=== PATIENT | male | born 1980 | race Caucasian/White ===

== ENCOUNTER 2025-04-03 14:52 | Emergency (ER) | payer OTHER, SELFPAY ==
--- OUTSIDE RECORDS SUMMARY | 2024-04-05 10:30 | XMS_ITS | Encounter Summary ---
Author Name [facility] [place] [facility] [place] [facility] [place] Address [address] [place] [address] Care Team Providers Care Psychological Science Professor Name Role Phone SHELLEY SAAVEDRA Primary Care Provider Unavailabl e Insurance Providers: All historical and current Section Date Range: From patient's date of to the date document was created. This section includes the names of all active insurance providers for the patient. Insurance Provider Type of Coverage Plan Name Start of Policy Coverage End of Policy Coverage Group Number Member ID Insurance Provider's Telephone Number Policy Camp's Name Patient's Relationship to Policy Camp CIGNA* HIGH DEDUCTIBL E HEALTH PLAN W/HEALTH SAVINGS ACCOUNT [employer] HDHP HSA Aug 01, 2016 [id number] [phone] DEE FULLER SPOUSE [facility] MENTAL HEALTH [employer] (HDHP /HSA) Aug 01, 2016 [id number] DEE FULLER SPOUSE [employer] ([id number]) PRESCRIPT ION [employer] (HDHP /HSA) Aug 01, 2016 [id number] DEE FULLER SPOUSE [employer] ([id number]) PRESCRIPT ION [employer] CIAL Aug 01, 2016 [id number] [phone] DEE FULLER SPOUSE [employer] ([id number]) PRESCRIPT ION [employer] HDHP HSA Aug 01, 2016 [id number] DEE FULLER SPOUSE Selected Encounter This section includes the information on record at [place] for the Encounter. Date/Time Encounter Type Encounter Description Reason Provider Source Apr 05, 2024 02:30 PM OFFICE O/P EST HI 40 MIN SUBSTANCE USE DISORDER IND ICD-10-CM F11.20 Opioid dependence, uncomplicated RACHEL HANNAH IHE Encounter Template Text not used by [place] Assessments - Encounter Diagnoses This section includes the primary and secondary diagnoses documented for the Encounter. Date/Time Primary/Secondary Diagnosis Diagnosis Name Provider Source Apr 05, 2024 04:04 PM PRIMARY Opioid dependence, uncomplicated RACHEL HANNAH [place] [facility] [facility] Apr 05, 2024 04:04 PM SECONDARY Post-traumatic stress disorder, chronic RACHEL HANNAH [place] [facility] [facility] Plan of Treatment: Future Appointments (+ 6 months) and Future Tests (+/- 45 days) The Plan of Treatment section includes future care activities for the patient from [facility] [place] [facility]. This section includes future appointments and future orders which are active, pending or scheduled. Future Appointments This section includes appointments that were scheduled to occur 6 months from the date of the Encounter, up to a maximum of 20 appointments. The data comes from all [place] treatment facilities. Appointment Date/Time Appointment Type Appointme nt Facility Name May 31, 2024 02:30 PM AMBULATORY - PSYCHIATRY [place] [facility] [facility] Jun 12, 2024 02:00 PM AMBULATORY - MEDICINE [place] [facility] Jun 13, 2024 09:00 AM AMBULATORY - PSYCHIATRY [facility] Jun 21, 2024 01:00 PM AMBULATORY - PSYCHIATRY [facility] Jun 25, 2024 02:30 PM AMBULATORY - PSYCHIATRY [place] [facility] [place] [facility] Jul 13, 2024 02:30 PM AMBULATORY - PSYCHIATRY [place] [facility] [place] [facility] Jul 13, 2024 02:30 PM AM[place]ULATORY [place] [facility] Jul 19, 2024 02:00 PM AMBULATORY - PSYCHIATRY [facility] Jul 24, 2024 02:30 PM AMBULATORY - PSYCHIATRY [place] [facility] [place] [facility] Aug 21, 2024 02:30 PM AMBULATORY - PS[facility]CHIATRY [facility] Sep 18, 2024 01:30 PM AMBULATORY - PSYCHIATRY [facility] Active, Pending, and Scheduled Orders This section includes a listing of several types of active, pending, and scheduled orders, including clinic medications orders, diagnostic test orders, procedure orders and consult orders; where the start date of the order is 45 days before the date of the Encounter or 45 days after the date of theEncounter. The data comes from all [place] treatment facilities. Test Date/Time Test Type Test Details Facility Name May 03, 2024 02:45 PM Laboratory - Chemi stry Order DRUGS OF ABUSE URINE (DRUG) SP [facility] Lab Results: +/- 30 days of the encounter This section includes the Chemistry and Hematology Lab Results on record with [place] for the patient. Radiology Reports and Pathology Reports are provided separately, in subsequent sections. Lab Results This section contains the Chemistry/Hematology Results that were resulted 30 days before or 30 daysafter the date of the Encounter. Date/Time Source Result Type Result - Unit Interpretation Reference Range Specimen Type Comment Apr 11, 2024 02:30 PM [facility] DRUGS OF ABUSE URINE Specimen Type: URINE Comment: Urine with Cr <5 is diluted or substituted. Cr between 5 and 20 is very dilute. Urine with SG of 1.001 or less is diluted or substituted. SG of 1.003 or less is very dilute. Urine with a pH <3 or >11 has been adulterated and is unsuitable for testing by our current method. Urine with pH between 3 and 4 OR 10 and 11 may have been adulterated. FENTANYL CONFIRMATION NOT SENT BY LAB. Ordering Provider: RACHEL HANNAH Report Released Date/Time: Mar 08, 2024 02:45 PM Reporting Lab: [address] [id number] Performing Lab: [address] [id number] AMPHETAMINES SCREEN NONE-DETECTED None-Detected, Cutoff = 1000 ng/mL BENZODIAZEPINES SCREEN NONE-DETECTED Non e-Detected, Cutoff = 200 ng/mL COCAINE SCREEN NONE-DETECTED None-Detect ed,Cutoff = 300 ng/mL OPIATES SCREEN NONE-DETECTED None-Detect ed, Cutoff = 300 ng/mL CANNABINOIDS SCREEN POSITIVE HH None-Detect ed,Cutoff = 50 ng/mL BARBITURATES SCREEN NONE-DETECTED None-D etected,Cutoff = 200 ng/mL OXYCODONE SCREEN NONE-DETECTED None-Dete cted, Cutoff = 100 ng/mL BUPRENORPHINE (URINE) POSITIVE HH None Detected, Cutoff = 10.0 ng/mL ALCOHOL, ETHYL URINE NONE-DETECTED mg/dL NONE-DETECTED, cutoff = 10 mg/dL FENTANYL SCREEN NONE-DETECTED ng/mL Nega tive: Cutoff = 1.00 ng/mL PH, RIGOBERTO 5.5 [pH] 4-10 CREATININE, RIGOBERTO 398.49 mg/dL >20 SP.GRAVITY, RIGOBERTO 1.021 H 1.003-1.020 Social History: Smoking Status (Most current) and Tobacco Use (All prior to encounter date) This section includes the most current, and the historical, smoking and tobacco- related health factors from the [place] facility where the Encounter took place. Current Smoking Status This section includes the most current smoking, or tobacco-related health factor, from the [place] facility where the Encounter took place. Date/Time Current Smoking Status Comment [facility] Jul 05, 2019 09:23 AM [place]-TOBACCO QUIT 5 TO < 15 [facility] Tobacco Use History This section includes a history of the smoking, or tobacco-related health factors, that were collected on or before the date of the Encounter. The data comes from the [place] facility where the Encounter took place. Date/Time Smoking Status/Tobac co Use Comment Facility Jul 05, 2019 09:23 AM VA-TOBACCO QUIT 5 TO < 15 YRS [place] [facility] [place] [facility] Jun 21, 2018 10:07 AM VA-TOBACCO FORMER USER [place] [facility] [place] [facility] Jun 21, 2018 10:07 AM RI-TOBACCO QUIT 5 TO < 15 YRS [place] [facility] [place] [facility] Jul 12, 2017 11:33 AM QUIT TOBACCO USE > 7 YEARS AGO [place] [facility] [place] [facility] Aug 10, 2016 01:52 PM QUIT TOBACCO USE > 7 YEARS AGO [place] [facility] [facility] Aug 11, 2015 01:06 PM QUIT TOBACCO USE > 7 YEARS AGO [facility] Sep 10, 2010 01:42 PM QUIT TOBACCO USE > 7 YEARS AGO [facility] Oct 06, 2009 10:50 AM QUIT TOBACCO USE 1-7 YEARS AGO 2.5 years ago [facility] Sep 27, 2008 12:40 PM QUIT TOBACCO USE 1-7 YEARS AGO [facility] May 16, 2008 11:03 AM V1-PT DECLINES REF TO TOBACCO CESS [facility] May 16, 2008 11:03 AM V1-PT DECLINES TOBACCO CESSATION MEDS [facility] May 16, 2008 11:03 AM V1-PT THINKING ABOUT QUIT TOBACCO USE [facility] Nov 27, 2007 03:00 PM V1-PT DECLINES REF TO TOBACCO CESS [facility] Nov 27, 2007 03:00 PM V1-PT DECLINES TOBACCO CESSATION MEDS [facility] Nov 27, 2007 03:00 PM V1-PT THINKING ABOUT QUIT TOBACCO USE [facility] Oct 06, 2007 03:49 PM V1-PT DECLINES REF TO TOBACCO CESS [facility] Oct 06, 2007 03:49 PM V1-PT DECLINES TOBACCO CESSATION MEDS [facility] Oct 06, 2007 03:49 PM V1-PT NOT INTERESTED IN QUIT TOBACCO USE [facility] Oct 06, 2007 11:28 AM CURRENT SMOKER smokes 1/2 PPD since age 20 [facility] Encounter Notes: All associated encounter notes This section contains the clinical notes associated to the Encounter. Date/Time Encounter Note(s) Provider Source May 30, 2024 12:36 PM LETTERS: LOCAL TITLE: PATIENT LETTER (B) STANDARD TITLE: LETTERS DATE OF NOTE: MAY 30, 2024@12:36 ENTRY DATE: MAY 30, 2024@12:37:03 AUTHOR: REMEDIOS DANIEL COSIGNER: URGENCY: STATUS: COMPLETED The following letter was generated and will be mailed to patient to promote engagement: Dear Mr. uFller, We have been trying to reach you at the request of your brother who provided info to our Patient Sap Payroll Consultant regarding your recent hospitalization. Please contact us so that we may assist with connecting you with [facility]. We are available Tuesday through Tuesday from 8am to 4:30pm. Please call Oil Furnace Installer Atifkaylin Riggins at [phone]. We look forward to hearing from you. Sincerely, Remedios Daniel PsyD [facility] Polisher for Outpatient Mental [facility] REMEDIOS DANIEL [facility] Apr 05, 2024 04:04 PM ACCOUNTING OF DISC LOSURES NOTE: LOCAL TITLE: STATE PRESCRIPTION DRUG MONITORING PROGRAM STANDARD TITLE: ACCOUNTING OF DISCLOSURES NOTE DATE OF NOTE: APR 05, 2024@16:04:37 ENTRY DATE: APR 05, 2024@16:04:37 AUTHOR: RACHEL HANNAH EXP COSIGNER: URGENCY: STATUS: COMPLETED This PDMP query was submitted by Rachel Hannah MD. The clinical justification for this PDMP query is to review controlled substances prescribed outside of the [facility], and any additional information that may become available, as an important component of standard clinical care, and in accordance with [facility] policy. Patient information was shared with the PDMP [place]. No prescription(s) for controlled substances outside the [facility] were found in the last 90 days. /vance/ RACHEL HANNAH MD PHYSICIAN Signed: 04/05/2024 16:04 RACHEL HANNAH [place] [facility] [place] [facility] Apr 05, 2024 02:30 PM TELEHEALTH NOTE: LOCAL TITLE: VA VIDEO CONNECT NOTE STANDARD TITLE: TELEHEALTH NOTE DATE OF NOTE: APR 05, 2024@14:30 ENTRY DATE: APR 05, 2024@14:30:59 AUTHOR: RACHEL HANNAH EXP COSIGNER: URGENCY: STATUS: COMPLETED [facility] Video Connect ([facility]VC) Standard Documentation VVC Clinician Resources Only: E911 (Emergency Call Relay Center): [phone] [facility] - ([phone]) press #1. BORIS Suicide Coordinator [phone], Ext. [phone]; Back-up Ext. [phone] Clinical Project Leader of the Day(AOD), Willis ESCALANTE [phone], Ext. [phone] Introduction: Visit is being conducted by [place] Video Connect. identified with 2 identifiers: [X] Full Name [ ] Date of [X] Address [ ] VA ID Card *We shouldn't be asking for SSN over a video visit so want to offer only acceptable identifiers for video visits.* Emergency Plan: Tigrett confirmed and/or provided the following information in case of emergency or technology failure. PATIENT PHONE - PHONE NUMBER [CELLULAR] - NONE FOUND Is patient phone number correct, if not, enter below: Tigrett's phone number: KIRSTY FULLER [address] [place], [place], [address] 's present location and address for appointment: at work, in private room 's emergency contact name and phone number: CPRS reported that location is private and safe: Yes Informed Consent: Tigrett informed of the risks and benefits of Telehealth video care. Tigrett has the right to refuse video services. If refuses video visit, a fgqg-ko-gamk visit will be scheduled. Tigrett verbalized consent for this video visit: Yes provided consent for any other persons present for visit: N/A If yes, who and relationship to patient: Secure visit: Visit was locked for security and privacy:Yes INFORMED CONSENT REVIEWED: At beginning of session reviewed rights and limits of confidentiality, mandatory reporting situations, duty to warn and protect, Steve Warning, (if treatment team finds patient to be an acute danger to himself or others, that this information could be relayed to a court of law and presented to a windows 7 deployment lead), and [facility] access for active duty service members. Provided Suicide Prevention Hotline number, and other contact numbers as necessary. Telehealth Informed Consent: verbalized consent for this telephonic visit: Yes DIAGNOSES AND PROBLEMS TREATED THIS VISIT: Opioid dependence, on maintenance treatment Chronic PTSD MEDS: Buprenorphine/naloxone 12 mg/3 mg daily INTERVAL HISTORY/ CURRENT PROBLEMS The was assessed via VVC in the buprenorphine Clinic for medication management. Two identifiers were used. He says that in general, he is doing well. Offers no specific concerns today. Things are peaceful and quiet. Kids are starting back at school. Denies cravings, med side effects. His mood, sleep, motivations and energy levels have been reasonable. He denies any SI/HI. 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 Only down side - I drive 45 min to work, but I have my 2 go-to podcasts. He currently lives with his parents, downstairs apt, feels private enough . Saving funds so he can eventually buy his own place, hopefully by the end of this year , which means no vacations in the near future. Re: divorce - I thought this would be over in 2019! Mediation failed. They were in and out of court. In January 2023, the windows 7 deployment lead imposed a permanent order - they will split time with the kids 50/50, which was his most significant concern. Final day in divorce court 06/08/23. I'm done! I'm not going to dwell on the unfairness. I'm just moving on! He shares joint custody with his ex-. 3 years ago, he discovered that his was having an affair. He was in shock as he thought their marriage was good. Their 2 children - Katey age 10, Arjun age 7 - stay with his parents after school during the day and they otherwise split time with the kids 50/50. He feels lauro to see them every day when he comes home from work. They started back in school. His children's best friends are his brother's 2 kids, same ages; brother and his family live in [place]. SUBSTANCE ABUSE: Caffeine:1 cup/day Tobacco: no Cocaine: no Opioid: on suboxone Alcohol: 2 drinks/week Cannabis: 2-3 days a week REVIEW OF SYSTEMS MENTAL HEALTH: SLEEP: fine MOOD: good mood reported PTSD: Nightmares, flashbacks, intrusive memories. avoidance:no ANXIETY:no ANGER/IRRITABILITY/AGGRESSI ON: no SUICIDAL MOOD/IDEAS: denies SUBSTANCE USE: as above use of alcohol or illegal/non-prescribed drugs TOBACCO: none ANDREINA/HYPOMANIA: None. PSYCHOTIC FEATURES: None. ALCOHOL OR DRUG USE: as above OVERALL CHANGE SINCE LAST VISIT: same DEGREE OF IMPAIRMENT OF DAILY FUNCTION: moderate MEDICATION RECONCILIATION: pt not on no new/ non-VA prescribed medications or herbal treatments. MSE: Tigrett is casually dressed and groomed. He is polite with bright affect. Mental Status: Alert, calm, pleasant, clear and goal directed. No affective disturbance; thoughts are logical without evidence of confusion or psychosis. Reasonable insight is evident at this time. pt is aware that he is at a high risk to engage on dangerous behavior is he uses ETOH or illicit substances LABS: reviewed recent labs. No abnormalities on the kidney and LF LAST UDS: 02/14: POS bup, cannab; NEG for everything else. ASSESSMENT: OUD on suboxone: Patient reports maintaining abstinence from alcohol and other drugs No evidence of overmedication, side effects or withdrawals. Responding well to current dose. Reviewed the Uds and self report for Sobriety/ Relapse on alcohol or drugs. 1. Pt is in full remission 2. CGI-I Scale: 1 A 7-point rating of patient improvement. A score of 1 corresponds to a rating of very much improved; 2=much improved; 3=minimally improved; 4=no change; 5=minimally worse; 6=much worse; 7=very much worse. Patient is making significant progress and his functionality has improved remarkably. TREATMENT PLAN #1. Opioid dependence on Buprenorphine [x] Urine Drug Screen [x] Continuation of buprenorphine/naloxone at the same dose [ ] Change suboxone dose as follows: [x] Patient was encouraged to continue ABSTINENCE from use of opioids and other illicit drugs [ ] Patient to attend [facility] group treatment [ ] Referral for inpatient detox/higher level of care - Prescribe the same dose of Suboxone to keep cravings under control. - Educate about safe/effective use of medication and reinforced awareness of his substance dependence problem. - Monitor compliance, side effects and effectiveness of the Suboxone. - Recommend patient to continue attending aftercare psychosocial treatment, AA, or NA meetings. Cannabis use: Educated about the pros and cons of cannabis use, including imminent symptoms, short and halfway effects of using cannabis. Encouraged abstinence. Alcohol use: education and counseling provided, especially the interactions with suboxone. is aware and does not take his suboxone on the days he plans to drink alcohol with supper. He says that his consumption has been less than weekly. RTC: [facility] 8 WEEKS, I WILL BE AWAY IN 4 WEEKS. HE HAS SUB REFILL. EDUCATION/REMS: Instructed the patient to keep suboxone in a secure place, out of the sight and reach of all others, especially children.Ingestion by a child may cause respiratory depression that can result in . If a child is exposed to one of these products, medical attention should be sought immediately. Warned patient that it is extremely dangerous to self-administer non- prescribed benzodiazepines or other central nervous system (ROBOTIC TOY INVENTOR) depressants (including alcohol) with suboxone. Cautioned patient to use their prescribed benzodiaepines only as directed by their prescriber. > Instructed patient never to give these products to anyone else as selling or giving away buprenorphine-containing products is against the law. Pt evaluated for assessment of dangerous behavior. Pt denied any thoughts/purpose/intention/ ideas to self-harm. Pt doesnt present any psych/sxs such as thought disorder or mood disorder. Pt is aware that during periods of drunkenness he might get into acts that are dangerous to self and others and that he has to avoid using substance. Patient provided with Suicide Prevention Lifeline number(0-673-011-TALK) and urged to call that number at any time if he has thoughts about suicide and , or to call 911 or go to nearest E.R.if he has suicidal thoughts. Patient is aware of how to access [facility] open access MH clinic in [facility] during weekdays for immediate mental health needs if I am not available. Patient has capacity to make his own medication decisions at present time. Patient agreed with above plan. Time spent in this encounter: 40 minutes. Greater than 50% of time spent in omvb-yq-lizp, counseling regarding abstinence, treatment goals, medication effects and side effects, need for psychotherapy, dependence best methods for taking medication. /vance/ RACHEL HANNAH MD PHYSICIAN Signed: 04/05/2024 16:04 RACHEL HANNAH [facility]
--- OUTSIDE RECORDS SUMMARY | 2024-05-31 10:30 | XMS_ITS | Encounter Summary ---
Author Name [facility] [place] [facility] [place] [facility] [place] [facility] [place] Address [address] [place] [address] Care Team Providers Care Senior Developer Name Role Phone SHELLEY SAAVEDRA Primary Care [...] MASSM UTUAL HDHP HSA Aug 01, 2016 [id number] [phone] DEE STRINGER SPOUSE [facility] UTUAL (HDHP /HSA) Aug 01, 2016 [id number] DEE STRINGER SPOUSE [facility] ([id number]) PRESCRIPT ION [facility]UAL (HDHP /HSA) Aug 01, 2016 [id number] DEE STRINGER SPOUSE [employer] ([id number]) PRESCRIPT ION MASSM UTUAL [facility] CIAL Aug 01, 2016 [id number] DEE STRINGER SPOUSE [employer] ([id number]) PRESCRIPT ION [facility] HDHP HSA Aug 01, 2016 K4UA [id number] DEE STRINGER SPOUSE Selected Encounter This section includes the information on record at [place] for the Encounter. Date/Time Encounter Type Encounter Description Reason Provider Source May 31, 2024 02:30 PM OFFICE O/P EST HI 40 MIN SUBSTANCE USE DISORDER IND ICD-10-CM F11.20 Opioid dependence, uncomplicated RACHEL HANNAH IHE Encounter Template Text not used by [place] Assessments - Encounter Diagnoses This section includes the primary and secondary diagnoses documented for the Encounter. Date/Time Primary/Secondary Diagnosis Diagnosis Name Provider Source May 31, 2024 03:52 PM PRIMARY Opioid dependence, uncomplicated RACHEL HANNAH [place] [facility] [place] [facility] May 31, 2024 03:52 PM SECONDARY Post-traumatic stress disorder, chronic RACHEL HANNAH [facility] [place] [facility] Plan of Treatment: Future Appointments (+ 6 months) and Future Tests (+/- 45 days) The Plan of Treatment section includes future care activities for the patient [facility] [place] [facility] This section includes future appointments and future orders which are active, pending or scheduled. Future Appointments This section includes appointments that were scheduled to occur 6 months from the date of the Encounter, up to a maximum of 20 appointments. The data comes from all [place] treatment facilities. Appointment Date/Time Appointment Type Appointme nt Facility Name Jun 12, 2024 02:00 PM AMBULATORY - MEDICINE [place] [facility] [place] [facility] Jun 13, 2024 09:00 AM AMBULATORY - PSYCHIATRY [facility] Jun 21, 2024 01:00 PM AMBULATORY - PSYCHIATRY [facility] Jun 25, 2024 02:30 PM AMBULATORY [place]AT[place] [facility] [place] [facility] Jul 13, 2024 02:30 PM AM[place]ULATORY [place] [facility] [place] [facility] Jul 13, 2024 02:30 PM [facility] [place] [facility] Jul 19, 2024 02:00 PM AMBULATORY - PSYCHIATRY [facility] Jul 24, 2024 02:30 PM AMBUL[facility]ORY [place] [facility] [place] [facility] Aug 21, 2024 02:30 PM AMBULATORY [place] [facility] [place] [facility] Sep 18, 2024 01:30 PM AMBULATORY - PSYCHIATRY [facility] Oct 16, 2024 03:00 PM AMBULATORY - PSYCHIATRY [facility] Nov 13, 2024 03:00 PM AMBULATORY - PSYCHIATRY [facility] Active, Pending, and Scheduled Orders This section includes a listing of several types of active, pending, and scheduled orders, including clinic medications orders, diagnostic test orders, procedure orders and consult orders; where the start date of the order is 45 days before the date of the Encounter or 45 days after the date of theEncounter. The data comes from all [place] treatment facilities. Test Date/Time Test Type Test Details Facility Name May 03, 2024 02:45 PM Laboratory - Chemi yaneliy Order DRUGS OF ABUSE URINE (DRUG) SP [facility] Lab Results: +/- 30 days of the encounter This section includes the Chemistry and Hematology Lab Results on record with [place] for the patient. Radiology Reports and Pathology Reports are provided separately, in subsequent sections. Lab Results This section contains the Chemistry/Hematology Results that were resulted 30 days before or 30 daysafter the date of the Encounter. Date/Time Source Result Type Result - Unit Interpretation Reference Range Specimen Type Comment Jun 26, 2024 11:36 AM [facility] DRUGS OF ABUSE URINE Specimen Type: [...] Mar 08, 2024 02:45 PM Reporting Lab: [address] [address] Performing Lab: [address] [address] AMPHETAMINES SCREEN NONE-DETECTED None-Detected, Cutoff = 1000 [...] tive: Cutoff = 1.00 ng/mL PH, RIGOBERTO 7.1 [pH] 4-10 CREATININE, RIGOBERTO 74.76 mg/dL >20 SP.GRAVITY, RIGOBERTO 1.011 1.003-1.020 Jun 13, 2024 09:00 AM [facility] TSH SERUM Specimen Type: SERUM No comment entered. Ordering Provider: SHELLEY SAAVEDRA Report Released Date/Time: Jun 08, 2024 02:54 PM Reporting Lab: [facility] [address] [facility] [address] Performing Lab: [address] [address] TSH 0.55 u[IU]/mL 0.35-5.00 Jun 13, 2024 09:00 AM [facility] LIPID PANEL FASTING SERUM Specimen Type: SERU M No comment entered. Ordering Provider: SHELLEY SAAVEDRA Report Released Date/Time: Jun 08, 2024 02:54 PM Reporting Lab: [facility] [address] [facility] [address] Performing Lab: [address] [address] CHOLESTEROL 200 mg/dL H TRIGLYCERIDE 86 mg/dL 0-150 LDL calculated 118 mg/dL 0-129 CHOL/HDL 3.1 HDL CHOLESTEROL 65 mg/dL H 40-60 Jun 13, 2024 09:00 AM [facility] LIVER FUNCTION SERUM Specimen Type: SERUM No comment entered. Ordering Provider: SHELLEY SAAVEDRA Report Released Date/Time: Jun 08, 2024 02:54 PM Reporting Lab: [address] [address] Performing Lab: [address] [address] PROTEIN,TOTAL 6.9 g/dL 6.0-8.3 ALBUMIN 4.3 g/dL 3.5-5.0 ALKALINE PHOSPHATASE 45 U/L 40-150 AST 27 U/L 5-34 ALT 36 U/L BILIRUBIN, TOTAL 0.4 mg/dL 0.2-1.2 Jun 13, 2024 09:00 AM [facility] HEMOGLOBIN A1C PANEL BLOOD Specimen Type: BLO OD Comment: Values obtained from A1C measurements can vary. For atypical A1C assays, a reported value of 7.0 could actually be between 6.72 and 7.28 if measured by a reference method. A reported value of 9.0 could actually be between 8.73 and 9.27. Ref: http://www.ngsp.org/CAPdata.asp Ordering Provider: SHLELEY SAAVEDRA Report Released Date/Time: Jun 08, 2024 02:54 PM Reporting Lab: [address] [address] Performing Lab: [address] [address] HEMOGLOBIN A1C 5.1 4.0-5.6 Jun 13, 2024 09:00 AM [facility] BASIC METABOLIC PANEL (fasting) SERUM Specime n Type: SERUM No comment entered. Ordering Provider: SHELLEY SAAVEDRA Report Released Date/Time: Jun 08, 2024 02:54 PM Reporting Lab: [address] [address] Performing Lab: [address] [address] UREA NITROGEN 10 mg/dL 7-25 GLUCOSE 100 mg/dL 65-100 SODIUM 141 mmol/L 135-145 POTASSIUM 4.1 mmol/L 3.5-5.0 CHLORIDE 103 mmol/L 100-110 CO2 26 meq/L 20-30 CREATININE, Serum 0.87 mg/dL 0.50-1.40 eGFR(CKD-EPI 2020) >90 mL/min >60 Jun 13, 2024 09:00 AM [facility] CBC AND DIFF (AUTO) BLOOD Specimen Type: AMANDA Martin No comment entered. Ordering Provider: SHELLEY SAAVEDRA Report Released Date/Time: Jun 08, 2024 02:54 PM Reporting Lab: [facility] [address] [facility] [address] Performing Lab: [facility] [address] [facility] [address] WBC 7.51 10*3/uL 4.50-11.00 RBC 4.74 10*6/uL 4.23-5.66 HGB 15.3 g/dL 12.8-17 HCT 45.4 39.2-50.4 MCV 95.8 fL 82-99 MCHC 33.7 g/dL 30.8-35.1 PLT 321 10*3/uL 140-360 RDW-CV 11.6 L 12.0-16.0 MONO, ABS 0.78 10*3/uL 0.30-1.10 MCH 32.3 pg 26.2-32.6 NEUT % 67.7 43.7-75.8 LYMPH % 21.0 14.0-42.3 MONO % 10.4 5.1-13.7 EOS % 0.4 0.4-6.8 BASO % 0.4 0.1-2.0 NEUT, ABS 5.08 10*3/uL 2.20-7.60 LYMPH, ABS 1.58 10*3/uL 1.00-3.20 EOS, ABS 0.03 10*3/uL 0.03-0.44 BASO, ABS 0.03 10*3/uL 0.01-0.13 IMMATURE GRAN % 0.1 0.0-0.7 IMMATURE GRAN, ABS 0.01 10*3/uL 0.00-0.0 6 NRBC % 0.0 0.0-0.0 NRBC, ABS 0.00 10*3/uL 0.00-0.00 Jun 01, 2024 08:43 AM [facility] DRUGS OF ABUSE URINE Specimen Type: [...] Mar 08, 2024 02:45 PM Reporting Lab: [address] [address] Performing Lab: [address] [address] AMPHETAMINES SCREEN NONE-DETECTED None-Detected, Cutoff = 1000 [...] tive: Cutoff = 1.00 ng/mL PH, RIGOBERTO 7.5 [pH] 4-10 CREATININE, RIGOBERTO 121.83 mg/dL >20 SP.GRAVITY, RIGOBERTO 1.015 1.003-1.020 Social History: Smoking Status (Most current) and Tobacco Use (All prior to encounter date) This section includes the most current, and the historical, smoking and tobacco- related health factors from the [place] facility where the Encounter took place. Current Smoking Status This section includes the most current smoking, or tobacco-related health factor, from the [place] facility where the Encounter took place. Date/Time Current Smoking Status Comment Facil it Jul 05, 2019 09:23 AM [place]-TOBACCO QUIT 5 TO < 15 YRS [facility] Tobacco Use History This section includes a history of the smoking, or tobacco-related health factors, that were collected on or before the date of the Encounter. The data comes from the [place] facility where the Encounter took place. Date/Time Smoking Status/Tobac co Use Comment Facility Jul 05, 2019 09:23 AM VA-TOBACCO QUIT 5 TO < 15 YRS [facility] [place] [facility] Jun 21, 2018 10:07 AM VA-TOBACCO FORMER USER [place] [facility] [place] [facility] Jun 21, 2018 10:07 AM VA-TOBACCO QUIT 5 TO < 15 YRS [facility] [place] [facility] Jul 12, 2017 11:33 AM QUIT TOBACCO USE > 7 YEARS AGO [facility] [place] [facility] Aug 10, 2016 01:52 PM QUIT TOBACCO USE > 7 YEARS AGO [facility] [place] [facility] Aug 11, 2015 01:06 PM QUIT TOBACCO USE > 7 YEARS AGO [facility] [place] [facility] Sep 10, 2010 01:42 PM QUIT TOBACCO USE > 7 YEARS AGO [facility] [place] [facility] Oct 06, 2009 10:50 AM QUIT TOBACCO USE 1-7 YEARS AGO 2.5 years ago [facility] [place] [facility] Sep 27, 2008 12:40 PM QUIT TOBACCO USE 1-7 YEARS AGO [facility] [place] [facility] May 16, 2008 11:03 AM V1-PT DECLINES REF TO TOBACCO CESS PRGM [facility] [place] [facility] May 16, 2008 11:03 AM V1-PT DECLINES TOBACCO CESSATION MEDS [facility] [place] [facility] May 16, 2008 11:03 AM V1-PT THINKING ABOUT QUIT TOBACCO USE [facility] [place] [facility] Nov 27, 2007 03:00 PM V1-PT DECLINES REF TO TOBACCO CESS PRGM [facility] [place] [facility] Nov 27, 2007 03:00 PM V1-PT DECLINES TOBACCO CESSATION MEDS [facility] [place] [facility] Nov 27, 2007 03:00 PM V1-PT THINKING ABOUT QUIT TOBACCO USE [facility] [place] [facility] Oct 06, 2007 03:49 PM V1-PT DECLINES REF [facility]BACCO [facility]ESS [facility] Oct 06, 2007 03:49 PM V1-PT DECLINES TOBACCO CESSATION MEDS [facility] Oct 06, 2007 03:49 PM V1-PT NOT INTERESTED IN QUIT TOBACCO USE [facility] Oct 06, 2007 11:28 AM CURRENT SMOKER smokes 1/2 PPD since age 20 [facility] Encounter Notes: All associated encounter notes This section contains the clinical notes associated to the Encounter. Date/Time Encounter Note(s) Provider Source May 31, 2024 03:53 PM ACCOUNTING OF DISC LOSURES NOTE: LOCAL TITLE: STATE PRESCRIPTION DRUG MONITORING PROGRAM STANDARD TITLE: ACCOUNTING OF DISCLOSURES NOTE DATE OF NOTE: MAY 31, 2024@15:53:03 ENTRY DATE: MAY 31, 2024@15:53:03 AUTHOR: RACHEL HANNAH EXP COSIGNER: URGENCY: STATUS: COMPLETED This PDMP query was submitted by Rachel Hannah MD. The clinical justification for this PDMP query is to review controlled substances prescribed outside of the [place], and any additional information that may become available, as an important component of standard clinical care, and in accordance with [facility] policy. Patient information was shared with the PDMP [place]. No prescription(s) for controlled substances outside the [place] were found in the last 90 days. /vance/ RACHEL HANNAH MD PHYSICIAN Signed: 05/31/2024 15:53 R[facility]HEL HANNAH [facility] May 31, 2024 02:33 PM TELEHEALTH NOTE: LOCAL TITLE: VA VIDEO CONNECT NOTE STANDARD TITLE: TELEHEALTH NOTE DATE OF NOTE: MAY 31, 2024@14:33 ENTRY DATE: MAY 31, 2024@14:33:38 AUTHOR: RACHEL HANNAH EXP COSIGNER: URGENCY: STATUS: COMPLETED [facility] Video Connect (VVC) Standard Documentation VVC Clinician Resources Only: E911 (Emergency Call Relay Center): [phone] [facility] Line - ([phone]) press #1. CW Suicide Coordinator [phone], Ext. [phone]; Back-up Ext. [phone] Conventional Mortgage Underwriter of the Day(AOD), Willis ESCALANTE [phone], Ext. [phone] Introduction: Visit is being conducted by [place] Video Connect. [place] identified with 2 identifiers: [X] Full Name [ ] Date of [X] Address [ ] VA ID Card *We shouldn't be asking for SSN over a video visit so want to offer only acceptable identifiers for video visits.* Emergency Plan: confirmed and/or provided the following information in case of emergency or technology failure. PATIENT PHONE - PHONE NUMBER [CELLULAR] - NONE FOUND Is patient phone number correct, if not, enter below: [place]'s phone number: KIRSTY STRINGER [address] [place], [place], [address] [place]'s present location and address for appointment: at work, in private room 's emergency contact name and phone number: CPRS [place] reported that location is private and safe: Yes Informed Consent: informed of the risks and benefits of Telehealth video care. has the right to refuse video services. If refuses video visit, a [id number] visit will be scheduled. verbalized consent for this video visit: Yes [...] court of law and presented to a implementation specialist payroll), and DOD access for active duty service members. Provided Suicide Prevention Hotline number, and other contact numbers as necessary. Telehealth Informed Consent: [place] verbalized consent for this telephonic visit: Yes DIAGNOSES AND PROBLEMS TREATED THIS VISIT: Opioid dependence Chronic PTSD MEDS: Buprenorphine/naloxone 12 mg/3 mg daily INTERVAL HISTORY/ CURRENT PROBLEMS The was assessed via VVC in the [facility]uprenorphine Clinic for medication management. Two identifiers were used. One week ago, 05/25, he admitted himself to [facility] in [place]. I felt like I was becoming manic. I wasn't feeling well. It felt like I was being faced with different scenarios to see how I would react. Why?? The program was frustrating. I ate and slept well but there was no structure. No new meds. States he feels better now, but I still have questions. His plan: I know I need to get off the couch and not play as many video games. And no weed. Discussed possibility of seeing psych med prescriber. He will consider it, but wants to wait. He says that in general, he is doing better. Kids are starting back at school. I don't want to be away from them any longer. Denies cravings, med side effects. His mood, sleep, motivations and energy levels have been reasonable. He denies any SI/HI. SOCIAL HX: Currently, he is taking time off from work, using short-term disability.. 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 Only down [...] out of court. In January 2023, the implementation specialist payroll imposed a permanent order - they will [...] ages; brother and his family live in [place]. SUBSTANCE ABUSE: Caffeine:1 cup/day Tobacco: no Cocaine: [...] non-VA prescribed medications or herbal treatments. MSE: [place] is casually dressed and groomed. He is [...] on the kidney and LF LAST UDS: 04/11: POS bup, cannab; NEG for everything else. [...] cannabis use, including imminent symptoms, short and load dropper effects of using cannabis. Encouraged abstinence. Alcohol use: education and counseling provided, especially the interactions with suboxone. [place] is aware and does not take his suboxone on the days he plans to drink alcohol with supper. He says that his consumption has been less than weekly. RE: SHORT-TERM DISABILITY - HE REQUESTS 'HEALTH CARE CERTIFICATION FORM' BE EMAILED TO: [email or web address] ASK DOROTEO TO ASSIST. RTC: 4 WEEKS. EDUCATION/REMS: Instructed the patient to keep suboxone [...] prescribed benzodiazepines or other central nervous system (CPHT) depressants (including alcohol) with suboxone. Cautioned patient [...] substance. Patient provided with Suicide Prevention Lifeline number(6-572-040-TALK) and urged to call that number at any time if he has thoughts about suicide and , or to call 911 or go to nearest E.R.if he has suicidal thoughts. Patient is aware of how to access [facility] open access clinic in [facility] during weekdays for immediate mental health needs if I am not available. Patient has capacity to make his own medication decisions at present time. Patient agreed with above plan. Time spent in this encounter: 40 minutes. Greater than 50% of time spent in [id number], counseling regarding abstinence, treatment goals, medication effects and side effects, need for psychotherapy, dependence best methods for taking medication. /vance/ RACHEL HANNAH MD PHYSICIAN Signed: 05/31/2024 15:52 RACHEL HANNAH [place] [facility]
--- OUTSIDE RECORDS SUMMARY | 2024-06-12 10:00 | XMS_ITS | Encounter Summary ---
Author Name [facility] [place] [facility] [place] Address [address] [place] [address] Care Team Providers Care Mechanical Service Technician Name Role Phone SHELLEY SAAVEDRA Primary Care [...] PLAN W/HEALTH SAVINGS ACCOUNT MASSM [facility]UAL [facility] Aug 01, 2016 [id number] [phone] DEE STRINGER SPOUSE [facility] MENTAL HEALTH [facility] (HDHP /HSA) Aug 01, 2016 [id number] DEE STRINGER SPOUSE [facility] ([id number]) PRESCRIPT ION [facility] (HDHP /HSA) Aug 01, 2016 [id number] DEE STRINGER SPOUSE [facility] ([id number]) PRESCRIPT ION [facility] Aug 01, 2016 [id number] [phone] DEE STRINGER SPOUSE [facility] ([id number]) PRESCRIPT ION [facility] Aug 01, 2016 [facility] [id number] DEE STRINGER SPOUSE Selected Encounter This section includes the information on record at [place] for the Encounter. Date/Time Encounter Type Encounter Description Reason Provider Source Jun 12, 2024 02:00 PM OFFICE O/P EST LOW 20 MIN PRIMARY CARE/MEDICINE ICD-10-CM R41.9 Unsp symptoms and signs w cognitive functions and awareness SHELLEY SAAVEDRA Janna Encounter Template Text not used by [facility] Assessments - Encounter Diagnoses This section includes the primary and secondary diagnoses documented for the Encounter. Date/Time Primary/Secondary Diagnosis Diagnosis Name Provider Source Jun 23, 2024 06:56 AM PRIMARY Unsp symptoms and signs w cognitive functions and awareness SHELLEY SAAVEDRA [facility] Plan of Treatment: Future Appointments (+ 6 months) and Future Tests (+/- 45 days) The Plan of Treatment section includes future care activities for the patient from all [place] treatmentfacilities. This section includes future appointments and future orders which are active, pending or scheduled. Future Appointments This section includes appointments that were scheduled to occur 6 months from the date of the Encounter, up to a maximum of 20 appointments. The data comes from all [place] treatment facilities. Appointment Date/Time Appointment Type Appointme nt Facility Name Jun 13, 2024 09:00 AM AMBULATORY - PSYCHIATRY [facility] Jun 21, 2024 01:00 PM AMBULATORY - PSYCHIATRY [facility] Jun 25, 2024 02:30 PM [place] [place] [facility] [place] [facility] Jul 13, 2024 02:30 PM [place] [facility] [place] [facility] Jul 13, 2024 02:30 PM [facility]ORY [place] [facility] Jul 19, 2024 02:00 PM AMBULATORY - PSYCHIATRY [facility] Jul 24, 2024 02:30 PM [facility] [place] [facility] Aug 21, 2024 02:30 PM [facility] [place] [facility] Sep 18, 2024 01:30 PM AM[facility]UL[facility] [place] [facility] Oct 16, 2024 03:00 PM [facility] [place] [facility] Nov 13, 2024 03:00 PM [facility]UL[place] [place] [facility] [place] [facility] Active, Pending, and Scheduled Orders This section includes a listing of several types of active, pending, and scheduled orders, including clinic medications orders, diagnostic test orders, procedure orders and consult orders; where the start date of the order is 45 days before the date of the Encounter or 45 days after the date of theEncounter. The data comes from all [place] treatment facilities. Test Date/Time Test Type Test Details Facility Name May 03, 2024 02:45 PM Laboratory - Chemi stry Order DRUGS OF ABUSE URINE (DRUG) SP [facility] Jul 26, 2024 02:45 PM Laboratory - Chemi stry Order DRUGS OF ABUSE URINE (DRUG) SP [facility] Lab Results: +/- 30 days of the encounter This section includes the Chemistry and Hematology Lab Results on record with [place] for the patient. Radiology Reports and Pathology Reports are provided separately, in subsequent sections. Lab Results This section contains the Chemistry/Hematology Results that were resulted 30 days before or 30 daysafter the date of the Encounter. Date/Time Source Result Type Result - Unit Interpretation Reference Range Specimen Type Comment Jun 26, 2024 11:36 AM [facility] DRUGS OF ABUSE URINE Specimen Type: URINE [...] Mar 08, 2024 02:45 PM Reporting Lab: [address] [address] Performing Lab: [address] [address] AMPHETAMINES SCREEN NONE-DETECTED None-Detected, Cutoff = 1000 [...] 1.011 1.003-1.020 Jun 13, 2024 09:00 AM [facility] LIPID PANEL FASTING SERUM Specimen Type: SERU M No comment entered. Ordering Provider: SHELLEY SAAVEDRA Report Released Date/Time: Jun 08, 2024 02:54 PM Reporting Lab: [address] [address] Performing Lab: [address] [address] CHOLESTEROL 200 mg/dL H TRIGLYCERIDE 86 mg/dL 0-150 LDL calculated 118 mg/dL 0-129 CHOL/HDL 3.1 HDL CHOLESTEROL 65 mg/dL H 40-60 Jun 13, 2024 09:00 AM [facility] LIVER FUNCTION SERUM Specimen Type: SERUM No comment entered. Ordering Provider: SHELLEY SAAVEDRA Report Released Date/Time: Jun 08, 2024 02:54 PM Reporting Lab: [facility] [address] [facility] [address] Performing Lab: [address] [address] PROTEIN,TOTAL 6.9 g/dL 6.0-8.3 ALBUMIN 4.3 g/dL 3.5-5.0 ALKALINE PHOSPHATASE 45 U/L 40-150 AST 27 U/L 5-34 ALT 36 U/L BILIRUBIN, TOTAL 0.4 mg/dL 0.2-1.2 Jun 13, 2024 09:00 AM [facility] TSH SERUM Specimen Type: SERUM No comment entered. Ordering Provider: SHELLEY SAAVEDRA Report Released Date/Time: Jun 08, 2024 02:54 PM Reporting Lab: [address] [address] Performing Lab: [address] [address] TSH 0.55 u[IU]/mL 0.35-5.00 Jun 13, 2024 09:00 AM [facility] BASIC METABOLIC PANEL (fasting) SERUM Specime n Type: SERUM No comment entered. Ordering Provider: SHELLEY SAAVEDRA Report Released Date/Time: Jun 08, 2024 02:54 PM Reporting Lab: [address] [address] Performing Lab: [address] [address] UREA NITROGEN 10 mg/dL 7-25 GLUCOSE 100 mg/dL 65-100 SODIUM 141 mmol/L 135-145 POTASSIUM 4.1 mmol/L 3.5-5.0 CHLORIDE 103 mmol/L 100-110 CO2 26 meq/L 20-30 CREATININE, Serum 0.87 mg/dL 0.50-1.40 eGFR(CKD-EPI 2020) >90 mL/min >60 Jun 13, 2024 09:00 AM [facility] HEMOGLOBIN A1C PANEL BLOOD Specimen Type: BLO OD Comment: Values obtained from A1C measurements can vary. For atypical A1C assays, a reported value of 7.0 could actually be between 6.72 and 7.28 if measured by a reference method. A reported value of 9.0 could actually be between 8.73 and 9.27. Ref: http://www.ngsp.org/CAPdata.asp Ordering Provider: SHELLEY SAAVEDRA Report Released Date/Time: Jun 08, 2024 02:54 PM Reporting Lab: [address] [address] Performing Lab: [address] [address] HEMOGLOBIN A1C 5.1 4.0-5.6 Jun 13, 2024 09:00 AM [facility] CBC AND DIFF (AUTO) BLOOD Specimen Type: BLOO D No comment entered. Ordering Provider: SHELLEY SAAVEDRA Report Released Date/Time: Jun 08, 2024 02:54 PM Reporting Lab: [facility] [address] [facility] [address] Performing Lab: [address] [address] WBC 7.51 10*3/uL 4.50-11.00 RBC 4.74 10*6/uL [...] 10*3/uL 0.00-0.00 Jun 01, 2024 08:43 AM [facility] DRUGS OF ABUSE URINE Specimen Type: URINE [...] Mar 08, 2024 02:45 PM Reporting Lab: [address] [address] Performing Lab: [address] [address] AMPHETAMINES SCREEN NONE-DETECTED None-Detected, Cutoff = 1000 [...] and tobacco- related health factors from the [place] facility where the Encounter took place. Current Smoking Status This section includes the most current smoking, or tobacco-related health factor, from the [place] facility where the Encounter took place. Date/Time Current Smoking Status Donna taveras Jun 12, 2024 02:00 PM [place]-TOBACCO FORMER USER [facility] Tobacco Use History This section includes a history of the smoking, or tobacco-related health factors, that were collected on or before the date of the Encounter. The data comes from the [place] facility where the Encounter took place. Date/Time Smoking Status/Tobacco Use Comment F acility Jun 12, 2024 02:00 PM VA-TOBACCO QUIT 15 YRS OR MORE [facility] Jan 14, 2023 10:00 AM VA-TOBACCO FORMER USER [facility] Jan 14, 2023 10:00 AM VA-TOBACCO QUIT 15 YRS OR MORE [facility] Jan 14, 2023 10:00 AM VA-TOBACCO QUIT 5 TO < 15 YRS [facility] Jun 19, 2020 02:30 PM VA-TOBACCO FORMER USER [facility] Jun 19, 2020 02:30 PM VA-TOBACCO QUIT 5 TO < 15 YRS [facility] Encounter Notes: All associated encounter notes This section contains the clinical notes associated to the Encounter. Date/Time Encounter Note(s) Provider Source Jun 12, 2024 02:03 PM PREVENTIVE MEDICIN E NURSING NOTE: LOCAL TITLE: CLINICAL REMINDERS/NURSING STANDARD TITLE: PREVENTIVE MEDICINE NURSING NOTE DATE OF NOTE: JUN 12, 2024@14:03 ENTRY DATE: JUN 12, 2024@14:03:33 AUTHOR: USMAN VARGAS COSIGNER: URGENCY: STATUS: COMPLETED Advance Directive Screen MH AD: Patient does not have a completed advance directive on file at any facility, [place] or outside. S/he is not interested in completing one at this time. The patient received education about Advance Directives and written notification of his/her rights. Suicide Screen: C-SSRS Screening [place] Suicide Severity Rating Scale (C-SSRS) screener 1. Over the past month, have you wished you were or wished you could go to sleep and not wake up? No 2. Over the past month, have you had any actual thoughts of killing yourself? No 3. Over the past month, have you been thinking about how you might do this? Response not required due to responses to other questions. 4. Over the past month, have you had these thoughts and had some intention of acting on them? Response not required due to responses to other questions. 5. Over the past month, have you started to work out or worked out the details of how to kill yourself? Response not required due to responses to other questions. 6. If yes, at any time in the past month did you intend to carry out this plan? Response not required due to responses to other questions. 7. In your lifetime, have you ever done anything, started to do anything, or prepared to do anything to end your life (for example, collected pills, obtained a gun, gave away valuables, went to the roof but didn't jump)? No 8. If YES, was this within the past 3 months? Response not required due to responses to other questions. Homelessness/Food Insecurity Screen: In the past 2 months, have you been living in stable housing that you own, rent, or stay in as part of a household? Yes - Living in stable housing. Are you worried or concerned that in the next 2 months you may NOT have stable housing that you own, rent, or stay in as part of a household? No - Not worried about housing near future The [place] reports the following: Within the past 12 months, you worried whether your food would run out before you got money to buy more. Never true Within the past 12 months, the food you bought just didn't last and you didn't have money to get more. Never true Depression Screening: Perform PHQ-2 A PHQ-2 screen was performed. The score was 0 which is a negative screen for depression. Over the past two weeks, how often have you been bothered by the following problems? 1. Little interest or pleasure in doing things Not at all 2. Feeling down, depressed, or hopeless Not at all Pneumococcal Conjugate Vaccine (PCV15/PCV20): Refuses PCV vaccine Immunization: PNEUMOCOCCAL CONJUGATE, UNSPECIFIED FORMULATION Refusal Reason: PATIENT DECISION Patient refuses all immunization(s) in the PneumoPCV group Date Documented: 06/12/24 14:04 Tobacco Use Screening: The patient is a former tobacco user. The patient quit fifteen or more years ago. Influenza Immunization: Deferral / Refusal The patient declines to receive the recommended dose of seasonal influenza vaccine. Immunization: INFLUENZA, UNSPECIFIED FORMULATION Refusal Reason: PATIENT DECISION Patient refuses all immunization(s) in the FLU group Date Documented: 06/12/24 14:04 Alcohol Use Screen (AUDIT-C): Alcohol Screen: SCREEN FOR ALCOHOL (AUDIT-C) An alcohol screening test (AUDIT-C) was negative (score=4). 1. How often did you have a drink containing alcohol in the past year? Consider a drink to be a 12 ounce can or bottle of regular beer, 8 ounces of malt liquor, a 5 ounce glass of table wine, or a 1.5 ounce shot of liquor (like scotch, gin, or vodka). Four or more times a week 2. How many drinks containing alcohol did you have on a typical day when you were drinking in the past year? One or two drinks 3. How often did you have six or more drinks on one occasion in the past year? Never COVID-19 Immunization: Refused Moderna Monovalent COVID-19 vaccine Immunization: COVID-19 (MODERNA), MRNA, LNP-S, PF, 50 MCG/0.5 ML (AGES 12+ YEARS) Refusal Reason: PATIENT DECISION Patient refuses all immunization(s) in the COVID-19 group Date Documented: 06/12/24 14:05 Tdap Immunization: The patient declines to receive the recommended dose of Tdap vaccine. Immunization: TDAP Refusal Reason: PATIENT DECISION Patient refuses all immunization(s) in the TDAP group Date Documented: 06/12/24 14:06 Sexual Orientation: The patient thinks of their sexual orientation as: Straight or Heterosexual RHS Screen: RHS Screen Session Format: Face to Face Environmental Check Upon inquiry, the individual reports that the environment is safe to proceed. Informed Consent to Screen and Document The individual consents to proceed with screening. The individual consents to documentation of responses. PRIMARY SCREEN: In the past 12 months, how often did a current or former intimate partner (e.g., boyfriend, girlfriend, , , sexual partner): 1. Scream or curse at you Never 2. Insult or talk down to you Never 3. Threaten you with harm Never 4. Physically hurt you Never 5. Force or pressure you to have sexual contact against your will, or when you were unable to say no Never The HITS tool (items 1-4 above) is [place] copyright protected by Fernando Short MD, and the user has full rights to use it throughout the [place] system. PRIMARY SCREEN RESULT: The Primary Screen is NEGATIVE. The individual answered never to all forms of IPV above (i.e., answered never to all 5 items) The individual accepts education and/or resources: No EDUCATION: The individual indicated readiness to learn. Education offered during this session as noted above. The individual indicated understanding by asking relevant questions and making appropriate comments. No barriers to learning were observed or identified. Hepatitis A Vaccine for High Risk: Patient declines/refuses Hepatitis A immunization Immunization: HEP A, UNSPECIFIED FORMULATION Refusal Reason: PATIENT DECISION Patient refuses all immunization(s) in the HepA group Date Documented: 06/12/24 14:06 glen/ USMAN VARGAS LPN PACT 10 Signed: 06/12/2024 14:07 USMAN VARGASFIELD Jun 12, 2024 12:50 PM PHYSICIAN NOTE: LOCAL TITLE: MD NOTE STANDARD TITLE: PHYSICIAN NOTE DATE OF NOTE: JUN 12, 2024@12:50 ENTRY DATE: JUN 12, 2024@12:50:32 AUTHOR: SHELLEY SAAVEDRA EXP COSIGNER: URGENCY: STATUS: COMPLETED HISTORY OF PRESENT ILLNESS: KIRSTY PILAR STRINGER is a 43 yo MALE who presents at the [facility] for his annual wellness exam. No labs completed for today's visit. He presented to [facility] via ambulance on 05/23/24 for evaluation of SI and combativeness and HI w/out plan. His brother called the police. Pt kept asking for a weapon and trying to grab weapons from the police officers tating he needed weapon to protect himself. Crisis evaluated pt and recommended inpt care. He was accepted to [facility] and section 12 was signed. He presents today inquiring about medication to treat him. He states he over thinks things and gets subliminal messages. He has experienced tachycardia and flushing yet denies feeling that he has had panic attacks or is experiencing anxiety. He denies paranoid ideations. He denies recent travel. He denies drug use. Quit cannabis 3 weeks ao - approx the same time these sxs began. He also finished Ozempic at the same time (lost 35-40 lbs). He tells me he sleeps very well. He is living in the basement of his parent's home. He is . Has shared custody of his 11 and 7 yo's. He is inquiring about a benzodiazepine. Advised him will trial hydroxyzine until he sees (hopefully tomorrow). He is accompanied by his father today. Active problems - Computerized Problem List is the source for the followin. Hyperlipidemia 2. Prediabetes 3. Obesity 4. Nondependent Cannabis Abuse 5. Concussion with loss of consciousness 6. Opioid dependence 7. Chronic post-traumatic stress disorder 8. Counseling on Substance Use and Abuse The following VA and Non-VA meds were reconciled with patient: Active Outpatient Medications (including Supplies): Issue Date Status Last Fill Active Outpatient Medications Refills Expiration ======= 1) BUPRENORPHINE 8MG/NALOXONE 2MG SL TAB ACTIVE Issu:05-31-24 Qty: 42 for 28 days Sig: DISSOLVE ONE Refills: 1 Last:06-01-24 AND ONE-HALF TABS UNDER THE TONGUE Expr:12-01-24 ONCE DAILY FOR OPIOID DEPENDENCE ALLERGIES: ========= Patient has answered NKA LAB HISTORY: CHEM 7 TREND Collection DT Spec GLUCOSE BUN CREATIN Sodium K+/Pot CL CO2 05/05/2023 10:28 SERUM 105 H 16 0.85 139 4.5 102 29 10/03/2019 14:38 SERUM 110 H 9 1.00 140 4.3 101 29 04/11/2018 15:12 SERUM 96 11 0.89 138 4.4 100 30 CBC TREND Collection DT Spec WBC RBC HGB HCT MCV MCH PLT 05/05/2023 10:28 BLOOD 6.95 4.35 14.2 41.0 94.3 32.6 315 04/11/2018 15:12 BLOOD 9.41 4.59 14.8 43.4 94.6 32.2 276 HEMOGLOBIN A1C TREND Collection DT Spec HGBA1c 05/05/2023 10:28 BLOOD 5.7 H LIPID PANEL TREND Collection DT Spec CHOL HDL CHO/HDL LDL-c TRIG 05/05/2023 10:28 SERUM 219 H 60 3.7 144 H 76 LIVER PANEL TREND Collection DT Spec AST ALT T BILI ALK [place] T. PROT ALBUMIN 05/05/2023 10:28 SERUM 21 26 0.4 50 7.5 4.4 10/03/2019 14:38 SERUM comment 26 0.4 50 7.4 4.6 Collection DT Spec TSH 05/05/2023 10:28 SERUM 0.63 HISTORY: PERIOD OF SERVICE - [employer] FROM Dec TO Dec COMBAT SERVICE INDICATED: No VITAL SIGNS: Blood Pressure 131/87 (06/12/2024 14:02) Pulse 90 (06/12/2024 14:02) Respiration 16 (06/12/2024 14:) Pulse Oximetry 98% (06/12/2024 14:02) Temperature 97.5 F [36.4 C] (06/12/2024 14:02) Pain 0 (06/12/2024 14:02) Height 66 in [167.6 cm] (06/12/2024:) Weight 173.6 lb [78.74 kg] (06/12/2024 14:) BMI BMI: 28.1 REVIEW OF SYSTEMS: ENT: No sore throat, no cough CARDIOVASCULAR: No chest pain, no palpitations RESPIRATORY: No SOB, no wheezing GASTROINTESTINAL: No abd pain, no N/V/D MUSCULOSKELETAL: No joint pain PSYCHIATRIC: No anxiety, no depression NEUROLOGIC: No H/A, no numbness, no weakness EXAMINATION: GENERAL: WD/WN in NAD HEENT: Moist mucosa NECK: Supple HEART: RRR, S1-S2 LUNGS: CTA B/L EXTREMITIES: FROM x 4 NEUROLOGIC: AAO x3, no focal findings PSYCHIATRIC: Good eye contact, affect normal ASSESSMENT/PLAN: Adult Annual Wellness Exam -advised eye exams yearly and dental exams Q6 mths prn -advised heart healthy well balanced diet and lifestyle habits -advised regular CV exercvise for 30 mins on most days of the week 1. Hyperlipidemia: need labs 2. Prediabetes: has +FH of DM II, need labs 3. Hx Opioid Dependence: on maintenance tx x 10+ yrs, on buprenorphine/naloxone 12mg/3mg daily, managed by Dr Hannah 4. Chronic PTSD: managed by Dr Hannah 5. Cannabis Dependence: quit 3 weeks ago 6. Nicotine Dependence: vapes 7. Obesity: BMI ~28, congratulated on wt loss! (lost 40bs over the pastyr) 8. Subliminal Stimulation: will have him see MH tomorrow, will Rx hydroxyine 50g BID for now He will RTC tomorrow to have his FBW drawn. FOLLOW UP: 1 year - AWE - FBW prior ========= UPCOMING APPOINTMENTS: 06/25/2024 14:30 CWM/NO/VVC/ARELY/WEINER 07/19/2024 14:00 CWM/SO/MHC/WILLIE No barriers; Patient understands and agrees to current treatment plan. If pt has any questions, concerns, or changes in current health status he/she will call or come in to the [facility]. BMI>30/>24.99 High Risk: Patient declines to discuss weight management. Patient declined weight discussion. Discussed revisiting at a future visit. Medication Reconciliation: Outpatient: Has the patient been taking medications as documented in the EMLR? YES: The patient has been taking medications as documented in the EMLR. Essential Medication List for Review used to complete this medication reconciliation. INCLUDED IN THIS LIST: Alphabetical list of active outpatient prescriptions dispensed from this [place] (local) and dispensed from another [place] or [facility] facility (remote) as well as inpatient orders (local, pending and active), local clinic medications, locally documented non-VA medications, and local prescriptions that have or been discontinued in the past 90 days. - All changes in medications, including all non-VA/Herbal/OTC medications were entered into CPRS. - If there were any medications the patient should no longer take, they were discontinued. - The patient/caregiver was instructed to update this list, discard old lists, and take this list to the next appointment, whether with a VA or non-VA provider. JLV Link Data on this list may not be complete. Please check JLV. Allergies/ADRs (Tool #5) FACILITY ALLERGY/ADR -------- [facility] NO KNOWN ALLERGIES [facility] [place] [facility] No Known Allergies Med Recon NoGlossary (Tool #1) INCLUDED IN THIS LIST: Alphabetical list of active outpatient prescriptions dispensed from this [place] (local) and dispensed from another [place] or [facility] facility (remote) as well as inpatient orders (local pending and active), local clinic medications, locally documented non-VA medications, and local prescriptions that have or been discontinued in the past 90 days. Non-VA Meds Last Documented On: Jun 06, 2018 NOTE The display of VA prescriptions dispensed from another [place] or [facility] facility (remote) is limited to active outpatient prescription entries matched to National Drug File at the originating site and may not include some items such as investigational drugs, compounds, etc. NOT INCLUDED IN THIS LIST: Medications self-entered by the patient into personal health records (i.e. [facility]) are NOT included in this list. Non-VA medications documented outside this [place], remote inpatient orders (regardless of status) and remote clinic medications are NOT included in this list. The patient and provider must always discuss medications the patient is taking, regardless of where the medication was dispensed or obtained. ------ OUTPT BUPRENORPHINE 8MG/NALOXONE 2MG SL TAB (Status = Discontinued) DISSOLVE ONE AND ONE-HALF TABS UNDER THE TONGUE ONCE DAILY FOR OPIOID DEPENDENCE Rx# [id number] Last Released: 03/14/24 Qty/Days Supply: Rx Expiration Date: 04/07/24 Refills Remainin Indication: FOR OPIOID DEPENDENCE OUTPT BUPRENORPHINE 8MG/NALOXONE 2MG SL TAB (Status = Discontinued) DISSOLVE ONE AND ONE-HALF TABS UNDER THE TONGUE ONCE DAILY FOR OPIOID DEPENDENCE Rx# [id number] Last Released: 05/09/24 Qty/Days Supply: Rx Expiration Date: 10/06/24 Refills Remainin Indication: FOR OPIOID DEPENDENCE OUTPT BUPRENORPHINE 8MG/NALOXONE 2MG SL TAB (Status = Active) DISSOLVE ONE AND ONE-HALF TABS UNDER THE TONGUE ONCE DAILY FOR OPIOID DEPENDENCE Rx# [id number] Last Released: 06/01/24 Qty/Days Supply: Rx Expiration Date: 12/01/24 Refills Remainin Indication: FOR OPIOID DEPENDENCE ------ SUPPLIES ------ /vance/ SHELLEY SAAVEDRA MD Primary Care Physician Signed: 06/12/2024 15:11 SHELLEY SAAVEDRA [facility]
--- OUTSIDE RECORDS SUMMARY | 2024-06-13 05:00 | XMS_ITS | Encounter Summary ---
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 Name Role Phone SHELLEY SAAVEDRA Primary Care [...] PLAN W/HEALTH SAVINGS ACCOUNT MASSM UTUAL [facility] Aug 01, 2016 [id number] [phone] DEE STRINGER SPOUSE [facility] MENTAL HEALTH [facility]SM UTUAL (HDHP /HSA) Aug 01, 2016 [id number] [phone] DEE STRINGER SPOUSE [facility] ([id number]) PRESCRIPT ION [facility]SM UTUAL (HDHP /HSA) Aug 01, 2016 [id number] [phone] DEE STRINGER SPOUSE [employer] [facility] ([id number]) PRESCRIPT ION [facility]SM [facility]UAL [facility] Aug 01, 2016 [id number] [phone] DEE STRINGER SPOUSE [facility] ([id number]) PRESCRIPT ION [facility]SM UTUAL [facility] Aug 01, 2016 [facility] [id number] DEE STRINGER SPOUSE Selected Encounter This section includes the information on record at [place] for the Encounter. Date/Time Encounter Type Encounter Description Reason Provider Source Jun 13, 2024 09:00 AM PSYTX W PT 45 MINUTES PCMHI INDIV ICD-10-CM F23 Brief psychotic disorder NOE MARS [facility] Encounter Template Text not used by [facility] Assessments - Encounter Diagnoses This section includes the primary and secondary diagnoses documented for the Encounter. Date/Time Primary/Secondary Diagnosis Diagnosis Name Provider Source Jun 14, 2024 01:48 PM PRIMARY Brief psychotic disorder YOVANYJEANREYMUNDO SHABAZZLL Susan [facility] Jun 14, 2024 01:48 PM SECONDARY Opioid dependence, uncomplicated YOVANYJEAN CARLOSNOE Susan [facility] Jun 14, 2024 01:48 PM SECONDARY Post-traumatic stress disorder, chronic JERADREYMUNDONOE Susan [facility] Plan of Treatment: Future Appointments (+ 6 months) and Future Tests (+/- 45 days) The Plan of Treatment section includes future care activities for the [facility] [place] [facility] This section includes future appointments and future orders which are active, pending or scheduled. Future Appointments This section includes appointments that were scheduled to occur 6 months from the date of the Encounter, up to a maximum of 20 appointments. The data comes from all [place] treatment facilities. Appointment Date/Time Appointment Type Appointme nt Facility Name Jun 21, 2024 01:00 PM AMBULATORY - PSYCHIATRY [facility] Jun 25, 2024 02:30 PM [place] [facility] [place] [facility] Jul 13, 2024 02:30 PM [place] [facility] [place] [facility] Jul 13, 2024 02:30 PM AM[place]ULATORY [place] [facility] Jul 19, 2024 02:00 PM AMBULATORY - PSYCHIATRY [facility] Jul 24, 2024 02:30 PM [place] [facility] [place] [facility] Aug 21, 2024 02:30 PM AM[place]UL[place] [facility] [place] [facility] Sep 18, 2024 01:30 PM [place] [facility] [place] [facility] Oct 16, 2024 03:00 PM [facility] [place] [facility] [place] [facility] Nov 13, 2024 03:00 PM AMBULATORY [...] ABUSE URINE (DRUG) SP [facility] Jul 26, 2024 02:45 PM Laboratory - Chemi stry Order DRUGS OF ABUSE URINE (DRUG) [facility] Lab Results: +/- 30 days of [...] Mar 08, 2024 02:45 PM Reporting Lab: [address] [address] Performing Lab: [address] [address] AMPHETAMINES SCREEN NONE-DETECTED None-Detected, Cutoff = 1000 [...] 1.011 1.003-1.020 Jun 13, 2024 09:00 AM [facility] TSH SERUM Specimen Type: SERUM No comment entered. Ordering Provider: SHELLEY SAAVEDRA Report Released Date/Time: Jun 08, 2024 02:54 PM Reporting Lab: [facility] [address] [facility] [address] Performing Lab: [address] [address] TSH 0.55 u[IU]/mL 0.35-5.00 Jun 13, 2024 09:00 AM [facility] LIPID PANEL FASTING SERUM Specimen Type: SERU M No comment entered. Ordering Provider: SHELLEY SAAVEDRA Report Released Date/Time: Jun 08, 2024 02:54 PM Reporting Lab: [facility] [address] [facility] [address] Performing Lab: [address] [address] CHOLESTEROL 200 mg/dL H TRIGLYCERIDE 86 mg/dL 0-150 LDL calculated 118 mg/dL 0-129 CHOL/HDL 3.1 HDL CHOLESTEROL 65 mg/dL H 40-60 Jun 13, 2024 09:00 AM [facility] LIVER FUNCTION SERUM Specimen Type: SERUM No comment entered. Ordering Provider: SHELLEY SAAVEDRA Report Released Date/Time: Jun 08, 2024 02:54 PM Reporting Lab: [address] [address] Performing Lab: [address] [address] PROTEIN,TOTAL 6.9 g/dL 6.0-8.3 ALBUMIN 4.3 g/dL 3.5-5.0 ALKALINE PHOSPHATASE 45 U/L 40-150 AST 27 U/L 5-34 ALT 36 U/L BILIRUBIN, TOTAL 0.4 mg/dL 0.2-1.2 Jun 13, 2024 09:00 AM [facility] BASIC METABOLIC PANEL (fasting) SERUM Specime n Type: SERUM No comment entered. Ordering Provider: SHELLEY SAAVEDRA Report Released Date/Time: Jun 08, 2024 02:54 PM Reporting Lab: [address] [address] Performing Lab: [address] [address] UREA NITROGEN 10 mg/dL 7-25 GLUCOSE 100 [...] Jun 08, 2024 02:54 PM Reporting Lab: [address] [address] Performing Lab: [place] [address] [facility] [address] HEMOGLOBIN A1C 5.1 4.0-5.6 Jun 13, 2024 09:00 AM [facility] CBC AND DIFF (AUTO) BLOOD Specimen Type: KATIEO Veronica No comment entered. Ordering Provider: SHELLEY SAAVEDRA Report Released Date/Time: Jun 08, 2024 02:54 PM Reporting Lab: [facility] [address] [facility] [address] Performing Lab: [address] [address] WBC 7.51 10*3/uL 4.50-11.00 RBC 4.74 10*6/uL [...] Mar 08, 2024 02:45 PM Reporting Lab: [address] [address] Performing Lab: [address] [address] AMPHETAMINES SCREEN NONE-DETECTED None-Detected, Cutoff = 1000 [...] place. Date/Time Current Smoking Status Comment Facil [facility] Jun 12, 2024 02:00 PM [place] FORMER USER [facility] Tobacco Use History This section includes a history of the smoking, or tobacco-related health factors, that were collected on or before the date of the Encounter. The data comes from the [place] facility where the Encounter took place. Date/Time Smoking Status/Tobacco Use Comment F acility Jun 12, 2024 02:00 PM [place]-TO[facility]AC[place] QU[place] 15 YRS OR MORE [facility] Jan 14, 2023 10:00 AM [place]-TOBACCO FORMER USER [facility] Jan 14, 2023 10:00 AM [place]-TOBACCO QUIT 15 YRS OR MORE [facility] Jan 14, 2023 10:00 AM VA-TOBACCO QUIT 5 TO < 15 YRS [facility] Jun 19, 2020 02:30 PM [facility]-TOBACCO FORMER USER [facility] Jun 19, 2020 02:30 PM VA-TOBACCO QUIT 5 TO < 15 YRS [facility] Encounter Notes: All associated encounter notes This section contains the clinical notes associated to the Encounter. Date/Time Encounter Note(s) Provider Source Jun 13, 2024 08:58 AM MENTAL HEALTH CONS ULT: LOCAL TITLE: PC-MH INTEGRATION/CONSULT REPORT STANDARD TITLE: MENTAL HEALTH CONSULT DATE OF NOTE: JUN 13, 2024@08:58 ENTRY DATE: JUN 13, 2024@08:58:53 AUTHOR: NOE MARS EXP COSIGNER: URGENCY: STATUS: COMPLETED VISIT DURATION: 50 min VISIT TYPE: Individual REFERRED BY: DR. SAAVEDRA REFERRAL TYPE: Scheduled Consult Visit DIAGNOSIS: Brief Psychotic Episode Post-Traumatic Stress Disorder (PTSD), by history Opioid Dependence, on suboxone maintenance therapy REASON FOR REFERRAL / CHIEF COMPLAINT: Diamond was referred by his PCP to [facility] Psychologist for anxiety. [facility] Psychologist's role was explained to the . Informed consent and limits of confidentiality were reviewed. SESSION FOCUS: Initial Assessment of Presenting Symptoms and Concerns VET'S STATEMENT OF GOAL AND CONCERNS: The Diamond reports that 3 weeks ago (05/22/24) he started reading into things and relating things to himself. The Diamond reports that on 05/22/24, he vomited in the morning, but was not otherwise ill. (The random episode of vomiting happened to him one other time 2 yrs ago). He states he called out of work and stayed home. Then things got weird a few hours later . 3 days later, on 05/25/24, police presented to his home after his brother expressed concern about his suicidal thoughts ([facility] notes). A review of records from [facility] (05/25/24-05/31/24) indicates the was taken by ambulance and voluntarily admitted to an inpatient psychiatric unit for altered mental status characterized by disorganization, paranoia, agitation, and both suicidal and homicidal ideation . He declined medications on the unit, aside from Suboxone. He was diagnosed with a Brief Psychotic Disorder and PTSD. The Diamond states he feels he is being led, shown, put in situations to see if I pass certain tests . ...there is a force involved . Example: While watching the Celtics, When players with certain numbers (on their jersey) had the basketball he would get heart palpitations, or super-hot . He felt he was having to make connections to pass the test . I look at things...how does this relate to me?... Sometimes I'm being shown bad things ... Imagining the worst . It is like a test, pass/fail, does someone have an agenda for me? Am I social study? He expresses some insight into the illogicalness of his thinking. The states he is wondering why he went from feeling normal to having these thoughts the next day (and ever since).... Is it a thyroid issue? my brain? He states the concern about his thinking is causing some anxiety, but he is otherwise calm. He denies feeling scared or worried about the content of his thoughts. It never amounts to anything meaningful . He also denies altering his behavior as a result of the thoughts. He states this thought pattern is getting better every day Coping: He gustavo by trying to catch himself and distracting with another activity. Antecedents: -The Diamond was actively using cannabis, though the source/strain were consistent with his typical use. He stopped using around 3 weeks ago after the psychotic symptoms started, to see if that was the cause. -PTSD. The reports that prior to the onset of symptoms, he wrote a letter for a friend for comp and pen, which referenced trauma they experienced in combat. When asked if this was triggering, he states he ruminated about situations a bit, but he downplays any possible impact, stating his PTSD has been under good control for the past few years. -He denies any illness or infection in the past 2 months. -Generic Ozempic for 3 mos (last dose was the Tuesday prior to sx onset). Stopped it after sx onset to rule it out as a cause of his change in thinking. Has lost 30 lbs in past 3 mos. Review of Symptoms: OCD behavior: Denies, though he admits to washing hands a bit more and isn't sure why. Hx lyndsey: Denies Family Hx: Great grandfather by suicide. No family hx bipolar or schizophrenia. AH: Denies VH: Denies Paranoia: Denies Depression: Denies Sleep: Reports a recent history of good sleep, however records from his hospitalization on 05/25/24 indicate poor sleep on at least 2 nights leading up to the onset of symptoms. Anxiety: When I read into things . That relates to me, that's true, oh weird. If bad or weird or strange, I wonder why I would be shown this. Why? If I can help to assist in any way I will...with the mask thing (seeing pts with masks at the hospital)...I heard a rumor of someone who robbed a bank in a mask so maybe I could help . PTSD: Has been doing okay . Sees Dr. Hannah for monthly check-ins. MEDICATION: BUPRENORPHINE - since around 2007, [place] Started HYDROXYZINE yesterday- takes twice daily. Ate a lot after first dose last night . PAST BEHAVIORAL HEALTH TREATMENT: Recently hospitalized for SI/HI/agitation. On Suboxone, for many years, managed by Dr. Hannah at [place]. Saw a therapist 10 yrs ago, Dr. Lozano in [facility] for PTSD for 1-2 yrs. Helpful. FUNCTIONAL ASSESSMENT: o CLOSE RELATIONSHIPS: in 2021 following 's infidelity, lives in parents basement. Good relationship with kids, 7yo son and 11yo daughter. Partial custody. Saving up for a house. States he is generally happy with his life. o ETOH: Yes, 1-2 drinks per day. To stop the thoughts . o TOBACCO: Quit in past. o NON-PRESCRIPTION DRUGS: Stopped cannabis a few wks ago d/t cog sx. o HEALTH AND MEDICAL CONCERNS: Back pain at times. Lost 30 lbs in past 3 months. Feels good. o MOOD: Good. Typically happy go lauro . o APPETITE: No changes. Was eating once per day on Ozempic. Hungrier now. o SLEEP: Sleeps well. Wasn't sleeping well for a week or so. Was hot, sweaty, palpitations . o PAIN (0-10) Knee pain -intermittent. o PHYSICAL ACTIVITY: Walks outside. Plans to start running. o RECREATION: Video games. TV. Ideas of reference are occurring even more so with electronics. Feels the buttons are different . o WORK: Works in [employer], at [employer]. Out on FMLA leave right now. Plans to return 06/25/24. o : Combat PTSD. 3 Deployments [place]:[id number], [place]: 11-03, [place]:[id number] INTERVENTION: Assessed presenting symptoms and concerns and impact on psychosocial functioning Assessed suicide and homicide risk - Denies SI/HI Advised to return for [facility] follow-up in 1 week. Consult placed by [facility] for [facility] Psychiatry for a psychiatric med eval. Diamond has a MH intake scheduled at [facility] in Jul 2024. He has follow-up scheduled with his suboxone provider, Dr. Hannah, on 06/25/24. Undersigned reviewed medical records from recent hospitalization at [facility]. Elicited 's goals for change: - Get rid of ruminative thinking (ideas of reference). Initiated behavior change plan: -Advised to observe and label when he is engaged with ideas of reference, to ignore the content, and re-direct his focus/activity. Diamond also agrees to monitor if the thoughts lead to altering his planned course of behavior. -Recommended spend time with family and friends and engage in reality- based activities (limiting time on internet/TV/video games), as doing so also provides more opportunities to catch and challenge the thinking and re-direct his attention. His family has been a positive source of support. -Recommended attend to good sleep hygiene, diet, regular exercise and stress management, as well as continued abstinence from cannabis. DIAGNOSTIC IMPRESSIONS/PLAN: is a 43-year-old man referred by his PCP to [facility] Psychologist for anxiety. The 's primary concern today relates to wanting to rid himself of ideas of reference lasting 3 weeks. He denies concerns related to mood, PTSD, AH/VH, sleep or anxiety. The presents as well-groomed, with a calm demeanor and good behavioral control and no signs of overt distress. He expresses some insight into his thoughts being illogical. He generally minimizes his condition. Based on the discrepancies between the medical record and the 's account of his recent hospitalization, he possesses limited insight into his condition, as he denies any recent SI/HI/agitation. 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 Will monitor for improvement in symptoms while Diamond awaits appointment with Psychiatry ([facility]). Plan for [facility] follow-up in 1 week to reassess Diamond symptoms. Consult has been placed to the [facility] for psychiatric med eval, and mental health intake is scheduled for 07/16/2024. The Diamond has routine follow-up scheduled with his Suboxone provider, Dr. Hannah, on 06/25/2024. He has been provided with the 's Crisis Line number. Diamond states he wishes to go back to work to remedy boredom, but he agrees to delay his return to work until at least 06/25/24 (he had been planning to return 06/18/24). Diamond expressed understanding and agreement with plan. LETHALITY Suicidal or homicidal ideation: No Suicidal or homicidal plans: No Suicidal or homicidal intention: No RISK LEVEL IMPRESSION: presents at low risk of harm to self or others at this time. INTERDICIPLINARY TREATMENT PLANNING INVOLVING: PACT; FOLLOW-UP: Return to [facility] in 1 week, f2f. Diamond will hold off on his return to work until 06/25/24. PCP PROVIDED WITH FEEDBACK: View Alert /vance/ NOE MARS PSYD CLINICAL PSYCHOLOGIST Signed: 06/14/2024 13:54 Receipt Acknowledged By: 06/14/2024 15:02 /vance/ SHELLEY SAAVEDRA MD Primary Care Physician 06/14/2024 15:53 /es/ RACHEL HANNAH MD PHYSICIAN NOE MARS
--- OUTSIDE RECORDS SUMMARY | 2024-06-21 09:00 | XMS_ITS | Encounter Summary ---
Author Name [facility] [facility] [place] Address [address] [place] [address] Care Team Providers Care Print Line Inspector Name Role Phone SHELLEY SAAVEDRA Primary Care [...] PLAN W/HEALTH SAVINGS ACCOUNT [facility]SM [facility]UAL [facility] Aug 01, 2016 [id number] DEE STRINGER SPOUSE [facility] MENTAL HEALTH [facility] (HDHP /HSA) Aug 01, 2016 [id number] [phone] DEE STRINGER SPOUSE [employer] ([id number]) PRESCRIPT ION [facility] (HDHP /HSA) Aug 01, 2016 [id number] DEE STRINGER SPOUSE [employer] ([id number]) PRESCRIPT ION [facility] Aug 01, 2016 [id number] DEE STRINGER SPOUSE [employer] [facility] ([id number]) PRESCRIPT ION [facility] Aug 01, 2016 [facility] [id number] DEE STRINGER SPOUSE Selected Encounter This section includes the information on record at [place] for the Encounter. Date/Time Encounter Type Encounter Description Reason Provider Source Jun 21, 2024 01:00 PM PSYTX W PT 30 MINUTES [facility] INDIV ICD-10-CM F23 Brief psychotic disorder NOE MARS [facility] Encounter Template Text not used by [place] Assessments - Encounter Diagnoses This section includes the primary and secondary diagnoses documented for the Encounter. Date/Time Primary/Secondary Diagnosis Diagnosis Name Provider Source Jun 25, 2024 02:11 PM PRIMARY Brief psychotic disorder NOE MARS [place] Plan of Treatment: Future Appointments (+ 6 months) and Future Tests (+/- 45 days) The Plan of Treatment section includes future care activities for the patient [facility] [place] [facility] This section includes future appointments and future orders which are active, pending or scheduled. Future Appointments This section includes appointments that were scheduled to occur 6 months from the date of the Encounter, up to a maximum of 20 appointments. The data comes from all [place] treatment facilities. Appointment Date/Time Appointment Type Appointme nt Facility Name Jun 25, 2024 02:30 PM AMBULATORY - PS[place]IATRY [place] [facility] [place] [facility] Jul 13, 2024 02:30 PM AMBULATORY - [place]IATRY [facility] [place] [facility] Jul 13, 2024 02:30 PM [facility] Jul 19, 2024 02:00 PM AMBULATORY - PSYCHIATRY [facility] Jul 24, 2024 02:30 PM AMBULATORY - PS[facility]IATRY [facility] [place] [facility] Aug 21, 2024 02:30 PM AMBULATORY - PS[facility]CHIATRY [facility] [place] [facility] Sep 18, 2024 01:30 PM AMBULATORY - PS[facility]CHIATRY [facility] [place] [facility] Oct 16, 2024 03:00 PM AMBULATORY - PS[facility]CHIATRY [facility] [place] [facility] Nov 13, 2024 03:00 PM AMBULATORY - PS[facility]CHIATRY [facility] [place] [facility] December 12, 2024 03:30 PM AMBULATORY - PSYCHIATRY [place] [facility] [place] [facility] Active, Pending, and Scheduled Orders This section includes a listing of several types of active, pending, and scheduled orders, including clinic medications orders, diagnostic test orders, procedure orders and consult orders; where the start date of the order is 45 days before the date of the Encounter or 45 days after the date of theEncounter. The data comes from all [place] treatment facilities. Test Date/Time Test Type Test Details Facility Name Jul 26, 2024 02:45 PM Laboratory - Chemi yaneliy Order DRUGS OF ABUSE URINE (DRUG) SP [facility] Lab Results: +/- 30 days of the encounter This section includes the Chemistry and Hematology Lab Results on record with [place] for the patient. Radiology Reports and Pathology Reports are provided separately, in subsequent sections. Lab Results This section contains the Chemistry/Hematology Results that were resulted 30 days before or 30 daysafter the date of the Encounter. Date/Time Source Result Type Result - Unit Interpretation Reference Range Specimen Type Comment Jun 26, 2024 11:36 AM [facility] DRUGS OF ABUSE URINE Specimen Type: [...] Mar 08, 2024 02:45 PM Reporting Lab: [address] [address] Performing Lab: [address] [address] AMPHETAMINES SCREEN NONE-DETECTED None-Detected, Cutoff = 1000 [...] 1.011 1.003-1.020 Jun 13, 2024 09:00 AM [facility] TSH SERUM Specimen Type: SERUM No comment entered. Ordering Provider: SHELLEY SAAVEDRA Report Released Date/Time: Jun 08, 2024 02:54 PM Reporting Lab: [address] [address] Performing Lab: [address] [address] TSH 0.55 u[IU]/mL 0.35-5.00 Jun 13, 2024 09:00 AM [facility] LIPID PANEL FASTING SERUM Specimen Type: SERU M No comment entered. Ordering Provider: SHELLEY SAAVEDRA Report Released Date/Time: Jun 08, 2024 02:54 PM Reporting Lab: [address] [address] Performing Lab: [address] [address] CHOLESTEROL 200 mg/dL H TRIGLYCERIDE 86 mg/dL 0-150 LDL calculated 118 mg/dL 0-129 CHOL/HDL 3.1 HDL CHOLESTEROL 65 mg/dL H 40-60 Jun 13, 2024 09:00 AM [facility] LIVER FUNCTION SERUM Specimen Type: SERUM No comment entered. Ordering Provider: SHELLEY SAAVEDRA Report Released Date/Time: Jun 08, 2024 02:54 PM Reporting Lab: [address] [address] Performing Lab: [address] [address] PROTEIN,TOTAL 6.9 g/dL 6.0-8.3 ALBUMIN 4.3 g/dL 3.5-5.0 ALKALINE PHOSPHATASE 45 U/L 40-150 AST 27 U/L 5-34 ALT 36 U/L BILIRUBIN, TOTAL 0.4 mg/dL 0.2-1.2 Jun 13, 2024 09:00 AM [facility] BASIC METABOLIC PANEL (fasting) SERUM Specime n Type: SERUM No comment entered. Ordering Provider: SHELLEY SAAVEDRA Report Released Date/Time: Jun 08, 2024 02:54 PM Reporting Lab: [facility] [address] [facility] [address] Performing Lab: [address] [address] UREA NITROGEN 10 mg/dL 7-25 GLUCOSE 100 mg/dL 65-100 SODIUM 141 mmol/L 135-145 POTASSIUM 4.1 mmol/L 3.5-5.0 CHLORIDE 103 mmol/L 100-110 CO2 26 meq/L 20-30 CREATININE, Serum 0.87 mg/dL 0.50-1.40 eGFR(CKD-EPI 2020) >90 mL/min >60 Jun 13, 2024 09:00 AM [facility] HEMOGLOBIN A1C PANEL BLOOD Specimen Type: [...] Jun 08, 2024 02:54 PM Reporting Lab: [facility] [address] [facility] [address] Performing Lab: [address] [address] HEMOGLOBIN A1C 5.1 4.0-5.6 Jun 13, 2024 09:00 AM [facility] CBC AND DIFF (AUTO) BLOOD Specimen Type: BLOO D No comment entered. Ordering Provider: SHELLEY SAAVEDRA Report Released Date/Time: Jun 08, 2024 02:54 PM Reporting Lab: [facility] [address] [facility] [address] Performing Lab: [facility] [address] [facility] [address] WBC 7.51 10*3/uL 4.50-11.00 RBC 4.74 10*6/uL [...] 10*3/uL 0.00-0.00 Jun 01, 2024 08:43 AM [facility] DRUGS OF ABUSE URINE Specimen Type: [...] Mar 08, 2024 02:45 PM Reporting Lab: [address] [address] Performing Lab: [address] [address] AMPHETAMINES SCREEN NONE-DETECTED None-Detected, Cutoff = 1000 [...] and tobacco- related health factors from the [place] facility where the Encounter took place. Current Smoking Status This section includes the most current smoking, or tobacco-related health factor, from the [place] facility where the Encounter took place. Date/Time Current Smoking Status Comment Bonny taveras Jun 12, 2024 02:00 PM [place]-TOBACCO FORMER USER [place] Tobacco Use History This section includes a history of the smoking, or tobacco-related health factors, that were collected on or before the date of the Encounter. The data comes from the [place] facility where the Encounter took place. Date/Time Smoking Status/Tobacco Use Comment F keenan Jun 12, 2024 02:00 PM [place]-TOBACCO QUIT 15 YRS OR MORE [place] Jan 14, 2023 10:00 AM [facility]-TOBACCO FORMER USER [place] Jan 14, 2023 10:00 AM VA-TOBACCO QUIT 15 YRS OR MORE [place] Jan 14, 2023 10:00 AM VA-TOBACCO QUIT 5 TO < 15 YRS [place] Jun 19, 2020 02:30 PM VA-TOBACCO FORMER USER [place] Jun 19, 2020 02:30 PM VA-TOBACCO QUIT 5 TO < 15 YRS [place] Encounter Notes: All associated encounter notes This section contains the clinical notes associated to the Encounter. Date/Time Encounter Note(s) Provider Source Jun 26, 2024 11:26 AM ADDENDUM: LOCAL TITLE: Addendum STANDARD TITLE: ADDENDUM DATE OF NOTE: JUN 26, 2024@11:26:20 ENTRY DATE: JUN 26, 2024@11:26:21 AUTHOR: LUCIEN CIFUENTES EXP COSIGNER: URGENCY: STATUS: COMPLETED is inquiring the status of FMLA paperwork and RTW note for 07/02josue CIFUENTES ADVANCED RECYCLING TECHNICIAN Signed: 06/26/2024 11:26 Receipt Acknowledged By: 06/26/2024 22:11 /vance/ NOE MARS PSYD CLINICAL PSYCHOLOGIST ======== --- Original Document --- 06/21/24 PRIMARY MENTAL HEALTH OUTPATIENT FOLLOW UP NOTE: VISIT DURATION: 35 min VISIT TYPE: Individual, [id number], follow-up visit PCP: DR. SAAVEDRA DIAGNOSIS: Brief Psychotic Disorder REASON FOR FOLLOW UP: Ideas of Reference (symptoms of Psychosis) VET'S STATEMENT OF GOAL AND CONCERNS: I am feeling much better . The [place] reports the ideas of reference have been occurring less frequently, currently 2x/day. When he has them, he gustavo by re-directing his attention, e.g. turning off the TV. He states he has been spending his time with his kids, walking, watching TV and playing video games. He is looking forward to returning to work. He reports good sleep and normal appetite. He states his mood has returned to normal - happy go lauro . He denies cannabis use since psychotic symptoms began on 05/22/24. INTERVENTION: Re-assessed presenting symptoms and concerns Discussed working diagnosis of cannabis-induced psychosis. Sandrita confirms that he did not use any other substances. He agrees that a substance-induced psychosis seems like the most probable explanation for his symptoms, as further evidenced by the fact that the symptoms have improved over the past 4 weeks since he stopped using cannabis. -Sandrita states he was previously using 5-8 hits per day on a vape pen from [employer]. He had been smoking a consistent amount over the past few months, had also lost 30 lbs. on Ozempic in the previous 90 days. He denies other substance use. Motivational Interviewing around abstaining from cannabis use -Explored the function of cannabis use - he reports it helped him pass the day and made him more patient around his kids. -He notes more energy since he stopped vaping. -He will save $200/month by not vaping. -Offered support around relapse prevention. He declines, states he can manage on his own. Declines info on meetings. Sandrita presents with [facility] paperwork (retroactive) and a Return to Work form for completion by the undersigned. He agrees to [facility] for this bid writer to speak with his brother, Robert ([phone]), to gain collateral information about recent symptoms. Plan to call Sandrita when paperwork is complete, in advance of his planned return to work on 07/02/24. He is agreeable to plan. Sandrita's goals for change: - Get rid of ruminative thinking (ideas of reference) - progressing toward goal Plan: -Sandrita will observe and label when he is engaged with ideas of reference, to ignore the content, and re-direct his focus/activity. -Spend time with family and friends and engage in reality-based activities (limiting time on internet/TV/video games), as doing so also provides more opportunities to catch and challenge the thinking and re-direct his attention. His family has been a positive source of support. -Sandrita agrees to attend to good sleep hygiene, diet, regular exercise and stress management, as well as continued abstinence from cannabis. DIAGNOSTIC IMPRESSIONS/PLAN: Sandrita is a 43-year-old man referred by his PCP to [facility] Psychologist for anxiety. The [place]'s primary concern today relates to wanting to [...] discrepancies between the medical record and the [place]'s account of his recent hospitalization, he possesses limited insight into his condition. 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 Plan for to follow-up with Psychiatry ([facility]) on 07/13/24. Routine follow-up with Suboxone provider, Dr. Hannah, on 06/25/2024. [facility] Psychiatry appt on 07/13/24 at 2:30pm. Mental health intake on 07/16/2024. Undersigned will reach out to Foreston's brother, Robert, for collateral interview. [place] signed MALENA at today's visit. Undersigned will complete FMLA paperwork (retrospectively) and Return To Work form and call [place] when ready for pickle solution maker. plans to return to work on 07/02/24. [place] expressed understanding and agreement with plan. CURRENT IMPRESSION OF LETHALITY RISK / PLAN FOR RISK MANAGEMENT: [place] presents at low risk of harm to self or others at this time. INTERDICIPLINARY TREATMENT PLANNING INVOLVING: PACT PLAN FOR FOLLOW-UP: [place] will follow-up with mental health appointments listed above. No [facility] follow-up planned at this time. /vance/ NOE MARS PSYD CLINICAL PSYCHOLOGIST Signed: 06/25/2024 14:11 Receipt Acknowledged By: 06/25/2024 15:46 /vance/ RACHEL HANNAH MD PHYSICIAN [place] Jun 21, 2024 01:00 PM [facility]: LOCAL TITLE: PRIMARY MENTAL HEALTH OUTPATIENT FOLLOW UP NOTE STANDARD TITLE: MENTAL HEALTH OUTPATIENT NOTE DATE OF NOTE: JUN 21, 2024@13:00 ENTRY DATE: JUN 21, 2024@13:54:22 AUTHOR: NOE MARS EXP COSIGNER: URGENCY: STATUS: COMPLETED PRIMARY MENTAL HEALTH OUTPATIENT FOLLOW UP NOTE Has ADDENDA VISIT DURATION: 35 min VISIT TYPE: Individual, [id number], follow-up visit PCP: DR. SAAVEDRA DIAGNOSIS: Brief Psychotic Disorder REASON FOR FOLLOW UP: Ideas of Reference (symptoms of Psychosis) VET'S STATEMENT OF GOAL AND CONCERNS: I am feeling much better . The reports the ideas of reference have been occurring less frequently, currently 2x/day. When he has them, he gustavo by re-directing his attention, e.g. turning off the TV. He states he has been spending his time with his kids, walking, watching TV and playing video games. He is looking forward to returning to work. He reports good sleep and normal appetite. He states his mood has returned to normal - happy go lauro . He denies cannabis use since psychotic symptoms began on 05/22/24. INTERVENTION: Re-assessed presenting symptoms and concerns Discussed working diagnosis of cannabis-induced psychosis. Sandrita confirms that he did not use any other substances. He agrees that a substance-induced psychosis seems like the most probable explanation for his symptoms, as further evidenced by the fact that the symptoms have improved over the past 4 weeks since he stopped using cannabis. - states he was previously using 5-8 hits per day on [facility]. He had been smoking a consistent amount over the past few months, had also lost 30 lbs. on Ozempic in the previous 90 days. He denies other substance use. Motivational Interviewing around abstaining from cannabis use -Explored the function of cannabis use - he reports it helped him pass the day and made him more patient around his kids. -He notes more energy since he stopped vaping. -He will save $200/month by not vaping. -Offered support around relapse prevention. He declines, states he can manage on his own. Declines info on meetings. Sandrita presents with [facility] paperwork (retroactive) and a Return to Work form for completion by the undersigned. He agrees to [facility] for this bid writer to speak with his brother, Robert ([phone]), to gain collateral information about recent symptoms. Plan to call Sandrita when paperwork is complete, in advance of his planned return to work on 07/02/24. He is agreeable to plan. 's goals for change: - Get rid of ruminative thinking (ideas of reference) - progressing toward goal Plan: -[place] will observe and label when he is engaged with ideas of reference, to ignore the content, and re-direct his focus/activity. -Spend time with family and friends and engage in reality-based activities (limiting time on internet/TV/video games), as doing so also provides more opportunities to catch and challenge the thinking and re-direct his attention. His family has been a positive source of support. -[place] agrees to attend to good sleep hygiene, diet, regular exercise and stress management, as well as continued abstinence from cannabis. DIAGNOSTIC IMPRESSIONS/PLAN: is a 43-year-old man referred by his PCP to [facility] Psychologist for anxiety. The 's primary concern today relates to wanting to rid himself of ideas of reference lasting 3 weeks. He denies concerns related to mood, PTSD, AH/VH, sleep or anxiety. The [place] presents as well-groomed, with a calm demeanor and good behavioral control and no signs of overt distress. He expresses some insight into his thoughts being illogical. He generally minimizes his condition. Based on the discrepancies between the medical record and the [place]'s account of his recent hospitalization, he possesses limited insight into his condition. 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 Plan for to follow-up with Psychiatry ([facility]) on 07/13/24. Routine follow-up with Suboxone provider, Dr. Hannah, on 06/25/2024. [facility] Psychiatry appt on 07/13/24 at 2:30pm. Mental health intake on 07/16/2024. Undersigned will reach out to 's brother, Robert, for collateral interview. signed MALENA at today's visit. Undersigned will complete [facility] paperwork (retrospectively) and Return To Work form and call when ready for pickle solution maker. plans to return to work on 07/02/24. expressed understanding and agreement with plan. CURRENT IMPRESSION OF LETHALITY RISK / PLAN FOR RISK MANAGEMENT: presents at low risk of harm to self or others at this time. INTERDICIPLINARY TREATMENT PLANNING INVOLVING: PACT PLAN FOR FOLLOW-UP: [place] will follow-up with mental health appointments listed above. No [facility] follow-up planned at this time. /vance/ NOE MARS PSYD CLINICAL PSYCHOLOGIST Signed: 06/25/2024 14:11 Receipt Acknowledged By: 06/25/2024 15:46 /vance/ RACHEL HANNAH MD PHYSICIAN 06/26/2024 ADDENDUM STATUS: COMPLETED is inquiring the status of FMLA paperwork and RTW note for 07/02 /vance/ LUCIEN CIFUENTES ADVANCED RECYCLING TECHNICIAN Signed: 06/26/2024 11:26 Receipt Acknowledged By: * AWAITING SIGNATURE * NOE MARS JILL M [place]
--- OUTSIDE RECORDS SUMMARY | 2024-06-25 10:30 | XMS_ITS | Encounter Summary ---
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 Name Role Phone SHELLEY SAAVEDRA Primary Care [...] MASSM UTUAL HDHP HSA Aug 01, 2016 [id number] [phone] DEE STRINGER SPOUSE [facility]UAL (HDHP /HSA) Aug 01, 2016 [id number] [phone] DEE STRINGER SPOUSE [employer] ([id number]) PRESCRIPT ION [facility] UTUAL (HDHP /HSA) Aug 01, 2016 [id number] [phone] DEE STRINGER SPOUSE [employer] ([id number]) PRESCRIPT ION MASSM UTUAL [facility]AL Aug 01, 2016 [id number] [phone] DEE STRINGER SPOUSE [employer] ([id number]) PRESCRIPT ION [facility] HDHP HSA Aug 01, 2016 [id number] DEE STRINGER SPOUSE Selected Encounter This section includes the information on record at DC for the Encounter. Date/Time Encounter Type Encounter Description Reason Provider Source Jun 25, 2024 02:30 PM OFFICE O/P EST HI 40 MIN SUBSTANCE USE DISORDER IND ICD-10-CM F11.20 Opioid dependence, uncomplicated RACHEL HANNAH IHE Encounter Template Text not used by DC Assessments - Encounter Diagnoses This section includes the primary and secondary diagnoses documented for the Encounter. Date/Time Primary/Secondary Diagnosis Diagnosis Name Provider Source Jul 10, 2024 04:38 PM PRIMARY Opioid dependence, uncomplicated RACHEL HANNAH [place] [facility] [place] [facility] Jul 10, 2024 04:38 PM SECONDARY Post-traumatic stress disorder, chronic RACHEL HANNAH [place] [facility] [place] [facility] Plan of Treatment: Future Appointments (+ 6 months) and Future Tests (+/- 45 days) The Plan of Treatment section includes future care activities for the [facility] This section includes future appointments and future orders which are active, pending or scheduled. Future Appointments This section includes appointments that were scheduled to occur 6 months from the date of the Encounter, up to a maximum of 20 appointments. The data comes from all [place] treatment facilities. Appointment Date/Time Appointment Type Appointme nt Facility Name Jul 13, 2024 02:30 PM AMBULATORY - PSYCHIATRY [place] [facility] [place] [facility] Jul 13, 2024 02:30 PM AMBULATORY - PS[place]CHIATRY [facility] Jul 19, 2024 02:00 PM AMBULATORY - PSYCHIATRY [facility] Jul 24, 2024 02:30 PM AMBULATORY - PSYCHIATRY [place] [facility] [place] [facility] Aug 21, 2024 02:30 PM AMBULATORY - PSYCHIATRY [place] [facility] [place] [facility] Sep 18, 2024 01:30 PM AMBULATORY - PSYCHIATRY [place] [facility] [place] [facility] Oct 16, 2024 03:00 PM AMBULATORY - PSYCHIATRY [place] [facility] [place] [facility] Nov 13, 2024 03:00 PM AMBULATORY - PSYCHIATRY [place] [facility] [place] [facility] December 12, 2024 03:30 PM AMBULATORY [facility]AT[facility] Active, Pending, and Scheduled Orders This section includes a listing of several types of active, pending, and scheduled orders, including clinic medications orders, diagnostic test orders, procedure orders and consult orders; where the start date of the order is 45 days before the date of the Encounter or 45 days after the date of theEncounter. The data comes from all [place] treatment facilities. Test Date/Time Test Type Test Details Facility Name Jul 26, 2024 02:45 PM Laboratory - Chemi all Order DRUGS OF ABUSE URINE (DRUG) SP [facility] Lab Results: +/- 30 days of the encounter This section includes the Chemistry and Hematology Lab Results on record with DC for the patient. Radiology Reports and Pathology Reports are provided separately, in subsequent sections. Lab Results This section contains the Chemistry/Hematology Results that were resulted 30 days before or 30 daysafter the date of the Encounter. Date/Time Source Result Type Result - Unit Interpretation Reference Range Specimen Type Comment Jun 26, 2024 11:36 AM [facility] DRUGS OF ABUSE URINE Specimen Type: URINE [...] Mar 08, 2024 02:45 PM Reporting Lab: [facility] [address] [facility] [address] Performing Lab: [address] [address] AMPHETAMINES SCREEN NONE-DETECTED None-Detected, Cutoff = 1000 [...] 1.011 1.003-1.020 Jun 13, 2024 09:00 AM [facility] TSH SERUM Specimen Type: SERUM No comment entered. Ordering Provider: SHELLEY SAAVEDRA Report Released Date/Time: Jun 08, 2024 02:54 PM Reporting Lab: [address] [address] Performing Lab: [address] [address] TSH 0.55 u[IU]/mL 0.35-5.00 Jun 13, 2024 09:00 AM [facility] LIPID PANEL FASTING SERUM Specimen Type: SERU M No comment entered. Ordering Provider: SHELLEY SAAVEDRA Report Released Date/Time: Jun 08, 2024 02:54 PM Reporting Lab: [address] [address] [facility]: [facility] [address] CHOLESTEROL 200 mg/dL H TRIGLYCERIDE 86 mg/dL 0-150 LDL calculated 118 mg/dL 0-129 CHOL/HDL 3.1 HDL CHOLESTEROL 65 mg/dL H 40-60 Jun 13, 2024 09:00 AM [facility] LIVER FUNCTION SERUM Specimen Type: SERUM No comment entered. Ordering Provider: SHELLEY SAAVEDRA Report Released Date/Time: Jun 08, 2024 02:54 PM Reporting [facility] [address] Performing Lab: [facility] [address] [facility] [address] PROTEIN,TOTAL 6.9 g/dL 6.0-8.3 ALBUMIN 4.3 g/dL 3.5-5.0 ALKALINE PHOSPHATASE 45 U/L 40-150 AST 27 U/L 5-34 ALT 36 U/L BILIRUBIN, TOTAL 0.4 mg/dL 0.2-1.2 Jun 13, 2024 09:00 AM [facility] BASIC METABOLIC PANEL (fasting) SERUM Specime n Type: SERUM No comment entered. Ordering Provider: SHELLEY SAAVEDRA Report Released Date/Time: Jun 08, 2024 02:54 PM Reporting Lab: [address] [address] Performing Lab: [address] [address] UREA NITROGEN 10 mg/dL 7-25 GLUCOSE 100 mg/dL 65-100 SODIUM 141 mmol/L 135-145 POTASSIUM 4.1 mmol/L 3.5-5.0 CHLORIDE 103 mmol/L 100-110 CO2 26 meq/L 20-30 CREATININE, Serum 0.87 mg/dL 0.50-1.40 eGFR(CKD-EPI 2020) >90 mL/min >60 Jun 13, 2024 09:00 AM [facility] HEMOGLOBIN A1C PANEL BLOOD Specimen Type: BLO [...] Jun 08, 2024 02:54 PM Reporting Lab: [address] [address] Performing Lab: [address] [address] HEMOGLOBIN A1C 5.1 4.0-5.6 Jun 13, 2024 09:00 AM [facility] CBC AND DIFF (AUTO) BLOOD Specimen Type: BLOO D No comment entered. Ordering Provider: SHELLEY SAAVEDRA Report Released Date/Time: Jun 08, 2024 02:54 PM Reporting Lab: [facility] [address] [facility] [address] Performing Lab: [facility] [address] [facility] [address] WBC 7.51 10*3/uL 4.50-11.00 RBC 4.74 10*6/uL [...] 10*3/uL 0.00-0.00 Jun 01, 2024 08:43 AM [facility] DRUGS OF ABUSE URINE Specimen Type: URINE [...] Mar 08, 2024 02:45 PM Reporting Lab: [address] [address] Performing Lab: [address] [address] AMPHETAMINES SCREEN NONE-DETECTED None-Detected, Cutoff = 1000 [...] and tobacco- related health factors from the DC facility where the Encounter took place. Current Smoking Status This section includes the most current smoking, or tobacco-related health factor, from the DC facility where the Encounter took place. Date/Time Current Smoking Status Comment Bonny taveras Jul 05, 2019 09:23 AM DC-TOBACCO QUIT 5 TO < 15 YRS [facility] Tobacco Use History This section includes a history of the smoking, or tobacco-related health factors, that were collected on or before the date of the Encounter. The data comes from the DC facility where the Encounter took place. Date/Time Smoking Status/Tobac co Use Comment Facility Jul 05, 2019 09:23 AM VA-TOBACCO QUIT 5 TO < 15 YRS [place] [facility] [place] [facility] Jun 21, 2018 10:07 AM VA-TOBACCO FORMER USER [place] [facility] [place] [facility] Jun 21, 2018 10:07 AM VA-TOBACCO QUIT 5 TO < 15 YRS [place] [facility] [place] [facility] Jul 12, 2017 11:33 AM QUIT TOBACCO USE > 7 YEARS AGO [facility] [place] [facility] Aug 10, 2016 01:52 PM QUIT TOBACCO USE > 7 YEARS AGO [facility] [place] [facility] Aug 11, 2015 01:06 PM QUIT TOBACCO USE > 7 YEARS AGO [facility] [place] [facility] Sep 10, 2010 01:42 PM QUIT TOBACCO USE > 7 YEARS AGO [facility] [place] [facility] Oct 06, 2009 10:50 AM QUIT TOBACCO USE 1-7 YEARS AGO 2.5 years ago [facility] [place] [facility] Sep 27, 2008 12:40 PM QUIT TOBACCO USE 1-7 YEARS AGO [facility] [place] [facility] May 16, 2008 11:03 AM V1-PT DECLINES REF TO TOBACCO CESS PRGM [place] [facility] [place] [facility] May 16, 2008 11:03 AM V1-PT DECLINES TOBACCO CESSATION MEDS [place] [facility] [place] [facility] May 16, 2008 11:03 AM V1-PT THINKING ABOUT QUIT TOBACCO USE [facility] [place] [facility] Nov 27, 2007 03:00 PM V1-PT DECLINES REF TO TOBACCO CESS PRGM [facility] [place] [facility] Nov 27, 2007 03:00 PM V1-PT DECLINES TOBACCO CESSATION MEDS [facility] [place] [facility] Nov 27, 2007 03:00 PM V1-PT THINKING ABOUT QUIT TOBACCO USE [facility] [place] [facility] Oct 06, 2007 03:49 PM V1-PT DECLINES REF TO TOBACCO CESS PRGM [place] [facility] [place] [facility] Oct 06, 2007 03:49 PM V1-PT DECLINES TOBACCO CESSATION MEDS [facility] [place] [facility] Oct 06, 2007 03:49 PM V1-PT NOT INTERESTED IN QUIT TOBACCO USE [facility] Oct 06, 2007 11:28 AM CURRENT SMOKER smokes 1/2 PPD since age 20 [facility] Encounter Notes: All associated encounter notes This section contains the clinical notes associated to the Encounter. Date/Time Encounter Note(s) Provider Source Jun 25, 2024 03:15 PM ACCOUNTING OF DISC LOSURES NOTE: LOCAL TITLE: STATE PRESCRIPTION DRUG MONITORING PROGRAM STANDARD TITLE: ACCOUNTING OF DISCLOSURES NOTE DATE OF NOTE: JUN 25, 2024@15:15:25 ENTRY DATE: JUN 25, 2024@15:15:25 AUTHOR: RACHEL HANNAH EXP COSIGNER: URGENCY: STATUS: COMPLETED This PDMP query was submitted by Rachel Hannah MD. The clinical justification for this PDMP query is to review controlled substances prescribed outside of the [place], and any additional information that may become available, as an important component of standard clinical care, and in accordance with [facility] policy. Patient information was shared with the PDMP Appriss Mona. No prescription(s) for controlled substances outside the [facility] were found in the last 90 days. /vance/ RACHEL HANNAH MD PHYSICIAN Signed: 06/25/2024 15:15 RACHEL HANNAH [facility] Jun 25, 2024 02:44 PM TELEHEALTH NOTE: LOCAL TITLE: DC VIDEO CONNECT NOTE STANDARD TITLE: TELEHEALTH NOTE DATE OF NOTE: JUN 25, 2024@14:44 ENTRY DATE: JUN 25, 2024@14:44:21 AUTHOR: RACHEL HANNAH EXP COSIGNER: URGENCY: STATUS: COMPLETED DC Video Connect (VVC) Standard Documentation VVC Clinician Resources Only: E911 (Emergency Call Relay Center): [phone] National [facility] Crisis Line - (6-602-412-TALK) press #1. BORIS Suicide Coordinator [phone], Ext. [phone]; Back-up Ext. [phone] Case Management Associate of the Day(AOD)BORIS Leeds [phone], Ext. [phone] Introduction: Visit is being conducted by [facility]. identified with 2 identifiers: [X] Full Name [ ] Date of [X] Address [ ] VA ID Card *We shouldn't be asking for SSN over a video visit so want to offer only acceptable identifiers for video visits.* Emergency Plan: [place] confirmed and/or provided the following information in case of emergency or technology failure. PATIENT PHONE - PHONE NUMBER [CELLULAR] - NONE FOUND Is patient phone number correct, if not, enter below: 's phone number: JOSE QUEZADA [place] [address] [place], [place], [address] 's present location and address for appointment: in his car, on the side of the road. [place]'s emergency contact name and phone number: CPRS [place] reported that location is private and safe: Yes Informed Consent: informed of the risks and benefits of Telehealth video care. [place] has the right to refuse video services. If refuses video visit, a [id number] visit will be scheduled. 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 Two identifiers were used. Last month, 05/25, he admitted himself to [facility] in [place]. I felt like I was becoming manic. [...] as many video games. And no weed. Per his psychologist Uyen Vaca: A quick update: per his brother, the ideas of reference developed in the weeks prior and culminated in full blown paranoia in May. His brother states Jose was never suicidal or homicidal, but freaked out with police. Jose seems to be improving over the past 1-2 wks- less anxious, ideas of reference are down to 2 instances per day, more insightful. I am wondering if his 30 lb weight loss in 90 days (on Ozempic) meant his body was more susceptible to the chronic dosing of THC (8 draws per day on a vape). He is agreeable to abstaining from marijuana, and appreciates the risks. He will see [facility] psychiatry in 2 wks. He is planning to return to work next week. In general, he is doing better. Denies cravings, med side effects. His mood, sleep, motivations and energy levels have been reasonable. He denies any SI/HI. SOCIAL HX: As noted above, he has been using short-term disability, plans to return to work next week. . 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 Only down [...] out of court. In January 2023, the community action worker imposed a permanent order - they will [...] ages; brother and his family live in [place]. SUBSTANCE ABUSE: Caffeine:1 cup/day Tobacco: no Cocaine: no Opioid: on suboxone Alcohol: 2 drinks/week Cannabis: none currently REVIEW OF SYSTEMS MENTAL HEALTH: SLEEP: fine MOOD: good mood reported PTSD: Nightmares, flashbacks, intrusive memories. avoidance:no ANXIETY:no ANGER/IRRITABILITY/AGGRESSI ON: no SUICIDAL MOOD/IDEAS: denies SUBSTANCE USE: as above use of alcohol or illegal/non-prescribed drugs TOBACCO: none ANDREINA/HYPOMANIA: recent episode necessitating in-pt tx. PSYCHOTIC FEATURES: None. ALCOHOL OR DRUG USE: as above OVERALL CHANGE SINCE LAST VISIT: same DEGREE OF IMPAIRMENT OF DAILY FUNCTION: moderate MEDICATION RECONCILIATION: pt not on no new/ non-VA prescribed medications or herbal treatments. MSE: is casually dressed and groomed. He is [...] on the kidney and LF LAST UDS: 06/01: POS bup, cannab; NEG for everything else. 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 Encouraged abstinence. Alcohol use: education and counseling provided, especially the interactions with suboxone. is aware and does not take his suboxone on the days he plans to drink alcohol with supper. He says that his consumption has been less than weekly. RTC: 4 WEEKS. EDUCATION/REMS: Instructed the patient [...] prescribed benzodiazepines or other central nervous system (INSTRUMENTS SALES REPRESENTATIVE) depressants (including alcohol) with suboxone. Cautioned patient [...] substance. Patient provided with Suicide Prevention Lifeline number(6-389-811-TALK) and urged to call that number at any time if he has thoughts about suicide and , or to call 911 or go to nearest E.R.if he has suicidal thoughts. Patient is aware of how to access [facility] open access MH clinic in [facility] during weekdays for immediate mental health needs if I am not available. Patient has capacity to make his own medication decisions at present time. Patient agreed with above plan. Time spent in this encounter: 40 minutes. Greater than 50% of time spent in [id number], counseling regarding abstinence, treatment goals, medication effects and side effects, need for psychotherapy, dependence best methods for taking medication. /es/ RACHEL HANNAH MD PHYSICIAN Signed: 06/25/2024 15:15 RACHEL HANNAH DC [facility]
--- OUTSIDE RECORDS SUMMARY | 2024-07-13 10:30 | XMS_ITS | Encounter Summary ---
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 Reconciliation: Outpatient: Has the patient been taking medications as documented in the EMLR? YES: The patient has been taking medications as documented in the EMLR. Essential Medication List for Review used to complete this medication reconciliation. INCLUDED IN THIS LIST: Alphabetical list of active outpatient prescriptions dispensed from this [facility] (local) and dispensed from another MD or DoD facility (remote) as well as inpatient orders (local, pending and active), local clinic medications, locally documented non-VA medications, and local prescriptions that have or been discontinued in the past 90 days. - All changes in medications, including all non-VA/Herbal/OTC medications were entered into CPRS. Changes: Added propranolol - If there were any medications the patient should no longer take, they were discontinued. - The patient/caregiver was instructed to update this list, discard old lists, and take this list to the next appointment, whether with a VA or non-VA provider. /vance/ Padmini Baugh PA-C PHYSICIAN DATA MODELER, [facility] Signed: 07/13/2024 21:19 PADMINI BAUGH [facility]
--- OUTSIDE RECORDS SUMMARY | 2024-07-13 10:30 | XMS_ITS | Encounter Summary ---
Author Name [facility] Address [address] [place] [address] Care Team Providers Care Commercial Green Retrofit Architect Name Role Phone SHELLEY SAAVEDRA Primary Care [...] PLAN W/HEALTH SAVINGS ACCOUNT [facility] Aug 01, 2016 [id number] [phone] DEE STRINGER SPOUSE [facility] MENTAL HEALTH [facility] (HDHP /HSA) Aug 01, 2016 [id number] DEE STRINGER SPOUSE [employer] ([id number]) PRESCRIPT ION [facility] [facility] (HDHP /HSA) Aug 01, 2016 [id number] DEE STRINGER SPOUSE [employer] ([id number]) PRESCRIPT ION [facility] [facility] Aug 01, 2016 [id number] DEE STRINGER SPOUSE [employer] ([id number]) PRESCRIPT ION [facility] Aug 01, 2016 [id number] DEE STRINGER SPOUSE Selected Encounter This section includes the information on record at [place] for the Encounter. Date/Time Encounter Type Encounter Description Reason Provider Source Jul 13, 2024 02:30 PM OFF/OP CONSLTJ NEW/EST HI 55 SUBSTANCE USE DISORDER IND ICD-10-CM F43.12 Post-traumatic stress disorder, chronic SALBADOR BAUGH Janna Encounter Template Text not used by [place] Assessments - Encounter Diagnoses This section includes the primary and secondary diagnoses documented for the Encounter. Date/Time Primary/Secondary Diagnosis Diagnosis Name Provider Source Jul 13, 2024 09:15 PM PRIMARY Post-traumatic stress disorder, chronic SALBADOR [facility] Jul 13, 2024 09:15 PM SECONDARY Brief psychotic disorder [facility]BADOR [facility] Jul 13, 2024 09:15 PM SECONDARY Cannabis dependence, in remission [facility]BADOR [facility] Jul 13, 2024 09:15 PM SECONDARY Opioid dependence, uncomplicated [facility]BAD[facility] Plan of Treatment: Future Appointments (+ 6 months) and Future Tests (+/- 45 days) The Plan of Treatment section includes future care activities for the [facility] [place] [facility] This section includes future appointments and future orders which are active, pending or scheduled. Future Appointments This section includes appointments that were scheduled to occur 6 months from the date of the Encounter, up to a maximum of 20 appointments. The data comes from all [place] treatment facilities. Appointment Date/Time Appointment Type Appointme Facility Name Jul 19, 2024 02:00 PM AMBULATORY - PSYCHIATRY [facility] Jul 24, 2024 02:30 PM [place] [facility] [place] [facility] Aug 21, 2024 02:30 PM [place]UL[place] [facility] [place] [facility] Sep 18, 2024 01:30 PM [place] [facility] [place] [facility] Oct 16, 2024 03:00 PM [place]UL[place] [facility] [place] [facility] Nov 13, 2024 03:00 PM [place]UL[place] [facility] [place] [facility] December 12, 2024 03:30 PM [place] [facility] [place] [facility] Jan 08, 2025 03:00 PM AMBULATORY - PSYCHIATRY [facility] Active, Pending, and Scheduled Orders This [...] stry Order DRUGS OF ABUSE URINE (DRUG) [facility] Aug 21, 2024 02:45 PM Laboratory - Chemi stry Order DRUGS OF ABUSE URINE (DRUG) [facility] Lab Results: +/- 30 days [...] Type Comment Jun 26, 2024 11:36 AM [facility] DRUGS OF ABUSE URINE Specimen Type: [...] Mar 08, 2024 02:45 PM Reporting Lab: [address] [id number] Performing Lab: [address] [address] AMPHETAMINES SCREEN NONE-DETECTED None-Detected, Cutoff = 1000 [...] 74.76 mg/dL >20 SP.GRAVITY, RIGOBERTO 1.011 1.003-1.020 Encounter Notes: All associated encounter notes This section contains the clinical notes associated to the Encounter. Date/Time Encounter Note(s) Provider Source Jul 13, 2024 09:11 PM MENTAL HEALTH CONS ULT: LOCAL TITLE: TELEMENTAL HEALTH CONSULT NOTE STANDARD TITLE: MENTAL HEALTH CONSULT DATE OF NOTE: JUL 13, 2024@21:11 ENTRY DATE: JUL 13, 2024@21:11:48 AUTHOR: SALBADOR BAUGH EXP COSIGNER: URGENCY: STATUS: COMPLETED MENTAL HEALTH POINTER NOTE TEMPLATE (CT medical record) Clinical services are being provided via [facility] from the [facility] to the [facility] site located at clinic/ patient's home in the [facility]. Clinical Service Provided: Psychiatric Evaluation, Medication Management Service Delivery Method: VV Length of Service: 90 minutes Primary Diagnosis: chronic PTSD For a complete progress note including a mental status examination and risk assessment, please see the [facility] medical record (accessible through JL). /vance/ Salbador Baugh PA-C PHYSICIAN WILDLIFE REHABILITATOR, [facility]ENT[facility] Signed: 07/13/2024 21:15 SALBADOR BAUGH [facility]
--- OUTSIDE RECORDS SUMMARY | 2024-07-19 10:00 | XMS_ITS | Encounter Summary ---
Author Name [facility] [facility] [place] Address [address] [place] [address] Care Team Providers Care Superintendent Refuse Disposal Name Role Phone SHELLEY SAAVEDRA Primary Care [...] PLAN W/HEALTH SAVINGS ACCOUNT [facility] Aug 01, 2016 [id number] [phone] DEE FULLER SPOUSE [facility] MENTAL HEALTH [facility] (HDHP /HSA) Aug 01, 2016 [id number] DEE FULLER SPOUSE [facility] ([id number]) PRESCRIPT ION [facility] (HDHP /HSA) Aug 01, 2016 [id number] DEE FULLER SPOUSE [facility] ([id number]) PRESCRIPT ION [facility] Aug 01, 2016 K4UA [id number] DEE FULLER SPOUSE [facility] ([id number]) PRESCRIPT ION [facility] Aug 01, 2016 K4UA [id number] [phone] DEE FULLER SPOUSE Selected Encounter This section includes the information on record at [place] for the Encounter. Date/Time Encounter Type Encounter Description Reason Provider Source Jul 19, 2024 02:00 PM PSYCH DIAGNOSTIC EVALUATION [facility] [place] ICD-10-CM F43.12 Post-traumatic stress disorder, chronic BROOKLYNN SILVA Janna Encounter Template Text not used by [place] Assessments - Encounter Diagnoses This section includes the primary and secondary diagnoses documented for the Encounter. Date/Time Primary/Secondary Diagnosis Diagnosis Name Provider Source Jul 19, 2024 03:58 PM PRIMARY Post-traumatic stress disorder, chronic BROOKLYNN SILVA [place] Plan of Treatment: Future Appointments (+ 6 months) and Future Tests (+/- 45 days) The Plan of Treatment section includes future care activities for the patient [facility] [place] [facility] This section includes future appointments and future orders which are active, pending or scheduled. Future Appointments This section includes appointments that were scheduled to occur 6 months from the date of the Encounter, up to a maximum of 20 appointments. The data comes from all [place] treatment facilities. Appointment Date/Time Appointment Type Appointme nt Facility Name Jul 24, 2024 02:30 PM [facility] [place] [facility] [place] [facility] Aug 21, 2024 02:30 PM [facility] [place] [facility] Sep 18, 2024 01:30 PM [facility] [place] [facility] Oct 16, 2024 03:00 PM [facility] [place] [facility] Nov 13, 2024 03:00 PM [facility] [place] [facility] December 12, 2024 03:30 PM [facility] [place] [facility] Jan 08, 2025 03:00 PM [facility]ORY [facility] [place] [facility] Active, Pending, and Scheduled Orders This section includes a listing of several types of active, pending, and scheduled orders, including clinic medications orders, diagnostic test orders, procedure orders and consult orders; where the start date of the order is 45 days before the date of the Encounter or 45 days after the date of theEncounter. The data comes from all [place] treatment [facility]. Test Date/Time Test Type Test Details Facility Name Jul 26, 2024 02:45 PM Laboratory - Chemi stry Order DRUGS OF ABUSE URINE (DRUG) [facility] Aug 21, 2024 02:45 PM Laboratory - Chemi stry Order DRUGS OF ABUSE URINE (DRUG) [facility] Lab Results: +/- 30 days of the encounter This section includes the Chemistry and Hematology Lab Results on record with [place] for the patient. Radiology Reports and Pathology Reports are provided separately, in subsequent sections. Lab Results This section contains the Chemistry/Hematology Results that were resulted 30 days before or 30 daysafter the date of the Encounter. Date/Time Source Result Type Result - Unit Interpretation Reference Range Specimen Type Comment Jun 26, 2024 11:36 AM [facility] DRUGS OF ABUSE URINE Specimen Type: [...] Mar 08, 2024 02:45 PM Reporting Lab: [address] [id number] Performing Lab: [address] [id number] AMPHETAMINES SCREEN NONE-DETECTED None-Detected, Cutoff = 1000 [...] and tobacco- related health factors from the [place] facility where the Encounter took place. Current Smoking Status This section includes the most current smoking, or tobacco-related health factor, from the [place] facility where the Encounter took place. Date/Time Current Smoking Status Comment Facil ity Jun 12, 2024 02:00 PM VA-TOBACCO FORMER USER [place] Tobacco Use History This section includes a history of the smoking, or tobacco-related health factors, that were collected on or before the date of the Encounter. The data comes from the [facility] where the Encounter took place. Date/Time Smoking Status/Tobacco Use Comment F acility Jun 12, 2024 02:00 PM VA-TOBACCO QUIT 15 YRS OR MORE [place] Jan 14, 2023 10:00 AM VA-TOBACCO FORMER USER [place] Jan 14, 2023 10:00 AM VA-TOBACCO QUIT 15 YRS OR MORE [facility] 16, 2023 10:00 AM VA-TOBACCO QUIT 5 TO < 15 YRS [place] Jun 19, 2020 02:30 PM VA-TOBACCO FORMER USER [place] Jun 19, 2020 02:30 PM VA-TOBACCO QUIT 5 TO < 15 YRS [place] Encounter Notes: All associated encounter notes This section contains the clinical notes associated to the Encounter. Date/Time Encounter Note(s) Provider Source Jul 19, 2024 01:58 PM MENTAL HEALTH CONS ULT: LOCAL TITLE: CONSULT REPORT/UNIFORM OUTPATIENT MENTAL HEALTH ASS STANDARD TITLE: MENTAL HEALTH CONSULT DATE OF NOTE: JUL 19, 2024@13:58 ENTRY DATE: JUL 19, 2024@13:58:56 AUTHOR: BROOKLYNN SILVA COSIGNER: URGENCY: STATUS: COMPLETED INFORMED CONSENT TO PARTICIPATE IN ASSESSMENT: At beginning of session reviewed rights and limits of confidentiality, mandatory reporting situations, duty to warn and protect, Steve Warning, (if treatment team finds patient to be an acute danger to himself or others, that this information could be relayed to a court of law and presented to a supervisor shuttle fitting), and [facility] access for active duty service members. Provided Suicide Prevention Hotline number, and other contact numbers as necessary. Uniform Outpatient Mental Health Assessment I. IDENTIFYING INFORMATION: KIRSTY FULLER Sep [phone] SERVICE CONNECTED % - 80 MARITAL STATUS - Referral source: Present at time of intake: [place] [X] Family member [ ] Supportive person(s) Name: Language Preference:Hungarian Language Spoken:Hungarian II. PRESENTING SITUATION: A. What brings you into Mental Health at this time: I had an unfortunate episode in May that triggered symptoms, I was sectioned for a week. A lot of anxiety, PTSD stuff. 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 Currently I live with daily anxiety and some of the PTSD symptoms. B. What are some of your goals for treatment: To grow and be a better person. Individual counseling. No groups at this time. No meds at this time. C. What are some of your strengths: I am reliable, dependable, I think I'm funny. and hard working. D. What are the obstacles or challenges preventing you from meeting your goals?: Severe anxiety, I can be inpatient. III: ASSESSMENT: A. 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 I am a bit reclusive, don't go out as much. Hypervigilant. B. Have you previously been involved in Mental Health treatment: Yes [X] No [ ] If yes, please check all that apply and describe: [X] Hospitalizations (when, where, etc.): In may for cannabis induced psychosis [X] Medication trials (what, when, doses, etc.): Suboxone [X] [facility]type, [facility], etc.[facility] C. Do you have concerns about current or past substance use: Yes [ ] No [X] If yes, please identify 's primary and secondary substances of choice: CANNABIS Age of onset: 16 Method of aquiring substance: friends in HS Means of use: smoke Pattern of use: daily then; currently one puff at night Duration (how long have you been using for the most recent episode): 8 days Frequency: daily Amount: one puff Last use: last night What was you longest period of sobriety?: 16 years Check all that apply with respect to this substance: Depending on how many boxes were checked above, indicate the severity level: Regarding the motivation for treatment, estimate 's stage of change with respect to this substance: Which withdrawl symptoms have you had when you tried to stop using substance? if patient has substance use issues What are some triggers leading patient to use substances: What does this individual do to cope when triggered to use besides using, if anything? Has substance use lead to any medical concerns (including black outs, liver function, pancreatitis, withdrawal symptoms)? Which?: How would you rate your readiness to change with respect to your substance(s) of choice: - Describe patient's level of awareness of the relationship between his or her behavioral conditions and his or her pattern of use? Only uses for sleep Describe any prior substance use treatment patient has had (detox, Residential, outpatient; when, where, modality, outcome): on suboxone for opiod use from [id number] Any current self-help group attendance (including AA/NA)? No Is patient receiving any substance use counseling or psychotherapy currently?: No -If yes, note modality, provider, and frequency: AUDIT-C RESULTS--In men, a score of 4 or more is considered positive; in women, a score of 3 or more is considered positive for at risk drinking. A score of 8-12 represents severe risk : Date Instrument Raw Trans Scale 06/12/2024 14:00 AUDC 4 Total Does patient report substance use is related to MST, Service-Connected Condition, and/or combat experience? Please explain. IV: PERSONAL HISTORY/INFORMATION: A. Biological/Social History (including: relevant developmental history, family of origin, sexual/physical/emotional traumas, cultural factors, applicable sexual history): I grew up with both parents, I have a younger brother 3 years difference. No SA in immediate family. Maternal grandfather was alcoholic, of liver disease. Maternal brother was cocaine user. No trauma or abuse. Currently I live in [place] with my parents for now. I about 4 years ago and sold the house. I have 2 children; 7 yo boy and 11 yo girl. B. 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 Experienced trauma. Exposed to burn pits and contaminents. C. 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 D. What are some accomplishments that you feel a sense of pride about: I have two associates degrees, my kids are well behaved and good students. E. 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 F. Are you comfortable with your current living arrangement (Have you ever been homelessness or at risk for homelessness): Not at risk G. What are your social or community Supports, your healthy or positive relationships: Parents supportive, I have friends at work, No community. H: What is your educational history or current goals: 2 associates degrees. I have thought about going back to school. I. 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 I like it there. No plans to move. J. Do you have a legal history (incarcerations, probation, parole, divorce, child custody issues): No K. What is your level of druze or spiritual fulfillment: I have some beliefs that help me. I don't go to holiness. L. How do you culturally identify? Can you anticipate any particular cultural on treatment? No M. Is there anybody you would like involved in the planning or delivery of your care: No N. Do you have concerns for your safety or the safety of others (domestic violence, abuse/neglect, etc): No O. Have you ever been in a situation where you felt you were taken advantage of or exploited, particularly by someone in a position of power? No P. 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 PHYSICAL HEALTH SCREENING A. Do you have any past or current medical concerns: Yes [X] No [ ] Active Problem Hyperlipidemia E78.5 06/08/2023 SHELLEY SAAVEDRA Prediabetes R73.03 06/08/2023 SHELLEY SAAVEDRA Obesity E66.9 06/08/2023 SHELLEY SAAVEDRA Nondependent Cannabis Abuse (SCT 19 01/07/2020 TIA NUGENT Concussion with loss of consciousne 01/24/2015 NOHEMI JERRY Opioid dependence (SNOMED CT 441046 01/07/2020 TIA NUGENT Chronic post-traumatic stress disor 01/07/2020 TIA NUGENT Counseling on Substance Use and Abu 08/09/2008 REMEDIOS MURRY Other medical problems not listed above: B. Date of last physical exam:2023[ ]Unknown C.Are you experiencing pain: Rating (0-10: Comment on pain rating: No D. Nutritional screening - Have you experienced any of the following: Food Allergies? No, describe: Significant (+/- 10lbs) gain or loss in the last three months? No, describe: Decrease in food intake/appetite? No, describe: Notable Dental problems? No, describe: Significant change in eating habits (purging, restricting, etc.)? No, describe: E. How do you see these concerns impacting on past and current quality of life (School, Work, Family, Housing, Finances, Social life, Legal, etc): Active Outpatient Medications (including Supplies): BUPRENORPHINE 8MG/NALOXONE 2MG SL TAB DISSOLVE ONE AND ACTIVE ONE-HALF TABS UNDER THE TONGUE ONCE DAILY NEXT FILL DATE 07/26/24 Indication: FOR OPIOID DEPENDENCE HYDROXYZINE PAMOATE 50MG CAP TAKE ONE CAPSULE BY MOUTH ACTIVE TWICE DAILY NEEDED DON'T DRIVE WITHIN 6 HOURS OF TAKING CAN CAUSE DROWSINESS. Indication: FOR ANXIETY PROPRANOLOL HCL 10MG TAB TAKE ONE TABLET BY MOUTH TWICE ACTIVE DAILY NEEDED TAKE ONE HOUR BEFORE PRODUCING EVENT. Indication: ANXIETY : MENTAL STATUS / SUBJECTIVE COMPLAINTS: (check all that apply): Appearance:Neatly groomed Behavior:Appropriate, Pleasant, Maintained good eye contact Mood/Affect:Normal, Anxious Energy:Normal Sleep:Normal Orientation: Oriented to person: Yes Oriented to place: Yes Oriented to time: Yes Stream of thought:Normal Speech:Normal Insight / Judgment:Normal Other cognitive problems:Cognition intact Relevant Observations, other notes: : DSM5 DIAGNOSES: PTSD chronic (F43.12) VII: SUMMARY AND IMPRESSIONS: Mr. Fuller is a 43 year old [employer] . He is seeking help for his PTSD symptoms. He is most struggling with anxiety, irritability and hypervigilence. It does affect his daily life. denied having any childhood trauma, some SA in extended family but not with parents. 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 did not disclose any details. [place] stated he had an episode recently in May. that required a week hospitalization. 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 He just began using cannabis again approx 8 days ago and only at night before bed, one puff. stated in passing that he had an opioid addiction in the past but again no details. [place] would like individual counseling here at the [place]. He declined community referral PTSD Screening: PC-PTSD-5 A PTSD screening test (PC-PTSD-5) was positive (score=4). IN THE PAST MONTH, have you ever had any experience that was so frightening, horrible or traumatic. For example: A serious accident or fire a physical or sexual assault or abuse An earthquake or flood A war Seeing someone be killed or seriously injured Having a loved one through homicide or suicide 1. Have you ever experienced this kind of event? YES 2. Had nightmares about the event(s) or thought about the event(s) when you did not want to? YES 3. Tried hard not to think about the event(s) or went out of your way to avoid situations that reminded you of the event(s)? YES 4. Been constantly on guard, watchful, or easily startled? YES 5. [place] numb or detached from people, activities, or your surroundings? NO 6. [place] guilty or unable to stop blaming yourself or others for the event(s) or any problems the event(s) may have caused? YES Licensed Independent Provider notified of positive screen and need for follow-up. Name of provider notified: Brooklynn Silva [facility] Follow-Up Pos PTSD/Depression: I have reviewed the results of the Mental Health screens and have evaluated the patient. Based on the evaluation, the following disposition plan will be implemented: Other Comment: engaged in MH intake and requesting individual counseling for symptoms Depression Screening: Perform PHQ-2 A PHQ-2 screen was performed. The score was 0 which is a negative screen for depression. Over the past two weeks, how often have you been bothered by the following problems? 1. Little interest or pleasure in doing things Not at all 2. Feeling down, depressed, or hopeless Not at all Suicide Screen: C-SSRS Screening [place]-Suicide Severity Rating Scale (C-SSRS Screener) 1. Over [...] required due to responses to other questions. /vance/ CATHERINE MUÑOZ Daily Release And Dupe Printer Mental Health Signed: 07/19/2024 15:58 BROOKLYNN SILVA
--- OUTSIDE RECORDS SUMMARY | 2024-07-24 10:30 | XMS_ITS | Encounter Summary ---
Author Name [facility] [place] [facility] [place] Address [address] [place] [address] Care Team Providers Care Automotive Consultant Name Role Phone SHELLEY SAAVEDRA Primary Care [...] MASSM UTUAL HDHP HSA Aug 01, 2016 [id number] [phone] DEE STRINGER SPOUSE [facility]UAL (HDHP /HSA) Aug 01, 2016 [id number] [phone] DEE STRINGER SPOUSE [employer] ([id number]) PRESCRIPT ION [facility]UAL (HDHP /HSA) Aug 01, 2016 [id number] [phone] DEE STRINGER SPOUSE [employer] ([id number]) PRESCRIPT ION MASSM UTUAL [facility]AL Aug 01, 2016 [id number] DEE STRINGER SPOUSE [employer] ([id number]) PRESCRIPT ION [facility] UT[facility] HDHP HSA Aug 01, 2016 [id number] DEE STRINGER SPOUSE Selected Encounter This section includes the information on record at [place] for the Encounter. Date/Time Encounter Type Encounter Description Reason Provider Source Jul 24, 2024 02:30 PM OFFICE O/P EST HI 40 MIN SUBSTANCE USE DISORDER IND ICD-10-CM F11.20 Opioid dependence, uncomplicated RACHEL HANNAH IHE Encounter Template Text not used by [place] Assessments - Encounter Diagnoses This section includes the primary and secondary diagnoses documented for the Encounter. Date/Time Primary/Secondary Diagnosis Diagnosis Name Provider Source Aug 21, 2024 03:55 PM PRIMARY Opioid dependence, uncomplicated [facility] Aug 21, 2024 03:55 PM SECONDARY Post-traumatic stress disorder, chronic [facility] Plan of Treatment: Future Appointments (+ 6 months) and Future Tests (+/- 45 days) The Plan of Treatment section includes future care activities for the patient from all [place] [facility] This section includes future appointments and future orders which are active, pending or scheduled. Future Appointments This section includes appointments that were scheduled to occur 6 months from the date of the Encounter, up to a maximum of 20 appointments. The data comes from all [place] treatment facilities. Appointment Date/Time Appointment Type Appointme nt Facility Name Aug 21, 2024 02:30 PM AMBUL[facility] Sep 18, 2024 01:30 PM [facility] [place] [facility] Oct 16, 2024 03:00 PM [facility] [place] [facility] Nov 13, 2024 03:00 PM [facility] [place] [facility] December 12, 2024 03:30 PM AM[facility] Jan 08, 2025 03:00 PM [facility] Active, Pending, and Scheduled Orders This section includes a listing of several types of active, pending, and scheduled orders, including clinic medications orders, diagnostic test orders, procedure orders and consult orders; where the start date of the order is 45 days before the date of the Encounter or 45 days after the date of theEncounter. The data comes from all [place] treatment facilities. Test Date/Time Test Type Test Details Facility Name Jul 26, 2024 02:45 PM Laboratory - Chemi stry Order DRUGS OF ABUSE URINE (DRUG) [facility] Aug 21, 2024 02:45 PM Laboratory - Chemi stry Order DRUGS OF ABUSE URINE (DRUG) [facility] Lab Results: +/- 30 days of the encounter This section includes the Chemistry and Hematology Lab Results on record with [place] for the patient. Radiology Reports and Pathology Reports are provided separately, in subsequent sections. Lab Results This section contains the Chemistry/Hematology Results that were resulted 30 days before or 30 daysafter the date of the Encounter. Date/Time Source Result Type Result - Unit Interpretation Reference Range Specimen Type Comment Jun 26, 2024 11:36 AM [facility] DRUGS OF ABUSE URINE Specimen Type: [...] Mar 08, 2024 02:45 PM Reporting Lab: [address] [id number] Performing Lab: [address] [id number] AMPHETAMINES SCREEN NONE-DETECTED None-Detected, Cutoff = 1000 [...] and tobacco- related health factors from the [place] facility where the Encounter took place. Current Smoking Status This section includes the most current smoking, or tobacco-related health factor, from the [place] facility where the Encounter took place. Date/Time Current Smoking Status Comment [facility] Jul 05, 2019 09:23 AM [place]-TOBACCO QUIT 5 TO < 15 YRS [facility] Tobacco Use History This section includes a history of the smoking, or tobacco-related health factors, that were collected on or before the date of the Encounter. The data comes from the [place] facility where the Encounter took place. Date/Time Smoking Status/Tobac co Use Comment Facility Jul 05, 2019 09:23 AM VA-TOBACCO QUIT 5 TO < 15 YRS [place] [facility] [place] [facility] Jun 21, 2018 10:07 AM VA-TOBACCO FORMER USER [place] [facility] [place] [facility] Jun 21, 2018 10:07 AM VA-TOBACCO QUIT 5 TO < 15 YRS [place] [facility] [place] [facility] Jul 12, 2017 11:33 AM QUIT TOBACCO USE > 7 YEARS AGO [place] [facility] [place] [facility] Aug 10, 2016 01:52 PM QUIT TOBACCO USE > 7 YEARS AGO [place] [facility] [place] [facility] Aug 11, 2015 01:06 PM QUIT TOBACCO USE > 7 YEARS AGO [place] [facility] [place] [facility] Sep 10, 2010 01:42 PM QUIT TOBACCO USE > 7 YEARS AGO [place] [facility] [place] [facility] Oct 06, 2009 10:50 AM QUIT TOBACCO USE 1-7 YEARS AGO 2.5 years ago [facility] [place] [facility] Sep 27, 2008 12:40 PM QUIT TOBACCO USE 1-7 YEARS AGO [facility] May 16, 2008 11:03 AM V1-PT DECLINES REF TO TOBACCO CESS PRGM [facility] May 16, 2008 11:03 AM V1-PT DECLINES TOBACCO CESSATION MEDS [facility] May 16, 2008 11:03 AM V1-PT THINKING ABOUT QUIT TOBACCO USE [facility] Nov 27, 2007 03:00 PM V1-PT DECLINES REF TO TOBACCO CESS PRGM [facility] Nov 27, 2007 03:00 PM V1-PT DECLINES TOBACCO CESSATION MEDS [facility] Nov 27, 2007 03:00 PM V1-PT THINKING ABOUT QUIT TOBACCO USE [facility] Oct 06, 2007 03:49 PM V1-PT DECLINES REF TO TOBACCO CESS PRGM [facility] Oct 06, 2007 03:49 PM V1-PT DECLINES TOBACCO CESSATION MEDS [facility] Oct 06, 2007 03:49 PM V1-PT NOT INTERESTED IN QUIT TOBACCO USE [facility] Oct 06, 2007 11:28 AM CURRENT SMOKER smokes 1/2 PPD since age 20 [facility] Encounter Notes: All associated encounter notes This section contains the clinical notes associated to the Encounter. Date/Time Encounter Note(s) Provider Source Jul 24, 2024 03:22 PM ACCOUNTING OF DISC LOSURES NOTE: LOCAL TITLE: STATE PRESCRIPTION DRUG MONITORING PROGRAM STANDARD TITLE: ACCOUNTING OF DISCLOSURES NOTE DATE OF NOTE: JUL 24, 2024@15:22:14 ENTRY DATE: JUL 24, 2024@15:22:14 AUTHOR: RACHEL HANNAH EXP COSIGNER: URGENCY: STATUS: COMPLETED This PDMP query was submitted by Rachel Hannah MD. The clinical justification for this PDMP query is to review controlled substances prescribed outside of the [place], and any additional information that may become available, as an important component of standard clinical care, and in accordance with [facility] policy. Patient information was shared with the PDMP [place]. No prescription(s) for controlled substances outside the [facility] were found in the last 90 days. /vance/ RACHEL HANNAH MD PHYSICIAN Signed: 07/24/2024 15:22 RACHEL HANNAH [place] [facility] [place] [facility] Jul 24, 2024 02:21 PM TELEHEALTH NOTE: LOCAL TITLE: [facility] VIDEO CONNECT NOTE STANDARD TITLE: TELEHEALTH NOTE DATE OF NOTE: JUL 24, 2024@14:21 ENTRY DATE: JUL 24, 2024@14:21:50 AUTHOR: RACHEL HANNAH EXP COSIGNER: URGENCY: STATUS: COMPLETED [facility] Video Connect (VVC) Standard Documentation VVC Clinician Resources Only: E911 (Emergency Call Relay Center): [phone] [facility] Crisis Line - ([phone]-TALK) press #1. BORIS Suicide Coordinator [phone], Ext. [phone]; Back-up Ext. [phone] [employer] Combination Teacher of the Day(AOD), Willis ESCALANTE [phone], Ext. [phone] Introduction: Visit is being conducted by [place] [facility] [employer]. identified with 2 identifiers: [X] Full [...] phone number correct, if not, enter below: Christiana's phone number: JOSE QUEZADA STRINGER [address] [place], [place], [address] 's present location and address for appointment: in his car, on the side of the road. Christiana's emergency contact name and phone number: CPRS reported that location is private and safe: Yes Informed Consent: Christiana informed of the risks and benefits of Telehealth video care. has the right to refuse video services. If refuses video visit, a [id number] visit will be scheduled. verbalized consent for this video visit: Yes Christiana provided consent for any other persons present [...] court of law and presented to a lpn instructor), and DOD access for active duty service [...] for medication management. Two identifiers were used. As previously noted, on 05/25/24, he admitted himself to [facility] in [place]. I felt like I was becoming manic. [...] and appreciates the risks. He will see [facility] psychiatry in 2 wks. In general, he is doing better. He has returned to work. Denies cravings, med side effects. His mood, sleep, motivations and energy levels have been reasonable. He denies any SI/HI. 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 Only down [...] out of court. In January 2023, the lpn instructor imposed a permanent order - they will [...] ages; brother and his family live in [place]. SUBSTANCE ABUSE: Caffeine:1 cup/day Tobacco: no Cocaine: [...] non-VA prescribed medications or herbal treatments. MSE: Christiana is casually dressed and groomed. He is [...] on the kidney and LF LAST UDS: 06/26: POS bup, cannab; NEG for everything else. [...] cannabis use, including imminent symptoms, short and termite control service representative effects of using cannabis. Encouraged abstinence. Alcohol use: education and counseling provided, especially the interactions with suboxone. Christiana is aware and does not take his [...] prescribed benzodiazepines or other central nervous system (VALET MANAGER) depressants (including alcohol) with suboxone. Cautioned patient [...] substance. Patient provided with Suicide Prevention Lifeline number(8-967-031-TALK) and urged to call that number at any time if he has thoughts about suicide and , or to call 911 or go to nearest E.R.if he has suicidal thoughts. Patient is aware of how to access [facility] open access MH clinic in [facility] during weekdays for immediate mental health needs if I am not available. Patient has capacity to make his own medication decisions at present time. Patient agreed with above plan. Time spent in this encounter: 40 minutes. Greater than 50% of time spent in [id number], counseling regarding abstinence, treatment goals, medication effects and side effects, need for psychotherapy, dependence best methods for taking medication. /vance/ RACHEL HANNAH MD PHYSICIAN Signed: 07/24/2024 15:22 RACHEL HANNAH [place] [facility]
--- OUTSIDE RECORDS SUMMARY | 2024-08-21 10:30 | XMS_ITS | Encounter Summary ---
Author Name [facility] [place] [facility] [place] [facility] [place] Address [address] [place] [address] Care Team Providers Care Assistant Product Manager Name Role Phone SHELLEY SAAVEDRA Primary Care [...] MASSM UTUAL HDHP HSA Aug 01, 2016 [id number] [phone] DEE STRINGER SPOUSE [facility]SM UTUAL (HDHP /HSA) Aug 01, 2016 [id number] [phone] DEE STRINGER SPOUSE [employer] ([id number]) PRESCRIPT ION MASSM UTUAL (HDHP /HSA) Aug 01, 2016 [id number] DEE STRINGER SPOUSE [employer] ([id number]) PRESCRIPT ION MASSM UTUAL [facility]MAR[facility] CIAL Aug 01, 2016 [id number] DEE STRINGER SPOUSE [employer] ([id number]) PRESCRIPT ION MASSM UTUAL HDHP HSA Aug 01, 2016 [id number] DEE STRINGER SPOUSE Selected Encounter This section includes the information on record at [place] for the Encounter. Date/Time Encounter Type Encounter Description Reason Provider Source Aug 21, 2024 02:30 PM OFFICE O/P EST HI 40 MIN SUBSTANCE USE DISORDER IND ICD-10-CM F11.20 Opioid dependence, uncomplicated RACHEL HANNAH IHE Encounter Template Text not used by [place] Assessments - Encounter Diagnoses This section includes the primary and secondary diagnoses documented for the Encounter. Date/Time Primary/Secondary Diagnosis Diagnosis Name Provider Source Sep 07, 2024 12:49 PM PRIMARY Opioid dependence, uncomplicated [facility] [place] Sep 07, 2024 12:49 PM SECONDARY Post-traumatic stress disorder, chronic RACHEL [facility]ANNAH [facility] [place] Plan of Treatment: Future Appointments (+ 6 months) and Future Tests (+/- 45 days) The Plan of Treatment section includes future care activities for the patient from [facility] [place] [facility]. This section includes future appointments and future orders which are active, pending or scheduled. Future Appointments This section includes appointments that were scheduled to occur 6 months from the date of the Encounter, up to a maximum of 20 appointments. The data comes from all [place] treatment facilities. Appointment Date/Time Appointment Type Appointme nt Facility Name Sep 18, 2024 01:30 PM [facility] [place] Oct 16, 2024 03:00 PM [facility] [place] Nov 13, 2024 03:00 PM [facility] [place] December 12, 2024 03:30 PM [facility] [place] Jan 08, 2025 03:00 PM [facility] [place] Feb 05, 2025 01:30 PM [facility] [place] Active, Pending, and Scheduled Orders This section includes a listing of several types of active, pending, and scheduled orders, including clinic medications orders, diagnostic test orders, procedure orders and consult orders; where the start date of the order is 45 days before the date of the Encounter or 45 days after the date of theEncounter. The data comes from all [place] treatment facilities. Test Date/Time Test Type Test Details Facility Name Jul 26, 2024 02:45 PM Laboratory - Chemi stry Order DRUGS OF ABUSE URINE (DRUG) SP [facility] Aug 21, 2024 02:45 PM Laboratory - Chemi stry Order DRUGS OF ABUSE URINE (DRUG) SP [facility] Lab Results: +/- 30 days of the encounter This section includes the Chemistry and Hematology Lab Results on record with [place] for the patient. Radiology Reports and Pathology Reports are provided separately, in subsequent sections. Lab Results This section contains the Chemistry/Hematology Results that were resulted 30 days before or 30 daysafter the date of the Encounter. Date/Time Source Result Type Result - Unit Interpretation Reference Range Specimen Type Comment Sep 19, 2024 02:44 PM [facility] DRUGS OF ABUSE URINE Specimen Type: [...] Ordering Provider: RACHEL HANNAH Report Released Date/Time: Aug 21, 2024 02:45 PM Reporting Lab: [address] [address] Performing Lab: [address] [address] AMPHETAMINES SCREEN NONE-DETECTED None-Detected, Cutoff = 1000 [...] PH, RIGOBERTO 5.5 [pH] 4-10 CREATININE, RIGOBERTO 357.31 mg/dL >20 SP.GRAVITY, RIGOBERTO 1.024 H 1.003-1.020 Social History: Smoking Status (Most current) and Tobacco Use (All prior to encounter date) This section includes the most current, and the historical, smoking and tobacco- related health factors from the [place] facility where the Encounter took place. Current Smoking Status This section includes the most current smoking, or tobacco-related health factor, from the [place] facility where the Encounter took place. Date/Time Current Smoking Status Comment [facility] Jul 05, 2019 09:23 AM [place]-TOBACCO QUIT 5 TO < 15 YRS [facility] Tobacco Use History This section includes a history of the smoking, or tobacco-related health factors, that were collected on or before the date of the Encounter. The data comes from the [place] facility where the Encounter took place. Date/Time Smoking Status/Tobac co Use Comment Facility Jul 05, 2019 09:23 AM [place]-TOBACCO QUIT 5 TO < 15 YRS [facility] [place] Jun 21, 2018 10:07 AM [place]-TOBACCO FORMER USER [facility] [place] Jun 21, 2018 10:07 AM [place]-TOBACCO QUIT 5 TO < 15 YRS [facility] [place] Jul 12, 2017 11:33 AM QUIT TOBACCO USE > 7 YEARS AGO [facility] [place] Aug 10, 2016 01:52 PM QUIT TOBACCO USE > 7 YEARS AGO [facility] [place] Aug 11, 2015 01:06 PM QUIT TOBACCO USE > 7 YEARS AGO [facility] [place] Sep 10, 2010 01:42 PM QUIT TOBACCO USE > 7 YEARS AGO [facility] [place] Oct 06, 2009 10:50 AM QUIT TOBACCO USE 1-7 YEARS AGO 2.5 years ago [place] [facility] [place] Sep 27, 2008 12:40 PM QUIT TOBACCO USE 1-7 YEARS AGO [facility] May 16, 2008 11:03 AM V1-PT DECLINES REF TO TOBACCO CESS [facility] [place] May 16, 2008 11:03 AM V1-PT DECLINES TOBACCO CESSATION MEDS [facility] May 16, 2008 11:03 AM V1-PT THINKING ABOUT QUIT TOBACCO USE [facility] Nov 27, 2007 03:00 PM V1-PT DECLINES REF TO TOBACCO CESS [facility] Nov 27, 2007 03:00 PM V1-PT DECLINES TOBACCO CESSATION MEDS [facility] Nov 27, 2007 03:00 PM V1-PT THINKING ABOUT QUIT TOBACCO USE [facility] Oct 06, 2007 03:49 PM V1-PT DECLINES REF TO TOBACCO CESS PRGM [facility] Oct 06, 2007 03:49 PM V1-PT DECLINES TOBACCO CESSATION MEDS [facility] Oct 06, 2007 03:49 PM V1-PT NOT INTERESTED IN QUIT TOBACCO USE [facility] Oct 06, 2007 11:28 AM CURRENT SMOKER smokes 1/2 PPD since age 20 [facility] Encounter Notes: All associated encounter notes This section contains the clinical notes associated to the Encounter. Date/Time Encounter Note(s) Provider Source Aug 21, 2024 03:51 PM ACCOUNTING OF DISC LOSURES NOTE: LOCAL TITLE: STATE PRESCRIPTION DRUG MONITORING PROGRAM STANDARD TITLE: ACCOUNTING OF DISCLOSURES NOTE DATE OF NOTE: AUG 21, 2024@15:51:06 ENTRY DATE: AUG 21, 2024@15:51:06 AUTHOR: RACHEL HANNAH EXP COSIGNER: URGENCY: STATUS: COMPLETED This PDMP query was submitted by Rachel Hannah MD. The clinical justification for this PDMP query is to review controlled substances prescribed outside of the [place], and any additional information that may become available, as an important component of standard clinical care, and in accordance with [facility] policy. Patient information was shared with the PDMP [place]. No prescription(s) for controlled substances outside the [place] were found in the last 90 days. /es/ RACHEL HANNAH MD PHYSICIAN Signed: 08/21/2024 15:51 RACHEL HANNAH [place] [facility] [place] Aug 21, 2024 02:37 PM TELEHEALTH NOTE: LOCAL TITLE: [facility] VIDEO CONNECT NOTE STANDARD TITLE: TELEHEALTH NOTE DATE OF NOTE: AUG 21, 2024@14:37 ENTRY DATE: AUG 21, 2024@14:37:48 AUTHOR: RACHEL HANNAH EXP COSIGNER: URGENCY: STATUS: COMPLETED [place] Video Connect (VVC) Standard Documentation VVC Clinician Resources Only: E911 (Emergency Call Relay Center): [phone] [facility] Crisis Line - ([phone]-TALK) press #1. BORIS Suicide Coordinator [phone], Ext. [phone]; Back-up Ext. [phone] Rabbler of the Day(AOD), Willis ESCALANTE [phone], Ext. [phone] Introduction: Visit is being conducted by [place] [employer] [facility]. [place] identified with 2 identifiers: [X] Full Name [ ] Date of [X] Address [ ] [place] ID Card *We shouldn't be asking for SSN over a video visit so want to offer only acceptable identifiers for video visits.* Emergency Plan: [place] confirmed and/or provided the following information in case of emergency or technology failure. PATIENT PHONE - PHONE NUMBER [CELLULAR] - NONE FOUND Is patient phone number correct, if not, enter below: [place]'s phone number: JOSE QUEZADA SI[place] [address] [place], [place], [address] 's present location and address for appointment: in his car, on the side of the road. 's emergency contact name and phone number: CPRS reported that location is private and safe: Yes Informed Consent: [place] informed of the risks and benefits of Telehealth video care. [place] has the right to refuse video services. If refuses video visit, a [id number] visit will be scheduled. verbalized consent for this video visit: Yes [place] provided consent for any other persons present [...] court of law and presented to a sales closer), and DOD access for active duty service [...] noted, on 05/25/24, he admitted himself to [facility] in [place]. I felt like I was becoming manic. [...] and appreciates the risks. He will see [facility] psychiatry in 2 wks. Will be scheduling with MH provider; had intake appt 07/13. In general, he is doing better. He has returned to work. Denies cravings, med side effects. His mood, sleep, motivations and energy levels have been reasonable. He denies any SI/HI. 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 Only down [...] out of court. In January 2023, the sales closer imposed a permanent order - they will [...] ages; brother and his family live in [place]. SUBSTANCE ABUSE: Caffeine:1 cup/day Tobacco: no Cocaine: [...] non-VA prescribed medications or herbal treatments. MSE: [place] is casually dressed and groomed. He is [...] cannabis use, including imminent symptoms, short and fingernail former effects of using cannabis. Encouraged abstinence. Alcohol use: education and counseling provided, especially the interactions with suboxone. [place] is aware and does not take his [...] prescribed benzodiazepines or other central nervous system (AQUATIC INSTRUCTOR) depressants (including alcohol) with suboxone. Cautioned patient [...] substance. Patient provided with Suicide Prevention Lifeline number(9-087-049-TALK) and urged to call that number at any time if he has thoughts about suicide and , or to call 911 or go to nearest E.R.if he has suicidal thoughts. Patient is aware of how to access [facility] open access MH clinic in [place] during weekdays for immediate mental health needs if I am not available. Patient has capacity to make his own medication decisions at present time. Patient agreed with above plan. Time spent in this encounter: 40 minutes. Greater than 50% of time spent in [id number], counseling regarding abstinence, treatment goals, medication effects and side effects, need for psychotherapy, dependence best methods for taking medication. /vance/ RACHEL HANNAH MD PHYSICIAN Signed: 08/21/2024 15:50 RACHEL HANNAH [facility]
--- OUTSIDE RECORDS SUMMARY | 2024-09-18 09:30 | XMS_ITS | Encounter Summary ---
Author Name [facility] Organization [facility] Address [address] [place] [address] Care Team Providers Care Explosive Operator Supervisor Name Role Phone SHELLEY SAAVEDRA Primary Care [...] MASSM UTUAL HDHP HSA Aug 01, 2016 [id number] [phone] DEE STRINGER SPOUSE [facility] UTUAL (HDHP /HSA) Aug 01, 2016 [id number] [phone] DEE STRINGER SPOUSE [employer] ([id number]) PRESCRIPT ION MASSM UTUAL (HDHP /HSA) Aug 01, 2016 [id number] [phone] DEE STRINGER SPOUSE [employer] ([id number]) PRESCRIPT ION MASSM UTUAL FINMARITZA CIAL Aug 01, 2016 [id number] DEE STRINGER SPOUSE [employer] ([id number]) PRESCRIPT ION MASSM UTUAL HDHP HSA Aug 01, 2016 [id number] DEE STRINGER SPOUSE Selected Encounter This section includes the information on record at [place] for the Encounter. Date/Time Encounter Type Encounter Description Reason Provider Source Sep 18, 2024 01:30 PM OFFICE O/P EST HI 40 MIN SUBSTANCE USE DISORDER IND ICD-10-CM F11.20 Opioid dependence, uncomplicated RACHEL HANNAH IHE Encounter Template Text not used by [place] Assessments - Encounter Diagnoses This section includes the primary and secondary diagnoses documented for the Encounter. Date/Time Primary/Secondary Diagnosis Diagnosis Name Provider Source Sep 18, 2024 02:05 PM PRIMARY Opioid dependence, uncomplicated RACHEL HANNAH [facility] [place] [facility] Sep 18, 2024 02:05 PM SECONDARY Post-traumatic stress disorder, chronic RACHEL HANNAH [facility] Plan of Treatment: Future Appointments (+ 6 months) and Future Tests (+/- 45 days) The Plan of Treatment section includes future care activities for the patient [facility] This section includes future appointments and future orders which are active, pending or scheduled. Future Appointments This section includes appointments that were scheduled to occur 6 months from the date of the Encounter, up to a maximum of 20 appointments. The data comes from all [place] treatment facilities. Appointment Date/Time Appointment Type Appointme nt Facility Name Oct 16, 2024 03:00 PM AMBULATORY - PSYCHIATRY [facility] [facility] Nov 13, 2024 03:00 PM [facility] [place] [facility] December 12, 2024 03:30 PM [facility] [place] [facility] Jan 08, 2025 03:00 PM [facility] [place] [facility] Feb 05, 2025 01:30 PM AMBULATORY PS[facility]IATRY [facility] [place] [facility] Mar 05, 2025 03:00 PM AMBULATORY [facility]RY [facility] Active, Pending, and Scheduled Orders This section includes a listing of several types of active, pending, and scheduled orders, including clinic medications orders, diagnostic test orders, procedure orders and consult orders; where the start date of the order is 45 days before the date of the Encounter or 45 days after the date of theEncounter. The data comes from all [place] treatment facilities. Test Date/Time Test Type Test Details Facility Name Aug 21, 2024 02:45 PM Laboratory - Chemi all Order DRUGS OF ABUSE URINE (DRUG) SP [facility] Lab Results: +/- 30 days of the encounter This section includes the Chemistry and Hematology Lab Results on record with [place] for the patient. Radiology Reports and Pathology Reports are provided separately, in subsequent sections. Lab Results This section contains the Chemistry/Hematology Results that were resulted 30 days before or 30 daysafter the date of the Encounter. Date/Time Source Result Type Result - Unit Interpretation Reference Range Specimen Type Comment Oct 17, 2024 02:40 PM [facility] DRUGS OF ABUSE URINE Specimen Type: URINE [...] Aug 21, 2024 02:45 PM Reporting Lab: [address] [id number] Performing Lab: [address] [id number] AMPHETAMINES SCREEN NONE-DETECTED None-Detected, Cutoff = 1000 [...] tive: Cutoff = 1.00 ng/mL PH, RIGOBERTO 5.6 [pH] 4-10 CREATININE, RIGOBERTO 280.38 mg/dL >20 SP.GRAVITY, RIGOBERTO 1.022 H 1.003-1.020 Sep 19, 2024 02:44 PM [facility] DRUGS OF ABUSE URINE Specimen Type: URINE [...] Aug 21, 2024 02:45 PM Reporting Lab: [address] [id number] Performing Lab: [address] [id number] AMPHETAMINES SCREEN NONE-DETECTED None-Detected, Cutoff = 1000 [...] and tobacco- related health factors from the [place] facility where the Encounter took place. Current Smoking Status This section includes the most current smoking, or tobacco-related health factor, from the [place] facility where the Encounter took place. Date/Time Current Smoking Status Comment [facility] it Jul 05, 2019 09:23 AM PR-TOBACCO QUIT 5 TO < 15 YRS [facility] Tobacco Use History This section includes a history of the smoking, or tobacco-related health factors, that were collected on or before the date of the Encounter. The data comes from the [place] facility where the Encounter took place. Date/Time Smoking Status/Tobac co Use Comment Facility Jul 05, 2019 09:23 AM [facility]CO QUIT 5 TO < [facility] Jun 21, 2018 10:07 AM VA-TOBACCO FORMER USER [facility] Jun 21, 2018 10:07 AM PR-TOBACCO QUIT 5 TO < 15 YRS [facility] [place] [facility] Jul 12, 2017 11:33 AM QUIT TOBACCO USE > 7 YEARS AGO PR CNT [facility] [place] [facility] Aug 10, 2016 01:52 PM QUIT TOBACCO USE > 7 YEARS AGO [facility] [place] [facility] Aug 11, 2015 01:06 PM QUIT TOBACCO USE > 7 YEARS AGO [facility] [place] [facility] Sep 10, 2010 01:42 PM QUIT TOBACCO USE > 7 YEARS AGO [facility] [place] [facility] Oct 06, 2009 10:50 AM QUIT TOBACCO USE 1-7 YEARS AGO 2.5 years ago [place] [facility] [place] [facility] Sep 27, 2008 12:40 PM QUIT TOBACCO USE 1-7 YEARS AGO [place] [facility] [place] [facility] May 16, 2008 11:03 AM V1-PT DECLINES REF TO TOBACCO CESS PRGM [facility] May 16, 2008 11:03 AM V1-PT DECLINES TOBACCO CESSATION MEDS [facility] May 16, 2008 11:03 AM V1-PT THINKING ABOUT QUIT TOBACCO USE [facility] Nov 27, 2007 03:00 PM V1-PT DECLINES REF TO TOBACCO CESS [facility] Nov 27, 2007 03:00 PM V1-PT DECLINES TOBACCO CESSATION MEDS [facility] Nov 27, 2007 03:00 PM V1-PT THINKING ABOUT QUIT TOBACCO USE [facility] Oct 06, 2007 03:49 PM V1-PT DECLINES REF TO TOBACCO CESS PRGM [facility] Oct 06, 2007 03:49 PM V1-PT DECLINES TOBACCO CESSATION MEDS [facility] Oct 06, 2007 03:49 PM V1-PT NOT INTERESTED IN QUIT TOBACCO USE [facility] Oct 06, 2007 11:28 AM CURRENT SMOKER smokes 1/2 PPD since age 20 [facility] Encounter Notes: All associated encounter notes This section contains the clinical notes associated to the Encounter. Date/Time Encounter Note(s) Provider Source Sep 18, 2024 02:05 PM ACCOUNTING OF DISC LOSURES NOTE: LOCAL TITLE: STATE PRESCRIPTION DRUG MONITORING PROGRAM STANDARD TITLE: ACCOUNTING OF DISCLOSURES NOTE DATE OF NOTE: SEP 18, 2024@14:05:38 ENTRY DATE: SEP 18, 2024@14:05:38 AUTHOR: RACHEL HANNAH EXP COSIGNER: URGENCY: STATUS: COMPLETED This PDMP query was submitted by Rachel Hannah MD. The clinical justification for this PDMP query is to review controlled substances prescribed outside of the [place], and any additional information that may become available, as an important component of standard clinical care, and in accordance with [facility] policy. Patient information was shared with the PDMP [place]. No prescription(s) for controlled substances outside the [place] were found in the last 90 days. /vance/ RACHEL HANNAH MD PHYSICIAN Signed: 09/18/2024 14:05 RACHEL HANNAH [facility] Sep 18, 2024 01:35 PM TELEHEALTH NOTE: LOCAL TITLE: VA VIDEO CONNECT NOTE STANDARD TITLE: TELEHEALTH NOTE DATE OF NOTE: SEP 18, 2024@13:35 ENTRY DATE: SEP 18, 2024@13:35:06 AUTHOR: RACHEL HANNAH COSIGNER: URGENCY: STATUS: COMPLETED VA Video Connect (VVC) Standard Documentation VVC Clinician Resources Only: E911 (Emergency Call Relay Center): [phone] National Veterans Crisis Line - (5-410-100-TALK) press #1. [facility] Suicide Coordinator [phone], Ext. [phone]; Back-up Ext. [phone] Fish Worm Grower of the Day(AOD), Willis ESCALANTE [phone], Ext. [phone] Introduction: Visit is being conducted by [place] Oversee Connect. [place] identified with 2 identifiers: [X] Full Name [ ] Date of [X] Address [ ] VA ID Card *We shouldn't be asking for SSN over a video visit so want to offer only acceptable identifiers for video visits.* Emergency Plan: [place] confirmed and/or provided the following information in case of emergency or technology failure. PATIENT PHONE - PHONE NUMBER [CELLULAR] - NONE FOUND Is patient phone number correct, if not, enter below: [place]'s phone number: JOSE QUEZADA SIOMARA [address] [place], [place], [address] 's present location and address for appointment: in his car, on the side of the road. 's emergency contact name and phone number: CPRS [place] reported that location is private and safe: Yes Informed Consent: informed of the risks and benefits of Telehealth video care. has the right to refuse video services. If refuses video visit, a [id number] visit will be scheduled. verbalized consent for this video visit: Yes [place] provided consent for any other persons present [...] court of law and presented to a cardiac care nurse), and DOD access for active duty service members. Provided Suicide Prevention Hotline number, and other contact numbers as necessary. Telehealth Informed Consent: [place] verbalized consent for this telephonic visit: Yes DIAGNOSES AND PROBLEMS TREATED THIS VISIT: Opioid dependence Chronic PTSD MEDS: Buprenorphine/naloxone 12 mg/3 mg daily INTERVAL HISTORY/ CURRENT PROBLEMS The was assessed via VVC in the [facility]uprenorphine Clinic for medication management. Two identifiers were used. As previously noted, on 05/25/24, he admitted himself to [facility] in [place]. I felt like I was becoming manic. [...] and appreciates the risks. He will see [facility] psychiatry in 2 wks. Will be scheduling with MH provider; had intake appt 07/13. In general, he is doing better. He has returned to work. Denies cravings, med side effects. His mood, sleep, motivations and energy levels have been reasonable. He denies any SI/HI. 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 Only down side - I drive 45 min to work, but I have my 2 go-to podcasts. He currently lives with his parents, downstairs apt, feels private enough . Saving funds so he can eventually buy his own place, hopefully by the end of this year , which means no vacations in the near future. 2 children - Katey age 11 (as of Jul), Arjun age 7 (as of November) - see below. Re: divorce - I thought this would be over in 2019! Mediation failed. They were in and out of court. In January 2023, the cardiac care nurse imposed a permanent order - they will [...] good. Their 2 children - Katey age 11, Arjun age 7 - stay with his parents after school during the day and they otherwise split time with the kids 50/50. He feels lauro to see them every day when he comes home from work. They started back in school. His children's best friends are his brother's 2 kids, same ages; brother and his family live in [place]. SUBSTANCE ABUSE: Caffeine:1 cup/day Tobacco: no Cocaine: [...] non-VA prescribed medications or herbal treatments. MSE: [place] is casually dressed and groomed. He is [...] cannabis use, including imminent symptoms, short and watermelon inspector effects of using cannabis. Encouraged abstinence. Alcohol use: education and counseling provided, especially the interactions with suboxone. [place] is aware and does not take his [...] prescribed benzodiazepines or other central nervous system (MULE DRIVER) depressants (including alcohol) with suboxone. Cautioned patient [...] substance. Patient provided with Suicide Prevention Lifeline number(7-116-256-TALK) and urged to call that number at any time if he has thoughts about suicide and , or to call 911 or go to nearest E.R.if he has suicidal thoughts. Patient is aware of how to access [facility] open access MH clinic in [facility] during weekdays for immediate mental health needs if I am not available. Patient has capacity to make his own medication decisions at present time. Patient agreed with above plan. Time spent in this encounter: 40 minutes. Greater than 50% of time spent in [id number], counseling regarding abstinence, treatment goals, medication effects and side effects, need for psychotherapy, dependence best methods for taking medication. /vance/ RACHEL HANNAH MD PHYSICIAN Signed: 09/18/2024 14:05 RACHEL HANNAH [facility]
--- OUTSIDE RECORDS SUMMARY | 2024-10-16 11:00 | XMS_ITS | Encounter Summary ---
Author Name [facility] [place] [facility] [place] Address [address] [place] [address] Care Team Providers Care Client Services Manager Name Role Phone SHELLEY SAAVEDRA Primary [...] MASSM UTUAL HDHP HSA Aug 01, 2016 [id number] [phone] DEE STRINGER SPOUSE [facility] MASSM UTUAL (HDHP /HSA) Aug 01, 2016 [id number] DEE STRINGER SPOUSE [employer] ([id number]) PRESCRIPT ION MASSM UTUAL (HDHP /HSA) Aug 01, 2016 [id number] DEE STRINGER SPOUSE [employer] ([id number]) PRESCRIPT ION MASSM UTUAL [facility]AL Aug 01, 2016 [id number] DEE STRINGER SPOUSE [employer] ([id number]) PRESCRIPT ION MASSM UTUAL HDHP HSA Aug 01, 2016 [id number] DEE STRINGER SPOUSE Selected Encounter This section includes the information on record at [place] for the Encounter. Date/Time Encounter Type Encounter Description Reason Provider Source Oct 16, 2024 03:00 PM OFFICE O/P EST HI 40 MIN SUBSTANCE USE DISORDER IND ICD-10-CM F11.20 Opioid dependence, uncomplicated RACHEL HANNAH IHE Encounter Template Text not used by [place] Assessments - Encounter Diagnoses This section includes the primary and secondary diagnoses documented for the Encounter. Date/Time Primary/Secondary Diagnosis Diagnosis Name Provider Source Oct 16, 2024 04:09 PM PRIMARY Opioid dependence, uncomplicated [facility] Oct 16, 2024 04:09 PM SECONDARY Post-traumatic stress disorder, chronic [facility]AN[facility] Plan of Treatment: Future Appointments (+ 6 months) and Future Tests (+/- 45 days) The Plan of Treatment section includes future care activities for the [facility] [place] [facility] This section includes future appointments and future orders which are active, pending or scheduled. Future Appointments This section includes appointments that were scheduled to occur 6 months from the date of the Encounter, up to a maximum of 20 appointments. The data comes from all [place] treatment facilities. Appointment Date/Time Appointment Type Appointme nt Facility Name Nov 13, 2024 03:00 PM [facility] [place] [facility] December 12, 2024 03:30 PM AMBULATORY - [facility]CHIATRY [facility] [place] [facility] Jan 08, 2025 03:00 PM [facility] [place] [facility] Feb 05, 2025 01:30 PM [facility] [place] [facility] Mar 05, 2025 03:00 PM AMBULATORY - PS[facility]CHIATRY [facility] [place] [facility] Apr 02, 2025 11:00 AM AMBULATORY - PSYCHIATRY [facility] [place] [facility] Apr 11, 2025 12:00 PM AMBULATORY - PSYCHIATRY [facility] Lab Results: +/- 30 days of the encounter This section includes the Chemistry and Hematology Lab Results on record with [place] for the patient. Radiology Reports and Pathology Reports are provided separately, in subsequent sections. Lab Results This section contains the Chemistry/Hematology Results that were resulted 30 days before or 30 daysafter the date of the Encounter. Date/Time Source Result Type Result - Unit Interpretation Reference Range Specimen Type Comment Nov 14, 2024 10:43 AM [facility]UGS OF [facility]BUSE URINE Specimen Type: URINE [...] 10 and 11 may have been adulterated. Confirmation not sent by lab. Ordering Provider: RACHEL HANNAH Report Released Date/Time: Aug 21, 2024 02:45 PM Reporting Lab: [address] [address] Performing Lab: [address] [address] AMPHETAMINES SCREEN NONE-DETECTED None-D etected, Cutoff = 1000 ng/mL BENZODIAZEPINES SCREEN NONE-DETECTED Non e-Detected, Cutoff = 200 ng/mL COCAINE SCREEN NONE-DETECTED None-Detect ed,Cutoff = 300 ng/mL OPIATES SCREEN NONE-DETECTED None-Detect ed, Cutoff = 300 ng/mL CANNABINOIDS SCREEN POSITIVE HH None-Detect ed,Cutoff = 50 ng/mL BARBITURATES SCREEN NONE-DETECTED None-D etected,Cutoff = 200 ng/mL OXYCODONE SCREEN NONE-DETECTED None-Dete cted, Cutoff = 100 ng/mL BUPRENORPHINE SCREEN POSITIVE HH None Detec connie, Cutoff = 5 ng/mL ALCOHOL, ETHYL URINE NONE-DETECTED None- Detected, cutoff = 10 mg/dL FENTANYL SCREEN NONE-DETECTED None-Detec connie, Cutoff = 1.00 ng/mL PH, RIGOBERTO 6.5 [pH] 5.0-8.0 CREATININE, RIGOBERTO 58.59 mg/dL L 63-166 SP.GRAVITY, RIGOBERTO 1.012 1.005-1.030 METHADONE SCREEN NONE-DETECTED None-Dete cted,Cutoff = 300 ng/mL ETHYL GLUCURONIDE SCREEN POSITIVE HH None-D etected, cutoff = 500 ng/mL Oct 17, 2024 02:40 PM [facility] URINE Specimen Type: URINE [...] Aug 21, 2024 02:45 PM Reporting Lab: [address] [address] Performing Lab: [address] [address] AMPHETAMINES SCREEN NONE-DETECTED None-Detected, Cutoff = 1000 [...] ng/mL PH, RIGOBERTO 5.6 [pH] 4-10 CREATININE, RIGOBRETO 280.38 mg/dL >20 SP.GRAVITY, RIGOBERTO 1.022 H 1.003-1.020 Sep 19, 2024 02:44 PM [facility]SE URINE Specimen Type: URINE [...] Aug 21, 2024 02:45 PM Reporting Lab: [address] [address] Performing Lab: [address] [address] AMPHETAMINES SCREEN NONE-DETECTED None-Detected, Cutoff = 1000 [...] and tobacco- related health factors from the [place] facility where the Encounter took place. Current Smoking Status This section includes the most current smoking, or tobacco-related health factor, from the [place] facility where the Encounter took place. Date/Time Current Smoking Status Comment Facil ity Jul 05, 2019 09:23 AM [place]-TOBACCO QUIT 5 TO < 15 YRS [facility] Tobacco Use History This section includes a history of the smoking, or tobacco-related health factors, that were collected on or before the date of the Encounter. The data comes from the [place] facility where the Encounter took place. Date/Time Smoking Status/Tobac co Use Comment Facility Jul 05, 2019 09:23 AM VA-TOBACCO QUIT 5 TO < 15 YRS [facility] [place] [facility] Jun 21, 2018 10:07 AM VA-TOBACCO FORMER USER [facility] [place] [facility] Jun 21, 2018 10:07 AM VA-TOBACCO QUIT 5 TO < 15 YRS [facility] [place] [facility] Jul 12, 2017 11:33 AM QUIT TOBACCO USE > 7 YEARS AGO [facility] [place] [facility] Aug 10, 2016 01:52 PM QUIT TOBACCO USE > 7 YEARS AGO [facility] [place] [facility] Aug 11, 2015 01:06 PM QUIT TOBACCO USE > 7 YEARS AGO [facility] [place] [facility] Sep 10, 2010 01:42 PM QUIT TOBACCO USE > 7 YEARS AGO [facility] [place] [facility] Oct 06, 2009 10:50 AM QUIT TOBACCO USE 1-7 YEARS AGO 2.5 years ago [facility] [place] [facility] Sep 27, 2008 12:40 PM QUIT TOBACCO USE 1-7 YEARS AGO [facility] [place] [facility] May 16, 2008 11:03 AM V1-PT DECLINES REF TO TOBACCO CESS PRGM [facility] [place] [facility] May 16, 2008 11:03 AM V1-PT DECLINES TOBACCO CESSATION MEDS [facility] [place] [facility] May 16, 2008 11:03 AM V1-PT THINKING ABOUT QUIT TOBACCO USE [facility] [place] [facility] Nov 27, 2007 03:00 PM V1-PT DECLINES REF TO TOBACCO CESS PRGM [facility] [place] [facility] Nov 27, 2007 03:00 PM V1-PT DECLINES TOBACCO CESSATION MEDS [facility] [place] [facility] Nov 27, 2007 03:00 PM V1-PT THINKING ABOUT QUIT TOBACCO USE [facility] [place] [facility] Oct 06, 2007 03:49 PM V1-PT DECLINES REF TO TOBACCO CESS PRGM [facility] [place] [facility] Oct 06, 2007 03:49 PM V1-PT DECLINES TOBACCO CESSATION MEDS [facility] [place] [facility] Oct 06, 2007 03:49 PM V1-PT NOT INTERESTED IN QUIT TOBACCO USE [facility] Oct 06, 2007 11:28 AM CURRENT SMOKER smokes 1/2 PPD since age 20 [facility] Encounter Notes: All associated encounter notes This section contains the clinical notes associated to the Encounter. Date/Time Encounter Note(s) Provider Source Oct 16, 2024 04:10 PM ACCOUNTING OF DISC LOSURES NOTE: LOCAL TITLE: STATE PRESCRIPTION DRUG MONITORING PROGRAM STANDARD TITLE: ACCOUNTING OF DISCLOSURES NOTE DATE OF NOTE: OCT 16, 2024@16:10:03 ENTRY DATE: OCT 16, 2024@16:10:03 AUTHOR: RACHEL HANNAH EXP COSIGNER: URGENCY: STATUS: COMPLETED This PDMP query was submitted by Rachel Hannah MD. The clinical justification for this PDMP query is to review controlled substances prescribed outside of the [place], and any additional information that may become available, as an important component of standard clinical care, and in accordance with [facility] policy. Patient information was shared with the PDMP [place]. No prescription(s) for controlled substances outside the [place] were found in the last 90 days. /vance/ RACHEL HANNAH MD PHYSICIAN Signed: 10/16/2024 16:10 RACHEL HANNAH [facility] Oct 16, 2024 03:02 PM TELEHEALTH NOTE: LOCAL TITLE: VA VIDEO CONNECT NOTE STANDARD TITLE: TELEHEALTH NOTE DATE OF NOTE: OCT 16, 2024@15:02 ENTRY DATE: OCT 16, 2024@15:02:17 AUTHOR: RACHEL HANNAH EXP COSIGNER: URGENCY: STATUS: COMPLETED [facility] Video Connect (VVC) Standard Documentation VVC Clinician Resources Only: E911 (Emergency Call Relay Center): [phone] National Veterans Crisis Line - (4-200-167-TALK) press #1. BORIS Suicide Coordinator [phone], Ext. [phone]; Back-up Ext. [phone] Top Polisher of the Day(AOD)BORIS [place] [phone], Ext. [phone] Introduction: Visit is being conducted by [employer]. identified with 2 identifiers: [X] Full Name [...] not, enter below: 's phone number: JOSE STRINGER [address] [place], [place], [address] 's present location and address for appointment: in his car, on the side of the road. [place]'s emergency contact name and phone number: CPRS [place] reported that location is private and safe: Yes Informed Consent: [place] informed of the risks and benefits of Telehealth video care. has the right to refuse video services. If refuses video visit, a [id number] visit will be scheduled. verbalized consent for this video visit: Yes [place] provided consent for any other persons present [...] court of law and presented to a director of video analytics), and DOD access for active duty service members. Provided Suicide Prevention Hotline number, and other contact numbers as necessary. Telehealth Informed Consent: [place] verbalized consent for this telephonic visit: Yes DIAGNOSES AND PROBLEMS TREATED THIS VISIT: Opioid dependence Chronic PTSD MEDS: Buprenorphine/naloxone 12 mg/3 mg daily INTERVAL HISTORY/ CURRENT PROBLEMS The was assessed via VVC in the [facility] Clinic for medication management. Two identifiers were used. As previously noted, on 05/25/24, he admitted himself to [facility] in [place]. I felt like I was becoming manic. [...] and appreciates the risks. He will see [facility] psychiatry in 2 wks. He has been seeing outside MH provider; has seen her twice thus far. States it is working out well. In general, he is doing better. He has returned to work. Denies cravings, med side effects. His mood, sleep, motivations and energy levels have been reasonable. He denies any SI/HI. 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 Only down [...] out of court. In January 2023, the director of video analytics imposed a permanent order - they will [...] ages; brother and his family live in [place]. SUBSTANCE ABUSE: Caffeine:1 cup/day Tobacco: no Cocaine: [...] non-VA prescribed medications or herbal treatments. MSE: [place] is casually dressed and groomed. He is [...] on the kidney and LF LAST UDS: 09/19: POS bup, cannab; NEG for everything else. [...] cannabis use, including imminent symptoms, short and penitentiary effects of using cannabis. Encouraged abstinence. Alcohol use: education and counseling provided, especially the interactions with suboxone. [place] is aware and does not take his [...] prescribed benzodiazepines or other central nervous system (REGISTRATION COORDINATOR) depressants (including alcohol) with suboxone. Cautioned patient [...] substance. Patient provided with Suicide Prevention Lifeline number(2-162-595-TALK) and urged to call that number at any time if he has thoughts about suicide and , or to call 911 or go to nearest E.R.if he has suicidal thoughts. Patient is aware of how to access [facility] open access MH clinic in [facility] during weekdays for immediate mental health needs if I am not available. Patient has capacity to make his own medication decisions at present time. Patient agreed with above plan. Time spent in this encounter: 40 minutes. Greater than 50% of time spent in [id number], counseling regarding abstinence, treatment goals, medication effects and side effects, need for psychotherapy, dependence best methods for taking medication. /vance/ RACHEL HANNAH MD PHYSICIAN Signed: 10/16/2024 16:09 RACHEL HANNAH [place] [facility]
--- OUTSIDE RECORDS SUMMARY | 2024-11-13 11:00 | XMS_ITS | Encounter Summary ---
Author Name [facility] [place] [facility] [place] [facility] [facility] [place] Address [address] [place] [address] Care Team Providers Care Power Plant Supervisor Name Role Phone SHELLEY SAAVEDRA Primary [...] MASSM UTUAL HDHP HSA Aug 01, 2016 [id number] [phone] DEE STRINGER SPOUSE [facility]UAL (HDHP /HSA) Aug 01, 2016 [id number] [phone] DEE STRINGER SPOUSE [employer] ([id number]) PRESCRIPT ION [facility] (HDHP /HSA) Aug 01, 2016 [id number] [phone] DEE STRINGER SPOUSE [employer] ([id number]) PRESCRIPT ION MASSM UTUAL FINMARITZA CIAL Aug 01, 2016 [id number] DEE STRINGER SPOUSE [employer] ([id number]) PRESCRIPT ION [facility] HDHP HSA Aug 01, 2016 [id number] DEE STRINGER SPOUSE Selected Encounter This section includes the information on record at [place] for the Encounter. Date/Time Encounter Type Encounter Description Reason Provider Source Nov 13, 2024 03:00 PM OFFICE O/P EST HI 40 MIN SUBSTANCE USE DISORDER IND ICD-10-CM F11.20 Opioid dependence, uncomplicated RACHEL HANNAH IHE Encounter Template Text not used by [place] Assessments - Encounter Diagnoses This section includes the primary and secondary diagnoses documented for the Encounter. Date/Time Primary/Secondary Diagnosis Diagnosis Name Provider Source Nov 13, 2024 03:55 PM PRIMARY Opioid dependence, uncomplicated RACHEL HANNAH [facility] Nov 13, 2024 03:55 PM SECONDARY Post-traumatic stress disorder, chronic RACHEL HANNAH [facility] Plan of Treatment: Future Appointments (+ 6 months) and Future Tests (+/- 45 days) The Plan of Treatment section includes future care activities for the [facility] [place] [facility] This section includes future appointments and future orders which are active, pending or scheduled. Future Appointments This section includes appointments that were scheduled to occur 6 months from the date of the Encounter, up to a maximum of 20 appointments. The data comes from all [place] treatment facilities. Appointment Date/Time Appointment Type Appointme nt Facility Name December 12, 2024 03:30 PM AMBULATORY - [facility]IAT[facility] Jan 08, 2025 03:00 PM [facility] [place] [facility] Feb 05, 2025 01:30 PM AMBULATORY - PSYCHIATRY [facility] [place] [facility] Mar 05, 2025 03:00 PM [facility] [place] [facility] Apr 02, 2025 11:00 AM AMBULATORY [facility] Apr 11, 2025 12:00 PM AMBULATORY - PSYCHIATRY [facility] Lab Results: +/- 30 days of [...] Unit Interpretation Reference Range Specimen Type Comment December 12, 2024 02:50 PM [facility]GS [facility]SE URINE Specimen Type: URINE [...] Aug 21, 2024 02:45 PM Reporting Lab: [address] [id number] Performing Lab: [address] [address] AMPHETAMINES SCREEN NONE-DETECTED None-D etected, Cutoff = 1000 ng/mL BENZODIAZEPINES SCREEN NONE-DETECTED Non e-Detected, Cutoff = 200 ng/mL COCAINE SCREEN NONE-DETECTED None-Detect ed,Cutoff = 300 ng/mL OPIATES SCREEN NONE-DETECTED None-Detect ed, Cutoff = 300 ng/mL CANNABINOIDS SCREEN POSITIVE None-Detect ed,Cutoff = 50 ng/mL BARBITURATES SCREEN NONE-DETECTED None-D etected,Cutoff = 200 ng/mL OXYCODONE SCREEN NONE-DETECTED None-Dete cted, Cutoff = 100 ng/mL BUPRENORPHINE SCREEN POSITIVE None Detec connie, Cutoff = 5 ng/mL ALCOHOL, ETHYL URINE NONE-DETECTED None- Detected, cutoff = 10 mg/dL FENTANYL SCREEN NONE-DETECTED None-Detec connie, Cutoff = 1.00 ng/mL PH, RIGOBERTO 5.8 [pH] 5.0-8.0 CREATININE, RIGOBERTO 379.34 mg/dL H 63-166 SP.GRAVITY, RIGOBERTO 1.026 1.005-1.030 METHADONE SCREEN NONE-DETECTED None-Dete cted,Cutoff = 300 ng/mL ETHYL GLUCURONIDE SCREEN POSITIVE HH None-D etected, cutoff = 500 ng/mL Nov 14, 2024 10:43 AM [facility] URINE Specimen Type: URINE [...] Aug 21, 2024 02:45 PM Reporting Lab: [address] [address] Performing Lab: [address] [address] AMPHETAMINES SCREEN NONE-DETECTED None-D etected, Cutoff = [...] 500 ng/mL Oct 17, 2024 02:40 PM [facility] URINE Specimen Type: URINE [...] Aug 21, 2024 02:45 PM Reporting Lab: [address] [address] Performing Lab: [address] [address] AMPHETAMINES SCREEN NONE-DETECTED None-Detected, Cutoff = 1000 [...] mg/dL >20 SP.GRAVITY, RIGOBERTO 1.022 H 1.003-1.020 Social History: Smoking Status (Most [...] [place] Jul 05, 2019 09:23 AM [place]-TOBACCO QUIT 5 TO < 15 YRS [facility] Tobacco Use History This section includes a history of the smoking, or tobacco-related health factors, that were collected on or before the date of the Encounter. The data comes from the [place] facility where the Encounter took place. Date/Time Smoking Status/Tobac co Use Comment Facility Jul 05, 2019 09:23 AM [facility]-TOBACCO QUIT 5 TO < 15 YRS [facility] [place] [facility] Jun 21, 2018 10:07 AM [place]-TOBACCO FORMER USER [place] [facility] [place] [facility] Jun 21, 2018 10:07 AM VA-TOBACCO QUIT 5 TO < 15 YRS [facility] [place] [facility] Jul 12, 2017 11:33 AM QUIT TOBACCO USE > 7 YEARS AGO [facility] [place] [facility] Aug 10, 2016 01:52 PM QUIT TOBACCO USE > 7 YEARS AGO [facility] [place] [facility] Aug 11, 2015 01:06 PM QUIT TOBACCO USE > 7 YEARS AGO [facility] [place] [facility] Sep 10, 2010 01:42 PM QUIT TOBACCO USE > 7 YEARS AGO [facility] [place] [facility] Oct 06, 2009 10:50 AM QUIT TOBACCO USE 1-7 YEARS AGO 2.5 years ago [facility] [place] [facility] Sep 27, 2008 12:40 PM QUIT TOBACCO USE 1-7 YEARS AGO [facility] [place] [facility] May 16, 2008 11:03 AM V1-PT DECLINES REF TO TOBACCO CESS [facility] [place] [facility] [place] [facility] May 16, 2008 11:03 AM V1-PT DECLINES TOBACCO CESSATION MEDS [place] [facility] [place] [facility] May 16, 2008 11:03 AM V1-PT THINKING ABOUT QUIT TOBACCO USE [facility] [place] [facility] Nov 27, 2007 03:00 PM V1-PT DECLINES REF TO TOBACCO CESS [facility]GM [facility] [place] [facility] Nov 27, 2007 03:00 PM V1-PT DECLINES TOBACCO CESSATION MEDS [facility] [place] [facility] Nov 27, 2007 03:00 PM V1-PT THINKING ABOUT QUIT TOBACCO USE [facility] [place] [facility] Oct 06, 2007 03:49 PM V1-PT DECLINES REF TO TOBACCO CESS [facility] [place] [facility] [place] [facility] Oct 06, 2007 03:49 PM V1-PT DECLINES TOBACCO CESSATION MEDS [facility] [place] [facility] Oct 06, 2007 03:49 PM V1-PT NOT INTERESTED IN QUIT TOBACCO USE [facility] Oct 06, 2007 11:28 AM CURRENT SMOKER smokes 1/2 PPD since age 20 [facility] Encounter Notes: All associated encounter notes This section contains the clinical notes associated to the Encounter. Date/Time Encounter Note(s) Provider Source Nov 13, 2024 03:55 PM ACCOUNTING OF DISC LOSURES NOTE: LOCAL TITLE: STATE PRESCRIPTION DRUG MONITORING PROGRAM STANDARD TITLE: ACCOUNTING OF DISCLOSURES NOTE DATE OF NOTE: NOV 13, 2024@15:55:58 ENTRY DATE: NOV 13, 2024@15:55:58 AUTHOR: RACHEL HANNAH EXP COSIGNER: URGENCY: STATUS: COMPLETED This PDMP query was submitted by Rachel Hannah MD. The clinical justification for this PDMP query is to review controlled substances prescribed outside of the [place], and any additional information that may become available, as an important component of standard clinical care, and in accordance with [facility] policy. Patient information was shared with the PDMP Appriss Burd[place]. No prescription(s) for controlled substances outside the [place] were found in the last 90 days. /vance/ RACHEL HANNAH MD PHYSICIAN Signed: 11/13/2024 15:56 RACHEL HANNAH [facility] Nov 13, 2024 03:04 PM TELEHEALTH NOTE: LOCAL TITLE: [place] VIDEO CONNECT NOTE STANDARD TITLE: TELEHEALTH NOTE DATE OF NOTE: NOV 13, 2024@15:04 ENTRY DATE: NOV 13, 2024@15:04:23 AUTHOR: RACHEL HANNAH EXP COSIGNER: URGENCY: STATUS: COMPLETED [place] Video Connect (VVC) Standard Documentation VVC Clinician Resources Only: E911 (Emergency Call Relay Center): [phone] National [facility] Crisis Line - (0-212-041-TALK) press #1. BORIS Suicide Coordinator [phone], Ext. [phone]; Back-up Ext. [phone] General Cargo Clerk of the Day(AOD)BORIS [place] [phone], Ext. [phone] Introduction: Visit is being conducted by [facility]. [place] identified with 2 identifiers: [X] Full Name [ ] Date of [X] Address [ ] VA ID Card *We shouldn't be asking for SSN over a video visit so want to offer only acceptable identifiers for video visits.* Emergency Plan: [place] confirmed and/or provided the following information in case of emergency or technology failure. PATIENT PHONE - PHONE NUMBER [CELLULAR] - NONE FOUND Is patient phone number correct, if not, enter below: 's phone number: JOSE QUEZADA [place] [address] [place], [place], [address] 's present location and address for appointment: in his car, on the side of the road. 's emergency contact name and phone number: CPRS [place] reported that location is private and safe: Yes Informed Consent: [place] informed of the risks and benefits of Telehealth video care. has the right to refuse video services. If refuses video visit, a [id number] visit will be scheduled. verbalized consent for this video visit: Yes [place] provided consent for any other persons present [...] court of law and presented to a tribal judge), and DOD access for active duty service [...] noted, on 05/25/24, he admitted himself to [facility] in [place]. I felt like I was becoming manic. [...] any SI/HI. 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 Only down [...] out of court. In January 2023, the tribal judge imposed a permanent order - they will [...] ages; brother and his family live in [place]. SUBSTANCE ABUSE: Caffeine:1 cup/day Tobacco: no Cocaine: [...] non-VA prescribed medications or herbal treatments. MSE: [place] is casually dressed and groomed. He is [...] on the kidney and LF LAST UDS: 10/17: POS bup, cannab; NEG for everything else. [...] cannabis use, including imminent symptoms, short and buttermilk drier operator effects of using cannabis. Encouraged abstinence. [...] prescribed benzodiazepines or other central nervous system (RN LABOR AND DELIVERY) depressants (including alcohol) with suboxone. Cautioned patient [...] substance. Patient provided with Suicide Prevention Lifeline number(2-252-421-TALK) and urged to call that number at any time if he has thoughts about suicide and , or to call 911 or go to nearest E.R.if he has suicidal thoughts. Patient is aware of how to access [facility] open access MH clinic in [facility] during weekdays for immediate mental health needs if I am not available. Patient has capacity to make his own medication decisions at present time. Patient agreed with above plan. Time spent in this encounter: 40 minutes. Greater than 50% of time spent in [id number], counseling regarding abstinence, treatment goals, medication effects and side effects, need for psychotherapy, dependence best methods for taking medication. /vance/ RACHEL HANNAH MD PHYSICIAN Signed: 11/13/2024 15:55 RACHEL HANNAH [place] [facility]
--- OUTSIDE RECORDS SUMMARY | 2024-12-12 11:30 | XMS_ITS | Encounter Summary ---
Author Name [facility] [facility] [place] Address [address] [place] [address] Care Team Providers Care Computer Clerk Name Role Phone SHELLEY SAAVEDRA Primary Care [...] MASSM UTUAL HDHP HSA Aug 01, 2016 [id number] [phone] DEE STRINGER SPOUSE [facility]SM [facility]UAL (HDHP /HSA) Aug 01, 2016 [id number] [phone] DEE STRINGER SPOUSE [employer] ([id number]) PRESCRIPT ION [facility]SM UTUAL (HDHP /HSA) Aug 01, 2016 [id number] DEE STRINGER SPOUSE [employer] ([id number]) PRESCRIPT ION MASSM UTUAL [facility]MAR[facility] CIAL Aug 01, 2016 [id number] DEE STRINGER SPOUSE [employer] ([id number]) PRESCRIPT ION MASSM UTUAL HDHP HSA Aug 01, 2016 [id number] DEE STRINGER SPOUSE Selected Encounter This section includes the information on record at [place] for the Encounter. Date/Time Encounter Type Encounter Description Reason Provider Source December 12, 2024 03:30 PM OFFICE O/P EST HI 40 MIN SUBSTANCE USE DISORDER IND ICD-10-CM F11.20 Opioid dependence, uncomplicated RACHEL HANNAH IHE Encounter Template Text not used by [place] Assessments - Encounter Diagnoses This section includes the primary and secondary diagnoses documented for the Encounter. Date/Time Primary/Secondary Diagnosis Diagnosis Name Provider Source December 12, 2024 04:01 PM PRIMARY Opioid dependence, uncomplicated RACHEL HANNAH [facility] December 12, 2024 04:01 PM SECONDARY Post-traumatic stress disorder, chronic RACHEL HANNAH [facility] Plan of Treatment: Future Appointments (+ 6 months) and Future Tests (+/- 45 days) The Plan of Treatment section includes future care activities for the patient from [facility] [place] [facility]. This section includes future appointments and future orders which are active, pending or scheduled. Future Appointments This section includes appointments that were scheduled to occur 6 months from the date of the Encounter, up to a maximum of 20 appointments. The data comes from all [place] treatment facilities. Appointment Date/Time Appointment Type Appointme nt Facility Name Jan 08, 2025 03:00 PM [facility] Feb 05, 2025 01:30 PM [facility] [place] [facility] Mar 05, 2025 03:00 PM [facility] [place] [facility] Apr 02, 2025 11:00 AM AMBULATORY [facility] [place] [facility] Apr 11, 2025 12:00 PM AMBULATORY - PSYCHIATRY [facility] Jun 12, 2025 03:30 PM AMBULATORY - MEDICINE [facility] Active, Pending, and Scheduled Orders This section includes a listing of several types of active, pending, and scheduled orders, including clinic medications orders, diagnostic test orders, procedure orders and consult orders; where the start date of the order is 45 days before the date of the Encounter or 45 days after the date of theEncounter. The data comes from all [place] treatment facilities. Test Date/Time Test Type Test Details Facility Name Jan 08, 2025 02:45 PM Laboratory - Chemi all Order DRUGS OF ABUSE URINE (DRUG) SP [facility] Lab Results: +/- 30 days of the encounter This section includes the Chemistry and Hematology Lab Results on record with [place] for the patient. Radiology Reports and Pathology Reports are provided separately, in subsequent sections. Lab Results This section contains the Chemistry/Hematology Results that were resulted 30 days before or 30 daysafter the date of the Encounter. Date/Time Source Result Type Result - Unit Interpretation Reference Range Specimen Type Comment Jan 09, 2025 03:08 PM [facility] DRUGS OF ABUSE URINE Specimen [...] 10 and 11 may have been adulterated. ETG:This ETG test was developed and it's performance ETG:characterist ics determined by [facility] Clinical [facility]. The [place] Food ETG:and Drug Administration has not approved or cleared this test. ETG:FDA Clearance or approval is not currently required for ETG:clinical use. Fentanyl confirmation not sent by lab. Ordering Provider: RACHEL HANNAH Report Released Date/Time: Jan 08, 2025 03:15 PM Reporting Lab: [address] [id number] Performing Lab: [address] [phone] AMPHETAMINES SCREEN NONE-DETECTED None-D etected, Cutoff = [...] connie, Cutoff = 1.00 ng/mL PH, RIGOBERTO 5.5 [pH] 5.0-8.0 CREATININE, RIGOBERTO 430.87 mg/dL H 63-166 SP.GRAVITY, RIGOBERTO 1.027 1.005-1.030 METHADONE SCREEN NONE-DETECTED None-Dete cted,Cutoff = 300 ng/mL ETHYL GLUCURONIDE SCREEN POSITIVE HH None-D etected, cutoff = 500 ng/mL December 12, 2024 02:50 PM [facility] DRUGS OF ABUSE URINE Specimen [...] Aug 21, 2024 02:45 PM Reporting Lab: [address] [id number] Performing Lab: [address] [id number] AMPHETAMINES SCREEN NONE-DETECTED None-D etected, Cutoff = [...] 500 ng/mL Nov 14, 2024 10:43 AM [facility] DRUGS OF ABUSE URINE Specimen [...] Aug 21, 2024 02:45 PM Reporting Lab: [address] [id number] Performing Lab: [address] [phone] AMPHETAMINES SCREEN NONE-DETECTED None-D etected, Cutoff = [...] ng/mL PH, RIGOBERTO 6.5 [pH] 5.0-8.0 CREATININE, RIGBOERTO 58.59 mg/dL L 63-166 SP.GRAVITY, RIGOBERTO 1.012 1.005-1.030 METHADONE SCREEN NONE-DETECTED None-Dete cted,Cutoff = 300 ng/mL ETHYL GLUCURONIDE SCREEN POSITIVE HH None-D etected, cutoff = 500 ng/mL Social History: Smoking Status (Most current) and Tobacco Use (All prior to encounter date) This section includes the most current, and the historical, smoking and tobacco- related health factors from the [place] facility where the Encounter took place. Current Smoking Status This section includes the most current smoking, or tobacco-related health factor, from the [place] facility where the Encounter took place. Date/Time Current Smoking Status Comment [facility] Jul 05, 2019 09:23 AM [place]-TOBACCO QUIT 5 TO < 15 YRS [facility] Tobacco Use History This section includes a history of the smoking, or tobacco-related health factors, that were collected on or before the date of the Encounter. The data comes from the [place] facility where the Encounter took place. Date/Time Smoking Status/Tobac co Use Comment Facility Jul 05, 2019 09:23 AM VA-TOBACCO QUIT 5 TO < 15 YRS [place] [facility] [place] [facility] Jun 21, 2018 10:07 AM VA-TOBACCO FORMER USER [place] [facility] [facility] Jun 21, 2018 10:07 AM VA-TOBACCO QUIT 5 TO < 15 YRS [place] [facility] [place] [facility] Jul 12, 2017 11:33 AM QUIT TOBACCO USE > 7 YEARS AGO [place] [facility] [place] [facility] Aug 10, 2016 01:52 PM QUIT TOBACCO USE > 7 YEARS AGO [place] [facility] [place] [facility] Aug 11, 2015 01:06 PM QUIT TOBACCO USE > 7 YEARS AGO [facility] [place] [facility] Sep 10, 2010 01:42 PM QUIT TOBACCO USE > 7 YEARS AGO [facility] [facility] Oct 06, 2009 10:50 AM QUIT TOBACCO USE 1-7 YEARS AGO 2.5 years ago [place] [facility] [place] [facility] Sep 27, 2008 12:40 PM QUIT TOBACCO USE 1-7 YEARS AGO [place] [facility] [place] [facility] May 16, 2008 11:03 AM V1-PT DECLINES REF TO TOBACCO CESS [facility] May 16, 2008 11:03 AM V1-PT DECLINES TOBACCO CESSATION [facility] May 16, 2008 11:03 AM V1-PT THINKING ABOUT QUIT TOBACCO [facility] Nov 27, 2007 03:00 PM V1-PT DECLINES REF TO TOBACCO CESS [facility] Nov 27, 2007 03:00 PM V1-PT DECLINES TOBACCO CESSATION [facility] Nov 27, 2007 03:00 PM V1-PT THINKING ABOUT QUIT TOBACCO USE [facility] Oct 06, 2007 03:49 PM V1-PT DECLINES REF TO TOBACCO CESS [facility] Oct 06, 2007 03:49 PM V1-PT DECLINES TOBACCO CESSATION [facility] Oct 06, 2007 03:49 PM V1-PT NOT INTERESTED IN QUIT TOBACCO USE [facility] Oct 06, 2007 11:28 AM CURRENT SMOKER smokes 1/2 PPD since age 20 [facility] Encounter Notes: All associated encounter notes This section contains the clinical notes associated to the Encounter. Date/Time Encounter Note(s) Provider Source December 12, 2024 04:02 PM ACCOUNTING OF DISC LOSURES NOTE: LOCAL TITLE: [facility] PRESCRIPTION DRUG MONITORING PROGRAM STANDARD TITLE: ACCOUNTING OF DISCLOSURES NOTE DATE OF NOTE: DECEMBER 12, 2024@16:02:12 ENTRY DATE: DECEMBER 12, 2024@16:02:12 AUTHOR: RACHEL HANNAH EXP COSIGNER: URGENCY: STATUS: COMPLETED This PDMP query was submitted by Rachel Hannah MD. The clinical justification for this PDMP query is to review controlled substances prescribed outside of the [facility], and any additional information that may become available, as an important component of standard clinical care, and in accordance with [facility] policy. Patient information was shared with the PDMP Appriss Alexander. No prescription(s) for controlled substances outside the [facility] were found in the last 90 days. /vance/ RACHEL HANNAH MD PHYSICIAN Signed: 12/12/2024 16:02 RACHEL HANNAH [facility] December 12, 2024 03:16 PM TELEHEALTH NOTE: LOCAL TITLE: [facility] VIDEO CONNECT NOTE STANDARD TITLE: TELEHEALTH NOTE DATE OF NOTE: DECEMBER 12, 2024@15:16 ENTRY DATE: DECEMBER 12, 2024@15:16:25 AUTHOR: RACHEL HANNAH EXP COSIGNER: URGENCY: STATUS: COMPLETED [facility] Video Connect ([facility]VC) Standard Documentation VVC Clinician Resources Only: E911 (Emergency Call Relay Center): [phone] [facility] [employer] Crisis Line - ([phone]) press #1. [place] Suicide Coordinator [phone], Ext. [phone]; Back-up Ext. [phone] Hot Dog Vendor of the Day(AOD), Willis ESCALANTE [phone], Ext. [phone] Introduction: Visit is being conducted by [place] [employer] Connect. identified with 2 identifiers: [X] Full [...] not, enter below: 's phone number: JOSE PILAR STRINGER [address] [place], [place], [address] [place]'s present location and address for appointment: in his car, on the side of the road. 's emergency contact name and phone number: [facility] [place] reported that location is private and safe: Yes Informed Consent: [place] informed of the risks and benefits of Telehealth video care. [place] has the right to refuse video services. If refuses video visit, a [id number] visit will be scheduled. verbalized consent for [...] court of law and presented to a digital composer), and DOD access for active duty service members. Provided Suicide Prevention Hotline number, and other contact numbers as necessary. Telehealth Informed Consent: [place] verbalized consent for this telephonic visit: Yes DIAGNOSES AND PROBLEMS TREATED THIS VISIT: Opioid dependence Chronic PTSD MEDS: Buprenorphine/naloxone 12 mg/3 mg daily INTERVAL HISTORY/ CURRENT PROBLEMS The was assessed via VVC in the buprenorphine Clinic for medication management. Two identifiers were used. As previously noted, on 05/25/24, he admitted himself to [facility] in [place]. I felt like I was becoming manic. [...] and appreciates the risks. He will see [facility] psychiatry in 2 wks. He has been seeing outside MH provider; has seen her twice thus far. States it is working out well. In general, he is doing better. He has returned to work. Denies cravings, med side effects. His mood, sleep, motivations and energy levels have been reasonable. He denies any SI/HI. 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 Only down side [...] 7 (as of November) - see below. Shares today that he will taking family trip to [place] [place] next December 2025. His parents are from [place], and travel there every year. Trip will include his 2 kids, and his brother, brother's and their 2 kids, and his parents. Re: divorce - I thought this would be over in 2019! Mediation failed. They were in and out of court. In January 2023, the digital composer imposed a permanent order - they will [...] ages; brother and his family live in [place]. SUBSTANCE ABUSE: Caffeine:1 cup/day Tobacco: no Cocaine: [...] non-VA prescribed medications or herbal treatments. MSE: [place] is casually dressed and groomed. He is [...] on the kidney and LF LAST UDS: 11/14: POS bup, cannab, ethyl gluc; NEG for everything else. UPDATED TODAY. ASSESSMENT: OUD on suboxone: Patient reports maintaining [...] illicit drugs [ ] Patient to attend [facility] group treatment [ ] Referral for [...] cannabis use, including imminent symptoms, short and intermediate manager effects of using cannabis. Encouraged abstinence. Alcohol use: education and counseling provided, especially the interactions with suboxone. is aware and does not take his suboxone on the days he plans to drink alcohol with supper. He says that his consumption has been less than weekly. OEND: DISCUSSED NARCAN. AGREES TO [facility]; TO BE MAILED. RTC: 4 WEEKS. EDUCATION/REMS: Instructed the patient [...] prescribed benzodiazepines or other central nervous system (ABRASIVE SAWYER) depressants (including alcohol) with suboxone. Cautioned patient [...] substance. Patient provided with Suicide Prevention Lifeline number(9-829-365-TALK) and urged to call that number at any time if he has thoughts about suicide and , or to call 911 or go to nearest E.R.if he has suicidal thoughts. Patient is aware of how to access [facility] open access clinic in [facility] during weekdays for immediate mental health needs if I am not available. Patient has capacity to make his own medication decisions at present time. Patient agreed with above plan. Time spent in this encounter: 40 minutes. Greater than 50% of time spent in [id number], counseling regarding abstinence, treatment goals, medication effects and side effects, need for psychotherapy, dependence best methods for taking medication. /vance/ RACHEL HANNAH MD PHYSICIAN Signed: 12/12/2024 16:02 RACHEL HANNAH [facility]
--- OUTSIDE RECORDS SUMMARY | 2025-01-08 11:00 | XMS_ITS | Encounter Summary ---
Author Name [facility] [facility] [place] Address [address] [place] [address] Care Team Providers Care Rn Palliative Care Name Role Phone SHELLEY SAAVEDRA Primary Care [...] MASSM UTUAL HDHP HSA Aug 01, 2016 [id number] [phone] DEE STRINGER SPOUSE [facility] MENTAL HEALTH MASSM UTUAL (HDHP /HSA) Aug 01, 2016 [id number] DEE STRINGER SPOUSE [facility] [employer] ([id number]) PRESCRIPT ION [facility]UAL (HDHP /HSA) Aug 01, 2016 [id number] DEE STRINGER SPOUSE [employer] ([id number]) PRESCRIPT ION [facility]UAL [facility] Aug 01, 2016 [id number] DEE STRINGER SPOUSE [employer] ([id number]) PRESCRIPT ION MASSM [facility]UAL HDHP HSA Aug 01, 2016 K4UA [id number] DEE STRINGER SPOUSE Selected Encounter This section includes the information on record at [place] for the Encounter. Date/Time Encounter Type Encounter Description Reason Provider Source Jan 08, 2025 03:00 PM OFFICE O/P EST HI 40 MIN SUBSTANCE USE DISORDER IND ICD-10-CM F11.20 Opioid dependence, uncomplicated RACHEL HANNAH IHE Encounter Template Text not used by [place] Assessments - Encounter Diagnoses This section includes the primary and secondary diagnoses documented for the Encounter. Date/Time Primary/Secondary Diagnosis Diagnosis Name Provider Source Jan 08, 2025 03:50 PM PRIMARY Opioid dependence, uncomplicated RACHEL HANNAH [facility] Jan 08, 2025 03:50 PM SECONDARY Post-traumatic stress disorder, chronic RACHEL HANNAH [facility] Plan of Treatment: Future Appointments (+ 6 months) and Future Tests (+/- 45 days) The Plan of Treatment section includes future care activities for the patient from [facility] [place] [facility]. This section includes future appointments and future orders which are active, pending or scheduled. Future Appointments This section includes appointments that were scheduled to occur 6 months from the date of the Encounter, up to a maximum of 20 appointments. The data comes from all [place] treatment facilities. Appointment Date/Time Appointment Type Appointme nt Facility Name Feb 05, 2025 01:30 PM [facility] Mar 05, 2025 03:00 PM [facility] Apr 02, 2025 11:00 AM [facility] Apr 11, 2025 12:00 PM AMBULATORY - PSYCHIATRY [facility] Jun 12, 2025 03:30 PM AMBULATORY - MEDICINE [facility] Active, Pending, and Scheduled Orders This section [...] OF ABUSE URINE (DRUG) SP [facility] Lab Results: +/- 30 days of [...] Unit Interpretation Reference Range Specimen Type Comment Feb 05, 2025 02:12 PM [facility] DRUGS OF ABUSE URINE Specimen Type: [...] and it's performance ETG:characterist ics determined by [facility] Clinical Lab. The [place] Food ETG:and Drug Administration has not approved or cleared this test. ETG:FDA Clearance or approval is not currently required for ETG:clinical use. Fentanyl confirmation not sent by lab. Ordering Provider: RACHEL HANNAH Report Released Date/Time: Jan 08, 2025 03:15 PM Reporting Lab: [address] [id number] Performing Lab: [address] [address] AMPHETAMINES SCREEN NONE-DETECTED None-D etected, Cutoff = [...] connie, Cutoff = 1.00 ng/mL PH, RIGOBERTO 7.0 [pH] 5.0-8.0 CREATININE, RIGOBERTO 143.84 mg/dL 63-166 SP.GRAVITY, RIGOBERTO 1.010 1.005-1.030 METHADONE SCREEN NONE-DETECTED None-Dete cted,Cutoff = 300 ng/mL ETHYL GLUCURONIDE SCREEN POSITIVE HH None-D etected, cutoff = 500 ng/mL Jan 09, 2025 03:08 PM [facility] DRUGS OF ABUSE URINE Specimen Type: [...] ETG test was developed and it's performance ETG:characteristics determined by [facility] Clinical Lab. The [place] Food ETG:and Drug Administration has not approved or cleared this test. ETG:FDA Clearance or approval is not currently required for ETG:clinical use. Fentanyl confirmation not sent by lab. Ordering Provider: RACHEL HANNAH Report Released Date/Time: Jan 08, 2025 03:15 PM Reporting Lab: [address] [id number] Performing Lab: [address] [address] AMPHETAMINES SCREEN NONE-DETECTED None-D etected, Cutoff = [...] 500 ng/mL December 12, 2024 02:50 PM [facility] DRUGS OF ABUSE URINE Specimen Type: [...] Aug 21, 2024 02:45 PM Reporting Lab: [address] [phone] Performing Lab: [address] [address] AMPHETAMINES SCREEN NONE-DETECTED None-D etected, Cutoff = [...] took place. Date/Time Current Smoking Status Comment [facility] Jul 05, 2019 09:23 AM [place]-TOBACCO QUIT 5 TO < 15 YRS [facility] Tobacco Use History This section includes a history of the smoking, or tobacco-related health factors, that were collected on or before the date of the Encounter. The data comes from the [place] facility where the Encounter took place. Date/Time Smoking Status/Tobac co Use Comment Facility Jul 05, 2019 09:23 AM [place]-TOBACCO QUIT 5 TO < 15 YRS [facility] [place] [facility] Jun 21, 2018 10:07 AM VA-TOBACCO FORMER USER [facility] [place] [facility] Jun 21, 2018 10:07 AM [place]-TOBACCO QUIT 5 TO < 15 YRS [facility] [place] [facility] Jul 12, 2017 11:33 AM QUIT TOBACCO USE > 7 YEARS AGO [facility] [place] [facility] Aug 10, 2016 01:52 PM QUIT TOBACCO USE > 7 YEARS AGO [facility] [place] [facility] Aug 11, 2015 01:06 PM QUIT TOBACCO USE > 7 YEARS AGO [facility] [place] [facility] Sep 10, 2010 01:42 PM QUIT TOBACCO USE > 7 YEARS AGO [facility] [place] [facility] Oct 06, 2009 10:50 AM QUIT TOBACCO USE 1-7 YEARS AGO 2.5 years ago [facility] [place] [facility] Sep 27, 2008 12:40 PM QUIT TOBACCO USE 1-7 YEARS AGO MT ERASTOR ISAIAH FARIASUSENUVIA [facility] May 16, 2008 11:03 AM V1-PT DECLINES REF TO TOBACCO CESS PRGM [place] ERASTORL IVETTEN ELINUSENUVIA [facility] May 16, 2008 11:03 AM V1-PT DECLINES TOBACCO CESSATION MEDS [facility] May 16, 2008 11:03 AM V1-PT THINKING ABOUT QUIT TOBACCO USE [facility] Nov 27, 2007 03:00 PM V1-PT DECLINES REF TO TOBACCO CESS PR[facility] Nov 27, 2007 03:00 PM V1-PT DECLINES TOBACCO CESSATION MEDS [facility] IV[facility]TEN [facility] Nov 27, 2007 03:00 PM V1-PT THINKING ABOUT QUIT TOBACCO USE [facility] Oct 06, 2007 03:49 PM V1-PT DECLINES REF TO TOBACCO CESS PRGM [facility] Oct 06, 2007 03:49 PM V1-PT DECLINES TOBACCO CESSATION MEDS [facility] ISAIAH [facility] Oct 06, 2007 03:49 PM V1-PT NOT INTERESTED IN QUIT TOBACCO USE [facility] ISAIAH [facility] Oct 06, 2007 11:28 AM CURRENT SMOKER smokes 1/2 PPD since age 20 [facility] SHAUNMadison [facility] Encounter Notes: All associated encounter notes This section contains the clinical notes associated to the Encounter. Date/Time Encounter Note(s) Provider Source Jan 08, 2025 03:50 PM ACCOUNTING OF DISC LOSURES NOTE: LOCAL TITLE: STATE PRESCRIPTION DRUG MONITORING PROGRAM STANDARD TITLE: ACCOUNTING OF DISCLOSURES NOTE DATE OF NOTE: JAN 08, 2025@15:50:47 ENTRY DATE: JAN 08, 2025@15:50:47 AUTHOR: RACHEL HANNAH EXP COSIGNER: URGENCY: STATUS: COMPLETED This PDMP query was submitted by Rachel Hannah MD. The clinical justification for this PDMP query is to review controlled substances prescribed outside of the [place], and any additional information that may become available, as an important component of standard clinical care, and in accordance with [facility] policy. Patient information was shared with the PDMP Appriss [place]. No prescription(s) for controlled substances outside the [facility] were found in the last 90 days. /vance/ RACHEL HANNAH MD PHYSICIAN Signed: 01/08/2025 15:50 RACHEL HANNAH [place] [facility] [place] [facility] Jan 08, 2025 02:24 PM TELEHEALTH NOTE: LOCAL TITLE: [facility] VIDEO CONNECT NOTE STANDARD TITLE: TELEHEALTH NOTE DATE OF NOTE: JAN 08, 2025@14:24 ENTRY DATE: JAN 08, 2025@14:24:05 AUTHOR: RACHEL HANNAH EXP COSIGNER: URGENCY: STATUS: COMPLETED [facility] Video Connect (VVC) Standard Documentation VVC Clinician Resources Only: E911 (Emergency Call Relay Center): [phone] [facility] Crisis Line - ([phone]) press #1. BORIS Suicide Coordinator [phone], Ext. [phone]; Back-up Ext. [phone] Head Porter of the Day(AOD), Willis ESCALANTE [phone], Ext. [phone] Introduction: Visit is being conducted by [place] [facility] Connect. [place] identified with 2 identifiers: [X] Full Name [...] phone number correct, if not, enter below: [place]'s phone number: JOSE QUEZADA STRINGER [address], [place], [address] [place]'s present location and address for appointment: private space at work. [place]'s emergency contact name and phone number: CPRS reported that location is private and safe: Yes Informed Consent: [place] informed of the risks and benefits of Telehealth video care. [place] has the right to refuse video services. If refuses video visit, a lwea-ro-wjwp visit will be scheduled. verbalized consent for this video visit: Yes [place] provided consent for any other persons present [...] court of law and presented to a corporate specialist), and DOD access for active duty service [...] for medication management. Two identifiers were used. In general, he is doing better. Brief mental health in-pt admit last fall 2023; see below. Denies cravings, med side effects. His mood, sleep, motivations and energy levels have been reasonable. He denies any SI/HI. No longer seeing outside MH provider. As previously noted, on 05/25/24, he admitted himself to [facility] in [place]. I felt like I was becoming manic. [...] and appreciates the risks. He will see [facility] psychiatry in 2 wks. 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 Only [...] that he will taking family trip to [place] next December 2025. His parents are from [place], and travel there every year. Trip will include his 2 kids, and his brother, brother's and their 2 kids, and his parents. Re: divorce - I thought this would be over in 2019! Mediation failed. They were in and out of court. In January 2023, the corporate specialist imposed a permanent order - they will [...] ages; brother and his family live in [place]. SUBSTANCE ABUSE: Caffeine:1 cup/day Tobacco: no Cocaine: [...] on the kidney and LF LAST UDS: 12/12: POS bup, cannab, ethyl gluc; NEG for everything else. ASSESSMENT: OUD on [...] cannabis use, including imminent symptoms, short and assisted effects of using cannabis. Encouraged abstinence. Alcohol use: education and counseling provided, especially the interactions with suboxone. [place] is aware and does not take his [...] prescribed benzodiazepines or other central nervous system (WEDDING DAY COORDINATOR) depressants (including alcohol) with suboxone. Cautioned [...] substance. Patient provided with Suicide Prevention Lifeline number(0-796-619-TALK) and urged to call that number at any time if he has thoughts about suicide and , or to call 911 or go to nearest E.R.if he has suicidal thoughts. Patient is aware of how to access [facility] open access clinic in [facility] during weekdays for immediate mental health needs if I am not available. Patient has capacity to make his own medication decisions at present time. Patient agreed with above plan. Time spent in this encounter: 40 minutes. Greater than 50% of time spent in fjom-yv-joje, counseling regarding abstinence, treatment goals, medication effects and side effects, need for psychotherapy, dependence best methods for taking medication. /vance/ RACHEL HANNAH MD PHYSICIAN Signed: 01/08/2025 15:50 RACHEL HANNAH [place] [facility]
--- OUTSIDE RECORDS SUMMARY | 2025-02-05 09:30 | XMS_ITS | Encounter Summary ---
Author Name [facility] [place] [facility] [place] [facility] [place] [facility] [place] Address [address] [place] [address] Care Team Providers Care Utilization Review Coordinator Name Role Phone SHELLEY SAAVEDRA Primary Care [...] MASSM [facility]UAL HDHP HSA Aug 01, 2016 [id number] DEE STRINGER SPOUSE [facility] (HDHP /HSA) Aug 01, 2016 [id number] DEE STRINGER SPOUSE [facility] [employer] ([id number]) PRESCRIPT ION [facility] (HDHP /HSA) Aug 01, 2016 [id number] DEE STRINGER SPOUSE [employer] ([id number]) PRESCRIPT ION [facility] Aug 01, 2016 [id number] DEE STRINGER SPOUSE [employer] ([id number]) PRESCRIPT ION [facility] HDHP HSA Aug 01, 2016 [id number] DEE STRINGER SPOUSE Selected Encounter This section includes the information on record at [place] for the Encounter. Date/Time Encounter Type Encounter Description Reason Provider Source Feb 05, 2025 01:30 PM OFFICE O/P EST HI 40 MIN SUBSTANCE USE DISORDER IND ICD-10-CM F11.20 Opioid dependence, uncomplicated RACHEL HANNAH IHE Encounter Template Text not used by [place] Assessments - Encounter Diagnoses This section includes the primary and secondary diagnoses documented for the Encounter. Date/Time Primary/Secondary Diagnosis Diagnosis Name Provider Source Feb 05, 2025 03:24 PM PRIMARY Opioid dependence, uncomplicated RACHEL HANNAH [facility] Feb 05, 2025 03:24 PM SECONDARY Post-traumatic stress disorder, chronic RACHEL HANNAH [facility] Plan of Treatment: Future Appointments (+ 6 months) and Future Tests (+/- 45 days) The Plan of Treatment section includes future care activities for the patient from [facility] [place] [facility]. This section includes future appointments and future orders which are active, pending or scheduled. Future Appointments This section includes appointments that were scheduled to occur 6 months from the date of the Encounter, up to a maximum of 20 appointments. The data comes from all [place] treatment facilities. Appointment Date/Time Appointment Type Appointme nt Facility Name Mar 05, 2025 03:00 PM AMBULATORY - PSYCHIATRY [facility] Apr 02, 2025 11:00 AM AMBULATORY - PSYCHIATRY [facility] Apr 11, 2025 12:00 PM AMBULATORY - PSYCHIATRY [facility] Jun 12, 2025 03:30 PM AMBULATORY - MEDICINE [facility] Active, Pending, and Scheduled Orders This section includes a listing of several types of active, pending, and scheduled orders, including clinic medications orders, diagnostic test orders, procedure orders and consult orders; where the start date of the order is 45 days before the date of the Encounter or 45 days after the date of theEncounter. The data comes from all [place] treatment [facility]. Test Date/Time Test Type Test Details Facility Name Jan 08, 2025 02:45 PM Laboratory - Chemi stry Order DRUGS OF ABUSE URINE (DRUG) SP [facility] Mar 18, 2025 12:00 AM Laboratory - Chemi stry Order OCCULT BLOOD FIT X1 SCREEN (MFP ONLY) STOOL FECES SP [facility] Lab Results: +/- 30 days of the encounter This section includes the Chemistry and Hematology Lab Results on record with [place] for the patient. Radiology Reports and Pathology Reports are provided separately, in subsequent sections. Lab Results This section contains the Chemistry/Hematology Results that were resulted 30 days before or 30 daysafter the date of the Encounter. Date/Time Source Result Type Result - Unit Interpretation Reference Range Specimen Type Comment Mar 06, 2025 03:26 PM [facility] DRUGS OF ABUSE URINE Specimen Type: [...] and it's performance ETG:characterist ics determined by [facility] Clinical Lab. The [place] Food ETG:and Drug Administration has not approved or cleared this test. ETG:FDA Clearance or approval is not currently required for ETG:clinical use. Fentanyl confirmation not sent by lab. Ordering Provider: RACHEL HANNAH Report Released Date/Time: Jan 08, 2025 03:15 PM Reporting Lab: [address] [id number] Performing Lab: [address] [address] AMPHETAMINES SCREEN NONE-DETECTED None-D etected, Cutoff = [...] connie, Cutoff = 1.00 ng/mL PH, RIGOBERTO 4.9 [pH] L 5.0-8.0 CREATININE, RIGOBERTO 535.79 mg/dL H 63-166 SP.GRAVITY, RIGOBERTO 1.025 1.005-1.030 METHADONE SCREEN NONE-DETECTED None-Dete cted,Cutoff = 300 ng/mL ETHYL GLUCURONIDE SCREEN POSITIVE HH None-D etected, cutoff = 500 ng/mL Feb 05, 2025 02:12 PM [facility] DRUGS OF ABUSE URINE Specimen Type: [...] developed and it's performance ETG:characteristics determined by [facility] Clinical Lab. The [place] Food ETG:and Drug Administration has not approved or cleared this test. ETG:FDA Clearance or approval is not currently required for ETG:clinical use. Fentanyl confirmation not sent by lab. Ordering Provider: RACHEL HANNAH Report Released Date/Time: Jan 08, 2025 03:15 PM Reporting Lab: [address] [id number] Performing Lab: [address] [address] AMPHETAMINES SCREEN NONE-DETECTED None-D etected, Cutoff = [...] 500 ng/mL Jan 09, 2025 03:08 PM [facility] DRUGS OF ABUSE URINE Specimen Type: [...] developed and it's performance ETG:characteristics determined by [facility] Clinical Lab. The [place] Food ETG:and Drug Administration has not approved or cleared this test. ETG:FDA Clearance or approval is not currently required for ETG:clinical use. Fentanyl confirmation not sent by lab. Ordering Provider: RACHEL HANNAH Report Released Date/Time: Jan 08, 2025 03:15 PM Reporting Lab: [address] [address] Performing Lab: [address] [address] AMPHETAMINES SCREEN NONE-DETECTED None-D etected, Cutoff = [...] and tobacco- related health factors from the [place] facility where the Encounter took place. Current Smoking Status This section includes the most current smoking, or tobacco-related health factor, from the [place] facility where the Encounter took place. Date/Time Current Smoking Status Comment [facility] Jul 05, 2019 09:23 AM [place]-TOBACCO QUIT 5 TO < 15 YRS [facility] Tobacco Use History This section includes a history of the smoking, or tobacco-related health factors, that were collected on or before the date of the Encounter. The data comes from the [place] facility where the Encounter took place. Date/Time Smoking Status/Tobac co Use Comment Facility Jul 05, 2019 09:23 AM [place]-TOBACCO QUIT 5 TO < 15 YRS [place] [facility] [place] [facility] Jun 21, 2018 10:07 AM [place]-TOBACCO FOR[facility] USER [place] [facility] Jun 21, 2018 10:07 AM [place]-TOBACCO QUIT 5 TO < 15 YRS [place] [facility] [place] [facility] Jul 12, 2017 11:33 AM QUIT TOBACCO USE > 7 YEARS AGO [facility] [place] [facility] Aug 10, 2016 01:52 PM QUIT TOBACCO USE > 7 [facility] A[facility] Aug 11, 2015 01:06 PM QUIT TOBACCO USE > 7 [facility] A[facility] [place] [facility] Sep 10, 2010 01:42 PM QUIT TOBACCO USE > 7 YEARS AGO [facility] [place] [facility] Oct 06, 2009 10:50 AM QUIT TOBACCO USE 1-7 YEARS AGO 2.5 years ago [facility] [place] [facility] Sep 27, 2008 12:40 PM QUIT TOBACCO USE 1-7 YEARS AGO [facility] [place] [facility] May 16, 2008 11:03 AM V1-PT DECLINES REF TO TOBACCO CESS PRGM [facility] [facility] May 16, 2008 11:03 AM V1-PT DECLINES TOBACCO CESSATION MEDS [place] [facility] [place] [facility] May 16, 2008 11:03 AM V1-PT THINKING ABOUT QUIT TOBACCO USE [facility] [place] [facility] Nov 27, 2007 03:00 PM V1-PT DECLINES REF TO TOBACCO CESS PRGM [facility] [place] [facility] Nov 27, 2007 03:00 PM V1-PT DECLINES TOBACCO CESSATION MEDS [place] [facility] Nov 27, 2007 03:00 PM V1-PT THINKING ABOUT QUIT TOBACCO USE [facility] [place] [facility] Oct 06, 2007 03:49 PM V1-PT DECLINES REF TO TOBACCO CESS [facility] [place] [facility] Oct 06, 2007 03:49 PM V1-PT DECLINES TOBACCO CESSATION MEDS [facility] [place] [facility] Oct 06, 2007 03:49 PM V1-PT NOT INTERESTED IN QUIT TOBACCO USE [place] [facility] [place] [facility] Oct 06, 2007 11:28 AM CURRENT SMOKER smokes 1/2 PPD since age 20 [facility] Encounter Notes: All associated encounter notes This section contains the clinical notes associated to the Encounter. Date/Time Encounter Note(s) Provider Source Feb 05, 2025 03:24 PM ACCOUNTING OF DISC LOSURES NOTE: LOCAL TITLE: STATE PRESCRIPTION DRUG MONITORING PROGRAM STANDARD TITLE: ACCOUNTING OF DISCLOSURES NOTE DATE OF NOTE: FEB 05, 2025@15:24:59 ENTRY DATE: FEB 05, 2025@15:24:59 AUTHOR: RACHEL HANNAH EXP COSIGNER: URGENCY: STATUS: COMPLETED This PDMP query was submitted by Rachel Hannah MD. The clinical justification for this PDMP query is to review controlled substances prescribed outside of the [facility], and any additional information that may become available, as an important component of standard clinical care, and in accordance with [facility] policy. Patient information was shared with the PDMP [place]. No prescription(s) for controlled substances outside the [facility] were found in the last 90 days. /vance/ RACHEL HANNAH MD PHYSICIAN Signed: 02/05/2025 15:25 RACHEL HANNAH [place] [facility] [place] [facility] Feb 05, 2025 01:37 PM TELEHEALTH NOTE: LOCAL TITLE: [facility] VIDEO CONNECT NOTE STANDARD TITLE: TELEHEALTH NOTE DATE OF NOTE: FEB 05, 2025@13:37 ENTRY DATE: FEB 05, 2025@13:37:08 AUTHOR: RACHEL HANNAH EXP COSIGNER: URGENCY: STATUS: COMPLETED [facility] Video Connect ([facility]VC) Standard Documentation VVC Clinician Resources Only: E911 (Emergency Call Relay Center): [phone] [facility] Crisis Line - ([phone]-TALK) press #1. [facility] Suicide Coordinator [phone], Ext. [phone]; Back-up Ext. [phone] Museum Tour Guide of the Day(AOD), Willis ESCALANTE [phone], Ext. [phone] Introduction: Visit is being conducted by [place] [facility]. [place] identified with 2 identifiers: [X] Full Name [ ] Date of [X] Address [ ] [place] ID Card *We shouldn't be asking for SSN over a video visit so want to offer only acceptable identifiers for video visits.* Emergency Plan: [place] confirmed and/or provided the following information in case of emergency or technology failure. PATIENT PHONE - PHONE NUMBER [CELLULAR] - NONE FOUND Is patient phone number correct, if not, enter below: [place]'s phone number: JOSE STRINGER [address] [place], [place], [address] [place]'s present location and address for appointment: private space at work. 's emergency contact name and phone number: [facility]S [place] reported that location is private and safe: Yes Informed Consent: [place] informed of the risks and benefits of Telehealth video care. has the right to refuse video services. If refuses video visit, a [id number] visit will be scheduled. 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 Provided Suicide Prevention Hotline number, and other contact numbers as necessary. Telehealth Informed Consent: [place] verbalized consent for this telephonic visit: Yes DIAGNOSES AND PROBLEMS TREATED THIS VISIT: Opioid dependence Chronic PTSD MEDS: Buprenorphine/naloxone 12 mg/3 mg daily INTERVAL HISTORY/ CURRENT PROBLEMS The was assessed via VVC in the buprenorphine Clinic for medication management. Two identifiers were used. In general, he is doing well; same old, same old . Brief mental health in-pt admit last fall 2023; see below. Denies cravings, med side effects. His mood, sleep, motivations and energy levels have been reasonable. He denies any SI/HI. No longer seeing outside MH provider. As previously noted, on 05/25/24, he admitted himself to [facility] in [place]. I felt like I was becoming manic. [...] and appreciates the risks. He will see [facility] psychiatry in 2 wks. 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 Only down side [...] age 10 (as of Jul), Arjun age 7 (as of November) - see below. Shares today that he will taking family trip to [place] next December 2025. His parents are from [facility], and travel there every year. Trip will include his 2 kids, and his brother, brother's and their 2 kids, and his parents. It will be my first time! His brother was there 2 yrs ago. Jose is bilingual; but I can't read or write it. I could hang at the grocery store! Re: divorce - I thought this would be over in 2019! Mediation failed. They were in and out of court. In January 2023, the industrial therapist imposed a permanent order - they will [...] day when he comes home from work. His children's best friends are his brother's 2 kids, same ages; brother and his family live in [place]. SUBSTANCE ABUSE: Caffeine:1 cup/day Tobacco: no Cocaine: [...] non-VA prescribed medications or herbal treatments. MSE: [place] is casually dressed and groomed. He is [...] on the kidney and LF LAST UDS: 01/09: POS bup, cannab, ethyl gluc (false pos); NEG for everything else. ASSESSMENT: OUD on [...] use, including imminent symptoms, short and termite helper effects of using cannabis. Encouraged abstinence. Alcohol use: education and counseling provided, especially the interactions with suboxone. [place] is aware and does not take his [...] prescribed benzodiazepines or other central nervous system ([employer]) depressants (including alcohol) with suboxone. Cautioned patient [...] substance. Patient provided with Suicide Prevention Lifeline number(7-411-971-TALK) and urged to call that number at any time if he has thoughts about suicide and , or to call 911 or go to nearest E.R.if he has suicidal thoughts. Patient is aware of how to access [facility] open access clinic in [facility] during weekdays for immediate mental health needs if I am not available. Patient has capacity to make his own medication decisions at present time. Patient agreed with above plan. Time spent in this encounter: 40 minutes. Greater than 50% of time spent in [id number], counseling regarding abstinence, treatment goals, medication effects and side effects, need for psychotherapy, dependence best methods for taking medication. /vance/ RACHEL HANNAH MD PHYSICIAN Signed: 02/05/2025 15:24 RACHEL HANNAH [place] [facility]
--- OUTSIDE RECORDS SUMMARY | 2025-03-05 11:00 | XMS_ITS | Encounter Summary ---
Author Name [facility] [place] Address [address] [place] [address] Care Team Providers Care Undercar Specialist Name Role Phone SHELLEY SAAVEDRA Primary Care [...] Member ID Insurance Provider's Telephone Number Policy Acmp's Name Patient's Relationship to Policy Camp CIGNA* HIGH DEDUCTIBL E HEALTH PLAN W/HEALTH SAVINGS ACCOUNT MASSM UTUAL HDHP HSA Aug 01, 2016 [id number] [phone] DEE STRINGER SPOUSE [facility] UTUAL (HDHP /HSA) Aug 01, 2016 [id number] [phone] DEE STRINGER SPOUSE [employer] SCRIPTS ([id number]) PRESCRIPT ION MASSM UTUAL (HDHP /HSA) Aug 01, 2016 [id number] [phone] DEE STRINGER SPOUSE [employer]TS ([id number]) PRESCRIPT ION MASSM UTUAL [place] CIAL Aug 01, 2016 [id number] [id number] DEE STRINGER SPOUSE [employer]TS ([id number]) PRESCRIPT ION [employer]SM UTUAL HDHP HSA Aug 01, 2016 [id number] DEE STRINGER SPOUSE Selected Encounter This section includes the information on record at [place] for the Encounter. Date/Time Encounter Type Encounter Description Reason Provider Source Mar 05, 2025 03:00 PM OFFICE O/P EST HI 40 MIN SUBSTANCE USE DISORDER IND ICD-10-CM F11.20 Opioid dependence, uncomplicated RACHEL HANNAH IHE Encounter Template Text not used by [place] Assessments - Encounter Diagnoses This section includes the primary and secondary diagnoses documented for the Encounter. Date/Time Primary/Secondary Diagnosis Diagnosis Name Provider Source Mar 05, 2025 03:48 PM PRIMARY Opioid dependence, uncomplicated RACHEL HANNAH [facility] Mar 05, 2025 03:48 PM SECONDARY Post-traumatic stress disorder, chronic RACHEL HANNAH [facility] Plan of Treatment: Future Appointments (+ 6 months) and Future Tests (+/- 45 days) The Plan of Treatment section includes future care activities for the patient from all [place] [facility]. This section includes future appointments and future orders which are active, pending or scheduled. Future Appointments This section includes appointments that were scheduled to occur 6 months from the date of the Encounter, up to a maximum of 20 appointments. The data comes from all [place] treatment facilities. Appointment Date/Time Appointment Type Appointme nt Facility Name Apr 02, 2025 11:00 AM AMBULATORY - PSYCHIATRY [facility] Apr 11, 2025 12:00 PM AMBULATORY - PSYCHIATRY [facility] Jun 12, 2025 03:30 PM AMBULATORY - MEDICINE [facility] Active, Pending, and Scheduled Orders This section includes a listing of several types of active, pending, and scheduled orders, including clinic medications orders, diagnostic test orders, procedure orders and consult orders; where the start date of the order is 45 days before the date of the Encounter or 45 days after the date of theEncounter. The data comes from all [place] treatment facilities. Test Date/Time Test Type Test Details Facility Name Mar 18, 2025 12:00 AM Laboratory - Chemi stry Order OCCULT BLOOD FIT X1 SCREEN (MFP ONLY) STOOL FECES [facility] Apr 03, 2025 12:00 AM Laboratory - Chemi all Order DRUGS OF ABUSE URINE (DRUG) SP [facility] Lab Results: +/- 30 days of the encounter This section includes the Chemistry and Hematology Lab Results on record with [place] for the patient. Radiology Reports and Pathology Reports are provided separately, in subsequent sections. Lab Results This section contains the Chemistry/Hematology Results that were resulted 30 days before or 30 daysafter the date of the Encounter. Date/Time Source Result Type Result - Unit Interpretation Reference Range Specimen Type Comment Mar 06, 2025 03:26 PM [facility] DRUGS OF ABUSE URINE Specimen Type: URINE [...] and it's performance ETG:characterist ics determined by [facility] Clinical Lab. The [place] Food ETG:and Drug Administration has not approved or cleared this test. ETG:FDA Clearance or approval is not currently required for ETG:clinical use. Fentanyl confirmation not sent by lab. Ordering Provider: RACHEL HANNAH Report Released Date/Time: Jan 08, 2025 03:15 PM Reporting Lab: [address] [address] Performing Lab: [address] [address] AMPHETAMINES SCREEN NONE-DETECTED None-D etected, Cutoff = [...] 500 ng/mL Feb 05, 2025 02:12 PM [facility] DRUGS OF ABUSE URINE Specimen Type: URINE [...] developed and it's performance ETG:characteristics determined by [facility] Clinical Lab. The [place] Food ETG:and Drug Administration has not approved or cleared this test. ETG:FDA Clearance or approval is not currently required for ETG:clinical use. Fentanyl confirmation not sent by lab. Ordering Provider: RACHEL HANNAH Report Released Date/Time: Jan 08, 2025 03:15 PM Reporting Lab: [address] [address] Performing Lab: [address] [address] AMPHETAMINES SCREEN NONE-DETECTED None-D etected, Cutoff = [...] and tobacco- related health factors from the [place] facility where the Encounter took place. Current Smoking Status This section includes the most current smoking, or tobacco-related health factor, from the [place] facility where the Encounter took place. Date/Time Current Smoking Status Comment [facility] Jul 05, 2019 09:23 AM IA-TOBACCO QUIT 5 TO < 15 YRS [facility] Tobacco Use History This section includes a history of the smoking, or tobacco-related health factors, that were collected on or before the date of the Encounter. The data comes from the [place] facility where the Encounter took place. Date/Time Smoking Status/Tobac co Use Comment Facility Jul 05, 2019 09:23 AM [place]-TOBACCO QUIT 5 TO < 15 YRS [facility] Jun 21, 2018 10:07 AM VA-TOBACCO FORMER USER [facility] [place] [facility] Jun 21, 2018 10:07 AM [place]-TOBACCO QUIT 5 TO < 15 YRS [facility] [place] [facility] Jul 12, 2017 11:33 AM QUIT TOBACCO USE > 7 YEARS AGO [facility] [place] [facility] Aug 10, 2016 01:52 PM QUIT TOBACCO USE > 7 [facility] A[facility] [place] [facility] Aug 11, 2015 01:06 PM QUIT TOBACCO USE > 7 YEARS AGO [facility] [place] [facility] Sep 10, 2010 01:42 PM QUIT TOBACCO USE > 7 YEARS AGO [place] CNTR ISA[facility]H [facility]UV[facility] Oct 06, 2009 10:50 AM QUIT TOBACCO USE 1-7 YEARS AGO 2.5 years ago [facility] IS[facility] Sep 27, 2008 12:40 PM QUIT TOBACCO USE 1-7 YEARS AGO [place] [facility] May 16, 2008 11:03 AM V1-PT DECLINES REF TO TOBACCO CESS PRGM [facility] IVETTEN [facility] May 16, 2008 11:03 AM V1-PT DECLINES TOBACCO CESSATION MEDS [facility] IVETTEN [facility] May 16, 2008 11:03 AM V1-PT THINKING ABOUT QUIT TOBACCO USE [facility] IV[facility]EN [facility] Nov 27, 2007 03:00 PM V1-PT DECLINES REF TO TOBACCO CESS PRGM [facility] SHAUNN [facility] Nov 27, 2007 03:00 PM V1-PT DECLINES TOBACCO CESSATION MEDS [facility] SHA[facility]N [facility] Nov 27, 2007 03:00 PM V1-PT THINKING ABOUT QUIT TOBACCO USE [facility] IV[facility]TEN [facility] Oct 06, 2007 03:49 PM V1-PT DECLINES REF TO TOBACCO CESS PRGM [facility] IV[facility]TEN [facility] Oct 06, 2007 03:49 PM V1-PT DECLINES TOBACCO CESSATION MEDS [facility] ISAIAH [facility] Oct 06, 2007 03:49 PM V1-PT NOT INTERESTED IN QUIT TOBACCO USE [facility] ISAIAH [facility] Oct 06, 2007 11:28 AM CURRENT SMOKER smokes 1/2 PPD since age 20 [facility] Encounter Notes: All associated encounter notes This section contains the clinical notes associated to the Encounter. Date/Time Encounter Note(s) Provider Source Mar 05, 2025 03:48 PM ACCOUNTING OF DISC LOSURES NOTE: LOCAL TITLE: STATE PRESCRIPTION DRUG MONITORING PROGRAM STANDARD TITLE: ACCOUNTING OF DISCLOSURES NOTE DATE OF NOTE: MAR 05, 2025@15:48:24 ENTRY DATE: MAR 05, 2025@15:48:24 AUTHOR: RACHEL HANNAH EXP COSIGNER: URGENCY: STATUS: COMPLETED This PDMP query was submitted by Rachel Hannah MD. The clinical justification for this PDMP query is to review controlled substances prescribed outside of the [facility], and any additional information that may become available, as an important component of standard clinical care, and in accordance with [facility] policy. Patient information was shared with the [facility] Appzerveds [place]. No prescription(s) for controlled substances outside the [facility] were found in the last 90 days. /vance/ RACHEL HANNAH MD PHYSICIAN Signed: 03/05/2025 15:48 RACHEL HANNAH [place] CNTRL WSTRN TAL[place] [facility] Mar 05, 2025 03:03 PM TELEHEALTH NOTE: LOCAL TITLE: VA VIDEO CONNECT NOTE STANDARD TITLE: TELEHEALTH NOTE DATE OF NOTE: MAR 05, 2025@15:03 ENTRY DATE: MAR 05, 2025@15:03:32 AUTHOR: RACHEL HANNAH EXP COSIGNER: URGENCY: STATUS: COMPLETED [facility] Video Connect (VVC) Standard Documentation VVC Clinician Resources Only: E911 (Emergency Call Relay Center): [phone] [facility] Crisis Line - (8-265-187-TALK) press #1. BORIS Suicide Coordinator [phone], Ext. [phone]; Back-up Ext. [phone] Home Health Care Social Worker of the Day(AOD), Willis ESCALANTE [phone], Ext. [phone] Introduction: Visit is being conducted by [place] [employer] Connect. identified with 2 identifiers: [X] Full Name [ ] Date of [X] Address [ ] [place] ID Card *We shouldn't be asking for SSN over a video visit so want to offer only acceptable identifiers for video visits.* Emergency Plan: confirmed and/or provided the following information in case of emergency or technology failure. PATIENT PHONE - PHONE NUMBER [CELLULAR] - NONE FOUND Is patient phone number correct, if not, enter below: 's phone number: JOSE STRINGER [address] [place], [address] [place]'s present location and address for appointment: private space at work. [place]'s emergency contact name and phone number: CPRS [place] reported that location is private and safe: Yes Informed Consent: [place] informed of the risks and benefits of Telehealth video care. has the right to refuse video services. If refuses video visit, a jria-lv-[id number] visit will be scheduled. 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 Provided Suicide Prevention Hotline number, and other contact numbers as necessary. Telehealth Informed Consent: [place] verbalized consent for this telephonic visit: Yes [...] noted, on 05/25/24, he admitted himself to [facility] in [place]. I felt like I was becoming manic. [...] and appreciates the risks. He will see [facility] psychiatry in 2 wks. 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 Only down [...] that he will taking family trip to [place] next December 2025, possibly 2026. His parents are from [place], and travel there every year. Trip will [...] court. In January 2023, the director of safety imposed a permanent order - they will [...] day when he comes home from work. 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 His children's best friends are his brother's 2 kids, same ages; brother and his family live in [place]. SUBSTANCE ABUSE: Caffeine:1 cup/day Tobacco: no Cocaine: [...] on the kidney and LF LAST UDS: 02/05: POS bup, cannab, ethyl gluc; NEG for [...] cannabis use, including imminent symptoms, short and snf effects of using cannabis. Encouraged abstinence. Alcohol use: education and counseling provided, especially the interactions with suboxone. [place] is aware and does not take his [...] prescribed benzodiazepines or other central nervous system (PRINT PROJECT MANAGER) depressants (including alcohol) with suboxone. Cautioned [...] substance. Patient provided with Suicide Prevention Lifeline number(4-719-898-TALK) and urged to call that number at any time if he has thoughts about suicide and , or to call 911 or go to nearest E.R.if he has suicidal thoughts. Patient is aware of how to access [facility] open access MH clinic in [facility] during weekdays for immediate mental health needs if I am not available. Patient has capacity to make his own medication decisions at present time. Patient agreed with above plan. Time spent in this encounter: 40 minutes. Greater than 50% of time spent in xfai-so-xweh, counseling regarding abstinence, treatment goals, medication effects and side effects, need for psychotherapy, dependence best methods for taking medication. /vance/ RACHEL HANNAH MD PHYSICIAN Signed: 03/05/2025 15:48 RACHEL HANNAH [place] [facility]
--- OUTSIDE RECORDS SUMMARY | 2025-04-02 07:00 | XMS_ITS | Encounter Summary ---
Author Name [facility] [place] Address [address] [place] [address] Care Team Providers Care Motor Vehicle Technician Name Role Phone SHELLEY SAAVEDRA Primary [...] PLAN W/HEALTH SAVINGS ACCOUNT [employer]SM UTUAL HDHP [facility] Aug 01, 2016 [id number] [phone] DEE STRINGER SPOUSE [facility] M[facility] [facility] (HDHP /HSA) Aug 01, 2016 [id number] DEE STRINGER SPOUSE [employer] ([id number]) PRESCRIPT ION MASSM UTUAL (HDHP /HSA) Aug 01, 2016 [id number] DEE STRINGER SPOUSE [employer] ([id number]) PRESCRIPT ION [employer]SM UTUAL FINAN CIAL Aug 01, 2016 [id number] [phone] DEE STRINGER SPOUSE [employer]IPTS ([id number]) PRESCRIPT ION MASSM UTUAL HDHP [facility] Aug 01, 2016 [id number] DEE STRINGER SPOUSE Selected Encounter This section includes the information on record at [place] for the Encounter. Date/Time Encounter Type Encounter Description Reason Pro vider Source Apr 02, 2025 11:00 AM Outpatient Encounter SUBSTANCE USE DISORDER IND IHE Encounter Template Text not used by [place] Plan of Treatment: Future Appointments (+ 6 months) and Future Tests (+/- 45 days) The Plan of Treatment section includes future care activities for the patient from all [place] [facility]. This section includes future appointments and future orders which are active, pending or scheduled. Future Appointments This section includes appointments that were scheduled to occur 6 months from the date of the Encounter, up to a maximum of 20 appointments. The data comes from all [place] treatment facilities. Appointment Date/Time Appointment Type Appointme nt Facility Name Apr 11, 2025 12:00 PM AMBULATORY - PSYCHIATRY [facility] Jun 12, 2025 03:30 PM AMBULATORY - MEDICINE [facility] Active, Pending, and Scheduled Orders This section includes a listing of several types of active, pending, and scheduled orders, including clinic medications orders, diagnostic test orders, procedure orders and consult orders; where the start date of the order is 45 days before the date of the Encounter or 45 days after the date of theEncounter. The data comes from all [place] treatment [facility]. Test Date/Time Test Type Test Details Facility Name Mar 18, 2025 12:00 AM Laboratory - Chemi stry Order OCCULT BLOOD FIT X1 SCREEN (MFP ONLY) STOOL FECES [facility] Apr 03, 2025 12:00 AM Laboratory - Chemi stry Order DRUGS OF ABUSE URINE (DRUG) [facility] May 01, 2025 12:00 AM Laboratory - Chemi stry Order DRUGS OF ABUSE URINE (DRUG) [facility] Lab Results: +/- 30 days of the encounter This section includes the Chemistry and Hematology Lab Results on record with [place] for the patient. Radiology Reports and Pathology Reports are provided separately, in subsequent sections. Lab Results This section contains the Chemistry/Hematology Results that were resulted 30 days before or 30 daysafter the date of the Encounter. Date/Time Source Result Type Result - Unit Interpretation Reference Range Specimen Type Comment Mar 06, 2025 03:26 PM [facility] DRUGS OF ABUSE URINE Specimen Type: [...] and it's performance ETG:characterist ics determined by [facility] Clinical Lab. The [place] Food ETG:and Drug Administration has not approved or cleared this test. ETG:FDA Clearance or approval is not currently required for ETG:clinical use. Fentanyl confirmation not sent by lab. Ordering Provider: RACHEL HANNAH Report Released Date/Time: Jan 08, 2025 03:15 PM Reporting Lab: [address] [address] Performing Lab: [address] [address] AMPHETAMINES SCREEN NONE-DETECTED None-D etected, Cutoff = [...] and tobacco- related health factors from the [place] facility where the Encounter took place. Current Smoking Status This section includes the most current smoking, or tobacco-related health factor, from the [place] facility where the Encounter took place. Date/Time Current Smoking Status Comment Facil it Jul 05, 2019 09:23 AM MI-TOBACCO QUIT 5 TO < 15 YRS [place] CNT [facility] Tobacco Use History This section includes a history of the smoking, or tobacco-related health factors, that were collected on or before the date of the Encounter. The data comes from the [place] facility where the Encounter took place. Date/Time Smoking Status/Tobac co Use Comment Facility Jul 05, 2019 09:23 AM MI-TOBACCO QUIT 5 TO < 15 YRS [place] CNTR [place] [facility] Jun 21, 2018 10:07 AM VA-TOBACCO FORMER USER [place] CNTR [place] [facility] Jun 21, 2018 10:07 AM MI-TOBACCO QUIT 5 TO < 15 YRS [place] CNTR [place] [facility] Jul 12, 2017 11:33 AM QUIT TOBACCO USE > 7 YEARS AGO [place] CNTR [place] [facility] Aug 10, 2016 01:52 PM QUIT TOBACCO USE > 7 YEARS AGO [place] CNTR [place] [facility] Aug 11, 2015 01:06 PM QUIT TOBACCO USE > 7 YEARS AGO [place] CNTR [place] [facility] Sep 10, 2010 01:42 PM QUIT TOBACCO USE > 7 YEARS AGO [place] CNTR [place] [facility] Oct 06, 2009 10:50 AM QUIT TOBACCO USE 1-7 YEARS AGO 2.5 years ago [place] CNTR [facility] [facility] Sep 27, 2008 12:40 PM QUIT TOBACCO USE 1-7 YEARS AGO [place] CNTR [place] [facility] May 16, 2008 11:03 AM V1-PT DECLINES REF TO TOBACCO CESS [facility] [place] [facility] May 16, 2008 11:03 AM V1-PT DECLINES TOBACCO CESSATION MEDS [facility] May 16, 2008 11:03 AM V1-PT THINKING ABOUT QUIT TOBACCO USE [facility] Nov 27, 2007 03:00 PM V1-PT DECLINES REF TO TOBACCO CESS PRGM [facility] Nov 27, 2007 03:00 PM V1-PT DECLINES TOBACCO CESSATION MEDS [facility] Nov 27, 2007 03:00 PM V1-PT THINKING ABOUT QUIT TOBACCO USE [facility] Oct 06, 2007 03:49 PM V1-PT DECLINES REF TO TOBACCO CESS PRGM [facility] Oct 06, 2007 03:49 PM V1-PT DECLINES TOBACCO CESSATION MEDS [facility] Oct 06, 2007 03:49 PM V1-PT NOT INTERESTED IN QUIT TOBACCO USE [facility] Oct 06, 2007 11:28 AM CURRENT SMOKER smokes 1/2 PPD since age 20 [facility] Encounter Notes: All associated encounter notes This section contains the clinical notes associated to the Encounter. Date/Time Encounter Note(s) Provider Source Apr 02, 2025 05:11 PM CLERICAL NOTE: LOCAL TITLE: APPOINTMENT NO SHOW STANDARD TITLE: CLERICAL NOTE DATE OF NOTE: APR 02, 2025@17:11 ENTRY DATE: APR 02, 2025@17:12:06 AUTHOR: RACHEL HANNAH COSIGNER: URGENCY: STATUS: COMPLETED Patient Name: KIRSTY STRINGER Patient SSN: [id number] Date and time of Appointment No show : 04/02/25 11:00 PATIENT PHONE - PHONE NUMBER [CELLULAR] - [phone] Patient's medical record was reviewed. Follow-up actions were determined and initiated: Please check/complete as applies: [x ]Telephoned Directly [ ]Re-scheduled for next available appt [ ]Sent a N0-show letter ( must call for appointment) [ ]Other (Emergent/Overbook, etc.): Additional Comments: No response. Please reschedule. Future Clinic Visits 04/11/2025 12:00 SPR PCMHI PSYLG 1 06/12/2025 15:30 SPR PACT 10 MD HOSKINS /vance/ RACHEL HANNAH MD PHYSICIAN Signed: 04/02/2025 17:12 Receipt Acknowledged By: * AWAITING SIGNATURE * KIMMY LOU ALAN B [facility]
--- OUTSIDE RECORDS SUMMARY | 2025-04-03 05:32 | XMS_ITS | Encounter Summary ---
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 Aug 01, 2016 [id number] [phone] DEE STRINGER SPOUSE [facility] MENTAL HEALTH [facility] (HDHP /HSA) Aug 01, 2016 [id number] DEE STRINGER SPOUSE [facility] ([id number]) PRESCRIPT ION [facility] (HDHP /HSA) Aug 01, 2016 [id number] DEE STRINGER SPOUSE [facility] ([id number]) PRESCRIPT ION [facility] Aug 01, 2016 [id number] DEE STRINGER SPOUSE [facility] ([id number]) PRESCRIPT ION [facility] Aug 01, 2016 K4UA [id number] DEE STRINGER SPOUSE Selected Encounter This section includes the information on record at [place] for the Encounter. Date/Time Encounter Type Encounter Description Reason Pro vider Source Apr 03, 2025 09:32 AM Outpatient Encounter TELEPHONE MH I[facility] Encounter Template Text not used by [place] Plan of Treatment: Future Appointments (+ 6 months) and Future Tests (+/- 45 days) The Plan of Treatment section includes future care activities for the patient from all [place] treatmentfacilities. This section includes future appointments and future orders which are active, pending or scheduled. Future Appointments This section includes appointments that were scheduled to occur 6 months from the date of the Encounter, up to a maximum of 20 appointments. The data comes from all [place] treatment facilities. Appointment Date/Time Appointment Type Appointme nt Facility Name Apr 11, 2025 12:00 PM AMBULATORY - PSYCHIATRY [facility] Jun 12, 2025 03:30 PM AMBULATORY - MEDICINE [facility] Active, Pending, and Scheduled Orders This section includes a listing of several types of active, pending, and scheduled orders, including clinic medications orders, diagnostic test orders, procedure orders and consult orders; where the start date of the order is 45 days before the date of the Encounter or 45 days after the date of theEncounter. The data comes from all [place] treatment [facility]. Test Date/Time Test Type Test Details Facility Name Mar 18, 2025 12:00 AM Laboratory - Chemi stry Order OCCULT BLOOD FIT X1 SCREEN (MFP ONLY) [facility] Apr 03, 2025 12:00 AM Laboratory - Chemi stry Order DRUGS OF ABUSE URINE (DRUG) [facility] May 01, 2025 12:00 AM Laboratory - Chemi stry Order DRUGS OF ABUSE URINE (DRUG) [facility] Lab Results: +/- 30 days of the encounter This section includes the Chemistry and Hematology Lab Results on record with [place] for the patient. Radiology Reports and Pathology Reports are provided separately, in subsequent sections. Lab Results This section contains the Chemistry/Hematology Results that were resulted 30 days before or 30 daysafter the date of the Encounter. Date/Time Source Result Type Result - Unit Interpretation Reference Range Specimen Type Comment Mar 06, 2025 03:26 PM [facility] DRUGS OF ABUSE URINE [...] and it's performance ETG:characterist ics determined by [facility] Clinical Lab. The [place] Food ETG:and Drug Administration has not approved or cleared this test. ETG:FDA Clearance or approval is not currently required for ETG:clinical use. Fentanyl confirmation not sent by lab. Ordering Provider: RACHEL HANNAH Report Released Date/Time: Jan 08, 2025 03:15 PM Reporting Lab: [address] [id number] Performing Lab: [address] [id number] AMPHETAMINES SCREEN NONE-DETECTED None-D etected, Cutoff = [...] and tobacco- related health factors from the [place] facility where the Encounter took place. Current Smoking Status This section includes the most current smoking, or tobacco-related health factor, from the [place] facility where the Encounter took place. Date/Time Current Smoking Status Comment [facility] it Jul 05, 2019 09:23 AM [place]-TOBACCO QUIT 5 TO < 15 YRS [facility] Tobacco Use History This section includes a history of the smoking, or tobacco-related health factors, that were collected on or before the date of the Encounter. The data comes from the [place] facility where the Encounter took place. Date/Time Smoking Status/Tobac co Use Comment [facility] Jul 05, 2019 09:23 AM [place]-TOBACCO QUIT 5 TO < 15 YRS [place] [facility] [place] [facility] Jun 21, 2018 10:07 AM [place]-TOBACCO FORMER USER [place] [facility] Jun 21, 2018 10:07 AM [place]-TOBACCO QUIT 5 TO < 15 YRS [place] [facility] [place] [facility] Jul 12, 2017 11:33 AM QUIT TOBACCO USE > 7 YEARS AGO [place] [facility] [place] [facility] Aug 10, 2016 01:52 PM QUIT TOBACCO USE > 7 YEARS AGO [place] [facility] [place] [facility] Aug 11, 2015 01:06 PM QUIT TOBACCO USE > 7 YEARS AGO [place] [facility] [place] [facility] Sep 10, 2010 01:42 PM QUIT TOBACCO USE > 7 YEARS AGO [place] [facility] [place] [facility] Oct 06, 2009 10:50 AM QUIT TOBACCO USE 1-7 YEARS AGO 2.5 years ago [place] [facility] [place] [facility] Sep 27, 2008 12:40 PM QUIT TOBACCO USE 1-7 YEARS AGO [place] [facility] [place] [facility] May 16, 2008 11:03 AM V1-PT DECLINES REF TO TOBACCO CESS [facility] [place] [facility] May 16, 2008 11:03 AM V1-PT DECLINES TOBACCO CESSATION MEDS [place] [facility] May 16, 2008 11:03 AM V1-PT THINKING ABOUT QUIT TOBACCO USE [facility] Nov 27, 2007 03:00 PM V1-PT DECLINES REF TO TOBACCO CESS PRGM [facility] Nov 27, 2007 03:00 PM V1-PT DECLINES TOBACCO CESSATION MEDS [facility] Nov 27, 2007 03:00 PM V1-PT THINKING ABOUT QUIT TOBACCO USE [facility] Oct 06, 2007 03:49 PM V1-PT DECLINES REF TO TOBACCO CESS PRGM [facility] Oct 06, 2007 03:49 PM V1-PT DECLINES TOBACCO CESSATION MEDS [facility] Oct 06, 2007 03:49 PM V1-PT NOT INTERESTED IN QUIT TOBACCO USE [facility] Oct 06, 2007 11:28 AM CURRENT SMOKER smokes 1/2 PPD since age 20 [facility] Encounter Notes: All associated encounter notes This section contains the clinical notes associated to the Encounter. Date/Time Encounter Note(s) Provider Source Apr 02, 2025 10:00 AM MENTAL HEALTH TELE PHONE ENCOUNTER NOTE: LOCAL TITLE: TELEPHONE NOTE/MENTAL HEALTH STANDARD TITLE: MENTAL HEALTH TELEPHONE ENCOUNTER NOTE DATE OF NOTE: APR 02, 2025@10:00 ENTRY DATE: APR 03, 2025@09:33:05 AUTHOR: NOE MARS EXP COSIGNER: URGENCY: STATUS: COMPLETED TELEPHONE NOTE/MENTAL HEALTH Has ADDENDA Telephone Note - 04/02/25 9am Received a call from Iola's brother, Robert, out of concern that the Iola is beginning to show signs of heightened anxiety and paranoia again, similiar to last year, but not as severe. He states his brother has insight into the symptoms and will be calling to request an appointment. The reached out to request a [facility] visit. He reports his symptoms of psychosis have begun to return after a period of Ozempic and THC use and a few nights of poor sleep. This is essentially the same presentation he had in Jun 2024 (after a 30-lb weight loss on Ozempic and daily THC use). He reports he stopped taking the Ozempic and initially stopped using THC, but has used it the past 3 nights to help with sleep. I am up stressing . Undersigned advised to stop using THC. Arranged apppointment for 04/11/25 at 12 noon. Iola declined a sooner appointment because he needs to request the time off work. He is at work today. /vance/ NOE MARS PSYD CLINICAL PSYCHOLOGIST Signed: 04/03/2025 09:44 04/03/2025 ADDENDUM STATUS: COMPLETED Undersigned received a phone call from 's brother, Robert. He reports that the ended up going to the ER at his place of work yesterday. The Iola's report about how he got there was unclear. He reportedly stated that he passed out and woke up there . Robert stated that it sounds as though someone might have seen the wheeling a patient out and appearing out of it and taken him to the ER. Robert reports the Iola was prescribed sleep medication (possibly lorazepam) and was picked up and taken home by his parents in the evening. He resides in his parents' basement. Robert reports that the 's parents are managing his medications, he is in a safe environment, and there are no concerns about the Iola being a risk of harm to self or others. He will reportedly be out of work for the remainder of the week. The 's brother shared that the Iola's psychosis cleared completely for a period of a few months after having these symptoms in fall 2023, and he believes the was off Ozempic and THC during that period. He states he learned last week that the had been taking Ozempic again (he believes from an online pharmacy) and using THC. He states that he and his parents are committed to helping the get back on track with his mental health and will discourage him from any further use of Ozempic or THC. Emotional support provided to 's brother. PLAN: [facility] visit scheduled for 04/11/25 at noon. or his brother may call for a sooner visit. /josue MARS PSYD CLINICAL PSYCHOLOGIST Signed: 04/03/2025 09:55 Receipt Acknowledged By: * AWAITING SIGNATURE * RACHEL HANNAH JILL M [place]
[2025-04-03 15:31] VITALS: BMI 27.4
--- NOTE | 2025-04-03 16:38 | ED_ITS ---
HPI - Psych General Chief Complaint: Psychiatric Symptoms Stated Complaint: Crisis, aggressive Time Seen by Provider: 04/03/25 14:55 Source: EMS and police Mode of arrival: EMS Limitations: altered mental status History of Present Illness ED Provider: Dr. Maury Aquino HPI Narrative: 44-year-old male who has not been to this facility before he was brought to emergency department for evaluation of change in mental status. The patient was brought to emergency department by EMS and police and was in restraints. Patient was not answering questions, he was not making sense, he appeared to be extremely agitated. Patient was transferred from the stretcher to a bed in the emergency department Behavioral Health Unit. The patient was placed in restraints and medicated with Haldol 10 mg IM, Benadryl 50 mg IM and Versed 4 mg IM. I did speak to the patient's father Dirk Fuller. He can be reached at . He states that a proximally 1 year prior the patient had a similar episode where he was confused and was hospitalized for 1 week in his psychiatric facility. The father does not know what psychiatric diagnosis his son has. He states that the patient has been following up with the psychiatrist at the [place] since the patient is a . The father states the patient does drank hard cell ulcers daily but does not think that his son is an alcoholic or drinks heavily. His father does not think that the patient uses drugs however the police reported that the patient is on Suboxone. The father did tell me that the patient has been on Ozempic for proximally 1 year in his lost 40-50 lb. Recently he has doubled his dose of Ozempic. Related Data Home Medications ?Medication ?Instructions ?Recorded ?Confirmed buprenorphine 8 mg-naloxone 2 mg 1.5 film buccal DAILY 04/04/25 04/04/25 sublingual film (Suboxone) Allergies Allergy/AdvReac Type Severity Reaction Status Date / Time No Known Allergies Allergy Verified 04/03/25 15:33 Physical Exam 2 Vital Signs: Vital Signs: Last Vital Signs Temp 98.4 F 04/05/25 15:41 Pulse 87 04/05/25 15:41 Resp 18 04/05/25 15:41 BP 126/82 04/05/25 15:41 Pulse Ox 98 04/05/25 15:41 O2 Del Method Room Air 04/05/25 15:41 BMI result Body Mass Index 27.4 Exam: General: Awake, alert, agitated, not answering questions, nonsensical speech Head: Normocephalic, atraumatic EENT: PERRL, Lids normal, sclera normal, conjunctiva normal, nose normal , ears normal, throat without erythema or exudates Neck: Supple, no adenopathy Lung: breath sounds symmetric, no wheezing, rales or rhonchi Chest: symmetric movement, nontender Heart: regular rate and rhythm, normal S1, S2 no murmurs or rubs Abdomen: soft, non-tender, nondistended, normal bowel sounds Back: no vertebral tenderness, no CVAT Extremities: no deformities, moves all extremities symmetrically Neuro: Awake, not answering questions, nonsensical speech, agitated, cranial nerves 2-12 appear to be intact, moves all extremities symmetrically with good strength Course Reevaluation(s) Reevaluation #1: Time: 06:20 Date: 04/05/25 Provider: Zana Gasca MD Patient in physician observation for psychiatric evaluation.? The patient is being held in the emergency department out of concern for psychotic behavior. Yesterday evening he became mildly agitated but was ultimately persuaded to take oral olanzapine and lorazepam. He seemed to calm down after this and then went back to bed. Otherwise there were no acute events during the overnight. He has been seen by the care team. An inpatient level of care bed search is underway. Will continue to monitor. Reevaluation #2: Time: 17:40 Date: 04/05/25 Provider: Zana Gasca MD Physician observation ended at 17:00. Patient Has been accepted in transfer to the [facility] in [facility]. He will be transferred there by ambulance. Of note the patient had a positive urine culture while in the emergency room. His urine was cultured and tested positive for strep agalactiae . The patient's urinalysis was not strongly indicative of UTI and the patient has no urinary symptoms. I do not think this is a true positive culture. No antibiotics were started.. Medications Administered Generic Name Dose Route Start Last Admin Trade Name Freq PRN Reason Stop Dose Admin Buprenorphine/Naloxone 1.5 film 04/05/25 09:00 04/05/25 10:01 Buprenorphine/Naloxone 8/2 Mg Film BUCCAL Not Given DAILY WILLIAN Discontinued Medications Generic Name Dose Route Start Last Admin Trade Name Freq PRN Reason Stop Dose Admin Buprenorphine/Naloxone 1 film 04/05/25 09:45 04/05/25 09:54 Buprenorphine/Naloxone 8/2 Mg Film SUBLINGUAL 04/05/25 09:46 1 film ONCE ONE Administration Diphenhydramine HCl 50 mg 04/03/25 14:59 04/03/25 15:03 Diphenhydramine Hcl 50 Mg/Ml Vial IM 04/03/25 15:00 50 mg ONCE ONE Administration Diphenhydramine HCl 50 mg 04/03/25 23:40 04/03/25 23:39 Diphenhydramine Hcl 50 Mg/Ml Vial IM 04/03/25 23:41 50 mg ONCE ONE Administration Haloperidol Lactate 10 mg 04/03/25 14:59 04/03/25 15:03 Haloperidol Lactate 5 Mg/Ml Vial IM 04/03/25 15:00 10 mg ONCE ONE Administration Haloperidol Lactate 10 mg 04/03/25 16:55 04/03/25 17:00 Haloperidol Lactate 5 Mg/Ml Vial IM 04/03/25 16:56 10 mg ONCE ONE Administration Haloperidol Lactate 5 mg 04/03/25 23:40 04/03/25 23:39 Haloperidol Lactate 5 Mg/Ml Vial IM 04/03/25 23:41 5 mg ONCE ONE Administration Lorazepam 2 mg 04/03/25 23:28 04/03/25 23:30 Lorazepam 1 Mg Tablet PO 04/03/25 23:29 2 mg ONCE ONE Administration Lorazepam 2 mg 04/04/25 11:29 04/04/25 17:25 Lorazepam 1 Mg Tablet PO 04/04/25 11:30 Not Given ONCE ONE Lorazepam 2 mg 04/04/25 22:41 04/04/25 22:45 Lorazepam 1 Mg Tablet PO 04/04/25 22:42 2 mg ONCE ONE Administration Midazolam HCl 4 mg 04/03/25 14:59 04/03/25 15:03 Midazolam Hcl 2 Mg/2 Ml Vial IM 04/03/25 15:00 4 mg ONCE ONE Administration Midazolam HCl 4 mg 04/03/25 16:55 04/03/25 17:00 Midazolam Hcl 2 Mg/2 Ml Vial IM 04/03/25 16:56 4 mg ONCE ONE Administration Olanzapine 10 mg 04/04/25 11:29 04/04/25 17:25 Olanzapine Odt 10 Mg Tab.Rapdis TRANSLINGU 04/04/25 11:30 Not Given ONCE ONE Olanzapine 10 mg 04/04/25 22:41 04/04/25 22:45 Olanzapine Odt 10 Mg Tab.Abelardo TRANSLINGU 04/04/25 22:42 10 mg ONCE ONE Administration Medical Decision Making Medical Decision Making MDM Narrative: 44-year-old male who has not been to this facility before he was brought to emergency department for evaluation of change in mental status. Patient was restrained to the stretcher and was accompanied by EMS and police. The patient's father called the police since the patient was acting erratically today. According to the father, patient was hospitalized proximally 1 year prior for psychiatric condition and since that time he has been followed by a psychiatrist at the [place]. his father reports that the patient does drink daily and the father's unaware of any drug use but the patient is on Suboxone. Patient has not been sleeping for 4 days. Yesterday while he was at work at [employer] he had a change in mental status and father states he had a workup there that include a CT scan. Today, the father states the patient was acting erratically not making sense and kept repeating himself. Father was concerned and called the police. On presentation the patient was agitated, confused, not answering questions. Patient was placed in restraints and medicated with Haldol 10 mg, Benadryl 50 mg and Versed 4 mg IM Differential diagnosis: ?Includes but is not limited to polysubstance use disorder, alcohol withdrawal, alcohol intoxication, acute psychotic disorder, anemia, electrolyte abnormalities, hypothyroidism Course: 17:08 Patient initially had good response to 1st dose of IM medications and to restraints were taken off. However, the patient escalated again and required a 2nd dose of Haldol 10 mg IM and Versed 4 mg IM. Patient was placed back in 4 point restraints. I did order a laboratory evaluation on the patient. At the end of my shift, patient's care was turned over to my colleague, Dr. Anamaria Boss Took over patient's case at the change of shift at 23:45 patient extremely agitated. Did not respond to verbal deescalation. Attempted to give patient 2 mg of Ativan. As it the Ativan still agitated. Additional Haldol and Benadryl was given IM. Patient to be monitored carefully security at bedside. Dee Dee Dlegado MD 04/04/25 0606 - Overnight, patient was combative, pushing staff out of the way, patient required IM medications. After the IM medications, patient had a good night, slept all the way to 6 in the morning. At 06:00, patient awake, requesting to make phone calls. It has been explained to the patient that he can make phone calls at 07:00. Patient walking around the behavioral health pod, hurting to walk into other patient's rooms. Patient redirectable, went to his own room. I reviewed patient's labs: No significant abnormality in patient's hematology and chemistry - patient has not provided a urine sample yet. Differential Diagnosis Differential Diagnoses: The differential diagnosis associated with the presentation includes Admission/Observation Consideration of admission/observation: Escalation of care including admission/observation considered (Yes) Lab Data 04/03/25 20:24 04/03/25 20:24 Labs: Lab Results 04/03/25 04/04/25 04/04/25 Range/Units 20:24 07:29 11:02 WBC 11.9 H (4.8-10.8) X10*3/uL RBC 4.41 L (4.60-5.80) X10*6/uL Hgb 14.5 (14.0-18.0) g/dl Hct 40.5 L (42.0-52.0) % MCV 91.8 (80.0-98.0) fL MCH 32.9 (27.0-33.0) pg MCHC 35.8 (31.0-36.0) g/dl RDW 11.5 (11.0-16.0) % Plt Count 246 (160-400) X10*3/uL MPV 8.8 L (9.4-12.4) fL Immature Gran % (Auto) 0.3 (0.0-0.4) % Neut % (Auto) 61.6 (45-73) % Lymph % (Auto) 25.4 (20-40) % [place] % (Auto) 12.2 H (2-11) % Eos % (Auto) 0.2 (0-4) % Baso % (Auto) 0.3 (0-2) % Lymph # (Auto) 3.0 (1.2-4.9) X10*3/uL [place] # (Auto) 1.5 H (0.1-1.2) X10*3/uL Eos # (Auto) 0.0 (0.0-0.4) X10*3/uL Baso # (Auto) 0.0 (0.0-0.2) X10*3/uL Abs Immat Gran (auto) 0.04 H (0.00-0.03) X10*3/uL Absolute Neuts (auto) 7.3 (2.0-8.3) x10*3/uL Absolute Nucleated RBC 0.000 (0.0-0.012) X10*3/uL Nucleated RBC % (auto) 0.0 (0.0-0.2) /100WBC PT 11.6 (10.9-12.4) SEC INR 1.0 (0.9-1.1) Sodium 142 (135-145) mmol/L Potassium 4.1 (3.3-5.1) mmol/L Chloride 106 (96-108) mmol/L Carbon Dioxide 28 (22-29) mmol/L Anion Gap 12 (12-20) BUN 11 (9-16) mg/dL Creatinine 0.97 (0.5-1.4) mg/dL Estim Creat Clear Calc 93.0 Estimated GFR > 60 Random Glucose 89 (60-115) mg/dL Calcium 10.1 (8.4-10.2) mg/dL Magnesium 2.1 (1.6-2.6) mg/dL Total Bilirubin 1.1 H (0.0-1.0) mg/dL Direct Bilirubin 0.4 (0.0-0.5) mg/dL AST 67 H (5-37) U/L ALT 36 (0-40) U/L Alkaline Phosphatase 44 (39-117) U/L Total Protein 6.9 (6.5-8.0) g/dL Albumin 4.6 (3.5-5.0) g/dL Lipase 17 (8-78) U/L TSH 0.63 (0.32-4.0) uIU/mL Urine Color Yellow Urine Appearance Hazy Urine pH 6.5 (5.0-9.0) Ur Specific Hansen 1.025 (1.005-1.025) Urine Protein 30 (1+) H (Neg-Trace) mg/dL Urine Glucose (UA) 100 H (Negative) mg/dL Urine Ketones 15 (Negative) mg/dL Urine Blood Negative (Negative) Urine Nitrite Positive H (Negative) Ur Leukocyte Esterase Trace H (Negative) Urine RBC 0-2 (0-2) /HPF Urine WBC 0-5 (0-5) /HPF Ur Squamous Epith Cells 0-2 (0-2) /HPF Urine Bacteria Trace (None Seen) Hyaline Casts 0-2 (0-2) /LPF Granular Casts Present Salicylates < 5.0 L (15-30) mg/dL Urine Opiates Screen Not Detected (Not Detect) Ur Buprenorphine Scrn Positive H (Not Detect) ng/mL Ur Oxycodone Screen Not Detected (Not Detect) ng/mL Urine Methadone Screen Not Detected (Not Detect) ng/mL Urine Fentanyl Screen Not Detected (Not Detect) Acetaminophen < 3 (<30) mcg/mL Ur Barbiturates Screen Not Detected (Not Detect) Ur Phencyclidine Scrn Not Detected (Not Detect) Ur Amphetamines Screen Not Detected (Not Detect) U Benzodiazepines Scrn POSITIVE H (Not Detect) Urine Cocaine Screen Not Detected (Not Detect) U Marijuana (THC) Screen POSITIVE H (Not Detect) Ethyl Alcohol < 10 mg/dL COVID-19 (SOPHIA) (Negative) COVID-19 Clin Com 04/05/25 Range/Units 15:40 WBC (4.8-10.8) X10*3/uL RBC (4.60-5.80) X10*6/uL Hgb (14.0-18.0) g/dl Hct (42.0-52.0) % MCV (80.0-98.0) fL MCH (27.0-33.0) pg MCHC (31.0-36.0) g/dl RDW (11.0-16.0) % Plt Count (160-400) X10*3/uL MPV (9.4-12.4) fL Immature Gran % (Auto) (0.0-0.4) % Neut % (Auto) (45-73) % Lymph % (Auto) (20-40) % [place] % (Auto) (2-11) % Eos % (Auto) (0-4) % Baso % (Auto) (0-2) % Lymph # (Auto) (1.2-4.9) X10*3/uL [place] # (Auto) (0.1-1.2) X10*3/uL Eos # (Auto) (0.0-0.4) X10*3/uL Baso # (Auto) (0.0-0.2) X10*3/uL Abs Immat Gran (auto) (0.00-0.03) X10*3/uL Absolute Neuts (auto) (2.0-8.3) x10*3/uL Absolute Nucleated RBC (0.0-0.012) X10*3/uL Nucleated RBC % (auto) (0.0-0.2) /100WBC PT (10.9-12.4) SEC INR (0.9-1.1) Sodium (135-145) mmol/L Potassium (3.3-5.1) mmol/L Chloride (96-108) mmol/L Carbon Dioxide (22-29) mmol/L Anion Gap (12-20) BUN (9-16) mg/dL Creatinine (0.5-1.4) mg/dL Estim Creat Clear Calc Estimated GFR Random Glucose (60-115) mg/dL Calcium (8.4-10.2) mg/dL Magnesium (1.6-2.6) mg/dL Total Bilirubin (0.0-1.0) mg/dL Direct Bilirubin (0.0-0.5) mg/dL AST (5-37) U/L ALT (0-40) U/L Alkaline Phosphatase (39-117) U/L Total Protein (6.5-8.0) g/dL Albumin (3.5-5.0) g/dL Lipase (8-78) U/L TSH (0.32-4.0) uIU/mL Urine Color Urine Appearance Urine pH (5.0-9.0) Ur Specific Hansen (1.005-1.025) Urine Protein (Neg-Trace) mg/dL Urine Glucose (UA) (Negative) mg/dL Urine Ketones (Negative) mg/dL Urine Blood (Negative) Urine Nitrite (Negative) Ur Leukocyte Esterase (Negative) Urine RBC (0-2) /HPF Urine WBC (0-5) /HPF Ur Squamous Epith Cells (0-2) /HPF Urine Bacteria (None Seen) Hyaline Casts (0-2) /LPF Granular Casts Salicylates (15-30) mg/dL Urine Opiates Screen (Not Detect) Ur Buprenorphine Scrn (Not Detect) ng/mL Ur Oxycodone Screen (Not Detect) ng/mL Urine Methadone Screen (Not Detect) ng/mL Urine Fentanyl Screen (Not Detect) Acetaminophen (<30) mcg/mL Ur Barbiturates Screen (Not Detect) Ur Phencyclidine Scrn (Not Detect) Ur Amphetamines Screen (Not Detect) U Benzodiazepines Scrn (Not Detect) Urine Cocaine Screen (Not Detect) U Marijuana (THC) Screen (Not Detect) Ethyl Alcohol mg/dL COVID-19 (SOPHIA) Negative (Negative) COVID-19 Clin Com See Note Independent Historian Clinical information obtained from an independent historian. History obtained from or confirmed by: Other (Father) Discharge Plan Discharge Clinical Impression: Acute psychosis Patient Disposition: Xfer Psychiatric Hosp Transfer Details: [facility] Prescriptions: No Action buprenorphine-naloxone [Suboxone] 8-2 mg Film 1.5 film BUCCAL DAILY Interventions: Angelina-Suicide Risk Severity Scale Last Done: 04/05/25 15:41 Print Language: Armenian
[2025-04-03 16:40] VITALS: BP 115/82; PULSE 76
[2025-04-03 17:54] VITALS: BP 93/64; PULSE 90; RESP 15; O2SAT 94
--- NOTE | 2025-04-03 17:59 | PC.NURSE ---
Restraint Episode 1503- Arrived to ED Pod in PD custody, restrained by PD. Pt acting erratic, unorganized thoughts/delusions/hallucinations. Pt appears to be responding to internal stimuli. Pt brought to 3 by PD and Security- [address] patient. Medicated per SEP- Benadryl 50mg IM, Haldol 10mg IM, Versed 4mg IM 1518- Outbursts of unorganized thoughts/delusions/paranoia. Pt stating I was born from the [place]. , It's all AI generated. Times of lucidity- able to state name, birthday, place, situation. Pt raising voice at staff. Pt remains in 4 point restraints d/t safety concern for self/staff. Unable to obtain vitals at this time. 1533- Pt continues with outbursts/uncooperative behavior, yelling at staff, threatening. Attempting to roll out of bed/self remove restraints. 4 point restraints remain d/t safety concern for self/staff. Unable to obtain vitals at this time. 1618- Pt calm/cooperative with staff, intermittently sleeping, no outbursts/threatening/violent behavior. Left leg removed from restraints. Pt thanked this RN, closed eyes resting quietly. Respirations even and unlabored, allowed labor relations manager to obtain vitals. 1633- Pt remains calm/cooperative with staff, resting with eyes closed. No complaints/threatening/violent behavior. Right arm removed from restraints. Pt remains resting with eyes closed at this time- respirations even and unlabored. 1640- 1:1 sitter alerted this RN pt attempting to self remove remaining restraints. Pt able to sit up in the bed/roll around. called to bedside while this RN attempted to redirect patient. Pt continued with delusions/hallucinations while attempting to self remove remaining restraints. Pt attempting to bite and spit at security, threatening/violent behaviors. MD Aquino made aware of escalating situation- verbal order for Versed 4mg IM and Zyprexa 10mg IM. 1700- Pt medicated per SEP with IM medications with assistance from sandwich hand Chad and . Pt attempting to bite/kick/spit at security and ED staff. Pt medicated per SEP and placed back in 4 point restraints. Pt continues yelling out delusional thoughts. Pt remains in 4 point restraints d/t safety for self/staff. 1:1 sitter remains at bedside.
[2025-04-03 18:25] VITALS: BP 116/83; PULSE 84
--- NOTE | 2025-04-03 19:16 | PC.NURSE ---
1900- Pt removed from all 4 point restraints. Calm/cooperative with staff. Pt understands need for jacket changer into hospital gown. Respirations even and unlabored, no distress at this time time.
[2025-04-03 20:32] LABS: MANUAL DIFF FLAG NO
[2025-04-03 20:33] LABS: Hematocrit 40.5 % (42.0-52.0); Hemoglobin 14.5 g/dl (14.0-18.0); Imm Gran Abs Auto 0.04 X10*3/uL (0.00-0.03); Imm Gran Pct Auto 0.3 % (0.0-0.4); Lymphocytes Absolute Auto 3.0 X10*3/uL (1.2-4.9); Mean Corpuscular HGB Conc 35.8 g/dl (31.0-36.0); Mean Corpuscular Hemoglobin 32.9 pg (27.0-33.0); Mean Corpuscular Volume 91.8 fL (80.0-98.0); NRBC Abs Auto 0.000 X10*3/uL (0.0-0.012); NRBC Pct Auto 0.0 /100WBC (0.0-0.2); Platelet Count 246 X10*3/uL (160-400); Red Blood Count 4.41 X10*6/uL (4.60-5.80); White Blood Count 11.9 X10*3/uL (4.8-10.8)
[2025-04-03 20:46] LABS: Alanine Aminotransferase 36 U/L (0-40); Albumin Level 4.6 g/dL (3.5-5.0); Alkaline Phosphatase 44 U/L (39-117); Anion Gap 12 (12-20); Aspartate Amino Transferase 67 U/L (5-37); Blood Urea Nitrogen 11 mg/dL (9-16); Calcium 10.1 mg/dL (8.4-10.2); Carbon Dioxide 28 mmol/L (22-29); Chloride 106 mmol/L (96-108); Creatinine Clr Calc Pharmacy 93.0; Estimated Glomerular Filt Rate > 60; Lipase 17 U/L (8-78); Magnesium 2.1 mg/dL (1.6-2.6); Potassium 4.1 mmol/L (3.3-5.1); Sodium 142 mmol/L (135-145); Total Protein 6.9 g/dL (6.5-8.0)
[2025-04-03 21:05] LABS: Salicylate < 5.0 mg/dL (15-30)
[2025-04-03 21:06] LABS: Acetaminophen LAB < 3 mcg/mL (<30)
--- OUTSIDE RECORDS SUMMARY | 2025-04-03 21:35 | XMS_ITS | Continuity of Care Document ---
Author Name [facility] Organization [facility] Care Team Providers Care Finish Photographer Name Role Phone [facility] Unavailable Unavailable Problems Combined list of problems from Department of Defense and Veterans Affairs facilities. It does not include entries that were removed or entered in error. Problem Status Onset Date Problem Type Date of Resolution Comments Source back strain Inactive Condition [facility] Serum Enzyme Levels - AST (SGOT) Elevated Active Condition [facility] visit for: administrative purpose Inactive Condition [facility] visit for: refer patient without exam or treatment Inactive Condition [facility] panic disorder without agoraphobia Active Condition [facility] Anxiety * (ICD-9-CM 300.00/300.09) Active Condition [facility] Chronic post-traumatic stress disorder following combat (SNOMED CT 934950514) Active Condition [facility] Concussion with loss of consciousness Active Condition [facility] Counseling on Substance Use and Abuse (ICD-9-CM V65.42) Active Condition [facility] Hyperlipidemia Active Condition [facility] Nondependent Cannabis Abuse (SCT 137171297) Active Condition [facility] Obesity Active Condition [facility] OPIOID DEP IN REM Active Condition [facility] Opioid dependence (SNOMED CT 63610778) Active Condition [facility] Opioid Dependence * (ICD-9-CM 304.00) Active Condition [facility] Opioid dependence, on agonist therapy Active Condition [facility] Pilonidal cyst with abscess (ICD-9-CM 685.0) Active Condition [facility] Prediabetes Active Condition [facility] Anxiety and Phobic Neuroses (ICD-9-CM 300.20) Inactive Condition 05/16/2008 [facility] Opioid Dependence Inactive Condition 09/09/[address] 2007 Entered By: GEOVANNA GOMEZ MD Comment: on partial agonistAug 2012 Entered By: KELLY CRAMER MD Comment: Updated [facility] Diagnosis: ICD-10-CM F11.20 Opioid dependence, uncomplicated Active Diagnosis [facility] Diagnosis: ICD-10-CM F43.12 Post-traumatic stress disorder, chronic Active Diagnosis [facility] Diagnosis: ICD-10-CM F23 Brief psychotic disorder Active Diagnosis [facility] Diagnosis: ICD-10-CM R41.9 Unsp symptoms and signs w cognitive functions and awareness Active Diagnosis [facility] Medications Combined list of outpatient medications from Department of Defense and [facility] Affairs facilities.Medications provided include 1) outpatient medications from the last 15 months, and 2) patient-reported medications. Medication Details Route Status Patient Instructions Prescription Expires Prescription Number Last Dispense Date Ordering Provider Order Date Order Qty Source [place] HCL 8MG/NALOXON E HCL 2MG TAB,SUBLING UAL DISSOLVE ONE AND ONE-HALF TABS UNDER THE TONGUE ONCE DAILY FOR OPIOID DEPENDEN CE SUBLIN GUAL ACTIVE 04/04/2025 [id number] 5 ROSA ISELA HANNAH 2024 42 [facility] [place] NE HCL 8MG/NALOXON E HCL 2MG TAB,SUBLING UAL DISSOLVE ONE AND ONE-HALF TABS UNDER THE TONGUE ONCE DAILY FOR OPIOID DEPENDEN CE SUBLIN GUAL DISCONT INUED 03/07/2025 [id number] 5 ROSA ISELA HANNAH 2024 42 [facility] [place] [place] NE HCL 8MG/NALOXON E HCL 2MG TAB,SUBLING UAL DISSOLVE ONE AND ONE-HALF TABS UNDER THE TONGUE ONCE DAILY FOR OPIOID DEPENDEN CE SUBLIN GUAL DISCONT INUED 02/07/2025 [id number] 5 ROSA ISELA HANNAH 2024 42 [facility] [place] NE HCL 8MG/NALOXON E HCL 2MG TAB,SUBLING UAL DISSOLVE ONE AND ONE-HALF TABS UNDER THE TONGUE ONCE DAILY FOR OPIOID DEPENDEN CE SUBLIN GUAL DISCONT INUED (EDIT) 01/11/2025 [id number] 5 ROSA ISELA HANNAH 2024 41 [facility] [place] HCL 8MG/NALOXON E HCL 2MG TAB,SUBLING UAL DISSOLVE ONE AND ONE-HALF TABS UNDER THE TONGUE ONCE DAILY FOR OPIOID DEPENDEN CE SUBLIN GUAL DISCONT INUED (EDIT) 12/13/2024 [id number] 5 ROSA ISELA HANNAH 2024 44 [facility] [place] NE HCL 8MG/NALOXON E HCL 2MG TAB,SUBLING UAL DISSOLVE ONE AND ONE-HALF TABS UNDER THE TONGUE ONCE DAILY FOR OPIOID DEPENDEN CE SUBLIN GUAL DISCONT INUED 04/18/2025 [id number] 5 ROSA ISELA HANNAH 2024 42 [facility] [place] HCL 8MG/NALOXON E HCL 2MG TAB,SUBLING UAL DISSOLVE ONE AND ONE-HALF TABS UNDER THE TONGUE ONCE DAILY FOR OPIOID DEPENDEN CE SUBLIN GUAL DISCONT INUED 03/21/2025 [id number] 5 ROSA ISELA HANNAH 2024 42 [facility] [place] NE HCL 8MG/NALOXON E HCL 2MG TAB,SUBLING UAL DISSOLVE ONE AND ONE-HALF TABS UNDER THE TONGUE ONCE DAILY FOR OPIOID DEPENDEN CE SUBLIN GUAL DISCONT INUED 02/21/2025 [id number] 5 ROSA ISELA HANNAH 2024 42 [facility] [place] HCL 8MG/NALOXON E HCL 2MG TAB,SUBLING UAL DISSOLVE ONE AND ONE-HALF TABS UNDER THE TONGUE ONCE DAILY SUBLIN GUAL DISCONT INUED 08/23/2024 [id number] 4 ROSA ISELA HANNAH 2023 42 [facility] [place] NE HCL 8MG/NALOXON E HCL 2MG TAB,SUBLING UAL DISSOLVE ONE AND ONE-HALF TABS UNDER THE TONGUE ONCE DAILY FOR OPIOID DEPENDEN CE NEXT FILL DATE 07/26/24 SUBLIN GUAL DISCONT INUED 12/26/2024 [id number] 4 ROSA ISELA HANNAH 2023 42 [facility] [place] NE HCL 8MG/NALOXON E HCL 2MG TAB,SUBLING UAL DISSOLVE ONE AND ONE-HALF TABS UNDER THE TONGUE ONCE DAILY FOR OPIOID DEPENDEN CE SUBLIN GUAL DISCONT INUED 12/01/2024 [id number] 4 ROSA ISELA HANNAH 2023 42 [facility] [place] HCL 8MG/NALOXON E HCL 2MG TAB,SUBLING UAL DISSOLVE ONE AND ONE-HALF TABS UNDER THE TONGUE ONCE DAILY FOR OPIOID DEPENDEN CE SUBLIN GUAL DISCONT INUED 10/06/2024 [id number] ROSA ISELA HANNAH 2023 42 [facility] [place] NE HCL 8MG/NALOXON E HCL 2MG TAB,SUBLING UAL DISSOLVE ONE AND ONE-HALF TABS UNDER THE TONGUE ONCE DAILY FOR OPIOID DEPENDEN CE SUBLIN GUAL DISCONT INUED (EDIT) 04/07/2024 [id number] 4 ROSA ISELA HANNAH 2023 42 [facility] [place] NE HCL 8MG/NALOXON E HCL 2MG TAB,SUBLING UAL DISSOLVE ONE AND ONE-HALF TABS UNDER THE TONGUE ONCE DAILY FOR OPIOID DEPENDEN CE SUBLIN GUAL DISCONT INUED 03/15/2024 [id number] 4 ROSA ISELA HANNAH 2023 42 [facility] [place] HCL 8MG/NALOXON E HCL 2MG TAB,SUBLING UAL DISSOLVE ONE AND ONE-HALF TABS UNDER THE TONGUE ONCE DAILY FOR OPIOID DEPENDEN CE SUBLIN GUAL DISCONT INUED 02/15/2024 [id number] 4 ROSA ISELA HANNAH 2023 42 [facility] HYDROXYZINE PAMOATE 50MG CAP TAKE ONE CAPSULE BY MOUTH TWICE DAILY NEEDED FOR ANXIETY DON'T DRIVE WITHIN 6 HOURS OF TAKING CAN CAUSE DROWSINE SS. ORAL 08/12/2024 [id number] SALBADOR NICHOLS 2023 60 [facility] [place] [facility] [facility] HYDROXYZINE PAMOATE 50MG CAP TAKE ONE CAPSULE BY MOUTH TWICE DAILY NEEDED FOR ANXIETY ORAL 07/12/2024 [id number] [place] LEA 2023 30 [place] Naloxone 2mg + Buprenorphi ne 8mg, Tablet, Sublingual DISSOLVE ONE AND ONE-HALF TABS UNDER THE TONGUE ONCE DAILY FOR OPIOID DEPENDEN CE 02/15/2024 [id number] RACHEL HANNAH 2023 42 [facility] NALOXONE HCL 4MG/SPRAY SOLN,SPRAY, NASAL INSTILL 1 SPRAY IN THE NOSE ONE TIME FOR OPIOID OVERDOSE CALL 911 WITH ADMINIST RATION. REPEAT WITH SECOND DEVICE IF SYMPTOMS RETURN NASAL ACTIVE 12/13/2025 [id number] 5 ROSA ISELA HANNAH 2024 2 [facility] PROPRANOLOL HCL 10MG TAB TAKE ONE TABLET BY MOUTH TWICE DAILY NEEDED ANXIETY TAKE ONE HOUR BEFORE ANXIETY PRODUCIN G EVENT. ORAL 08/12/2024 [id number] SALBADOR NICHOLS 2023 60 [facility] Allergies, Adverse Reactions, Alerts Combined list of allergies from Department of Defense and Veterans Affairs facilities. It does not include entries that were removed or entered in error. Substance Category Reaction Severity Reaction type Status Date Reported Comments Source No Known Allergies Drug allergy (disorder) active 03/29/[address] Immunizations Combined list of available immunizations from the Department of Defense and Veterans Affairs facilities. Immunization Series Date Given Administered By Site Reaction Lot Number CVX Code Drug Parking Technician Status Comments Source INFLUENZA, UNSPECIFIED FORMULATION 2022 88 complet ed HISTORICA L INFORMATI ON - SOURCE UNSPECIFI ED, [facility] anthrax vaccine 4 05/15/ 2007 [id number] [employer] [place] (MIP) complet ed anthrax vaccine DoD influenza virus vaccine, split virus (incl. purified surface antigen)-reti red CODE 1 2005 [id number] Sanofi Pasteur (PMC) complet ed influenza virus vaccine, split virus (incl. purified surface antigen)- retired CODE DoD hepatitis A vaccine, adult dosage 4 2005 [id number] Merck (MSD) complet ed hepatitis A vaccine, adult dosage DoD typhoid Vi capsular polysaccharid e vaccine 1 2005 [id number] [employer] (AVB) complet ed typhoid Vi capsular polysacch aride vaccine DoD typhoid Vi capsular polysaccharid e vaccine 1 2005 [id number] [employer] (AVB) complet ed typhoid Vi capsular polysacch aride vaccine DoD hepatitis B vaccine, adult dosage 4 2005 NONE 43 (NON) Not Given hepatitis B vaccine, adult dosage DoD varicella virus vaccine 1 2005 NONE 21 (NON) Not Given varicella virus vaccine DoD vaccinia (smallpox) vaccine 2 2005 NONE 75 (NON) Not Given vaccinia (smallpox ) vaccine DoD hepatitis B vaccine, adult dosage 4 2004 UNK 43 Unknown (UNK) comple t ed hepatitis B vaccine, adult dosage DoD hepatitis A vaccine, adult dosage 3 2004 [id number] 52 Merck (MSD) complet ed hepatitis A vaccine, adult dosage DoD TD(ADULT) UNSPECIFIED FORMULATION 2003 139 complet ed [facility] influenza virus vaccine, unspecified formulation 1 2003 UNK 88 Unknown (UNK) comple t ed influenza virus vaccine, unspecifi ed formulati on DoD hepatitis B vaccine, adult dosage 2 2003 [id number] [employer] [place] (MIP) complet ed hepatitis B vaccine, adult dosage DoD anthrax vaccine 3 2003 UNK 24 Unknown (UNK) comple t ed anthrax vaccine DoD anthrax vaccine 2 2003 [id number] [employer] [place] (MIP) complet ed anthrax vaccine DoD anthrax vaccine 1 2003 [id number] [employer] [place] (MIP) complet ed anthrax vaccine DoD vaccinia (smallpox) vaccine 1 2003 [id number] Sanofi Pasteur ([facility]) complet ed vaccinia (smallpox ) vaccine DoD typhoid Vi capsular polysaccharid e vaccine 1 2003 [id number] Sanofi Pasteur (PMC) complet ed typhoid Vi capsular polysacch aride vaccine DoD hepatitis A and hepatitis B vaccine 1 2003 [id number] 104 Unknown (UNK) complet ed hepatitis A and hepatitis B vaccine DoD meningococcal polysaccharid e vaccine (MPSV4) 0 2002 [id number] Sanofi Pasteur (PMC) complet ed meningoco ccal polysacch aride vaccine (MPSV4) DoD hepatitis B vaccine, adult dosage 1 2002 [id number] [employer] (SKB) complet ed hepatitis B vaccine, adult dosage DoD hepatitis A vaccine, adult dosage 1 2002 [id number] Merck (MSD) complet ed hepatitis A vaccine, adult dosage DoD influenza virus vaccine, whole virus 0 2001 [id number] 16 Sanofi Pasteur ([facility]) complet ed influenza virus vaccine, whole virus DoD yellow fever vaccine 0 2001 [id number] Unknown (UNK) comple t ed yellow fever vaccine DoD typhoid vaccine, unspecified formulation 0 2001 [id number] Unknown (UNK) comple t ed typhoid vaccine, unspecifi ed formulati on DoD measles, mumps and rubella virus vaccine 0 1999 UNK 03 Unknown (UNK) comple t ed measles, mumps and rubella virus vaccine DoD tetanus and diphtheria toxoids, adsorbed, preservative free, for adult use (2 Lf of tetanus toxoid and 2 Lf of diphtheria toxoid) 0 1999 UNK 09 Unknown (UNK) comple t ed tetanus and diphtheri a toxoids, adsorbed, preservat jackie free, for adult use (2 Lf of tetanus toxoid and 2 Lf of diphtheri a toxoid) DoD poliovirus vaccine, inactivated 0 1999 UNK 10 Unknown (UNK) comple t ed polioviru s vaccine, inactivat ed DoD meningococcal polysaccharid e vaccine (MPSV4) 0 1999 UNK 32 Unknown (UNK) comple t ed meningoco ccal polysacch aride vaccine (MPSV4) DoD Results Combined list of recent chemistry, hematology and other laboratory results from Department of Defense and Veterans Affairs, ranging from 15 months to all on record, depending upon the facility. Order Name Results Value Reference Range Date Interpretation Specimen Comments Source DRUGS OF ABUSE AMPHETAMIN E+METHAMPH ETAMINE [PRESENCE] IN URINE BY SCREEN METHOD NONE-DET ECTED - 1000 03/06 Specimen Type: URINE Comment: Urine with Cr <5 is diluted or substituted . Cr between 5 and 20 is very dilute. Urine with SG of 1.001 or less is diluted or substituted . SG of 1.003 or less is very dilute. Urine with a pH <3 or >11 has been adulterated and is unsuitable for testing by our current method. Urine with pH between 3 and 4 OR 10 and 11 may have been adulterated . ETG:This ETG test was developed and it's performance ETG:charact eristics determined by [facility] Clinical Lab. The [place] Food ETG:and Drug Administrat ion has not approved or cleared this test. ETG:FDA Clearance or approval is not currently required for ETG:clinica l use. Fentanyl confirmatio n not sent by lab. Ordering Provider: RACHEL HANNAH Report Released Date/Time: Jan 08, 2025 03:15 PM Reporting Lab: [address] [address] Performing Lab: [address] [address] [facility] DRUGS OF ABUSE BENZODIAZE PINES [PRESENCE] IN URINE BY SCREEN METHOD NONE-DET ECTED - 200 03/06 Specimen Type: URINE Comment: Urine with Cr <5 is diluted or substituted . Cr between 5 and 20 is very dilute. Urine with SG of 1.001 or less is diluted or substituted . SG of 1.003 or less is very dilute. Urine with a pH <3 or >11 has been adulterated and is unsuitable for testing by our current method. Urine with pH between 3 and 4 OR 10 and 11 may have been adulterated . ETG:This ETG test was developed and it's performance ETG:charact eristics determined by [facility] Clinical Lab. The [place] Food ETG:and Drug Administrat ion has not approved or cleared this test. ETG:FDA Clearance or approval is not currently required for ETG:clinica l use. Fentanyl confirmatio n not sent by lab. Ordering Provider: RACHEL HANNAH Report Released Date/Time: Jan 08, 2025 03:15 PM Reporting Lab: [address] [address] Performing Lab: [address] [address] [facility] DRUGS OF ABUSE BENZOYLECG ONINE [PRESENCE] IN URINE BY SCREEN METHOD >150 NG/ML NONE-DET ECTED - 300 03/06 Specimen Type: URINE Comment: Urine with Cr <5 is diluted or substituted . Cr between 5 and 20 is very dilute. Urine with SG of 1.001 or less is diluted or substituted . SG of 1.003 or less is very dilute. Urine with a pH <3 or >11 has been adulterated and is unsuitable for testing by our current method. Urine with pH between 3 and 4 OR 10 and 11 may have been adulterated . ETG:This ETG test was developed and it's performance ETG:charact eristics determined by [facility] Clinical Lab. The [place] Food ETG:and Drug Administrat ion has not approved or cleared this test. ETG:FDA Clearance or approval is not currently required for ETG:clinica l use. Fentanyl confirmatio n not sent by lab. Ordering Provider: RACHEL HANNAH Report Released Date/Time: Jan 08, 2025 03:15 PM Reporting Lab: [address] [address] Performing Lab: [address] [phone] [facility] DRUGS OF ABUSE OPIATES [PRESENCE] IN URINE BY SCREEN METHOD >300 NG/ML NONE-DET ECTED - 300 03/06 Specimen Type: URINE Comment: Urine with Cr <5 is diluted or substituted . Cr between 5 and 20 is very dilute. Urine with SG of 1.001 or less is diluted or substituted . SG of 1.003 or less is very dilute. Urine with a pH <3 or >11 has been adulterated and is unsuitable for testing by our current method. Urine with pH between 3 and 4 OR 10 and 11 may have been adulterated . ETG:This ETG test was developed and it's performance ETG:charact eristics determined by [facility] Clinical Lab. The [place] Food ETG:and Drug Administrat ion has not approved or cleared this test. ETG:FDA Clearance or approval is not currently required for ETG:clinica l use. Fentanyl confirmatio n not sent by lab. Ordering Provider: RACHEL HANNAH Report Released Date/Time: Jan 08, 2025 03:15 PM Reporting [facility] [address] Performing Lab: [facility] [address] [facility] DRUGS OF ABUSE CANNABINOI DS [PRESENCE] IN URINE BY SCREEN METHOD POSITIVE - 50 03/06 Specimen Type: URINE Comment: Urine with Cr <5 is diluted or substituted . Cr between 5 and 20 is very dilute. Urine with SG of 1.001 or less is diluted or substituted . SG of 1.003 or less is very dilute. Urine with a pH <3 or >11 has been adulterated and is unsuitable for testing by our current method. Urine with pH between 3 and 4 OR 10 and 11 may have been adulterated . ETG:This ETG test was developed and it's performance ETG:charact eristics determined by [facility] Clinical Lab. The [place] Food ETG:and Drug Administrat ion has not approved or cleared this test. ETG:FDA Clearance or approval is not currently required for ETG:clinica l use. Fentanyl confirmatio n not sent by lab. Ordering Provider: RACHEL HANNAH Report Released Date/Time: Jan 08, 2025 03:15 PM Reporting [facility] [address] Performing Lab: [facility] [address] [facility] DRUGS OF ABUSE BARBITURAT ES [PRESENCE] IN URINE BY SCREEN METHOD >200 NG/ML NONE-DET ECTED - 200 03/06 Specimen Type: URINE Comment: Urine with Cr <5 is diluted or substituted . Cr between 5 and 20 is very dilute. Urine with SG of 1.001 or less is diluted or substituted . SG of 1.003 or less is very dilute. Urine with a pH <3 or >11 has been adulterated and is unsuitable for testing by our current method. Urine with pH between 3 and 4 OR 10 and 11 may have been adulterated . ETG:This ETG test was developed and it's performance ETG:charact eristics determined by [facility] Clinical Lab. The [place] Food ETG:and Drug Administrat ion has not approved or cleared this test. ETG:FDA Clearance or approval is not currently required for ETG:clinica l use. Fentanyl confirmatio n not sent by lab. Ordering Provider: RACHEL HANNAH Report Released Date/Time: Jan 08, 2025 03:15 PM Reporting Lab: [address] [phone] Performing Lab: [address] [address] [facility] DRUGS OF ABUSE OXYCODONE [PRESENCE] IN URINE BY SCREEN METHOD NONE-DET ECTED - 100 03/06 Specimen Type: URINE Comment: Urine with Cr <5 is diluted or substituted . Cr between 5 and 20 is very dilute. Urine with SG of 1.001 or less is diluted or substituted . SG of 1.003 or less is very dilute. Urine with a pH <3 or >11 has been adulterated and is unsuitable for testing by our current method. Urine with pH between 3 and 4 OR 10 and 11 may have been adulterated . ETG:This ETG test was developed and it's performance ETG:charact eristics determined by [facility] Clinical Lab. The [place] Food ETG:and Drug Administrat ion has not approved or cleared this test. ETG:FDA Clearance or approval is not currently required for ETG:clinica l use. Fentanyl confirmatio n not sent by lab. Ordering Provider: RACHEL HANNAH Report Released Date/Time: Jan 08, 2025 03:15 PM Reporting Lab: [address] [address] Performing Lab: [address] [address] [facility] DRUGS OF ABUSE BUPRENORPH INE [PRESENCE] IN URINE BY SCREEN METHOD POSITIVE 03/06 Specimen Type: URINE Comment: Urine with Cr <5 is diluted or substituted . Cr between 5 and 20 is very dilute. Urine with SG of 1.001 or less is diluted or substituted . SG of 1.003 or less is very dilute. Urine with a pH <3 or >11 has been adulterated and is unsuitable for testing by our current method. Urine with pH between 3 and 4 OR 10 and 11 may have been adulterated . ETG:This ETG test was developed and it's performance ETG:charact eristics determined by [facility] Clinical Lab. The [place] Food ETG:and Drug Administrat ion has not approved or cleared this test. ETG:FDA Clearance or approval is not currently required for ETG:clinica l use. Fentanyl confirmatio n not sent by lab. Ordering Provider: RACHEL HANNAH Report Released Date/Time: Jan 08, 2025 03:15 PM Reporting Lab: [address] [address] Performing Lab: [address] [address] [facility] DRUGS OF ABUSE ETHANOL [MASS/VOLU ME] IN URINE NONE-DET ECTED - 10 03/06 Specimen Type: URINE Comment: Urine with Cr <5 is diluted or substituted . Cr between 5 and 20 is very dilute. Urine with SG of 1.001 or less is diluted or substituted . SG of 1.003 or less is very dilute. Urine with a pH <3 or >11 has been adulterated and is unsuitable for testing by our current method. Urine with pH between 3 and 4 OR 10 and 11 may have been adulterated . ETG:This ETG test was developed and it's performance ETG:charact eristics determined by [facility] Clinical Lab. The [place] Food ETG:and Drug Administrat ion has not approved or cleared this test. ETG:FDA Clearance or approval is not currently required for ETG:clinica l use. Fentanyl confirmatio n not sent by lab. Ordering Provider: RACHEL HANNAH Report Released Date/Time: Jan 08, 2025 03:15 PM Reporting Lab: [address] [address] Performing Lab: [address] [address] [facility] DRUGS OF ABUSE FENTANYL [PRESENCE] IN URINE BY SCREEN METHOD NONE-DET ECTED - 1.00 03/06 Specimen Type: URINE Comment: Urine with Cr <5 is diluted or substituted . Cr between 5 and 20 is very dilute. Urine with SG of 1.001 or less is diluted or substituted . SG of 1.003 or less is very dilute. Urine with a pH <3 or >11 has been adulterated and is unsuitable for testing by our current method. Urine with pH between 3 and 4 OR 10 and 11 may have been adulterated . ETG:This ETG test was developed and it's performance ETG:charact eristics determined by [facility] Clinical Lab. The [place] Food ETG:and Drug Administrat ion has not approved or cleared this test. ETG:FDA Clearance or approval is not currently required for ETG:clinica l use. Fentanyl confirmatio n not sent by lab. Ordering Provider: RACHEL HANNAH Report Released Date/Time: Jan 08, 2025 03:15 PM Reporting Lab: [address] [address] Performing Lab: [address] [address] [facility] DRUGS OF ABUSE PH OF URINE 4.9 [pH] 5.0 - 8.0 03/06 L Specimen Type: URINE Comment: Urine with Cr <5 is diluted or substituted . Cr between 5 and 20 is very dilute. Urine with SG of 1.001 or less is diluted or substituted . SG of 1.003 or less is very dilute. Urine with a pH <3 or >11 has been adulterated and is unsuitable for testing by our current method. Urine with pH between 3 and 4 OR 10 and 11 may have been adulterated . ETG:This ETG test was developed and it's performance ETG:charact eristics determined by [facility] Clinical Lab. The [place] Food ETG:and Drug Administrat ion has not approved or cleared this test. ETG:FDA Clearance or approval is not currently required for ETG:clinica l use. Fentanyl confirmatio n not sent by lab. Ordering Provider: RACHEL HANNAH Report Released Date/Time: Jan 08, 2025 03:15 PM [facility] [address] Per[facility]: [facility] [address] [facility] DRUGS OF ABUSE CREATININE [MASS/VOLU ME] IN URINE 535.79 mg/dL 63 - 166 03/06 H Specimen Type: URINE Comment: Urine with Cr <5 is diluted or substituted . Cr between 5 and 20 is very dilute. Urine with SG of 1.001 or less is diluted or substituted . SG of 1.003 or less is very dilute. Urine with a pH <3 or >11 has been adulterated and is unsuitable for testing by our current method. Urine with pH between 3 and 4 OR 10 and 11 may have been adulterated . ETG:This ETG test was developed and it's performance ETG:charact eristics determined by [facility] Clinical Lab. The [place] Food ETG:and Drug Administrat ion has not approved or cleared this test. ETG:FDA Clearance or approval is not currently required for ETG:clinica l use. Fentanyl confirmatio n not sent by lab. Ordering Provider: RACHEL HANNAH Report Released Date/Time: Jan 08, 2025 03:15 PM Reporting [facility] [address] Performing Lab: [facility] [address] [facility] DRUGS OF ABUSE SPECIFIC GRAVITY OF URINE 1.025 1.005 - 1.030 03/06 Specimen Type: URINE Comment: Urine with Cr <5 is diluted or substituted . Cr between 5 and 20 is very dilute. Urine with SG of 1.001 or less is diluted or substituted . SG of 1.003 or less is very dilute. Urine with a pH <3 or >11 has been adulterated and is unsuitable for testing by our current method. Urine with pH between 3 and 4 OR 10 and 11 may have been adulterated . ETG:This ETG test was developed and it's performance ETG:charact eristics determined by [facility] Clinical Lab. The [place] Food ETG:and Drug Administrat ion has not approved or cleared this test. ETG:FDA Clearance or approval is not currently required for ETG:clinica l use. Fentanyl confirmatio n not sent by lab. Ordering Provider: RACHEL HANNAH Report Released Date/Time: Jan 08, 2025 03:15 PM Reporting Lab: [address] [address] Performing Lab: [address] [address] [facility] DRUGS OF ABUSE METHADONE [PRESENCE] IN URINE BY SCREEN METHOD NONE-DET ECTED - 300 03/06 Specimen Type: URINE Comment: Urine with Cr <5 is diluted or substituted . Cr between 5 and 20 is very dilute. Urine with SG of 1.001 or less is diluted or substituted . SG of 1.003 or less is very dilute. Urine with a pH <3 or >11 has been adulterated and is unsuitable for testing by our current method. Urine with pH between 3 and 4 OR 10 and 11 may have been adulterated . ETG:This ETG test was developed and it's performance ETG:charact eristics determined by [facility] Clinical Lab. The [place] Food ETG:and Drug Administrat ion has not approved or cleared this test. ETG:FDA Clearance or approval is not currently required for ETG:clinica l use. Fentanyl confirmatio n not sent by lab. Ordering Provider: RACHEL HANNAH Report Released Date/Time: Jan 08, 2025 03:15 PM Reporting Lab: [address] [address] Performing Lab: [address] [address] [facility] DRUGS OF ABUSE ETHYL GLUCURONID E [PRESENCE] IN URINE BY SCREEN METHOD POSITIVE - 500 03/06 Specimen Type: URINE Comment: Urine with Cr <5 is diluted or substituted . Cr between 5 and 20 is very dilute. Urine with SG of 1.001 or less is diluted or substituted . SG of 1.003 or less is very dilute. Urine with a pH <3 or >11 has been adulterated and is unsuitable for testing by our current method. Urine with pH between 3 and 4 OR 10 and 11 may have been adulterated . ETG:This ETG test was developed and it's performance ETG:charact eristics determined by [facility] Clinical Lab. The [place] Food ETG:and Drug Administrat ion has not approved or cleared this test. ETG:FDA Clearance or approval is not currently required for ETG:clinica l use. Fentanyl confirmatio n not sent by lab. Ordering Provider: RACHEL HANNAH Report Released Date/Time: Jan 08, 2025 03:15 PM Reporting Lab: [address] [address] Performing Lab: [address] [address] [facility] DRUGS OF ABUSE AMPHETAMIN E+METHAMPH ETAMINE [PRESENCE] IN URINE BY SCREEN METHOD NONE-DET ECTED - 1000 02/05 Specimen Type: URINE Comment: Urine with Cr <5 is diluted or substituted . Cr between 5 and 20 is very dilute. Urine with SG of 1.001 or less is diluted or substituted . SG of 1.003 or less is very dilute. Urine with a pH <3 or >11 has been adulterated and is unsuitable for testing by our current method. Urine with pH between 3 and 4 OR 10 and 11 may have been adulterated . ETG:This ETG test was developed and it's performance ETG:charact eristics determined by [facility] Clinical Lab. The [place] Food ETG:and Drug Administrat ion has not approved or cleared this test. ETG:FDA Clearance or approval is not currently required for ETG:clinica l use. Fentanyl confirmatio n not sent by lab. Ordering Provider: RACHEL HANNAH Report Released Date/Time: Jan 08, 2025 03:15 PM Reporting Lab: [address] [address] Performing Lab: [address] [address] [facility] DRUGS OF ABUSE BENZODIAZE PINES [PRESENCE] IN URINE BY SCREEN METHOD NONE-DET ECTED - 200 02/05 Specimen Type: URINE Comment: Urine with Cr <5 is diluted or substituted . Cr between 5 and 20 is very dilute. Urine with SG of 1.001 or less is diluted or substituted . SG of 1.003 or less is very dilute. Urine with a pH <3 or >11 has been adulterated and is unsuitable for testing by our current method. Urine with pH between 3 and 4 OR 10 and 11 may have been adulterated . ETG:This ETG test was developed and it's performance ETG:charact eristics determined by [facility] Clinical Lab. The [place] Food ETG:and Drug Administrat ion has not approved or cleared this test. ETG:FDA Clearance or approval is not currently required for ETG:clinica l use. Fentanyl confirmatio n not sent by lab. Ordering Provider: RACHEL HANNAH Report Released Date/Time: Jan 08, 2025 03:15 PM Reporting Lab: [address] [address] Performing Lab: [address] [address] [facility] DRUGS OF ABUSE BENZOYLECG ONINE [PRESENCE] IN URINE BY SCREEN METHOD >150 NG/ML NONE-DET ECTED - 300 02/05 Specimen Type: URINE Comment: Urine with Cr <5 is diluted or substituted . Cr between 5 and 20 is very dilute. Urine with SG of 1.001 or less is diluted or substituted . SG of 1.003 or less is very dilute. Urine with a pH <3 or >11 has been adulterated and is unsuitable for testing by our current method. Urine with pH between 3 and 4 OR 10 and 11 may have been adulterated . ETG:This ETG test was developed and it's performance ETG:charact eristics determined by [facility] Clinical Lab. The [place] Food ETG:and Drug Administrat ion has not approved or cleared this test. ETG:FDA Clearance or approval is not currently required for ETG:clinica l use. Fentanyl confirmatio n not sent by lab. Ordering Provider: RACHEL HANNAH Report Released Date/Time: Jan 08, 2025 03:15 PM Reporting Lab: [facility] [address] Performing Lab: [facility] [address] [facility] DRUGS OF ABUSE OPIATES [PRESENCE] IN URINE BY SCREEN METHOD >300 NG/ML NONE-DET ECTED - 300 02/05 Specimen Type: URINE Comment: Urine with Cr <5 is diluted or substituted . Cr between 5 and 20 is very dilute. Urine with SG of 1.001 or less is diluted or substituted . SG of 1.003 or less is very dilute. Urine with a pH <3 or >11 has been adulterated and is unsuitable for testing by our current method. Urine with pH between 3 and 4 OR 10 and 11 may have been adulterated . ETG:This ETG test was developed and it's performance ETG:charact eristics determined by [facility] Clinical Lab. The [place] Food ETG:and Drug Administrat ion has not approved or cleared this test. ETG:FDA Clearance or approval is not currently required for ETG:clinica l use. Fentanyl confirmatio n not sent by lab. Ordering Provider: RACHEL HANNAH Report Released Date/Time: Jan 08, 2025 03:15 PM Reporting Lab: [facility] [address] Performing Lab: [id number] [address] [facility] DRUGS OF ABUSE CANNABINOI DS [PRESENCE] IN URINE BY SCREEN METHOD POSITIVE - 50 02/05 Specimen Type: URINE Comment: Urine with Cr <5 is diluted or substituted . Cr between 5 and 20 is very dilute. Urine with SG of 1.001 or less is diluted or substituted . SG of 1.003 or less is very dilute. Urine with a pH <3 or >11 has been adulterated and is unsuitable for testing by our current method. Urine with pH between 3 and 4 OR 10 and 11 may have been adulterated . ETG:This ETG test was developed and it's performance ETG:charact eristics determined by [facility] Clinical Lab. The [place] Food ETG:and Drug Administrat ion has not approved or cleared this test. ETG:FDA Clearance or approval is not currently required for ETG:clinica l use. Fentanyl confirmatio n not sent by lab. Ordering Provider: RACHEL HANNAH Report Released Date/Time: Jan 08, 2025 03:15 PM Reporting Lab: [address] [address] Performing Lab: [address] [address] [facility] DRUGS OF ABUSE BARBITURAT ES [PRESENCE] IN URINE BY SCREEN METHOD >200 NG/ML NONE-DET ECTED - 200 02/05 Specimen Type: URINE Comment: Urine with Cr <5 is diluted or substituted . Cr between 5 and 20 is very dilute. Urine with SG of 1.001 or less is diluted or substituted . SG of 1.003 or less is very dilute. Urine with a pH <3 or >11 has been adulterated and is unsuitable for testing by our current method. Urine with pH between 3 and 4 OR 10 and 11 may have been adulterated . ETG:This ETG test was developed and it's performance ETG:charact eristics determined by [facility] Clinical Lab. The [place] Food ETG:and Drug Administrat ion has not approved or cleared this test. ETG:FDA Clearance or approval is not currently required for ETG:clinica l use. Fentanyl confirmatio n not sent by lab. Ordering Provider: RACHEL HANNAH Report Released Date/Time: Jan 08, 2025 03:15 PM Reporting Lab: [address] [address] Performing Lab: [address] [address] [facility] DRUGS OF ABUSE OXYCODONE [PRESENCE] IN URINE BY SCREEN METHOD NONE-DET ECTED - 100 02/05 Specimen Type: URINE Comment: Urine with Cr <5 is diluted or substituted . Cr between 5 and 20 is very dilute. Urine with SG of 1.001 or less is diluted or substituted . SG of 1.003 or less is very dilute. Urine with a pH <3 or >11 has been adulterated and is unsuitable for testing by our current method. Urine with pH between 3 and 4 OR 10 and 11 may have been adulterated . ETG:This ETG test was developed and it's performance ETG:charact eristics determined by [facility] Clinical Lab. The [place] Food ETG:and Drug Administrat ion has not approved or cleared this test. ETG:FDA Clearance or approval is not currently required for ETG:clinica l use. Fentanyl confirmatio n not sent by lab. Ordering Provider: RACHEL HANNAH Report Released Date/Time: Jan 08, 2025 03:15 PM Reporting Lab: [address] [address] Performing Lab: [address] [address] [facility] DRUGS OF ABUSE BUPRENORPH INE [PRESENCE] IN URINE BY SCREEN METHOD POSITIVE 02/05 Specimen Type: URINE Comment: Urine with Cr <5 is diluted or substituted . Cr between 5 and 20 is very dilute. Urine with SG of 1.001 or less is diluted or substituted . SG of 1.003 or less is very dilute. Urine with a pH <3 or >11 has been adulterated and is unsuitable for testing by our current method. Urine with pH between 3 and 4 OR 10 and 11 may have been adulterated . ETG:This ETG test was developed and it's performance ETG:charact eristics determined by [facility] Clinical Lab. The [place] Food ETG:and Drug Administrat ion has not approved or cleared this test. ETG:FDA Clearance or approval is not currently required for ETG:clinica l use. Fentanyl confirmatio n not sent by lab. Ordering Provider: RACHEL HANNAH Report Released Date/Time: Jan 08, 2025 03:15 PM Reporting Lab: [facility] [address] Performing Lab: [address] [address] [facility] DRUGS OF ABUSE ETHANOL [MASS/VOLU ME] IN URINE NONE-DET ECTED - 10 02/05 Specimen Type: URINE Comment: Urine with Cr <5 is diluted or substituted . Cr between 5 and 20 is very dilute. Urine with SG of 1.001 or less is diluted or substituted . SG of 1.003 or less is very dilute. Urine with a pH <3 or >11 has been adulterated and is unsuitable for testing by our current method. Urine with pH between 3 and 4 OR 10 and 11 may have been adulterated . ETG:This ETG test was developed and it's performance ETG:charact eristics determined by [facility] Clinical Lab. The [place] Food ETG:and Drug Administrat ion has not approved or cleared this test. ETG:FDA Clearance or approval is not currently required for ETG:clinica l use. Fentanyl confirmatio n not sent by lab. Ordering Provider: RACHEL HANNAH Report Released Date/Time: Jan 08, 2025 03:15 PM Reporting Lab: [address] [address] Performing Lab: [address] [address] [facility] DRUGS OF ABUSE FENTANYL [PRESENCE] IN URINE BY SCREEN METHOD NONE-DET ECTED - 1.00 02/05 Specimen Type: URINE Comment: Urine with Cr <5 is diluted or substituted . Cr between 5 and 20 is very dilute. Urine with SG of 1.001 or less is diluted or substituted . SG of 1.003 or less is very dilute. Urine with a pH <3 or >11 has been adulterated and is unsuitable for testing by our current method. Urine with pH between 3 and 4 OR 10 and 11 may have been adulterated . ETG:This ETG test was developed and it's performance ETG:charact eristics determined by [facility] Clinical Lab. The [place] Food ETG:and Drug Administrat ion has not approved or cleared this test. ETG:FDA Clearance or approval is not currently required for ETG:clinica l use. Fentanyl confirmatio n not sent by lab. Ordering Provider: RACHEL HANNAH Report Released Date/Time: Jan 08, 2025 03:15 PM Reporting Lab: [address] [address] Performing Lab: [address] [address] [facility] DRUGS OF ABUSE PH OF URINE 7.0 [pH] 5.0 - 8.0 02/05 Specimen Type: URINE Comment: Urine with Cr <5 is diluted or substituted . Cr between 5 and 20 is very dilute. Urine with SG of 1.001 or less is diluted or substituted . SG of 1.003 or less is very dilute. Urine with a pH <3 or >11 has been adulterated and is unsuitable for testing by our current method. Urine with pH between 3 and 4 OR 10 and 11 may have been adulterated . ETG:This ETG test was developed and it's performance ETG:charact eristics determined by [facility] Clinical Lab. The [place] Food ETG:and Drug Administrat ion has not approved or cleared this test. ETG:FDA Clearance or approval is not currently required for ETG:clinica l use. Fentanyl confirmatio n not sent by lab. Ordering Provider: RACHEL HANNAH Report Released Date/Time: Jan 08, 2025 03:15 PM Reporting Lab: [facility] [address] Performing Lab: [facility] [address] [address] [facility] DRUGS OF ABUSE CREATININE [MASS/VOLU ME] IN URINE 143.84 mg/dL 63 - 166 02/05 Specimen Type: URINE Comment: Urine with Cr <5 is diluted or substituted . Cr between 5 and 20 is very dilute. Urine with SG of 1.001 or less is diluted or substituted . SG of 1.003 or less is very dilute. Urine with a pH <3 or >11 has been adulterated and is unsuitable for testing by our current method. Urine with pH between 3 and 4 OR 10 and 11 may have been adulterated . ETG:This ETG test was developed and it's performance ETG:charact eristics determined by [facility] Clinical Lab. The [place] Food ETG:and Drug Administrat ion has not approved or cleared this test. ETG:FDA Clearance or approval is not currently required for ETG:clinica l use. Fentanyl confirmatio n not sent by lab. Ordering Provider: RACHEL HANNAH Report Released Date/Time: Jan 08, 2025 03:15 PM Reporting Lab: [address] [address] Performing Lab: [address] [address] [facility] DRUGS OF ABUSE SPECIFIC GRAVITY OF URINE 1.010 1.005 - 1.030 02/05 Specimen Type: URINE Comment: Urine with Cr <5 is diluted or substituted . Cr between 5 and 20 is very dilute. Urine with SG of 1.001 or less is diluted or substituted . SG of 1.003 or less is very dilute. Urine with a pH <3 or >11 has been adulterated and is unsuitable for testing by our current method. Urine with pH between 3 and 4 OR 10 and 11 may have been adulterated . ETG:This ETG test was developed and it's performance ETG:charact eristics determined by [facility] Clinical Lab. The [place] Food ETG:and Drug Administrat ion has not approved or cleared this test. ETG:FDA Clearance or approval is not currently required for ETG:clinica l use. Fentanyl confirmatio n not sent by lab. Ordering Provider: RACHEL HANNAH Report Released Date/Time: Jan 08, 2025 03:15 PM Reporting Lab: [address] [address] Performing Lab: [address] [address] [facility] DRUGS OF ABUSE METHADONE [PRESENCE] IN URINE BY SCREEN METHOD NONE-DET ECTED - 300 02/05 Specimen Type: URINE Comment: Urine with Cr <5 is diluted or substituted . Cr between 5 and 20 is very dilute. Urine with SG of 1.001 or less is diluted or substituted . SG of 1.003 or less is very dilute. Urine with a pH <3 or >11 has been adulterated and is unsuitable for testing by our current method. Urine with pH between 3 and 4 OR 10 and 11 may have been adulterated . ETG:This ETG test was developed and it's performance ETG:charact eristics determined by [facility] Clinical Lab. The [place] Food ETG:and Drug Administrat ion has not approved or cleared this test. ETG:FDA Clearance or approval is not currently required for ETG:clinica l use. Fentanyl confirmatio n not sent by lab. Ordering Provider: RACHEL HANNAH Report Released Date/Time: Jan 08, 2025 03:15 PM Reporting Lab: [address] [address] Performing Lab: [address] [address] [facility] DRUGS OF ABUSE ETHYL GLUCURONID E [PRESENCE] IN URINE BY SCREEN METHOD POSITIVE - 500 02/05 Specimen Type: URINE Comment: Urine with Cr <5 is diluted or substituted . Cr between 5 and 20 is very dilute. Urine with SG of 1.001 or less is diluted or substituted . SG of 1.003 or less is very dilute. Urine with a pH <3 or >11 has been adulterated and is unsuitable for testing by our current method. Urine with pH between 3 and 4 OR 10 and 11 may have been adulterated . ETG:This ETG test was developed and it's performance ETG:charact eristics determined by [facility] Clinical Lab. The [place] Food ETG:and Drug Administrat ion has not approved or cleared this test. ETG:FDA Clearance or approval is not currently required for ETG:clinica l use. Fentanyl confirmatio n not sent by lab. Ordering Provider: RACHEL HANNAH Report Released Date/Time: Jan 08, 2025 03:15 PM Reporting Lab: [address] [address] Performing Lab: [address] [address] [facility] DRUGS OF ABUSE AMPHETAMIN E+METHAMPH ETAMINE [PRESENCE] IN URINE BY SCREEN METHOD NONE-DET ECTED - 1000 01/09 Specimen Type: URINE Comment: Urine with Cr <5 is diluted or substituted . Cr between 5 and 20 is very dilute. Urine with SG of 1.001 or less is diluted or substituted . SG of 1.003 or less is very dilute. Urine with a pH <3 or >11 has been adulterated and is unsuitable for testing by our current method. Urine with pH between 3 and 4 OR 10 and 11 may have been adulterated . ETG:This ETG test was developed and it's performance ETG:charact eristics determined by [facility] Clinical Lab. The [place] Food ETG:and Drug Administrat ion has not approved or cleared this test. ETG:FDA Clearance or approval is not currently required for ETG:clinica l use. Fentanyl confirmatio n not sent by lab. Ordering Provider: RACHEL HANNAH Report Released Date/Time: Jan 08, 2025 03:15 PM Reporting Lab: [address] [address] Performing Lab: [address] [address] [facility] DRUGS OF ABUSE BENZODIAZE PINES [PRESENCE] IN URINE BY SCREEN METHOD NONE-DET ECTED - 200 01/09 Specimen Type: URINE Comment: Urine with Cr <5 is diluted or substituted . Cr between 5 and 20 is very dilute. Urine with SG of 1.001 or less is diluted or substituted . SG of 1.003 or less is very dilute. Urine with a pH <3 or >11 has been adulterated and is unsuitable for testing by our current method. Urine with pH between 3 and 4 OR 10 and 11 may have been adulterated . ETG:This ETG test was developed and it's performance ETG:charact eristics determined by [facility] Clinical Lab. The [place] Food ETG:and Drug Administrat ion has not approved or cleared this test. ETG:FDA Clearance or approval is not currently required for ETG:clinica l use. Fentanyl confirmatio n not sent by lab. Ordering Provider: RACHEL HANNAH Report Released Date/Time: Jan 08, 2025 03:15 PM Reporting Lab: [address] [address] Performing Lab: [address] [address] [facility] DRUGS OF ABUSE BENZOYLECG ONINE [PRESENCE] IN URINE BY SCREEN METHOD >150 NG/ML NONE-DET ECTED - 300 01/09 Specimen Type: URINE Comment: Urine with Cr <5 is diluted or substituted . Cr between 5 and 20 is very dilute. Urine with SG of 1.001 or less is diluted or substituted . SG of 1.003 or less is very dilute. Urine with a pH <3 or >11 has been adulterated and is unsuitable for testing by our current method. Urine with pH between 3 and 4 OR 10 and 11 may have been adulterated . ETG:This ETG test was developed and it's performance ETG:charact eristics determined by [facility] Clinical Lab. The [place] Food ETG:and Drug Administrat ion has not approved or cleared this test. ETG:FDA Clearance or approval is not currently required for ETG:clinica l use. Fentanyl confirmatio n not sent by lab. Ordering Provider: RACHEL HANNAH Report Released Date/Time: Jan 08, 2025 03:15 PM Reporting Lab: [address] [address] Performing Lab: [address] [address] [facility] DRUGS OF ABUSE OPIATES [PRESENCE] IN URINE BY SCREEN METHOD >300 NG/ML NONE-DET ECTED - 300 01/09 Specimen Type: URINE Comment: Urine with Cr <5 is diluted or substituted . Cr between 5 and 20 is very dilute. Urine with SG of 1.001 or less is diluted or substituted . SG of 1.003 or less is very dilute. Urine with a pH <3 or >11 has been adulterated and is unsuitable for testing by our current method. Urine with pH between 3 and 4 OR 10 and 11 may have been adulterated . ETG:This ETG test was developed and it's performance ETG:charact eristics determined by [facility] Clinical Lab. The [place] Food ETG:and Drug Administrat ion has not approved or cleared this test. ETG:FDA Clearance or approval is not currently required for ETG:clinica l use. Fentanyl confirmatio n not sent by lab. Ordering Provider: RACHEL HANNAH Report Released Date/Time: Jan 08, 2025 03:15 PM Reporting Lab: [address] [address] Performing Lab: [address] [address] [facility] DRUGS OF ABUSE CANNABINOI DS [PRESENCE] IN URINE BY SCREEN METHOD POSITIVE - 50 01/09 Specimen Type: URINE Comment: Urine with Cr <5 is diluted or substituted . Cr between 5 and 20 is very dilute. Urine with SG of 1.001 or less is diluted or substituted . SG of 1.003 or less is very dilute. Urine with a pH <3 or >11 has been adulterated and is unsuitable for testing by our current method. Urine with pH between 3 and 4 OR 10 and 11 may have been adulterated . ETG:This ETG test was developed and it's performance ETG:charact eristics determined by [facility] Clinical Lab. The [place] Food ETG:and Drug Administrat ion has not approved or cleared this test. ETG:FDA Clearance or approval is not currently required for ETG:clinica l use. Fentanyl confirmatio n not sent by lab. Ordering Provider: RACHEL HANNAH Report Released Date/Time: Jan 08, 2025 03:15 PM Reporting Lab: [address] [address] Performing Lab: [address] [address] [facility] DRUGS OF ABUSE BARBITURAT ES [PRESENCE] IN URINE BY SCREEN METHOD >200 NG/ML NONE-DET ECTED - 200 01/09 Specimen Type: URINE Comment: Urine with Cr <5 is diluted or substituted . Cr between 5 and 20 is very dilute. Urine with SG of 1.001 or less is diluted or substituted . SG of 1.003 or less is very dilute. Urine with a pH <3 or >11 has been adulterated and is unsuitable for testing by our current method. Urine with pH between 3 and 4 OR 10 and 11 may have been adulterated . ETG:This ETG test was developed and it's performance ETG:charact eristics determined by [facility] Clinical Lab. The [place] Food ETG:and Drug Administrat ion has not approved or cleared this test. ETG:FDA Clearance or approval is not currently required for ETG:clinica l use. Fentanyl confirmatio n not sent by lab. Ordering Provider: RACHEL HANNAH Report Released Date/Time: Jan 08, 2025 03:15 PM Reporting Lab: [address] [address] Performing Lab: [address] [address] [facility] DRUGS OF ABUSE OXYCODONE [PRESENCE] IN URINE BY SCREEN METHOD NONE-DET ECTED - 100 01/09 Specimen Type: URINE Comment: Urine with Cr <5 is diluted or substituted . Cr between 5 and 20 is very dilute. Urine with SG of 1.001 or less is diluted or substituted . SG of 1.003 or less is very dilute. Urine with a pH <3 or >11 has been adulterated and is unsuitable for testing by our current method. Urine with pH between 3 and 4 OR 10 and 11 may have been adulterated . ETG:This ETG test was developed and it's performance ETG:charact eristics determined by [facility] Clinical Lab. The [place] Food ETG:and Drug Administrat ion has not approved or cleared this test. ETG:FDA Clearance or approval is not currently required for ETG:clinica l use. Fentanyl confirmatio n not sent by lab. Ordering Provider: RACHEL HANNAH Report Released Date/Time: Jan 08, 2025 03:15 PM Reporting Lab: [address] [address] Performing Lab: [address] [address] [facility] DRUGS OF ABUSE BUPRENORPH INE [PRESENCE] IN URINE BY SCREEN METHOD POSITIVE 01/09 Specimen Type: URINE Comment: Urine with Cr <5 is diluted or substituted . Cr between 5 and 20 is very dilute. Urine with SG of 1.001 or less is diluted or substituted . SG of 1.003 or less is very dilute. Urine with a pH <3 or >11 has been adulterated and is unsuitable for testing by our current method. Urine with pH between 3 and 4 OR 10 and 11 may have been adulterated . ETG:This ETG test was developed and it's performance ETG:charact eristics determined by [facility] Clinical Lab. The [place] Food ETG:and Drug Administrat ion has not approved or cleared this test. ETG:FDA Clearance or approval is not currently required for ETG:clinica l use. Fentanyl confirmatio n not sent by lab. Ordering Provider: RACHEL HANNAH Report Released Date/Time: Jan 08, 2025 03:15 PM Reporting Lab: [address] [address] Performing Lab: [address] [address] [facility] DRUGS OF ABUSE ETHANOL [MASS/VOLU ME] IN URINE NONE-DET ECTED - 10 01/09 Specimen Type: URINE Comment: Urine with Cr <5 is diluted or substituted . Cr between 5 and 20 is very dilute. Urine with SG of 1.001 or less is diluted or substituted . SG of 1.003 or less is very dilute. Urine with a pH <3 or >11 has been adulterated and is unsuitable for testing by our current method. Urine with pH between 3 and 4 OR 10 and 11 may have been adulterated . ETG:This ETG test was developed and it's performance ETG:charact eristics determined by [facility] Clinical Lab. The [place] Food ETG:and Drug Administrat ion has not approved or cleared this test. ETG:FDA Clearance or approval is not currently required for ETG:clinica l use. Fentanyl confirmatio n not sent by lab. Ordering Provider: RACHEL HANNAH Report Released Date/Time: Jan 08, 2025 03:15 PM Reporting Lab: [address] [address] [facility] [address] [facility] DRUGS OF ABUSE FENTANYL [PRESENCE] IN URINE BY SCREEN METHOD NONE-DET ECTED - 1.00 01/09 Specimen Type: URINE Comment: Urine with Cr <5 is diluted or substituted . Cr between 5 and 20 is very dilute. Urine with SG of 1.001 or less is diluted or substituted . SG of 1.003 or less is very dilute. Urine with a pH <3 or >11 has been adulterated and is unsuitable for testing by our current method. Urine with pH between 3 and 4 OR 10 and 11 may have been adulterated . ETG:This ETG test was developed and it's performance ETG:charact eristics determined by [facility] Clinical Lab. The [place] Food ETG:and Drug Administrat ion has not approved or cleared this test. ETG:FDA Clearance or approval is not currently required for ETG:clinica l use. Fentanyl confirmatio n not sent by lab. Ordering Provider: RACHEL HANNAH Report Released Date/Time: Jan 08, 2025 03:15 PM Reporting Lab: [address] [address] Performing Lab: [address] [address] [facility] DRUGS OF ABUSE PH OF URINE 5.5 [pH] 5.0 - 8.0 01/09 Specimen Type: URINE Comment: Urine with Cr <5 is diluted or substituted . Cr between 5 and 20 is very dilute. Urine with SG of 1.001 or less is diluted or substituted . SG of 1.003 or less is very dilute. Urine with a pH <3 or >11 has been adulterated and is unsuitable for testing by our current method. Urine with pH between 3 and 4 OR 10 and 11 may have been adulterated . ETG:This ETG test was developed and it's performance ETG:charact eristics determined by [facility] Clinical Lab. The [place] Food ETG:and Drug Administrat ion has not approved or cleared this test. ETG:FDA Clearance or approval is not currently required for ETG:clinica l use. Fentanyl confirmatio n not sent by lab. Ordering Provider: RACHEL HANNAH Report Released Date/Time: Jan 08, 2025 03:15 PM Reporting Lab: [address] [address] Performing Lab: [address] [address] [facility] DRUGS OF ABUSE CREATININE [MASS/VOLU ME] IN URINE 430.87 mg/dL 63 - 166 01/09 H Specimen Type: URINE Comment: Urine with Cr <5 is diluted or substituted . Cr between 5 and 20 is very dilute. Urine with SG of 1.001 or less is diluted or substituted . SG of 1.003 or less is very dilute. Urine with a pH <3 or >11 has been adulterated and is unsuitable for testing by our current method. Urine with pH between 3 and 4 OR 10 and 11 may have been adulterated . ETG:This ETG test was developed and it's performance ETG:charact eristics determined by [facility] Clinical Lab. The [place] Food ETG:and Drug Administrat ion has not approved or cleared this test. ETG:FDA Clearance or approval is not currently required for ETG:clinica l use. Fentanyl confirmatio n not sent by lab. Ordering Provider: RACHEL HANNAH Report Released Date/Time: Jan 08, 2025 03:15 PM Reporting Lab: [address] [address] Performing Lab: [address] [address] [facility] DRUGS OF ABUSE SPECIFIC GRAVITY OF URINE 1.027 1.005 - 1.030 01/09 Specimen Type: URINE Comment: Urine with Cr <5 is diluted or substituted . Cr between 5 and 20 is very dilute. Urine with SG of 1.001 or less is diluted or substituted . SG of 1.003 or less is very dilute. Urine with a pH <3 or >11 has been adulterated and is unsuitable for testing by our current method. Urine with pH between 3 and 4 OR 10 and 11 may have been adulterated . ETG:This ETG test was developed and it's performance ETG:charact eristics determined by [facility] Clinical Lab. The [place] Food ETG:and Drug Administrat ion has not approved or cleared this test. ETG:FDA Clearance or approval is not currently required for ETG:clinica l use. Fentanyl confirmatio n not sent by lab. Ordering Provider: RACHEL HANNAH Report Released Date/Time: Jan 08, 2025 03:15 PM Reporting Lab: [address] [address] Performing Lab: [address] [address] [facility] DRUGS OF ABUSE METHADONE [PRESENCE] IN URINE BY SCREEN METHOD NONE-DET ECTED - 300 01/09 Specimen Type: URINE Comment: Urine with Cr <5 is diluted or substituted . Cr between 5 and 20 is very dilute. Urine with SG of 1.001 or less is diluted or substituted . SG of 1.003 or less is very dilute. Urine with a pH <3 or >11 has been adulterated and is unsuitable for testing by our current method. Urine with pH between 3 and 4 OR 10 and 11 may have been adulterated . ETG:This ETG test was developed and it's performance ETG:charact eristics determined by [facility] Clinical Lab. The [place] Food ETG:and Drug Administrat ion has not approved or cleared this test. ETG:FDA Clearance or approval is not currently required for ETG:clinica l use. Fentanyl confirmatio n not sent by lab. Ordering Provider: RACHEL HANNAH Report Released Date/Time: Jan 08, 2025 03:15 PM Reporting Lab: [address] [address] Performing Lab: [address] [address] [facility] DRUGS OF ABUSE ETHYL GLUCURONID E [PRESENCE] IN URINE BY SCREEN METHOD POSITIVE - 500 01/09 Specimen Type: URINE Comment: Urine with Cr <5 is diluted or substituted . Cr between 5 and 20 is very dilute. Urine with SG of 1.001 or less is diluted or substituted . SG of 1.003 or less is very dilute. Urine with a pH <3 or >11 has been adulterated and is unsuitable for testing by our current method. Urine with pH between 3 and 4 OR 10 and 11 may have been adulterated . ETG:This ETG test was developed and it's performance ETG:charact eristics determined by [facility] Clinical Lab. The [place] Food ETG:and Drug Administrat ion has not approved or cleared this test. ETG:FDA Clearance or approval is not currently required for ETG:clinica l use. Fentanyl confirmatio n not sent by lab. Ordering Provider: RACHEL HANNAH Report Released Date/Time: Jan 08, 2025 03:15 PM Reporting Lab: [address] [address] Performing Lab: [address] [address] [facility] DRUGS OF ABUSE AMPHETAMIN E+METHAMPH ETAMINE [PRESENCE] IN URINE BY SCREEN METHOD NONE-DET ECTED - 1000 12/12 Specimen Type: URINE Comment: Urine with Cr <5 is diluted or substituted . Cr between 5 and 20 is very dilute. Urine with SG of 1.001 or less is diluted or substituted . SG of 1.003 or less is very dilute. Urine with a pH <3 or >11 has been adulterated and is unsuitable for testing by our current method. Urine with pH between 3 and 4 OR 10 and 11 may have been adulterated . Confirmatio n not sent by lab. Ordering Provider: RACHEL HANNAH Report Released Date/Time: Aug 21, 2024 02:45 PM Reporting Lab: [facility] [place] [address] [address] Performing Lab: [address] [address] [facility] DRUGS OF ABUSE BENZODIAZE PINES [PRESENCE] IN URINE BY SCREEN METHOD NONE-DET ECTED - 200 12/12 Specimen Type: URINE Comment: Urine with Cr <5 is diluted or substituted . Cr between 5 and 20 is very dilute. Urine with SG of 1.001 or less is diluted or substituted . SG of 1.003 or less is very dilute. Urine with a pH <3 or >11 has been adulterated and is unsuitable for testing by our current method. Urine with pH between 3 and 4 OR 10 and 11 may have been adulterated . Confirmatio n not sent by lab. Ordering Provider: RACHEL HANNAH Report Released Date/Time: Aug 21, 2024 02:45 PM Reporting Lab: [facility] [address] Performing Lab: [facility] [address] [facility] DRUGS OF ABUSE BENZOYLECG ONINE [PRESENCE] IN URINE BY SCREEN METHOD >150 NG/ML NONE-DET ECTED - 300 12/12 Specimen Type: URINE Comment: Urine with Cr <5 is diluted or substituted . Cr between 5 and 20 is very dilute. Urine with SG of 1.001 or less is diluted or substituted . SG of 1.003 or less is very dilute. Urine with a pH <3 or >11 has been adulterated and is unsuitable for testing by our current method. Urine with pH between 3 and 4 OR 10 and 11 may have been adulterated . Confirmatio n not sent by lab. Ordering Provider: RACHEL HANNAH Report Released Date/Time: Aug 21, 2024 02:45 PM Reporting Lab: [address] [address] Performing Lab: [address] [address] [facility] DRUGS OF ABUSE OPIATES [PRESENCE] IN URINE BY SCREEN METHOD >300 NG/ML NONE-DET ECTED - 300 12/12 Specimen Type: URINE Comment: Urine with Cr <5 is diluted or substituted . Cr between 5 and 20 is very dilute. Urine with SG of 1.001 or less is diluted or substituted . SG of 1.003 or less is very dilute. Urine with a pH <3 or >11 has been adulterated and is unsuitable for testing by our current method. Urine with pH between 3 and 4 OR 10 and 11 may have been adulterated . Confirmatio n not sent by lab. Ordering Provider: RACHEL HANNAH Report Released Date/Time: Aug 21, 2024 02:45 PM Reporting Lab: [address] [address] Performing Lab: [address] [address] [facility] DRUGS OF ABUSE CANNABINOI DS [PRESENCE] IN URINE BY SCREEN METHOD POSITIVE - 50 12/12 Specimen Type: URINE Comment: Urine with Cr <5 is diluted or substituted . Cr between 5 and 20 is very dilute. Urine with SG of 1.001 or less is diluted or substituted . SG of 1.003 or less is very dilute. Urine with a pH <3 or >11 has been adulterated and is unsuitable for testing by our current method. Urine with pH between 3 and 4 OR 10 and 11 may have been adulterated . Confirmatio n not sent by lab. Ordering Provider: RACHEL HANNAH Report Released Date/Time: Aug 21, 2024 02:45 PM Reporting Lab: [facility] [address] [address] Performing Lab: [facility] [address] [facility] DRUGS OF ABUSE BARBITURAT ES [PRESENCE] IN URINE BY SCREEN METHOD >200 NG/ML NONE-DET ECTED - 200 12/12 Specimen Type: URINE Comment: Urine with Cr <5 is diluted or substituted . Cr between 5 and 20 is very dilute. Urine with SG of 1.001 or less is diluted or substituted . SG of 1.003 or less is very dilute. Urine with a pH <3 or >11 has been adulterated and is unsuitable for testing by our current method. Urine with pH between 3 and 4 OR 10 and 11 may have been adulterated . Confirmatio n not sent by lab. Ordering Provider: RACHEL HANNAH Report Released Date/Time: Aug 21, 2024 02:45 PM Reporting Lab: [facility] [address] [address] Performing [facility]: [facility] [address] [facility] DRUGS OF ABUSE OXYCODONE [PRESENCE] IN URINE BY SCREEN METHOD NONE-DET ECTED - 100 12/12 Specimen Type: URINE Comment: Urine with Cr <5 is diluted or substituted . Cr between 5 and 20 is very dilute. Urine with SG of 1.001 or less is diluted or substituted . SG of 1.003 or less is very dilute. Urine with a pH <3 or >11 has been adulterated and is unsuitable for testing by our current method. Urine with pH between 3 and 4 OR 10 and 11 may have been adulterated . Confirmatio n not sent by lab. Ordering Provider: RACHEL HANNAH Report Released Date/Time: Aug 21, 2024 02:45 PM Reporting Lab: [facility] [address] Performing Lab: [facility] [address] [facility] DRUGS OF ABUSE BUPRENORPH INE [PRESENCE] IN URINE BY SCREEN METHOD POSITIVE 12/12 Specimen Type: URINE Comment: Urine with Cr <5 is diluted or substituted . Cr between 5 and 20 is very dilute. Urine with SG of 1.001 or less is diluted or substituted . SG of 1.003 or less is very dilute. Urine with a pH <3 or >11 has been adulterated and is unsuitable for testing by our current method. Urine with pH between 3 and 4 OR 10 and 11 may have been adulterated . Confirmatio n not sent by lab. Ordering Provider: RACHEL HANNAH Report Released Date/Time: Aug 21, 2024 02:45 PM Reporting Lab: [address] [address] Performing Lab: [address] [address] [facility] DRUGS OF ABUSE ETHANOL [MASS/VOLU ME] IN URINE NONE-DET ECTED - 10 12/12 Specimen Type: URINE Comment: Urine with Cr <5 is diluted or substituted . Cr between 5 and 20 is very dilute. Urine with SG of 1.001 or less is diluted or substituted . SG of 1.003 or less is very dilute. Urine with a pH <3 or >11 has been adulterated and is unsuitable for testing by our current method. Urine with pH between 3 and 4 OR 10 and 11 may have been adulterated . Confirmatio n not sent by lab. Ordering Provider: RACHEL HANNAH Report Released Date/Time: Aug 21, 2024 02:45 PM Reporting Lab: [address] [address] Performing Lab: [address] [address] [facility] DRUGS OF ABUSE FENTANYL [PRESENCE] IN URINE BY SCREEN METHOD NONE-DET ECTED - 1.00 12/12 Specimen Type: URINE Comment: Urine with Cr <5 is diluted or substituted . Cr between 5 and 20 is very dilute. Urine with SG of 1.001 or less is diluted or substituted . SG of 1.003 or less is very dilute. Urine with a pH <3 or >11 has been adulterated and is unsuitable for testing by our current method. Urine with pH between 3 and 4 OR 10 and 11 may have been adulterated . Confirmatio n not sent by lab. Ordering Provider: RACHEL HANNAH Report Released Date/Time: Aug 21, 2024 02:45 PM Reporting Lab: [address] [address] Performing Lab: [address] [address] [facility] DRUGS OF ABUSE PH OF URINE 5.8 [pH] 5.0 - 8.0 12/12 Specimen Type: URINE Comment: Urine with Cr <5 is diluted or substituted . Cr between 5 and 20 is very dilute. Urine with SG of 1.001 or less is diluted or substituted . SG of 1.003 or less is very dilute. Urine with a pH <3 or >11 has been adulterated and is unsuitable for testing by our current method. Urine with pH between 3 and 4 OR 10 and 11 may have been adulterated . Confirmatio n not sent by lab. Ordering Provider: RACHEL HANNAH Report Released Date/Time: Aug 21, 2024 02:45 PM Reporting Lab: [address] [address] Performing Lab: [address] [address] [facility] DRUGS OF ABUSE CREATININE [MASS/VOLU ME] IN URINE 379.34 mg/dL 63 - 166 12/12 H Specimen Type: URINE Comment: Urine with Cr <5 is diluted or substituted . Cr between 5 and 20 is very dilute. Urine with SG of 1.001 or less is diluted or substituted . SG of 1.003 or less is very dilute. Urine with a pH <3 or >11 has been adulterated and is unsuitable for testing by our current method. Urine with pH between 3 and 4 OR 10 and 11 may have been adulterated . Confirmatio n not sent by lab. Ordering Provider: RACHEL HANNAH Report Released Date/Time: Aug 21, 2024 02:45 PM Reporting Lab: [facility] [address] [address] Performing Lab: [facility]TR[facility]ENTER[facility] [address] [facility] DRUGS OF ABUSE SPECIFIC GRAVITY OF URINE 1.026 1.005 - 1.030 12/12 Specimen Type: URINE Comment: Urine with Cr <5 is diluted or substituted . Cr between 5 and 20 is very dilute. Urine with SG of 1.001 or less is diluted or substituted . SG of 1.003 or less is very dilute. Urine with a pH <3 or >11 has been adulterated and is unsuitable for testing by our current method. Urine with pH between 3 and 4 OR 10 and 11 may have been adulterated . Confirmatio n not sent by lab. Ordering Provider: RACHEL HANNAH Report Released Date/Time: Aug 21, 2024 02:45 PM Reporting Lab: [facility]TR[facility] CENTERUSETS [address] [address] Performing Lab: [facility]ITALRL.[facility]ENTERUSE[address] [address] [facility] DRUGS OF ABUSE METHADONE [PRESENCE] IN URINE BY SCREEN METHOD NONE-DET ECTED - 300 12/12 Specimen Type: URINE Comment: Urine with Cr <5 is diluted or substituted . Cr between 5 and 20 is very dilute. Urine with SG of 1.001 or less is diluted or substituted . SG of 1.003 or less is very dilute. Urine with a pH <3 or >11 has been adulterated and is unsuitable for testing by our current method. Urine with pH between 3 and 4 OR 10 and 11 may have been adulterated . Confirmatio n not sent by lab. Ordering Provider: RACHEL HANNAH Report Released Date/Time: Aug 21, 2024 02:45 PM Reporting Lab: [facility] [place] [address] [address] Performing Lab: [facility]ENTER[facility] [address] [facility] DRUGS OF ABUSE ETHYL GLUCURONID E [PRESENCE] IN URINE BY SCREEN METHOD POSITIVE - 500 12/12 Specimen Type: URINE Comment: Urine with Cr <5 is diluted or substituted . Cr between 5 and 20 is very dilute. Urine with SG of 1.001 or less is diluted or substituted . SG of 1.003 or less is very dilute. Urine with a pH <3 or >11 has been adulterated and is unsuitable for testing by our current method. Urine with pH between 3 and 4 OR 10 and 11 may have been adulterated . Confirmatio n not sent by lab. Ordering Provider: RACHEL HANNAH Report Released Date/Time: Aug 21, 2024 02:45 PM Reporting Lab: [address] [address] Performing Lab: [address] [address] [facility] DRUGS OF ABUSE AMPHETAMIN E+METHAMPH ETAMINE [PRESENCE] IN URINE BY SCREEN METHOD NONE-DET ECTED - 1000 11/14 Specimen Type: URINE Comment: Urine with Cr <5 is diluted or substituted . Cr between 5 and 20 is very dilute. Urine with SG of 1.001 or less is diluted or substituted . SG of 1.003 or less is very dilute. Urine with a pH <3 or >11 has been adulterated and is unsuitable for testing by our current method. Urine with pH between 3 and 4 OR 10 and 11 may have been adulterated . Confirmatio n not sent by lab. Ordering Provider: RACHEL HANNAH Report Released Date/Time: Aug 21, 2024 02:45 PM Reporting Lab: [address] [address] Performing Lab: [address] [address] [facility] DRUGS OF ABUSE BENZODIAZE PINES [PRESENCE] IN URINE BY SCREEN METHOD NONE-DET ECTED - 200 11/14 Specimen Type: URINE Comment: Urine with Cr <5 is diluted or substituted . Cr between 5 and 20 is very dilute. Urine with SG of 1.001 or less is diluted or substituted . SG of 1.003 or less is very dilute. Urine with a pH <3 or >11 has been adulterated and is unsuitable for testing by our current method. Urine with pH between 3 and 4 OR 10 and 11 may have been adulterated . Confirmatio n not sent by lab. Ordering Provider: RACHEL HANNAH Report Released Date/Time: Aug 21, 2024 02:45 PM Reporting Lab: [address] [address] Performing Lab: [address] [address] [facility] DRUGS OF ABUSE BENZOYLECG ONINE [PRESENCE] IN URINE BY SCREEN METHOD >150 NG/ML NONE-DET ECTED - 300 11/14 Specimen Type: URINE Comment: Urine with Cr <5 is diluted or substituted . Cr between 5 and 20 is very dilute. Urine with SG of 1.001 or less is diluted or substituted . SG of 1.003 or less is very dilute. Urine with a pH <3 or >11 has been adulterated and is unsuitable for testing by our current method. Urine with pH between 3 and 4 OR 10 and 11 may have been adulterated . Confirmatio n not sent by lab. Ordering Provider: RACHEL HANNAH Report Released Date/Time: Aug 21, 2024 02:45 PM Reporting Lab: [address] [address] Performing Lab: [address] [address] [facility] DRUGS OF ABUSE OPIATES [PRESENCE] IN URINE BY SCREEN METHOD >300 NG/ML NONE-DET ECTED - 300 11/14 Specimen Type: URINE Comment: Urine with Cr <5 is diluted or substituted . Cr between 5 and 20 is very dilute. Urine with SG of 1.001 or less is diluted or substituted . SG of 1.003 or less is very dilute. Urine with a pH <3 or >11 has been adulterated and is unsuitable for testing by our current method. Urine with pH between 3 and 4 OR 10 and 11 may have been adulterated . Confirmatio n not sent by lab. Ordering Provider: RACHEL HANNAH Report Released Date/Time: Aug 21, 2024 02:45 PM Reporting Lab: [address] [address] Performing Lab: [address] [address] [facility] DRUGS OF ABUSE CANNABINOI DS [PRESENCE] IN URINE BY SCREEN METHOD POSITIVE - 50 11/14 Specimen Type: URINE Comment: Urine with Cr <5 is diluted or substituted . Cr between 5 and 20 is very dilute. Urine with SG of 1.001 or less is diluted or substituted . SG of 1.003 or less is very dilute. Urine with a pH <3 or >11 has been adulterated and is unsuitable for testing by our current method. Urine with pH between 3 and 4 OR 10 and 11 may have been adulterated . Confirmatio n not sent by lab. Ordering Provider: RACHEL HANNAH Report Released Date/Time: Aug 21, 2024 02:45 PM Reporting Lab: [address] [address] Performing Lab: [address] [address] [facility] DRUGS OF ABUSE BARBITURAT ES [PRESENCE] IN URINE BY SCREEN METHOD >200 NG/ML NONE-DET ECTED - 200 11/14 Specimen Type: URINE Comment: Urine with Cr <5 is diluted or substituted . Cr between 5 and 20 is very dilute. Urine with SG of 1.001 or less is diluted or substituted . SG of 1.003 or less is very dilute. Urine with a pH <3 or >11 has been adulterated and is unsuitable for testing by our current method. Urine with pH between 3 and 4 OR 10 and 11 may have been adulterated . Confirmatio n not sent by lab. Ordering Provider: RACHEL HANNAH Report Released Date/Time: Aug 21, 2024 02:45 PM Reporting Lab: [address] [address] Performing Lab: [address] [address] [facility] DRUGS OF ABUSE OXYCODONE [PRESENCE] IN URINE BY SCREEN METHOD NONE-DET ECTED - 100 11/14 Specimen Type: URINE Comment: Urine with Cr <5 is diluted or substituted . Cr between 5 and 20 is very dilute. Urine with SG of 1.001 or less is diluted or substituted . SG of 1.003 or less is very dilute. Urine with a pH <3 or >11 has been adulterated and is unsuitable for testing by our current method. Urine with pH between 3 and 4 OR 10 and 11 may have been adulterated . Confirmatio n not sent by lab. Ordering Provider: RACHEL HANNAH Report Released Date/Time: Aug 21, 2024 02:45 PM Reporting Lab: [address] [address] Performing Lab: [address] [address] [facility] DRUGS OF ABUSE BUPRENORPH INE [PRESENCE] IN URINE BY SCREEN METHOD POSITIVE 11/14 HH Specimen Type: URINE Comment: Urine with Cr <5 is diluted or substituted . Cr between 5 and 20 is very dilute. Urine with SG of 1.001 or less is diluted or substituted . SG of 1.003 or less is very dilute. Urine with a pH <3 or >11 has been adulterated and is unsuitable for testing by our current method. Urine with pH between 3 and 4 OR 10 and 11 may have been adulterated . Confirmatio n not sent by lab. Ordering Provider: RACHEL HANNAH Report Released Date/Time: Aug 21, 2024 02:45 PM Reporting Lab: [address] [address] Performing Lab: [address] [address] [facility] DRUGS OF ABUSE ETHANOL [MASS/VOLU ME] IN URINE NONE-DET ECTED - 10 11/14 Specimen Type: URINE Comment: Urine with Cr <5 is diluted or substituted . Cr between 5 and 20 is very dilute. Urine with SG of 1.001 or less is diluted or substituted . SG of 1.003 or less is very dilute. Urine with a pH <3 or >11 has been adulterated and is unsuitable for testing by our current method. Urine with pH between 3 and 4 OR 10 and 11 may have been adulterated . Confirmatio n not sent by lab. Ordering Provider: RACHEL HANNAH Report Released Date/Time: Aug 21, 2024 02:45 PM Reporting Lab: [address] [address] Performing Lab: [address] [address] [facility] DRUGS OF ABUSE FENTANYL [PRESENCE] IN URINE BY SCREEN METHOD NONE-DET ECTED - 1.00 11/14 Specimen Type: URINE Comment: Urine with Cr <5 is diluted or substituted . Cr between 5 and 20 is very dilute. Urine with SG of 1.001 or less is diluted or substituted . SG of 1.003 or less is very dilute. Urine with a pH <3 or >11 has been adulterated and is unsuitable for testing by our current method. Urine with pH between 3 and 4 OR 10 and 11 may have been adulterated . Confirmatio n not sent by lab. Ordering Provider: RACHEL HANNAH Report Released Date/Time: Aug 21, 2024 02:45 PM Reporting Lab: [address] [address] Performing Lab: [address] [address] [facility] DRUGS OF ABUSE PH OF URINE 6.5 [pH] 5.0 - 8.0 11/14 Specimen Type: URINE Comment: Urine with Cr <5 is diluted or substituted . Cr between 5 and 20 is very dilute. Urine with SG of 1.001 or less is diluted or substituted . SG of 1.003 or less is very dilute. Urine with a pH <3 or >11 has been adulterated and is unsuitable for testing by our current method. Urine with pH between 3 and 4 OR 10 and 11 may have been adulterated . Confirmatio n not sent by lab. Ordering Provider: RACHEL HANNAH Report Released Date/Time: Aug 21, 2024 02:45 PM Reporting Lab: [address] [address] Performing Lab: [address] [address] [facility] DRUGS OF ABUSE CREATININE [MASS/VOLU ME] IN URINE 58.59 mg/dL 63 - 166 11/14 L Specimen Type: URINE Comment: Urine with Cr <5 is diluted or substituted . Cr between 5 and 20 is very dilute. Urine with SG of 1.001 or less is diluted or substituted . SG of 1.003 or less is very dilute. Urine with a pH <3 or >11 has been adulterated and is unsuitable for testing by our current method. Urine with pH between 3 and 4 OR 10 and 11 may have been adulterated . Confirmatio n not sent by lab. Ordering Provider: RACHEL HANNAH Report Released Date/Time: Aug 21, 2024 02:45 PM Reporting Lab: [address] [address] Performing Lab: [address] [address] [facility] DRUGS OF ABUSE SPECIFIC GRAVITY OF URINE 1.012 1.005 - 1.030 11/14 Specimen Type: URINE Comment: Urine with Cr <5 is diluted or substituted . Cr between 5 and 20 is very dilute. Urine with SG of 1.001 or less is diluted or substituted . SG of 1.003 or less is very dilute. Urine with a pH <3 or >11 has been adulterated and is unsuitable for testing by our current method. Urine with pH between 3 and 4 OR 10 and 11 may have been adulterated . Confirmatio n not sent by lab. Ordering Provider: RACHEL HANNAH Report Released Date/Time: Aug 21, 2024 02:45 PM Reporting Lab: [address] [address] Performing Lab: [address] [address] [facility] DRUGS OF ABUSE METHADONE [PRESENCE] IN URINE BY SCREEN METHOD NONE-DET ECTED - 300 11/14 Specimen Type: URINE Comment: Urine with Cr <5 is diluted or substituted . Cr between 5 and 20 is very dilute. Urine with SG of 1.001 or less is diluted or substituted . SG of 1.003 or less is very dilute. Urine with a pH <3 or >11 has been adulterated and is unsuitable for testing by our current method. Urine with pH between 3 and 4 OR 10 and 11 may have been adulterated . Confirmatio n not sent by lab. Ordering Provider: RACHEL HANNAH Report Released Date/Time: Aug 21, 2024 02:45 PM Reporting Lab: [address] [address] Performing Lab: [address] [address] [facility] DRUGS OF ABUSE ETHYL GLUCURONID E [PRESENCE] IN URINE BY SCREEN METHOD POSITIVE - 500 11/14 Specimen Type: URINE Comment: Urine with Cr <5 is diluted or substituted . Cr between 5 and 20 is very dilute. Urine with SG of 1.001 or less is diluted or substituted . SG of 1.003 or less is very dilute. Urine with a pH <3 or >11 has been adulterated and is unsuitable for testing by our current method. Urine with pH between 3 and 4 OR 10 and 11 may have been adulterated . Confirmatio n not sent by lab. Ordering Provider: RACHEL HANNAH Report Released Date/Time: Aug 21, 2024 02:45 PM Reporting Lab: [address] [address] Performing Lab: [address] [address] [facility] DRUGS OF ABUSE AMPHETAMIN ES [PRESENCE] IN URINE NONE-DET ECTED - 1000 10/17 Specimen Type: URINE Comment: Urine with Cr <5 is diluted or substituted . Cr between 5 and 20 is very dilute. Urine with SG of 1.001 or less is diluted or substituted . SG of 1.003 or less is very dilute. Urine with a pH <3 or >11 has been adulterated and is unsuitable for testing by our current method. Urine with pH between 3 and 4 OR 10 and 11 may have been adulterated . FENTANYL CONFIRMATIO N NOT SENT BY LAB. Ordering Provider: RACHEL HANNAH Report Released Date/Time: Aug 21, 2024 02:45 PM Reporting [facility]: [facility] [place] [address] [address] Performing Lab: [facility] [address] [facility] DRUGS OF ABUSE BENZODIAZE PINES [PRESENCE] IN URINE BY SCREEN METHOD NONE-DET ECTED - 200 10/17 Specimen Type: URINE Comment: Urine with Cr <5 is diluted or substituted . Cr between 5 and 20 is very dilute. Urine with SG of 1.001 or less is diluted or substituted . SG of 1.003 or less is very dilute. Urine with a pH <3 or >11 has been adulterated and is unsuitable for testing by our current method. Urine with pH between 3 and 4 OR 10 and 11 may have been adulterated . FENTANYL CONFIRMATIO N NOT SENT BY LAB. Ordering Provider: RACHEL HANNAH Report Released Date/Time: Aug 21, 2024 02:45 PM Reporting Lab: [facility] [place] [address] [address] Performing Lab: [facility] [place] [address] [address] [facility] DRUGS OF ABUSE COCAINE [PRESENCE] IN URINE BY SCREEN METHOD NONE-DET ECTED - 300 10/17 Specimen Type: URINE Comment: Urine with Cr <5 is diluted or substituted . Cr between 5 and 20 is very dilute. Urine with SG of 1.001 or less is diluted or substituted . SG of 1.003 or less is very dilute. Urine with a pH <3 or >11 has been adulterated and is unsuitable for testing by our current method. Urine with pH between 3 and 4 OR 10 and 11 may have been adulterated . FENTANYL CONFIRMATIO N NOT SENT BY LAB. Ordering Provider: RACHEL HANNAH Report Released Date/Time: Aug 21, 2024 02:45 PM Reporting Lab: [address] [address] Performing Lab: [address] [address] [facility] DRUGS OF ABUSE OPIATES [PRESENCE] IN URINE BY SCREEN METHOD NONE-DET ECTED - 300 10/17 Specimen Type: URINE Comment: Urine with Cr <5 is diluted or substituted . Cr between 5 and 20 is very dilute. Urine with SG of 1.001 or less is diluted or substituted . SG of 1.003 or less is very dilute. Urine with a pH <3 or >11 has been adulterated and is unsuitable for testing by our current method. Urine with pH between 3 and 4 OR 10 and 11 may have been adulterated . FENTANYL CONFIRMATIO N NOT SENT BY LAB. Ordering Provider: RACHEL HANNAH Report Released Date/Time: Aug 21, 2024 02:45 PM Reporting Lab: [address] [address] Performing Lab: [address] [address] [facility] DRUGS OF ABUSE CANNABINOI DS [PRESENCE] IN URINE BY SCREEN METHOD POSITIVE - 50 10/17 Specimen Type: URINE Comment: Urine with Cr <5 is diluted or substituted . Cr between 5 and 20 is very dilute. Urine with SG of 1.001 or less is diluted or substituted . SG of 1.003 or less is very dilute. Urine with a pH <3 or >11 has been adulterated and is unsuitable for testing by our current method. Urine with pH between 3 and 4 OR 10 and 11 may have been adulterated . FENTANYL CONFIRMATIO N NOT SENT BY LAB. Ordering Provider: RACHEL HANNAH Report Released Date/Time: Aug 21, 2024 02:45 PM Reporting Lab: [facility] [place] [address] Performing Lab: [facility] [address] [facility] DRUGS OF ABUSE BARBITURAT ES [PRESENCE] IN URINE BY SCREEN METHOD NONE-DET ECTED - 200 10/17 Specimen Type: URINE Comment: Urine with Cr <5 is diluted or substituted . Cr between 5 and 20 is very dilute. Urine with SG of 1.001 or less is diluted or substituted . SG of 1.003 or less is very dilute. Urine with a pH <3 or >11 has been adulterated and is unsuitable for testing by our current method. Urine with pH between 3 and 4 OR 10 and 11 may have been adulterated . FENTANYL CONFIRMATIO N NOT SENT BY LAB. Ordering Provider: RACHEL HANNAH Report Released Date/Time: Aug 21, 2024 02:45 PM Reporting Lab: [facility] [address] Performing Lab: [facility] [address] [facility] DRUGS OF ABUSE OXYCODONE [PRESENCE] IN URINE BY SCREEN METHOD NONE-DET ECTED - 100 10/17 Specimen Type: URINE Comment: Urine with Cr <5 is diluted or substituted . Cr between 5 and 20 is very dilute. Urine with SG of 1.001 or less is diluted or substituted . SG of 1.003 or less is very dilute. Urine with a pH <3 or >11 has been adulterated and is unsuitable for testing by our current method. Urine with pH between 3 and 4 OR 10 and 11 may have been adulterated . FENTANYL CONFIRMATIO N NOT SENT BY LAB. Ordering Provider: RACHEL HANNAH Report Released Date/Time: Aug 21, 2024 02:45 PM Reporting Lab: [facility] [address] Performing Lab: [address] [address] [facility] DRUGS OF ABUSE BUPRENORPH INE [PRESENCE] IN URINE POSITIVE 10/17 Specimen Type: URINE Comment: Urine with Cr <5 is diluted or substituted . Cr between 5 and 20 is very dilute. Urine with SG of 1.001 or less is diluted or substituted . SG of 1.003 or less is very dilute. Urine with a pH <3 or >11 has been adulterated and is unsuitable for testing by our current method. Urine with pH between 3 and 4 OR 10 and 11 may have been adulterated . FENTANYL CONFIRMATIO N NOT SENT BY LAB. Ordering Provider: RACHEL HANNAH Report Released Date/Time: Aug 21, 2024 02:45 PM Reporting Lab: [address] [address] Performing Lab: [address] [address] [facility] DRUGS OF ABUSE ETHANOL [MASS/VOLU ME] IN URINE NONE-DET ECTEDmg/ dL - 10 10/17 Specimen Type: URINE Comment: Urine with Cr <5 is diluted or substituted . Cr between 5 and 20 is very dilute. Urine with SG of 1.001 or less is diluted or substituted . SG of 1.003 or less is very dilute. Urine with a pH <3 or >11 has been adulterated and is unsuitable for testing by our current method. Urine with pH between 3 and 4 OR 10 and 11 may have been adulterated . FENTANYL CONFIRMATIO N NOT SENT BY LAB. Ordering Provider: RACHEL HANNAH Report Released Date/Time: Aug 21, 2024 02:45 PM Reporting Lab: [address] [address] Performing Lab: [address] [address] [facility] DRUGS OF ABUSE FENTANYL [PRESENCE] IN URINE BY SCREEN METHOD NONE-DET ECTEDng/ mL 10/17 Specimen Type: URINE Comment: Urine with Cr <5 is diluted or substituted . Cr between 5 and 20 is very dilute. Urine with SG of 1.001 or less is diluted or substituted . SG of 1.003 or less is very dilute. Urine with a pH <3 or >11 has been adulterated and is unsuitable for testing by our current method. Urine with pH between 3 and 4 OR 10 and 11 may have been adulterated . FENTANYL CONFIRMATIO N NOT SENT BY LAB. Ordering Provider: RACHEL HANNAH Report Released Date/Time: Aug 21, 2024 02:45 PM Reporting Lab: [address] [address] Performing Lab: [address] [address] [facility] DRUGS OF ABUSE PH OF URINE 5.6 [pH] 4 - 10 10/17 Specimen Type: URINE Comment: Urine with Cr <5 is diluted or substituted . Cr between 5 and 20 is very dilute. Urine with SG of 1.001 or less is diluted or substituted . SG of 1.003 or less is very dilute. Urine with a pH <3 or >11 has been adulterated and is unsuitable for testing by our current method. Urine with pH between 3 and 4 OR 10 and 11 may have been adulterated . FENTANYL CONFIRMATIO N NOT SENT BY LAB. Ordering Provider: RACHEL HANNAH Report Released Date/Time: Aug 21, 2024 02:45 PM Reporting Lab: [address] [address] Performing Lab: [address] [address] [facility] DRUGS OF ABUSE CREATININE [MASS/VOLU ME] IN URINE 280.38 mg/dL 10/17 Specimen Type: URINE Comment: Urine with Cr <5 is diluted or substituted . Cr between 5 and 20 is very dilute. Urine with SG of 1.001 or less is diluted or substituted . SG of 1.003 or less is very dilute. Urine with a pH <3 or >11 has been adulterated and is unsuitable for testing by our current method. Urine with pH between 3 and 4 OR 10 and 11 may have been adulterated . FENTANYL CONFIRMATIO N NOT SENT BY LAB. Ordering Provider: RACHEL HANNAH Report Released Date/Time: Aug 21, 2024 02:45 PM Reporting Lab: [address] [address] Performing Lab: [address] [address] [facility] DRUGS OF ABUSE SPECIFIC GRAVITY OF URINE 1.022 1.003 - 1.020 10/17 H Specimen Type: URINE Comment: Urine with Cr <5 is diluted or substituted . Cr between 5 and 20 is very dilute. Urine with SG of 1.001 or less is diluted or substituted . SG of 1.003 or less is very dilute. Urine with a pH <3 or >11 has been adulterated and is unsuitable for testing by our current method. Urine with pH between 3 and 4 OR 10 and 11 may have been adulterated . FENTANYL CONFIRMATIO N NOT SENT BY LAB. Ordering Provider: RACHEL HANNAH Report Released Date/Time: Aug 21, 2024 02:45 PM Reporting Lab: [address] [address] Performing Lab: [address] [address] [facility] DRUGS OF ABUSE AMPHETAMIN ES [PRESENCE] IN URINE NONE-DET ECTED - 1000 09/19 Specimen Type: URINE Comment: Urine with Cr <5 is diluted or substituted . Cr between 5 and 20 is very dilute. Urine with SG of 1.001 or less is diluted or substituted . SG of 1.003 or less is very dilute. Urine with a pH <3 or >11 has been adulterated and is unsuitable for testing by our current method. Urine with pH between 3 and 4 OR 10 and 11 may have been adulterated . FENTANYL CONFIRMATIO N NOT SENT BY LAB. Ordering Provider: RACHEL HANNAH Report Released Date/Time: Aug 21, 2024 02:45 PM Reporting Lab: [address] [address] Performing Lab: [address] [address] [facility] DRUGS OF ABUSE BENZODIAZE PINES [PRESENCE] IN URINE BY SCREEN METHOD NONE-DET ECTED - 200 09/19 Specimen Type: URINE Comment: Urine with Cr <5 is diluted or substituted . Cr between 5 and 20 is very dilute. Urine with SG of 1.001 or less is diluted or substituted . SG of 1.003 or less is very dilute. Urine with a pH <3 or >11 has been adulterated and is unsuitable for testing by our current method. Urine with pH between 3 and 4 OR 10 and 11 may have been adulterated . FENTANYL CONFIRMATIO N NOT SENT BY LAB. Ordering Provider: RACHEL HANNAH Report Released Date/Time: Aug 21, 2024 02:45 PM Reporting Lab: [address] [address] Performing Lab: [address] [address] [facility] DRUGS OF ABUSE COCAINE [PRESENCE] IN URINE BY SCREEN METHOD NONE-DET ECTED - 300 09/19 Specimen Type: URINE Comment: Urine with Cr <5 is diluted or substituted . Cr between 5 and 20 is very dilute. Urine with SG of 1.001 or less is diluted or substituted . SG of 1.003 or less is very dilute. Urine with a pH <3 or >11 has been adulterated and is unsuitable for testing by our current method. Urine with pH between 3 and 4 OR 10 and 11 may have been adulterated . FENTANYL CONFIRMATIO N NOT SENT BY LAB. Ordering Provider: RACHEL HANNAH Report Released Date/Time: Aug 21, 2024 02:45 PM Reporting Lab: [facility] [address] Performing Lab: [address] [address] [facility] DRUGS OF ABUSE OPIATES [PRESENCE] IN URINE BY SCREEN METHOD NONE-DET ECTED - 300 09/19 Specimen Type: URINE Comment: Urine with Cr <5 is diluted or substituted . Cr between 5 and 20 is very dilute. Urine with SG of 1.001 or less is diluted or substituted . SG of 1.003 or less is very dilute. Urine with a pH <3 or >11 has been adulterated and is unsuitable for testing by our current method. Urine with pH between 3 and 4 OR 10 and 11 may have been adulterated . FENTANYL CONFIRMATIO N NOT SENT BY LAB. Ordering Provider: RACHEL HANNAH Report Released Date/Time: Aug 21, 2024 02:45 PM Reporting Lab: [address] [address] Performing Lab: [address] [address] [facility] DRUGS OF ABUSE CANNABINOI DS [PRESENCE] IN URINE BY SCREEN METHOD POSITIVE - 50 09/19 Specimen Type: URINE Comment: Urine with Cr <5 is diluted or substituted . Cr between 5 and 20 is very dilute. Urine with SG of 1.001 or less is diluted or substituted . SG of 1.003 or less is very dilute. Urine with a pH <3 or >11 has been adulterated and is unsuitable for testing by our current method. Urine with pH between 3 and 4 OR 10 and 11 may have been adulterated . FENTANYL CONFIRMATIO N NOT SENT BY LAB. Ordering Provider: RACHEL HANNAH Report Released Date/Time: Aug 21, 2024 02:45 PM Reporting Lab: [address] [address] Performing Lab: [address] [address] [facility] DRUGS OF ABUSE BARBITURAT ES [PRESENCE] IN URINE BY SCREEN METHOD NONE-DET ECTED - 200 09/19 Specimen Type: URINE Comment: Urine with Cr <5 is diluted or substituted . Cr between 5 and 20 is very dilute. Urine with SG of 1.001 or less is diluted or substituted . SG of 1.003 or less is very dilute. Urine with a pH <3 or >11 has been adulterated and is unsuitable for testing by our current method. Urine with pH between 3 and 4 OR 10 and 11 may have been adulterated . FENTANYL CONFIRMATIO N NOT SENT BY LAB. Ordering Provider: RACHEL HANNAH Report Released Date/Time: Aug 21, 2024 02:45 PM Reporting Lab: [address] [address] Performing Lab: [address] [address] [facility] DRUGS OF ABUSE OXYCODONE [PRESENCE] IN URINE BY SCREEN METHOD NONE-DET ECTED - 100 09/19 Specimen Type: URINE Comment: Urine with Cr <5 is diluted or substituted . Cr between 5 and 20 is very dilute. Urine with SG of 1.001 or less is diluted or substituted . SG of 1.003 or less is very dilute. Urine with a pH <3 or >11 has been adulterated and is unsuitable for testing by our current method. Urine with pH between 3 and 4 OR 10 and 11 may have been adulterated . FENTANYL CONFIRMATIO N NOT SENT BY LAB. Ordering Provider: RACHEL HANNAH Report Released Date/Time: Aug 21, 2024 02:45 PM Reporting Lab: [facility] [address] Per[facility]: [facility] [address] [facility] DRUGS OF ABUSE BUPRENORPH INE [PRESENCE] IN URINE POSITIVE 09/19 Specimen Type: URINE Comment: Urine with Cr <5 is diluted or substituted . Cr between 5 and 20 is very dilute. Urine with SG of 1.001 or less is diluted or substituted . SG of 1.003 or less is very dilute. Urine with a pH <3 or >11 has been adulterated and is unsuitable for testing by our current method. Urine with pH between 3 and 4 OR 10 and 11 may have been adulterated . FENTANYL CONFIRMATIO N NOT SENT BY LAB. Ordering Provider: RACHEL HANNAH Report Released Date/Time: Aug 21, 2024 02:45 PM Reporting Lab: [facility] [address] Performing Lab: [address] [address] [facility] DRUGS OF ABUSE ETHANOL [MASS/VOLU ME] IN URINE NONE-DET ECTEDmg/ dL - 10 09/19 Specimen Type: URINE Comment: Urine with Cr <5 is diluted or substituted . Cr between 5 and 20 is very dilute. Urine with SG of 1.001 or less is diluted or substituted . SG of 1.003 or less is very dilute. Urine with a pH <3 or >11 has been adulterated and is unsuitable for testing by our current method. Urine with pH between 3 and 4 OR 10 and 11 may have been adulterated . FENTANYL CONFIRMATIO N NOT SENT BY LAB. Ordering Provider: RACHEL HANNAH Report Released Date/Time: Aug 21, 2024 02:45 PM Reporting Lab: [address] [address] Performing Lab: [address] [address] [facility] DRUGS OF ABUSE FENTANYL [PRESENCE] IN URINE BY SCREEN METHOD NONE-DET ECTEDng/ mL 09/19 Specimen Type: URINE Comment: Urine with Cr <5 is diluted or substituted . Cr between 5 and 20 is very dilute. Urine with SG of 1.001 or less is diluted or substituted . SG of 1.003 or less is very dilute. Urine with a pH <3 or >11 has been adulterated and is unsuitable for testing by our current method. Urine with pH between 3 and 4 OR 10 and 11 may have been adulterated . FENTANYL CONFIRMATIO N NOT SENT BY LAB. Ordering Provider: RACHEL HANNAH Report Released Date/Time: Aug 21, 2024 02:45 PM Reporting Lab: [address] [address] Performing Lab: [address] [address] [facility] DRUGS OF ABUSE PH OF URINE 5.5 [pH] 4 - 10 09/19 Specimen Type: URINE Comment: Urine with Cr <5 is diluted or substituted . Cr between 5 and 20 is very dilute. Urine with SG of 1.001 or less is diluted or substituted . SG of 1.003 or less is very dilute. Urine with a pH <3 or >11 has been adulterated and is unsuitable for testing by our current method. Urine with pH between 3 and 4 OR 10 and 11 may have been adulterated . FENTANYL CONFIRMATIO N NOT SENT BY LAB. Ordering Provider: RACHEL HANNAH Report Released Date/Time: Aug 21, 2024 02:45 PM Reporting Lab: [address] [address] Performing Lab: [address] [address] [facility] DRUGS OF ABUSE CREATININE [MASS/VOLU ME] IN URINE 357.31 mg/dL 09/19 Specimen Type: URINE Comment: Urine with Cr <5 is diluted or substituted . Cr between 5 and 20 is very dilute. Urine with SG of 1.001 or less is diluted or substituted . SG of 1.003 or less is very dilute. Urine with a pH <3 or >11 has been adulterated and is unsuitable for testing by our current method. Urine with pH between 3 and 4 OR 10 and 11 may have been adulterated . FENTANYL CONFIRMATIO N NOT SENT BY LAB. Ordering Provider: RACHEL HANNAH Report Released Date/Time: Aug 21, 2024 02:45 PM Reporting Lab: [address] [address] Performing Lab: [address] [address] [facility] DRUGS OF ABUSE SPECIFIC GRAVITY OF URINE 1.024 1.003 - 1.020 09/19 H Specimen Type: URINE Comment: Urine with Cr <5 is diluted or substituted . Cr between 5 and 20 is very dilute. Urine with SG of 1.001 or less is diluted or substituted . SG of 1.003 or less is very dilute. Urine with a pH <3 or >11 has been adulterated and is unsuitable for testing by our current method. Urine with pH between 3 and 4 OR 10 and 11 may have been adulterated . FENTANYL CONFIRMATIO N NOT SENT BY LAB. Ordering Provider: RACHEL HANNAH Report Released Date/Time: Aug 21, 2024 02:45 PM Reporting Lab: [facility] [address] Performing Lab: [facility] [address] [facility] DRUGS OF ABUSE AMPHETAMIN ES [PRESENCE] IN URINE NONE-DET ECTED - 1000 06/26 Specimen Type: URINE Comment: Urine with Cr <5 is diluted or substituted . Cr between 5 and 20 is very dilute. Urine with SG of 1.001 or less is diluted or substituted . SG of 1.003 or less is very dilute. Urine with a pH <3 or >11 has been adulterated and is unsuitable for testing by our current method. Urine with pH between 3 and 4 OR 10 and 11 may have been adulterated . FENTANYL CONFIRMATIO N NOT SENT BY LAB. Ordering Provider: RACHEL HANNAH Report Released Date/Time: Mar 08, 2024 02:45 PM Reporting Lab: [facility] [address] [address] Performing Lab: [facility] [address] [facility] DRUGS OF ABUSE BENZODIAZE PINES [PRESENCE] IN URINE BY SCREEN METHOD NONE-DET ECTED - 200 06/26 Specimen Type: URINE Comment: Urine with Cr <5 is diluted or substituted . Cr between 5 and 20 is very dilute. Urine with SG of 1.001 or less is diluted or substituted . SG of 1.003 or less is very dilute. Urine with a pH <3 or >11 has been adulterated and is unsuitable for testing by our current method. Urine with pH between 3 and 4 OR 10 and 11 may have been adulterated . FENTANYL CONFIRMATIO N NOT SENT BY LAB. Ordering Provider: RACHEL HANNAH Report Released Date/Time: Mar 08, 2024 02:45 PM Reporting Lab: [address] [address] Performing Lab: [address] [address] [facility] DRUGS OF ABUSE COCAINE [PRESENCE] IN URINE BY SCREEN METHOD NONE-DET ECTED - 300 06/26 Specimen Type: URINE Comment: Urine with Cr <5 is diluted or substituted . Cr between 5 and 20 is very dilute. Urine with SG of 1.001 or less is diluted or substituted . SG of 1.003 or less is very dilute. Urine with a pH <3 or >11 has been adulterated and is unsuitable for testing by our current method. Urine with pH between 3 and 4 OR 10 and 11 may have been adulterated . FENTANYL CONFIRMATIO N NOT SENT BY LAB. Ordering Provider: RACHEL HANNAH Report Released Date/Time: Mar 08, 2024 02:45 PM Reporting Lab: [address] [address] Performing Lab: [address] [address] [facility] DRUGS OF ABUSE OPIATES [PRESENCE] IN URINE BY SCREEN METHOD NONE-DET ECTED - 300 06/26 Specimen Type: URINE Comment: Urine with Cr <5 is diluted or substituted . Cr between 5 and 20 is very dilute. Urine with SG of 1.001 or less is diluted or substituted . SG of 1.003 or less is very dilute. Urine with a pH <3 or >11 has been adulterated and is unsuitable for testing by our current method. Urine with pH between 3 and 4 OR 10 and 11 may have been adulterated . FENTANYL CONFIRMATIO N NOT SENT BY LAB. Ordering Provider: RACHEL HANNAH Report Released Date/Time: Mar 08, 2024 02:45 PM Reporting Lab: [address] [address] Performing Lab: [address] [address] [facility] DRUGS OF ABUSE CANNABINOI DS [PRESENCE] IN URINE BY SCREEN METHOD POSITIVE - 50 06/26 HH Specimen Type: URINE Comment: Urine with Cr <5 is diluted or substituted . Cr between 5 and 20 is very dilute. Urine with SG of 1.001 or less is diluted or substituted . SG of 1.003 or less is very dilute. Urine with a pH <3 or >11 has been adulterated and is unsuitable for testing by our current method. Urine with pH between 3 and 4 OR 10 and 11 may have been adulterated . FENTANYL CONFIRMATIO N NOT SENT BY LAB. Ordering Provider: RACHEL HANNAH Report Released Date/Time: Mar 08, 2024 02:45 PM Reporting Lab: [address] [address] Performing Lab: [address] [address] [facility] DRUGS OF ABUSE BARBITURAT ES [PRESENCE] IN URINE BY SCREEN METHOD NONE-DET ECTED - 200 06/26 Specimen Type: URINE Comment: Urine with Cr <5 is diluted or substituted . Cr between 5 and 20 is very dilute. Urine with SG of 1.001 or less is diluted or substituted . SG of 1.003 or less is very dilute. Urine with a pH <3 or >11 has been adulterated and is unsuitable for testing by our current method. Urine with pH between 3 and 4 OR 10 and 11 may have been adulterated . FENTANYL CONFIRMATIO N NOT SENT BY LAB. Ordering Provider: RACHEL HANNAH Report Released Date/Time: Mar 08, 2024 02:45 PM Reporting Lab: [address] [address] Performing Lab: [address] [address] [facility] DRUGS OF ABUSE OXYCODONE [PRESENCE] IN URINE BY SCREEN METHOD NONE-DET ECTED - 100 06/26 Specimen Type: URINE Comment: Urine with Cr <5 is diluted or substituted . Cr between 5 and 20 is very dilute. Urine with SG of 1.001 or less is diluted or substituted . SG of 1.003 or less is very dilute. Urine with a pH <3 or >11 has been adulterated and is unsuitable for testing by our current method. Urine with pH between 3 and 4 OR 10 and 11 may have been adulterated . FENTANYL CONFIRMATIO N NOT SENT BY LAB. Ordering Provider: RACHEL HANNAH Report Released Date/Time: Mar 08, 2024 02:45 PM Reporting Lab: [address] [address] Performing Lab: [address] [address] [facility] DRUGS OF ABUSE BUPRENORPH INE [PRESENCE] IN URINE POSITIVE 06/26 HH Specimen Type: URINE Comment: Urine with Cr <5 is diluted or substituted . Cr between 5 and 20 is very dilute. Urine with SG of 1.001 or less is diluted or substituted . SG of 1.003 or less is very dilute. Urine with a pH <3 or >11 has been adulterated and is unsuitable for testing by our current method. Urine with pH between 3 and 4 OR 10 and 11 may have been adulterated . FENTANYL CONFIRMATIO N NOT SENT BY LAB. Ordering Provider: RACHEL HANNAH Report Released Date/Time: Mar 08, 2024 02:45 PM Reporting Lab: [address] [address] Performing Lab: [address] [address] [facility] DRUGS OF ABUSE ETHANOL [MASS/VOLU ME] IN URINE NONE-DET ECTEDmg/ dL - 10 06/26 Specimen Type: URINE Comment: Urine with Cr <5 is diluted or substituted . Cr between 5 and 20 is very dilute. Urine with SG of 1.001 or less is diluted or substituted . SG of 1.003 or less is very dilute. Urine with a pH <3 or >11 has been adulterated and is unsuitable for testing by our current method. Urine with pH between 3 and 4 OR 10 and 11 may have been adulterated . FENTANYL CONFIRMATIO N NOT SENT BY LAB. Ordering Provider: RACHEL HANNAH Report Released Date/Time: Mar 08, 2024 02:45 PM Reporting Lab: [address] [address] Performing Lab: [facility] [address] [address] [facility] DRUGS OF ABUSE FENTANYL [PRESENCE] IN URINE BY SCREEN METHOD NONE-DET ECTEDng/ mL 06/26 Specimen Type: URINE Comment: Urine with Cr <5 is diluted or substituted . Cr between 5 and 20 is very dilute. Urine with SG of 1.001 or less is diluted or substituted . SG of 1.003 or less is very dilute. Urine with a pH <3 or >11 has been adulterated and is unsuitable for testing by our current method. Urine with pH between 3 and 4 OR 10 and 11 may have been adulterated . FENTANYL CONFIRMATIO N NOT SENT BY LAB. Ordering Provider: RACHEL HANNAH Report Released Date/Time: Mar 08, 2024 02:45 PM Reporting Lab: [address] [address] Performing Lab: [address] [address] [facility] DRUGS OF ABUSE PH OF URINE 7.1 [pH] 4 - 10 06/26 Specimen Type: URINE Comment: Urine with Cr <5 is diluted or substituted . Cr between 5 and 20 is very dilute. Urine with SG of 1.001 or less is diluted or substituted . SG of 1.003 or less is very dilute. Urine with a pH <3 or >11 has been adulterated and is unsuitable for testing by our current method. Urine with pH between 3 and 4 OR 10 and 11 may have been adulterated . FENTANYL CONFIRMATIO N NOT SENT BY LAB. Ordering Provider: RACHEL HANNAH Report Released Date/Time: Mar 08, 2024 02:45 PM Reporting Lab: [address] [address] Performing Lab: [address] [address] [facility] DRUGS OF ABUSE CREATININE [MASS/VOLU ME] IN URINE 74.76 mg/dL 06/26 Specimen Type: URINE Comment: Urine with Cr <5 is diluted or substituted . Cr between 5 and 20 is very dilute. Urine with SG of 1.001 or less is diluted or substituted . SG of 1.003 or less is very dilute. Urine with a pH <3 or >11 has been adulterated and is unsuitable for testing by our current method. Urine with pH between 3 and 4 OR 10 and 11 may have been adulterated . FENTANYL CONFIRMATIO N NOT SENT BY LAB. Ordering Provider: RACHEL HANNAH Report Released Date/Time: Mar 08, 2024 02:45 PM Reporting Lab: [facility] [place] [address] [address] Performing Lab: [facility] [address] [address] [facility] DRUGS OF ABUSE SPECIFIC GRAVITY OF URINE 1.011 1.003 - 1.020 06/26 Specimen Type: URINE Comment: Urine with Cr <5 is diluted or substituted . Cr between 5 and 20 is very dilute. Urine with SG of 1.001 or less is diluted or substituted . SG of 1.003 or less is very dilute. Urine with a pH <3 or >11 has been adulterated and is unsuitable for testing by our current method. Urine with pH between 3 and 4 OR 10 and 11 may have been adulterated . FENTANYL CONFIRMATIO N NOT SENT BY LAB. Ordering Provider: RACHEL HANNAH Report Released Date/Time: Mar 08, 2024 02:45 PM Reporting Lab: [facility] [place] [address] [address] Performing Lab: [facility] [place] [address] [address] [facility] TSH THYROTROPI N [UNITS/VOL UME] IN SERUM OR PLASMA 0.55 u[IU]/mL 0.35 - 5.00 06/13 Specimen Type: SERUM No comment entered. Ordering Provider: SHELLEY SAAVEDRA Report Released Date/Time: Jun 08, 2024 02:54 PM Reporting Lab: [facility] [place] [address] [address] Performing Lab: [facility] [address] [address] [facility] [place] [facility] LIPID PANEL FASTING CHOLESTERO L [MASS/VOLU ME] IN SERUM OR PLASMA 200 mg/dL 06/13 H Specimen Type: SERUM No comment entered. Ordering Provider: SHELLEY SAAVEDRA Report Released Date/Time: Jun 08, 2024 02:54 PM Reporting Lab: [facility] [place] [address] [address] Performing Lab: [facility] [place] [address] [address] [facility] [facility] LIPID PANEL FASTING TRIGLYCERI DE [MASS/VOLU ME] IN SERUM OR PLASMA 86 mg/dL 0 - 150 06/13 Specimen Type: SERUM No comment entered. Ordering Provider: SHELLEY SAAVEDRA Report Released Date/Time: Jun 08, 2024 02:54 PM Reporting Lab: [facility] [place] [address] [address] Performing Lab: [facility] [place] [address] [address] [facility] [facility] LIPID PANEL FASTING CHOLESTERO L IN LDL [MASS/VOLU ME] IN SERUM OR PLASMA BY CALCULATIO N 118 mg/dL 0 - 129 06/13 Specimen Type: SERUM No comment entered. Ordering Provider: SHELLEY SAAVEDRA Report Released Date/Time: Jun 08, 2024 02:54 PM Reporting Lab: [facility] [place] [address] [address] Performing Lab: [facility] [place] [address] [address] [facility] [place] [facility] LIPID PANEL FASTING CHOLESTERO L.TOTAL/CH OLESTEROL IN HDL [MASS RATIO] IN SERUM OR PLASMA 3.1 06/13 Specimen Type: SERUM No comment entered. Ordering Provider: SHELLEY SAAVEDRA Report Released Date/Time: Jun 08, 2024 02:54 PM Reporting Lab: [facility] [place] [address] [address] Performing Lab: [facility] [place] [facility] [address] [facility] [address] [facility] [place] LIPID PANEL FASTING CHOLESTERO L IN HDL [MASS/VOLU ME] IN SERUM OR PLASMA 65 mg/dL 40 - 60 06/13 H Specimen Type: SERUM No comment entered. Ordering Provider: SHELLEY SAAVEDRA Report Released Date/Time: Jun 08, 2024 02:54 PM Reporting Lab: [facility] [place] [facility] [address] [facility] [address] Performing Lab: [facility] [place] [facility] [address] [facility] [address] [facility] [place] [facility] Vital Signs Combined list of inpatient and outpatient Vital Signs from Department of Defense and Veterans Affairs, ranging from 12 months to all on record, depending upon the facility. Vital Sign Value Date Comments Source SYSTOLIC BLOOD PRESSURE 131 06/12/20 24 14:02:52 [facility] [place] [facility] DIASTOLIC BLOOD PRESSURE 87 024 14:02:52 [facility] [place] [facility] PULSE OXIMETRY 98 06/12/2024 14:02:52 [facility] [place] [facility] WEIGHT 173.6 06/12/2024 14:02:52 [facility] [place] [facility] BMI 28 kg/m2 06/12/2024 14:02:52 [facility] [place] [facility] PAIN 0 06/12/2024 14[facility]02:52 [facility] [place] [facility] HEIGHT 66 06/12/2024 14:02:52 [facility] [place] [facility] TEMPERATURE 97.5 06/12/2024 14:02:52 [facility] [place] [facility] PULSE 90 06/12/2024 14:02:52 [facility] [place] [facility] RESPIRATION 16 06/12/2024 14:02:52 [facility] [place] [facility] Encounters Combined list of: 1) Encounters from Department of Veterans Affairs facilities going backup to the last 18 months, not all VA inpatient encounters are included; 2) Encounters from the Department of Defense facilities going backup to 280 months. Location Location Details Encounter Type Encounter Number Reason For Visit Attending Provider ADM Date DC Date Status Disposition Source [facility](FD [facility] Primary Care) OUTPATIENT [id number] FOLLOW UP ON LABS NADEGE WILCOX 01/21 Released w/o Limitations [facility](F D [facility] Primary Care) [address] [place] [address](FD SRP Primary Care) OUTPATIENT [id number] LAB RESULTS NADEGE WILCOX 02/03 Released w/o Limitations [facility]) [facility] Primary [facility]) TELE CONSULT [id number] lab results NADEGE WILCOX 02/04 [facility]) [facility](FD [facility] Primary Care) OUTPATIENT [id number] NADEGE WILCOX 02/04 Released w/o Limitations [facility](F D [facility]) [facility] OUT[facility]IENT [id number] 11/20 Released with Work/Duty Limitations [facility] OFF[facility] O/P EST HI 40 MIN [id number] Diagnos is: ICD-10- CM F11.20 Opioid depende nce, uncompl icated WEINER,ALA N B 10/24 [facility] [place] [facility] [place] [place] EST HI 40 MIN [id number] Diagnos is: ICD-10- CM F11.20 Opioid depende nce, uncompl icated WEINER,ALA N B 11/21 [facility] [place] [facility] [place] OFF[facility] [place]/P EST HI 40 MIN [id number] Diagnos is: ICD-10- CM F11.20 Opioid depende nce, uncompl icated WEINER,ALA N B 12/19 [facility] [place] [facility] [place] [place]/P EST HI 40 MIN [id number] Diagnos is: ICD-10- CM F11.20 Opioid depende nce, uncompl icated WEINER,ALA N B 01/15 [facility] [place] [place]/P EST HI 40 MIN [id number] Diagnos is: ICD-10- CM F11.20 Opioid depende nce, uncompl icated WEINER,ALA N B 02/13 [facility] OFF[facility] O/P EST HI 40 MIN [id number] Diagnos is: ICD-10- CM F11.20 Opioid depende nce, uncompl icated WEINER,ALA N B 03/08 [facility] [place] EST HI 40 MIN [id number] Diagnos is: ICD-10- CM F11.20 Opioid depende nce, uncompl icated WEINER,ALA N B 04/05 [facility] Out[facility] Encounter [id number] 05/23 [facility] En[facility] [id number] 1.05/24 [facility] En[facility] [id number] 05/24 [facility] En[facility] [id number] [facility] [place] En[facility] [id number] [facility] [place]counter [id number] 1.05/29 [facility] Encounter [id number] 1.05/30 [facility] En[facility] [id number] 1.05/30 [facility] Encounter [id number] 1.05/30 [facility] [id number] 1.05/31 [facility] OFF[place] HI 40 MIN [id number] Diagnos is: ICD-10- CM F11.20 Opioid depende nce, uncompl icated CHASE HANNAH 05/31 [facility] En[facility] [id number] 06/01 [facility] HC PRO PHONE CALL 5-10 MIN [id number] Diagnos is: ICD-10- CM F43.12 Post-tr aumatic stress disorde r, chronic Eloisa CARLSON 06/01 [facility] Encounter [id number] 06/04 [facility] Encounter [id number] 06/05 [facility] [place] [facility] [place] [facility] Outpatient Encounter [id number] [facility] [place] [facility] [place] OFF[place] O/P EST LOW 20 MIN [id number] Diagnos is: ICD-10- CM R41.9 Unsp symptom s and signs w cogniti ve functio ns and awarene ss ALINA SAAVEDRA LEONORA 06/12 [place] [facility] W PT 45 MINUTES [id number] Diagnos is: ICD-10- CM F23 Brief psychot ic disorde r YOVANYJEANMELEJ ILL M 06/13 [place] [facility] W PT 30 MINUTES [id number] Diagnos is: ICD-10- CM F23 Brief psychot ic disorde r JERADJ ILL M 06/21 [place] [facility] [place] [facility] Outpatient Encounter [id number] 1.06/25 [facility] [place] [facility] [place] [facility] OFFICE O/P EST HI 40 MIN [id number] Diagnos is: ICD-10- CM F11.20 Opioid depende nce, uncompl icated CHASE HANNAH 06/25 [facility] [place] [facility] [place] [facility] Outpatient Encounter [id number] 06/27 [facility] [place] [facility]OP CONSLTJ NEW/EST HI 55 [id number] Diagnos is: ICD-10- CM F43.12 Post-tr aumatic stress disorde r, chronic MAGDALENA,SALBDAOR T 07/13 [place] [facility] [place] [facility] Outpatient Encounter [id number] 07/13 [facility] [place] [facility] En[facility] [id number] SALBADOR NICHOLS 07/13 [place] [facility] [place] PSYCH DIAGNOSTIC EVALUATION [id number] Diagnos is: ICD-10- CM F43.12 Post-tr aumatic stress disorde r, chronic HUSSEIN TAPIA 07/19 [place] [facility] [place] [facility] Outpatient Encounter [id number] 1. HUSSEIN TAPIA 07/19 [facility] [place] [facility] [place] [facility] Outpatient [facility]counter [id number] 07/19 [facility] [place] [facility] [facility] [place] [facility] OFFICE O/P EST HI 40 MIN [id number] Diagnos is: ICD-10- CM F11.20 Opioid depende nce, uncompl icated [place],ALA N B 07/24 [facility] [place] [facility] [place] [facility] OFFICE O/P EST HI 40 MIN [id number] Diagnos is: ICD-10- CM F11.20 Opioid depende nce, uncompl icated LINDSEYER,ALA N B 08/21 [facility] [place] [facility] [place] [facility] OFFICE O/P EST HI 40 MIN [id number] Diagnos is: ICD-10- CM F11.20 Opioid depende nce, uncompl icated LINDSEYER,ALA N B 09/18 [facility] [place] [facility] [place] [facility] OFFICE O/P EST HI 40 MIN [id number] Diagnos is: ICD-10- CM F11.20 Opioid depende nce, uncompl icated WEINER,ALA N B 10/16 [facility] [place] [facility] [place] [facility] Outpatient Encounter [id number] 10/17 [facility] [place] [facility] [place] [facility] OFFICE O/P EST HI 40 MIN [id number] Diagnos is: ICD-10- CM F11.20 Opioid depende nce, uncompl icated WEINER,ALA N B 11/13 [facility] [place] [facility] [facility] OFFICE O/P EST HI 40 MIN [id number] Diagnos is: ICD-10- CM F11.20 Opioid depende nce, uncompl icated WEINER,ALA N B 12/12 [facility] [place] [facility] [place] [facility] OFFICE O/P EST HI 40 MIN [id number] Diagnos is: ICD-10- CM F11.20 Opioid depende nce, uncompl icated WEINER,ALA N B 01/08 [facility] [place] [facility] [place] [facility] OFFICE O/P EST HI 40 MIN [id number] Diagnos is: ICD-10- CM F11.20 Opioid depende nce, uncompl icated WEINER,ALA N B 02/05 [facility] [place] [facility] [place] [facility] OFFICE O/P EST HI 40 MIN [id number] Diagnos is: ICD-10- CM F11.20 Opioid depende nce, uncompl icated WEINER,ALA N B 03/05 [facility] [place] [facility] [place] [facility] Outpatient Encounter [id number] 04/02 [facility] [place] [facility] [place] [facility] Outpatient Encounter [id number] 04/03 [place] [facility] [place] [facility] Procedures Combined list of: 1) Procedures from Department of Veterans Affairs facilities going back up to thelast 18 months, not all VA non-surgical procedures are included; 2) All procedures from the Department of Defense facilities. Procedure Procedure Type Code Date Perfomer Comments Radha e Psychiatric Diagnostic Evaluation Comprehensive Examination Psychiatric Diagnostic Evaluation Comprehensive Examination [id number] 02/11/2006 MATILDA CHUNG [facility] Psychiatric Diagnostic Evaluation Comprehensive Examination Interactive Psychiatric Diagnostic Evaluation Comprehensive Examination Interactive [id number] 01/19/2006 MAHI HERNANDES [facility] PSYCHIATRIC DIAGNOSTIC INTERVIEW EXAMINATION 01/19/2006 [facility] INTERACTIVE PSYCHIATRIC DIAGNOSTIC INTERVIEW EXAMINATION USING PLAY EQUIPMENT, PHYSICAL DEVICES, TERMITE HELPER, OR OTHER MECHANISMS OF COMMUNICATION 01/19/2006 [facility] SCREENING TEST, PURE TONE, AIR ONLY 06/11/2005 [facility] COLLECTION OF VENOUS BLOOD BY VENIPUNCTURE 06/11/2005 [facility] HEPATITIS A VACCINE (HEPA), ADULT DOSAGE, FOR INTRAMUSCULAR USE 06/11/2005 [facility] SKIN TEST; TUBERCULOSIS, INTRADERMAL 06/09/2005 [facility] SUPP &MATERIAL (EXCEPT SPECTACLE),PROVID,TH E PHYS/OTH QUALIFIED HEALTH PATCH 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 Social History Type Response Date Comment Source Tobacco smoking status [facility]-TOBACCO FORMER USER 06/12/2024 [facility] History of tobacco use [facility]-TO[facility]ACCO QUIT 15 YRS OR MORE 06/12/2024 [facility] History of tobacco use VA-TOBACCO FORMER USER 01/14/2023 [facility] History of tobacco use VA-TOBACCO FORMER USER 06/19/2020 [facility] History of tobacco use VA-TOBACCO QUIT 5 TO < 15 YRS 07/05/2019 [facility] [place] [facility] History of tobacco use VA-TOBACCO FORMER USER 06/21/2018 [facility] [place] [facility] History of tobacco use QUIT TOBACCO USE > 7 YEARS AGO 07/12[facility] of tobacco use QUIT TOBACCO USE > 7 YEARS AGO 08[facility]10[facility] History of tobacco use QUIT TOBACCO USE > 7 YEARS AGO 08/11/2015 [facility] [place] [facility] History of tobacco use QUIT TOBACCO USE > 7 YEARS AGO 09/10/2010 [facility] History of tobacco use QUIT TOBACCO USE 1-7 YEARS AGO 10/06/2009 2.5 years [facility] [place] [facility] History of tobacco use QUIT TOBACCO USE 1-7 YEARS AGO 09/27/2008 [facility] History of tobacco use V1-PT DECLINES TOBACCO CESSATION MEDS 05/16/2008 [facility] [place] [facility] History of tobacco use V1-PT DECLINES TOBACCO CESSATION MEDS 11/27/2007 [facility] History of tobacco use V1-PT DECLINES TOBACCO CESSATION MEDS 10/06/2007 [facility] [place] [facility] History of tobacco use CURRENT SMOKER 10/06/2007 smokes 1/2 PPD since age 20 [facility] History of tobacco use QUIT TOBACCO USE > 7 YEARS AGO 09/05/2007 quit 03/06 [facility] History of tobacco use CURRENT SMOKER 07/21/2005 1/2 PPD [facility] This section is an empty social history section. [facility] Plan of Care List of future care activities from Department of Veterans Affairs facilities. Additional future care activities may be listed in the Assessment and Plan section. Date/Time Care Activity Care Activity Detail Facili ty 04/11/2025 AMBULATORY - PSYCHIATRY AMBULATORY - PSYC [facility]
--- OUTSIDE RECORDS SUMMARY | 2025-04-03 21:38 | XMS_ITS | Clinical Summary ---
Author Organization [facility] Address [address] [address] Phone Care Team Providers Care Supervisor Electronics Processing Name Role Phone Elsie Smith MD Primary Care Provider Medications diclofenac sodium (VOLTAREN) 75 MG EC tabletIndication s:Sprain of medial collateral ligament of left knee, initial encounter Take 1 tablet (75 mg total) by mouth 2 (two) times a day. 60 tablet 04/08/2023 Active Active Problems No known active problems Social History Tobacco Use Types Packs/Day Years Used Date Smoking Tobacco: Never Assessed Education Answer Date Recorded Are you interested in more education? Not on thomas e 04/08/2023 Are you concerned about learning? Not on file 04/08/2023 No 04/08/2023 No 04/08/2023 Digital Access Answer Date Recorded No 04/08/2023 No 04/08/2023 Reliable internet access at home? Not on file 04/08/2023 Device with a working camera? Not on file Sex and Gender Information Value Date Recorded Sex Assigned at Not on file Legal Sex Male 2:00 PM EDT Gender Identity Not on file Sexual Orientation Not on file Plan of Treatment Health Maintenance Due Date Last Done Comments LIPID PANEL 1979 DEPRESSION SCREENING 1991 SMOKING Hx and SMOKELESS TOBACCO SCREENING 09/30/1992 HEPATITIS C SCREENING 09/30/1997 HIV ONE-TIME SCREENING (18-6 5 YEARS) 09/30/1997 COVID-19 VACCINE (2023-2 5 season) 2024 05/15/2021, 08/09/2020, 07/19/2020 COLOGUARD 09/30/2024 COLONOSCOPY 09/30/2024 COLORECTAL CANCER SCREENING 09/30/2024 FIT TEST 09/30/2024 FOBT 09/30/2024 SIGMOIDOSCOPY 09/30/2024 VIRTUAL COLONOSCOPY 09/30/2024 Adult Td,Tdap Booster 09/30/2027 09/29/2017 HEPATITIS A VACCINES Aged Out No long er eligible based on patient's age to complete this topic HIB VACCINES Aged Out No longer eligi ble based on patient's age to complete this topic MENINGOCOCCAL VACCINES (ACWY) Aged Out No longer eligible based on patient's age to complete this topic MENINGOCOCCAL VACCINES (B) Aged Out N o longer eligible based on patient's age to complete this topic PNEUMOCOCCAL VACCINES (0-49 years) Aged Out No longer eligible b ased on patient's age to complete this topic Medical Devices Not on file Insurance [facility] CIG PPO [facility] CIGNA PPO ([place]) [address] [place] [id number] [facility] CIGNA PPO [facility] CIGNA PPO ([place]) [address] [place] [address] [facility] CIGNA PPO [facility] CIGNA PPO Care Teams Supervisor Electronics Processing Relationship Specialty Start Date End Date Elsie Smith MD [address] [place] [id number] PCP - General Family Medicine 04/08/23 Additional Source Comments The information contained in this document represents components of the legal health record. It is not the complete legal health record.[facility]
--- NOTE | 2025-04-03 23:01 | PC.NURSE ---
pt came out of restraints at approx 1900, has been sleeping since, resp even and unlabored and adjusting himself in bed. pt woke up and was agreeable to put hospital pants on as had refused earlier. pt requested warm blankets and given. pt then requested water and given. pt then requested to use the phone, dialed 9 and no other number but started to speak. pt then asked for a number to be written down and assisted in calling. ed pct assisted and no answer. pt went back to bed now appears to be sleeping resp even and unlabored.
--- NOTE | 2025-04-03 23:31 | PC.NURSE ---
pt is restless getting in and out of bed. attempted to enter and empty room, was redirectable back to [facility]. pt then requested for a ride to be arranged for him to leave. per Dr. Boss verbal order Ativan 2mg PO ordered and given per sep. pt agreeable to take it. now resting in bed, will reassess need for additional medications.
--- NOTE | 2025-04-03 23:33 | PC.NURSE ---
Addendum entered by Gurpreet De Los Santos RN 04/03/25 23:39: tiger text order from Dr. Boss for IM Haldol 5mg. given at 2339. pt agreeable to it. continues to be restless at this time. Original Note: pt now pushing on doors looking for an exit. security called md notified.
--- NOTE | 2025-04-04 | ECG_ITS ---
Test Reason : R.O PRLONGED QT Blood Pressure : */* mmHG Vent. Rate : 82 BPM Atrial Rate : 82 BPM P-R Int : 128 ms QRS Dur : 90 ms QT Int : 364 ms P-R-T Axes : 81 63 57 degrees QTcB Int : 425 ms Normal sinus rhythm with sinus arrhythmia Normal ECG No previous ECGs available Referred By: Zana Gasca Electronically Signed By: Leroy Hernandez
--- NOTE | 2025-04-04 07:30 | PC.NURSE ---
Patient is a 44-year-old male who has not been to this facility before he was brought to emergency department for evaluation of change in mental status. The patient was brought to emergency department by EMS and police and was in restraints. Patient was not answering questions, he was not making sense, he appeared to be extremely agitated. The patient initially was placed in restraints and medicated. Father stated that a proximally 1 year prior the patient had a similar episode where he was confused and was hospitalized for 1 week in his psychiatric facility. Patients diagnosis is unknown. He states that the patient has been following up with the psychiatrist at the [facility] since the patient is a . Patient is a daily drinker. Noted to be on suboxone The father did tell me that the patient has been on Ozempic for proximally 1 year in his lost 40-50 lb. Recently he has doubled his dose of Ozempic. Patient appears to be religiously preoccupied and remains altered asking this RN what year it was. Patient noted to make frequent attempts to open the locked doors, requiring re-direction.
[2025-04-04 07:45] VITALS: BP 120/70; PULSE 89; RESP 16; TEMP 36.8; O2SAT 98
[2025-04-04 07:45] LABS: Appearance Urine Hazy; Glucose Urine UA 100 mg/dL (Negative); PH 6.5 (5.0-9.0); Specific Gravity - Urine 1.025 (1.005-1.025); UMIC TRIGGER UACC YES
[2025-04-04 07:52] LABS: Cannabinoid Screen Urine POSITIVE (Not Detect)
[2025-04-04 07:54] LABS: UACC Culture Trigger YES
--- NOTE | 2025-04-04 10:44 | MHC.EDTECH ---
Patient door testing through out the morning, has been easily rediredtable once he is pushing on door until 10:33 when patient started to slam himself into the front [place] doors. Patient threw himself into the door 3 times, at second door slam this tech pushed alarm button due to the force of the patient hitting the door. Security arrived to pod as patient was walking away from door. Patient went into room and sat on bed. Security left pod, patient again at door gently testing. This tech was able to redirect him away from door again and back to room. RN aware of patients status.
[2025-04-04 11:19] LABS: INTERNATIONAL NORM RATIO 1.0 (0.9-1.1); Prothrombin Time 11.6 SEC (10.9-12.4)
--- NOTE | 2025-04-04 14:49 | PHA.MEDREC ---
Addendum entered by Anup Jay RPh 04/04/25 14:52: MED REC REVIEWED BY [facility] Original Note: Pharmacy Consult ? Medication Reconciliation Pharmacy has completed the medication reconciliation. Utilized list from [place] to confirm med list.
[2025-04-04 16:28] VITALS: BP 126/88; PULSE 100; RESP 20; TEMP 37.1; O2SAT 98
--- NOTE | 2025-04-04 17:17 | MHC.EDTECH ---
Patient asking this tech why he is here. This tech explained again that he was sectioned to an inpatient unit and that he was unable to leave the emergency room until he was moved to a facility for inpatient treatment. Patient requested a copy of his section. This tech provided a copy, patient read the section and returned to his room.
--- NOTE | 2025-04-04 19:59 | PC.NURSE ---
Addendum entered by Kenia Quinteros RN 04/04/25 21:40: 2009-pt noted to be out of room walking around. pt asked if he could go home, updated pt on plan of care. pt walked over to exit door and attempted to open door to leave. pt redirected to room and given warm blanket per request. pt resting in room in no notable distress at this time, plan of care ongoing Original Note: assumed care for pt at 1900. pt noted to be sleeping in bed in no notable distress. symmetrical rise and fall of chest and unlabored respirations noted. plan of care ongoing
[2025-04-04 22:40] VITALS: BP 123/88; PULSE 66; RESP 18; TEMP 36.6; O2SAT 96
[2025-04-04] MEDS: OLANZapine ODT 10 MG TAB.RAPDIS TRANSLINGU (22:45)
--- NOTE | 2025-04-05 07:30 | PC.NURSE ---
Pt sleeping. chest rise noted. skin PWD. NAD.
[2025-04-05 08:37] VITALS: RESP 16
--- NOTE | 2025-04-05 08:40 | PC.NURSE ---
Pt woke. Asked for his clothes. Was told that he could not have them and began exit seeking. Pt pushed against POd doors x 1 then returned to bed. No other out bursts. Needed reorientation to place and time. Could not explain why he was here. Denies SI.
--- NOTE | 2025-04-05 08:41 | PC.NURSE ---
Pt declining offer for PO PRN meds.
--- NOTE | 2025-04-05 09:44 | PC.NURSE ---
Pt concerned about taking 12 mg suboxone today because he has not taken it since Tuesday. Provider to enter 8mg dose.
[2025-04-05 10:00] VITALS: BP 126/82; PULSE 87; RESP 18; TEMP 36.9
--- NOTE | 2025-04-05 15:34 | MHC.CARE ---
Addendum entered by Cristino Milton [facility] 04/05/25 15:42: Pt is accepted to [facility]. N2N: [phone] Original Note: Pt was accepted to [facility] for 04/05/25. Accepting is Dr. Ponce. Transport will be booked by accepting facility
[2025-04-05 15:41] VITALS: BP 126/82; PULSE 87; RESP 18; TEMP 36.9; O2SAT 98
--- NOTE | 2025-04-05 15:56 | PC.NURSE ---
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 Is glad to know he's being transferred soon. Has not been exit seeking in the last few hours.
[2025-04-05 15:59] LABS: COVID-19 Test Negative (Negative); IDNOW Serial# 55D5AD1C
--- NOTE | 2025-04-05 17:27 | MHC.EDTECH ---
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 Added to belongings in pod locker 3
[2025-04-05 17:40] VITALS: BP 126/82; PULSE 87; RESP 18; TEMP 36.9; O2SAT 98
== END 2025-04-05 17:41 ==
PROVIDERS: Emergency Medicine; Emergency Medicine Emergency Medical Services; Emergency Provider Emergency Medicine Emergency Medical Services
DX: F32.3 Major depressive disorder, single episode, severe with psychotic features (principal); F32.2 Major depressive disorder, single episode, severe without psychotic features; R45.6 Violent behavior; I49.8 Other specified cardiac arrhythmias; Z79.899 Other long term (current) drug therapy; Z51.81 Encounter for therapeutic drug level monitoring; Z11.52 Encounter for screening for COVID-19; Z03.818 Encounter for observation for suspected exposure to other biological agents ruled out; Z79.85 Long-term (current) use of injectable non-insulin antidiabetic drugs
CPT/HCPCS: 36415; 80053; 80143; 80179; 80307; 81001; 82248; 83690; 83735; 84443; 85025; 85610; 87086; 87147; 87635; 93005; 96372; 99285; J1200; J1630; J2250; S9485

== ENCOUNTER → 2025-04-04 16:29 | Outpatient (BNV) | payer OTHER, SELFPAY | PROVIDERS: Emergency Provider Emergency Medicine Emergency Medical Services; Visit Provider Internal Medicine Cardiovascular Disease | DX: Z13.6 Encounter for screening for cardiovascular disorders (principal) | CPT/HCPCS: 93010 ==